=== PATIENT | female | born 1985 | race Caucasian/White ===

== ENCOUNTER 2016-09-13 19:26 | Emergency (ER) | payer OTHER ==
[2016-09-13] MEDS ORDERED: MORPHINE 4 MG/ML 1ML SYRINGE As Ordered ONE (20:15)
[2016-09-13 20:28] LABS: BASO # 0.1 K/mm3 (0.0-0.2); BASO % 0.7 % (0.0-1.0); EOS # 0.2 K/mm3 (0.0-0.50); EOS % 2.1 % (0.0-3.0); LARGE UNSTAINED CELL # 0.2 K/mm3 (0.0-0.4); LARGE UNSTAINED CELL % 1.7 % (0.0-4.0); LYMPH # 1.3 K/mm3 (1.5-4.5); LYMPH % 15.1 % (24.0-44.0); MEAN CORPUSCULAR HEMOGLOBIN 27.3 pg (27.0-33.0); MEAN CORPUSCULAR HGB CONC 33.3 g/dl (32.0-36.5); MEAN CORPUSCULAR VOLUME 81.9 fl (80.0-96.0); MONO # 0.3 K/mm3 (0.0-0.8); MONO % 3.3 % (0.0-5.0); NEUTROPHILS # 6.8 K/mm3 (1.8-7.7); NEUTROPHILS % 77.1 % (36.0-66.0); PLATELET COUNT, AUTOMATED 290 k/mm3 (150-450); WHITE BLOOD COUNT 8.8 K/mm3 (4.0-10.0)
[2016-09-13 20:44] LABS: INR 1.03
[2016-09-13 20:52] LABS: ALBUMIN 3.9 GM/DL (3.2-5.2); ALBUMIN/GLOBULIN RATIO 1.15 (1.00-1.93); ALKALINE PHOSPHATASE 111 U/L (45-117); ALT/SGPT 38 U/L (12-78); ANION GAP 9 MEQ/L (8-16); AST/SGOT 26 U/L (15-37); BILIRUBIN,DIRECT < 0.1 MG/DL (0.0-0.2); BILIRUBIN,TOTAL 0.6 MG/DL (0.2-1.0); BLOOD UREA NITROGEN 16 MG/DL (7-18); CALCIUM LEVEL 8.8 MG/DL (8.5-10.1); CARBON DIOXIDE LEVEL 26 MEQ/L (21-32); CHLORIDE LEVEL 108 MEQ/L (98-107); CREATININE FOR GFR 0.82 MG/DL (0.55-1.02); GLOMERULAR FILTRATION RATE > 60.0 (>60); GLUCOSE, FASTING 114 MG/DL (70-105); POTASSIUM SERUM 4.3 MEQ/L (3.5-5.1); SODIUM LEVEL 143 MEQ/L (136-145); TOTAL PROTEIN 7.3 GM/DL (6.4-8.2)
[2016-09-13] MEDS ORDERED: ISOVUE-370 76% 100ML VIAL (Q9967) As Ordered ONE (21:03)
--- NOTE | 2016-09-13 21:50 | REPUSA ---
CLINICAL HISTORY: Abdominal pain. TECHNIQUE: Multiple axial, sagittal and coronal CT images were obtained through the abdomen and pelvi s after administration of intravenous contrast material. COMMENTS: The liver is of uniform attenuation without mass or defect. There is no intra or extrahepatic biliary ductal dilatation. The spleen is normal. The gallbladder is contracted. The pancreas is of normal c ontour and attenuation characteristics. There is no evidence of adrenal mass. Both kidneys demonstrate prompt and equal nephrograms. The kidneys are normal in size, shape and conf iguration. There is no evidence of renal or ureteral mass. No renal or ureteral calculi are identifie d. There is no hydroureter or hydronephrosis. No evidence for appendicitis. There is thickening noted involving duodenum and jejunum compatible wi th enteritis.. No evidence for small or large bowel obstruction. There is no evidence of abdominal as cites or lymphadenopathy. There is no evidence of intrinsic or extrinsic bladder mass. There is no pelvic ascites or lymphadeno candace. The uterus and ovaries are unremarkable. Images of the lung bases show no evidence of pleural or parenchymal mass. There are no pleural effusi ons. The bony structures are free of lytic or blastic lesions. IMPRESSION: Enteritis. Infectious and inflammatory etiologies are considered. Thank you for your kind referral of this patient.
--- NOTE | 2016-09-13 22:43 | EDDOCDS ---
Physician Documentation [facility] Name: Yanet Chen Age: 31 yrs Sex: Female : 1985 Arrival Date: 09/13/2016 Time: 19:26 Bed I4 / M4 Private MD: Giovani Horne Disposition: 09/13/16 22:16 Discharged to Home/Self Care. Impression: Other hemorrhoids - rectal bleeding, Other viral enteritis. - Condition is Stable. - Discharge Instructions: Hemorrhoids, Gastrointestinal Bleeding, [id number]. - Prescriptions for Prilosec 20 mg Oral Capsule - take 1 capsule by ORAL route once daily; 10 capsule. Ultram 50 mg Oral Tablet - take 1 tablet by ORAL route every 6 hours As needed MDD: 4 tabs; 20 tablet. Anusol- HC 25 mg Rectal Suppository - insert 1 suppository by RECTAL route every 12 hours As needed; 20 suppository. Miralax 17 gram/dose - take 17 gram by ORAL route once daily As needed dilute in 8 ounces of water or juice; 1 bottle. - Medication Reconciliation, Local Pharmacy Hours form. - Follow up: Private Physician; When: Call to arrange an appointment; Reason: Recheck today's complaints. Follow up: Emergency Department; When: As needed; Reason: Worsening of conditions. - Problem is new. - Symptoms are unchanged. Historical: - Allergies: Codeine Sulfate (Vomit); Bees (Anaphylaxis); cherries (Rash); SHELLFISH (Anaphylaxis); - Home Meds: 1. atenolol 25 mg Oral tab 0.5 tab once daily (Last dose: 09/13/2016 10:00) 2. paroxetine HCl 20 mg Oral tab 1 tab once daily (Last dose: 09/13/2016 10:00) 3. Valtrex 500 mg Oral tab 1 tab once daily (Last dose: 09/13/2016 10:00) 4. Probiotic oral Unknown oral (Last dose: 09/13/2016 10:00) - PMHx: Joe's Disease; Herpes; Hypertension; Diverticulosis; - PSHx: Tonsillectomy; Adenoidectomy; - Social history: Smoking status: Patient states former smoker of tobacco. No barriers to communication noted, The patient speaks fluent Thai. - Family history: Not pertinent. - : The pt / caregiver states he / she is not on anticoagulants. Home medication list is obtained from the patient. - Exposure Risk Screening:: None identified. 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 5 in. (165.10 cm) (R); Pain 4/10; 20:40 Pain 2/10; jo3 21:20 BP 115 / 60 LA Supine; Pulse 78; jo3 21:22 BP 124 / 70 LA Sitting; Pulse 77; jo3 21:24 BP 121 / 67 Standing; Pulse 76; jo3 22:30 BP 124 / 60 LA Sitting (auto/reg); Pulse 72 MON; Resp 20 S; Temp 98.1(O); Pulse Ox 98% cln on R/A; Pain 2/10; 19:29 Body Mass Index 41.60 (113.40 kg, 165.10 cm) gr2 MDM: 20:05 IV Saline Lock ordered. ar2 20:05 Orthostatic VS ordered. ar2 20:05 Misc. Nursing Order ordered. ar2 20:05 Undress patient appropriately for examination ordered. ar2 20:05 UCG by Nursing ordered. ar2 20:05 NS 0.9% 1000 ml IV at bolus once ordered. ar2 20:05 morphine 4 mg IVP once ordered. ar2 20:05 CBC with Diff Ordered. EDMS 20:05 MED Profile Ordered. EDMS 20:05 Pt & Aptt Ordered. EDMS 20:05 Liver Profile Ordered. EDMS 20:05 Type & Screen Ordered. EDMS 20:06 CT ABD & PELVIS: IV Contrast Only Ordered. EDMS 20:06 NOTHING BY MOUTH+DIET ordered. EDMS 21:09 CBC with Diff Reviewed. ar2 21:09 MED Profile Reviewed. ar2 21:09 Pt & Aptt Reviewed. ar2 21:09 Liver Profile Reviewed. ar2 21:09 Type & Screen Reviewed. ar2 22:18 CT ABD & PELVIS: IV Contrast Only Reviewed. ar2 Point of Care Testing: Urine : 20:13 hCG Reading: Negative; Control Reading: Positive; jatin Ranges: Administered Medications: 20:16 Drug: morphine 4 mg [morphine 4 mg/mL intravenous cartridge (1 mL)] Route: IVP; Site: jo3 right antecubital; 20:40 Follow up: Pain 10/17 Adult jo3 20:26 Drug: NS 0.9% 1000 ml [sodium chloride 0.9 % intravenous solution] Route: IV; Rate: jo3 bolus; Site: right antecubital; 22:42 Follow up: IV Status: Completed infusion jo3 Signatures: Dispatcher [employer] Marcela GonzalezRN RN jo3 Oliver Hernández PASukhi PASukhi ar2 Sergio Beckwith RN RN jf3 MTDD
--- NOTE | 2016-09-13 22:44 | EDDOCDS ---
Nurse's Notes [facility] Name: Yanet Chen Age: 31 yrs Sex: Female : 1985 Arrival Date: 09/13/2016 Time: 19:26 Bed I4 / M4 Private MD: Giovani Horne Diagnosis: Other hemorrhoids-rectal bleeding;Other viral enteritis Presentation: 09/13 19:39 Presenting complaint: Patient states: "I was dx'd with diverticulosis in [place]. They jf3 gave me medication for it and told me if I have problems to go to the ER". pt seen at [facility] in beginning of June. Pt states she is now having a lot of rectal bleeding and passing clots. Also states feeling dizzy and light headed, "tired and off". Adult Sepsis Screening: The patient does not have new or worsening altered mentation. Patient's respiratory rate is less than 22. Systolic blood pressure is greater than 100. Patient has a qSOFA score of 0- Negative Sepsis Screen. Suicide/Homicide risk assessment- the patient denies having any suicidal and/or homicidal ideations and does not present with any other emotional, behavioral or mental health complaints. Status: Patient is not a tax services professional or dependent. Transition of care: patient was not received from another setting of care. 19:39 Acuity: ALAINA Level 3 jf3 19:39 Method Of Arrival: Walkin/Carried/Asstd jf3 Triage Assessment: 19:45 General: Appears in no apparent distress, comfortable, Behavior is cooperative. Pain: jf3 Location: posterior aspect of left lateral abdomen, anterior aspect of left lateral abdomen, left upper quadrant and left lower quadrant. Pain: Pain currently is 7 out of 10 on a pain scale. Pt Declines HIV testing. The patient is triaged at the bedside. See Assessment in Nurses Notes section of ED record. Respiratory: Airway is patent Respiratory effort is even, unlabored. SHIPPING SUPPORT: 19:45 5, Full Term 2, 3, Living 2, LMP 09/01/2016 jf3 Historical: - Allergies: Codeine Sulfate (Vomit); Bees (Anaphylaxis); cherries (Rash); SHELLFISH (Anaphylaxis); - Home Meds: 1. atenolol 25 mg Oral tab 0.5 tab once daily (Last dose: 09/13/2016 10:00) 2. paroxetine HCl 20 mg Oral tab 1 tab once daily (Last dose: 09/13/2016 10:00) 3. Valtrex 500 mg Oral tab 1 tab once daily (Last dose: 09/13/2016 10:00) 4. Probiotic oral Unknown oral (Last dose: 09/13/2016 10:00) - PMHx: Joe's Disease; Herpes; Hypertension; Diverticulosis; - PSHx: Tonsillectomy; Adenoidectomy; - Social history: Smoking status: Patient states former smoker of tobacco. No barriers to communication noted, The patient speaks fluent Dominican. - Family history: Not pertinent. - : The pt / caregiver states he / she is not on anticoagulants. Home medication list is obtained from the patient. - Exposure Risk Screening:: None identified. Screenin:40 Screening information is obtained from the patient. Fall risk: No risks identified. jo3 Assistance ADL's: requires no assistance with activities of daily living. Abuse/DV Screen: The patient / caregiver reports he/she is: not in a situation that causes fear, pain or injury. Nutritional screening: No deficits noted. Advance Directives: There is no active DNR order. home support is adequate. Assessment: 20:35 General: Appears in no apparent distress, comfortable, Behavior is appropriate for age, jo3 cooperative, pleasant. Neurological: No deficits noted. Level of Consciousness is awake, alert, Oriented to person, place, time. Cardiovascular: No deficits noted. Respiratory: Airway is patent Respiratory effort is even, unlabored. GI: Abdomen is obese, Reports bloody stools lower abdominal pain 7/10. Derm: Skin is pink, warm & dry. 21:12 Reassessment: Patient appears in no apparent distress at this time. Patient states jo3 feeling better. Taken to CT scan at this time. Awaiting results back in room. Aware of plan of care . 22:40 General: Appears in no apparent distress, comfortable, Behavior is appropriate for age, jo3 cooperative, pleasant. Neurological: No deficits noted. Level of Consciousness is awake, alert, Oriented to person, place, time. Respiratory: Airway is patent Respiratory effort is even, unlabored. Derm: Skin is pink, warm & dry. Vital Signs: 19:29 BP 131 / 82; Pulse 79; Resp 18 S; Temp 98.1(O); Pulse Ox 98% on R/A; Weight 113.4 kg; gr2 Height 5 ft. 5 in. (165.10 cm) (R); Pain 4/10; 20:40 Pain 2/10; jo3 21:20 BP 115 / 60 LA Supine; Pulse 78; jo3 21:22 BP 124 / 70 LA Sitting; Pulse 77; jo3 21:24 BP 121 / 67 Standing; Pulse 76; jo3 22:30 BP 124 / 60 LA Sitting (auto/reg); Pulse 72 MON; Resp 20 S; Temp 98.1(O); Pulse Ox 98% cln on R/A; Pain 2/10; 19:29 Body Mass Index 41.60 (113.40 kg, 165.10 cm) gr2 Vitals: 19:29 Log In Time: September 13, 2016 at 19:29. gr2 ED Course: 19:28 Patient visited by Colin Wilson. gr2 19:28 Patient moved to Waiting gr2 19:29 Giovani Horne is Private Physician. gr2 19:33 Patient visited by Colin Wilson. gr2 19:33 Patient moved to Pre RCE gr2 19:42 Triage Initiated jf3 19:48 Patient moved to Triage 2 jf3 19:49 Oliver Hernández PA-C is PHCP. ar2 19:49 Danial Curiel DO is Attending Physician. ar2 19:49 Patient visited by Oliver Hernández PA-C. ar2 20:07 Patient moved to I4 / M4 jf3 20:13 Patient visited by Unique Curry PCA. jatin 20:23 CBC with Diff Sent. kmg1 20:23 MED Profile Sent. kmg1 20:23 Pt & Aptt Sent. kmg1 20:23 Liver Profile Sent. kmg1 20:23 Type & Screen Sent. kmg1 20:27 Patient visited by Marcela Roberts,RAMONA. jo3 20:36 Patient visited by Marcela Roberts,RAMONA. jo3 21:12 Patient visited by Marcela Roberts,RAMONA. jo3 21:33 Patient visited by Marcela Roberts,RAMONA. jo3 22:13 CT ABD & PELVIS: IV Contrast Only Returned. EDMS 22:31 Patient visited by Bowles, Crystal, COGNOS BI DEVELOPER. cln 22:40 The patient / caregiver is instructed regarding the plan of care and ED course. jo3 22:40 Discontinued IV lock intact, bleeding controlled, pressure dressing applied, No jo3 redness/swelling at site. No procedures done that require assistance. Labs drawn. (by ED staff). Sent per order to lab. Administered Medications: 20:16 Drug: morphine 4 mg [morphine 4 mg/mL intravenous cartridge (1 mL)] Route: IVP; Site: jo3 right antecubital; 20:40 Follow up: Pain 10/17 Adult jo3 20:26 Drug: NS 0.9% 1000 ml [sodium chloride 0.9 % intravenous solution] Route: IV; Rate: jo3 bolus; Site: right antecubital; 22:42 Follow up: IV Status: Completed infusion jo3 Point of Care Testing: Urine : 20:13 hCG Reading: Negative; Control Reading: Positive; jatin Ranges: Order Results: Lab Order: CBC with Diff; SPEC'M 09/13/16 20:19 Test: WHITE BLOOD COUNT; Value: 8.8; Range: 4.0-10.0; Units: K/mm3; Status: F Test: RED BLOOD COUNT; Value: 5.24; Range: 4.00-5.40; Units: M/mm3; Status: F Test: HEMOGLOBIN; Value: 14.3; Range: 12.0-16.0; Units: g/dl; Status: F Test: HEMATOCRIT; Value: 42.9; Range: 36.0-47.0; Units: %; Status: F Test: MEAN CORPUSCULAR VOLUME; Value: 81.9; Range: 80.0-96.0; Units: fl; Status: F Test: MEAN CORPUSCULAR HEMOGLOBIN; Value: 27.3; Range: 27.0-33.0; Units: pg; Status: F Test: MEAN CORPUSCULAR HGB CONC; Value: 33.3; Range: 32.0-36.5; Units: g/dl; Status: F Test: RED CELL DISTRIBUTION WIDTH; Value: 13.0; Range: 11.5-14.5; Units: %; Status: F Test: PLATELET COUNT, AUTOMATED; Value: 290; Range: 150-450; Units: k/mm3; Status: F Test: NEUTROPHILS %; Value: 77.1; Range: 36.0-66.0; Abnormal: Above high normal; Units: %; Status: F Test: LYMPH %; Value: 15.1; Range: 24.0-44.0; Abnormal: Below low normal; Units: %; Status: F Test: MONO %; Value: 3.3; Range: 0.0-5.0; Units: %; Status: F Test: EOS %; Value: 2.1; Range: 0.0-3.0; Units: %; Status: F Test: BASO %; Value: 0.7; Range: 0.0-1.0; Units: %; Status: F Test: LARGE UNSTAINED CELL %; Value: 1.7; Range: 0.0-4.0; Units: %; Status: F Test: NEUTROPHILS #; Value: 6.8; Range: 1.8-7.7; Units: K/mm3; Status: F Test: LYMPH #; Value: 1.3; Range: 1.5-4.5; Abnormal: Below low normal; Units: K/mm3; Status: F Test: MONO #; Value: 0.3; Range: 0.0-0.8; Units: K/mm3; Status: F Test: EOS #; Value: 0.2; Range: 0.0-0.50; Units: K/mm3; Status: F Test: BASO #; Value: 0.1; Range: 0.0-0.2; Units: K/mm3; Status: F Test: LARGE UNSTAINED CELL #; Value: 0.2; Range: 0.0-0.4; Units: K/mm3; Status: F Lab Order: MED Profile; [facility]'M 09/13/16 20:19 Test: GLUCOSE, FASTING; Value: 114; Range: 70-105; Abnormal: Above high normal; Units: MG/DL; Status: F Test: BLOOD UREA NITROGEN; Value: 16; Range: 7-18; Units: MG/DL; Status: F Test: CREATININE FOR GFR; Value: 0.82; Range: 0.55-1.02; Units: MG/DL; Status: F Test: GLOMERULAR FILTRATION RATE; Value: > 60.0; Range: >60; Status: F Test: SODIUM LEVEL; Value: 143; Range: 136-145; Units: MEQ/L; Status: F Test: POTASSIUM SERUM; Value: 4.3; Range: 3.5-5.1; Units: MEQ/L; Status: F Test: CHLORIDE LEVEL; Value: 108; Range: 98-107; Abnormal: Above high normal; Units: MEQ/L; Status: F Test: CARBON DIOXIDE LEVEL; Value: 26; Range: 21-32; Units: MEQ/L; Status: F Test: ANION GAP; Value: 9; Range: 8-16; Units: MEQ/L; Status: F Test: CALCIUM LEVEL; Value: 8.8; Range: 8.5-10.1; Units: MG/DL; Status: F Test Note: ; Units are mL/min/1.73 m2 Chronic Kidney Disease Staging per NKF: Stage I & II GFR >=60 Normal to Mildly Decreased Stage III GFR 30-59 Moderately Decreased Stage IV GFR 15-29 Severely Decreased Stage V GFR <15 Very Little GFR Left ESRD GFR <15 on SPRING INTERN Lab Order: Pt & Aptt; SPEC'M 09/13/16 20:19 Test: PROTHROMBIN TIME; Value: 13.6; Range: 12.3-14.5; Units: SECONDS; Status: F Test: INR; Value: 1.03; Status: F Test: PARTIAL THROMBOPLASTIN TIME; Value: 33.5; Range: 26.6-37.1; Units: SECONDS; Status: F Test Note: ; THERAPUTIC HUMAN INR VALUES INDICATIONS NORMAL RANGES PROPHYLAXIS/TREATMENT OF: VENOUS THROMBOSIS 2.0-3.0 PULMONARY EMBOLISM 2.0-3.0 PREVENTION OF SYSTEMIC EMBOLISM FROM: TISSUE HEART VALVES 2.0-3.0 ACUTE MYOCARDIAL INFARCTION 2.0-3.0 VALVULAR HEART DISEASE 2.0-3.0 ATRIAL FIBRILLATION 2.0-3.0 MECHANICAL VALVES(HIGH RISK) 2.5-3.5 RECURRENT MYOCARDIAL INFARCTION 2.5-3.5 Lab Order: Liver Profile; SPEC'M 09/13/16 20:19 Test: AST/SGOT; Value: 26; Range: 15-37; Units: U/L; Status: F Test: ALT/SGPT; Value: 38; Range: 12-78; Units: U/L; Status: F Test: ALKALINE PHOSPHATASE; Value: 111; Range: 45-117; Units: U/L; Status: F Test: BILIRUBIN,TOTAL; Value: 0.6; Range: 0.2-1.0; Units: MG/DL; Status: F Test: BILIRUBIN,DIRECT; Value: < 0.1; Range: 0.0-0.2; Units: MG/DL; Status: F Test: TOTAL PROTEIN; Value: 7.3; Range: 6.4-8.2; Units: GM/DL; Status: F Test: ALBUMIN; Value: 3.9; Range: 3.2-5.2; Units: GM/DL; Status: F Test: ALBUMIN/GLOBULIN RATIO; Value: 1.15; Range: 1.00-1.93; Status: F Lab Order: Type & Screen; SPEC'M 09/13/16 20:19 Test: BLOOD TYPE; Value: O POS; Status: F Test: AB SCREEN (INDIRECT MISHEL)GEL; Value: NEGATIVE; Status: F Radiology Order: CT ABD & PELVIS: IV Contrast Only Test: CT ABD & PELVIS: IV Contrast Only REASON FOR EXAMINATION: Diverticulitis; ; CLINICAL HISTORY: Abdominal pain.; TECHNIQUE: Multiple axial, sagittal and coronal CT images were obtained through the abdomen and pelvi; s after administration of intravenous contrast material.; COMMENTS:; The liver is of uniform attenuation without mass or defect. There is no intra or extrahepatic biliary; ductal dilatation. The spleen is normal. The gallbladder is contracted. The pancreas is of normal c; ontour and attenuation characteristics. There is no evidence of adrenal mass.; Both kidneys demonstrate prompt and equal nephrograms. The kidneys are normal in size, shape and conf; iguration. There is no evidence of renal or ureteral mass. No renal or ureteral calculi are identifie; d. There is no hydroureter or hydronephrosis.; No evidence for appendicitis. There is thickening noted involving duodenum and jejunum compatible wi; th enteritis.. No evidence for small or large bowel obstruction. There is no evidence of abdominal as; cites or lymphadenopathy.; There is no evidence of intrinsic or extrinsic bladder mass. There is no pelvic ascites or lymphadeno; candace. The uterus and ovaries are unremarkable.; Images of the lung bases show no evidence of pleural or parenchymal mass. There are no pleural effusi; ons.; The bony structures are free of lytic or blastic lesions.; IMPRESSION:; Enteritis. Infectious and inflammatory etiologies are considered.; Thank you for your kind referral of this patient.; ; Outcome: 22:16 Discharge ordered by Provider. ar2 22:40 Discharge Assessment: Patient awake, alert and oriented x 3. No cognitive and/or jo3 functional deficits noted. Patient verbalized understanding of disposition instructions. patient administered narcotics - yes. Pt provided with safe discharge. Discharge Assessment: patient administered narcotics -. The following High Risk Discharge criteria are identified: None. Discharged to home ambulatory, with parent. Condition: stable Condition: improved. Discharge instructions given to patient, Instructed on discharge instructions, follow up and referral plans. medication usage, Demonstrated understanding of instructions, medications, Pt was receptive of discharge instructions/ teaching. Prescriptions given X 4. CT Study completed. Property sent home with patient. 22:43 Patient left the ED. jo3 Signatures: Dispatcher [employer] EDMS Sandee Turk, RN RN km Marcela Roberts RN RN jo3 Oliver Hernández, PA-C PA-C ar2 Unique Curry, COGNOS BI DEVELOPER COGNOS BI DEVELOPER jatin Colin Wilson gr2 Sergio Beckwith,RAMONA RN jf3 Nadeen Bowles, COGNOS BI DEVELOPER COGNOS BI DEVELOPER cln Corrections: (The following items were deleted from the chart) 19:49 19:39 Presenting complaint: Patient states: "I was dx'd with diverticulosis in [address] They gave me medication for it and told me if I have problems to go to the ER". Pt states she is now having a lot of rectal bleeding and passing clots. Also states feeling dizzy and light headed, "tired and off" the [facility] MTDD
--- NOTE | 2016-09-16 11:56 | EDDOCDS ---
Physician Documentation [facility] Name: Yanet Chen Age: 31 yrs Sex: Female : 1985 Arrival Date: 09/13/2016 Time: 19:26 Bed I4 / M4 Private MD: Giovani Horne Disposition: 09/13/16 22:16 Discharged to Home/Self Care. Impression: Other hemorrhoids - rectal bleeding, Other viral enteritis. - Condition is Stable. - Discharge Instructions: Hemorrhoids, Gastrointestinal Bleeding, [id number]. - Prescriptions for Prilosec 20 mg Oral Capsule - take 1 capsule by ORAL route once daily; 10 capsule. Ultram 50 mg Oral Tablet - take 1 tablet by ORAL route every 6 hours As needed MDD: 4 tabs; 20 tablet. Anusol- HC 25 mg Rectal Suppository - insert 1 suppository by RECTAL route every 12 hours As needed; 20 suppository. Miralax 17 gram/dose - take 17 gram by ORAL route once daily As needed dilute in 8 ounces of water or juice; 1 bottle. - Medication Reconciliation, Local Pharmacy Hours form. - Follow up: Private Physician; When: Call to arrange an appointment; Reason: Recheck today's complaints. Follow up: Emergency Department; When: As needed; Reason: Worsening of conditions. - Problem is new. - Symptoms are unchanged. Historical: - Allergies: Codeine Sulfate (Vomit); Bees (Anaphylaxis); cherries (Rash); SHELLFISH (Anaphylaxis); - Home Meds: 1. atenolol 25 mg Oral tab 0.5 tab once daily (Last dose: 09/13/2016 10:00) 2. paroxetine HCl 20 mg Oral tab 1 tab once daily (Last dose: 09/13/2016 10:00) 3. Valtrex 500 mg Oral tab 1 tab once daily (Last dose: 09/13/2016 10:00) 4. Probiotic oral Unknown oral (Last dose: 09/13/2016 10:00) - PMHx: Joe's Disease; Herpes; Hypertension; Diverticulosis; - PSHx: Tonsillectomy; Adenoidectomy; - Social history: Smoking status: Patient states former smoker of tobacco. No barriers to communication noted, The patient speaks fluent Turkmen. - Family history: Not pertinent. - : The pt / caregiver states he / she is not on anticoagulants. Home medication list is obtained from the patient. - Exposure Risk Screening:: None identified. 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 5 in. (165.10 cm) (R); Pain 4/10; 20:40 Pain 2/10; jo3 21:20 BP 115 / 60 LA Supine; Pulse 78; jo3 21:22 BP 124 / 70 LA Sitting; Pulse 77; jo3 21:24 BP 121 / 67 Standing; Pulse 76; jo3 22:30 BP 124 / 60 LA Sitting (auto/reg); Pulse 72 MON; Resp 20 S; Temp 98.1(O); Pulse Ox 98% cln on R/A; Pain 2/10; 19:29 Body Mass Index 41.60 (113.40 kg, 165.10 cm) gr2 MDM: 20:05 IV Saline Lock ordered. ar2 20:05 Orthostatic VS ordered. ar2 20:05 Misc. Nursing Order ordered. ar2 20:05 Undress patient appropriately for examination ordered. ar2 20:05 UCG by Nursing ordered. ar2 20:05 NS 0.9% 1000 ml IV at bolus once ordered. ar2 20:05 morphine 4 mg IVP once ordered. ar2 20:05 CBC with Diff Ordered. EDMS 20:05 MED Profile Ordered. EDMS 20:05 Pt & Aptt Ordered. EDMS 20:05 Liver Profile Ordered. EDMS 20:05 Type & Screen Ordered. EDMS 20:06 CT ABD & PELVIS: IV Contrast Only Ordered. EDMS 20:06 NOTHING BY MOUTH+DIET ordered. EDMS 21:09 CBC with Diff Reviewed. ar2 21:09 MED Profile Reviewed. ar2 21:09 Pt & Aptt Reviewed. ar2 21:09 Liver Profile Reviewed. ar2 21:09 Type & Screen Reviewed. ar2 22:18 CT ABD & PELVIS: IV Contrast Only Reviewed. ar2 22:46 Financial registration complete. [email or web address] 22:47 [facility] Payment Agreement was scanned into [employer] and attached to record. [email or web address] 09/14 08:38 T-Sheet-- Draft Copy was scanned into [employer] and attached to record. [facility] 11:21 Radiology Report was scanned into [employer] and attached to record. [facility] Point of Care Testing: Urine : 09/13 20:13 hCG Reading: Negative; Control Reading: Positive; jatin Ranges: Administered Medications: 20:16 Drug: morphine 4 mg [morphine 4 mg/mL intravenous cartridge (1 mL)] Route: IVP; Site: jo3 right antecubital; 20:40 Follow up: Pain 10/17 Adult jo3 20:26 Drug: NS 0.9% 1000 ml [sodium chloride 0.9 % intravenous solution] Route: IV; Rate: jo3 bolus; Site: right antecubital; 22:42 Follow up: IV Status: Completed infusion jo3 Signatures: Dispatcher [employer] EDMS Velia Haynes, Reg Reg gb Marcela Roberts RN RN jo3 Oilver Hernández PA-C PASukhi ar2 Sergio BeckwithRN RN jf3 Cyndy Byrnes, Reg Reg [email or web address] Yanet Puente The chart was reviewed and I authenticate all verbal orders and agree with the evaluation and treatment provided.Attachments: 22:47 [facility] Payment Agreement [email or web address] 09/14 08:38 T-Sheet-- Draft Copy [facility] Chart Complete MTDD
--- NOTE | 2016-09-16 11:56 | EDDOCDS ---
Physician Documentation [facility] Name: Yanet Chen Age: 31 yrs Sex: Female : 1985 Arrival Date: 09/13/2016 Time: 19:26 Bed I4 / M4 Private MD: Giovani Horne Disposition: 09/13/16 22:16 Discharged to Home/Self Care. Impression: Other hemorrhoids - rectal bleeding, Other viral enteritis. - Condition is Stable. - Discharge Instructions: Hemorrhoids, Gastrointestinal Bleeding, [id number]. - Prescriptions for Prilosec 20 mg Oral Capsule - take 1 capsule by ORAL route once daily; 10 capsule. Ultram 50 mg Oral Tablet - take 1 tablet by ORAL route every 6 hours As needed MDD: 4 tabs; 20 tablet. Anusol- HC 25 mg Rectal Suppository - insert 1 suppository by RECTAL route every 12 hours As needed; 20 suppository. Miralax 17 gram/dose - take 17 gram by ORAL route once daily As needed dilute in 8 ounces of water or juice; 1 bottle. - Medication Reconciliation, Local Pharmacy Hours form. - Follow up: Private Physician; When: Call to arrange an appointment; Reason: Recheck today's complaints. Follow up: Emergency Department; When: As needed; Reason: Worsening of conditions. - Problem is new. - Symptoms are unchanged. Historical: - Allergies: Codeine Sulfate (Vomit); Bees (Anaphylaxis); cherries (Rash); SHELLFISH (Anaphylaxis); - Home Meds: 1. atenolol 25 mg Oral tab 0.5 tab once daily (Last dose: 09/13/2016 10:00) 2. paroxetine HCl 20 mg Oral tab 1 tab once daily (Last dose: 09/13/2016 10:00) 3. Valtrex 500 mg Oral tab 1 tab once daily (Last dose: 09/13/2016 10:00) 4. Probiotic oral Unknown oral (Last dose: 09/13/2016 10:00) - PMHx: Joe's Disease; Herpes; Hypertension; Diverticulosis; - PSHx: Tonsillectomy; Adenoidectomy; - Social history: Smoking status: Patient states former smoker of tobacco. No barriers to communication noted, The patient speaks fluent Kyrgyz. - Family history: Not pertinent. - : The pt / caregiver states he / she is not on anticoagulants. Home medication list is obtained from the patient. - Exposure Risk Screening:: None identified. 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 5 in. (165.10 cm) (R); Pain 4/10; 20:40 Pain 2/10; jo3 21:20 BP 115 / 60 LA Supine; Pulse 78; jo3 21:22 BP 124 / 70 LA Sitting; Pulse 77; jo3 21:24 BP 121 / 67 Standing; Pulse 76; jo3 22:30 BP 124 / 60 LA Sitting (auto/reg); Pulse 72 MON; Resp 20 S; Temp 98.1(O); Pulse Ox 98% cln on R/A; Pain 2/10; 19:29 Body Mass Index 41.60 (113.40 kg, 165.10 cm) gr2 MDM: 20:05 IV Saline Lock ordered. ar2 20:05 Orthostatic VS ordered. ar2 20:05 Misc. Nursing Order ordered. ar2 20:05 Undress patient appropriately for examination ordered. ar2 20:05 UCG by Nursing ordered. ar2 20:05 NS 0.9% 1000 ml IV at bolus once ordered. ar2 20:05 morphine 4 mg IVP once ordered. ar2 20:05 CBC with Diff Ordered. EDMS 20:05 MED Profile Ordered. EDMS 20:05 Pt & Aptt Ordered. EDMS 20:05 Liver Profile Ordered. EDMS 20:05 Type & Screen Ordered. EDMS 20:06 CT ABD & PELVIS: IV Contrast Only Ordered. EDMS 20:06 NOTHING BY MOUTH+DIET ordered. EDMS 21:09 CBC with Diff Reviewed. ar2 21:09 MED Profile Reviewed. ar2 21:09 Pt & Aptt Reviewed. ar2 21:09 Liver Profile Reviewed. ar2 21:09 Type & Screen Reviewed. ar2 22:18 CT ABD & PELVIS: IV Contrast Only Reviewed. ar2 22:46 Financial registration complete. [email or web address] 22:47 [facility] Payment Agreement was scanned into [employer] and attached to record. [email or web address] 09/14 08:38 T-Sheet-- Draft Copy was scanned into [employer] and attached to record. [facility] 11:21 Radiology Report was scanned into [employer] and attached to record. [facility] Point of Care Testing: Urine : 09/13 20:13 hCG Reading: Negative; Control Reading: Positive; jatin Ranges: Administered Medications: 20:16 Drug: morphine 4 mg [morphine 4 mg/mL intravenous cartridge (1 mL)] Route: IVP; Site: jo3 right antecubital; 20:40 Follow up: Pain 10/17 Adult jo3 20:26 Drug: NS 0.9% 1000 ml [sodium chloride 0.9 % intravenous solution] Route: IV; Rate: jo3 bolus; Site: right antecubital; 22:42 Follow up: IV Status: Completed infusion jo3 Signatures: Dispatcher [employer] EDMS Velia Haynes, Reg Reg gb Marcela Roebrts RN RN jo3 Oliver Hernández PA-C PASukhi ar2 Sergio BeckwithRN RN jf3 Cyndy Byrnes, Reg Reg ks16 Yanet Puente The chart was reviewed and I authenticate all verbal orders and agree with the evaluation and treatment provided.Attachments: 22:47 [facility] Payment Agreement [email or web address] 09/14 08:38 T-Sheet-- Draft Copy [facility] Chart Complete MTDD
--- NOTE | 2016-09-16 11:56 | EDDOCDS ---
Nurse's Notes [facility] Name: Yanet Chen Age: 31 yrs Sex: Female : 1985 Arrival Date: 09/13/2016 Time: 19:26 Bed I4 / M4 Private MD: Giovani Horne Diagnosis: Other hemorrhoids-rectal bleeding;Other viral enteritis Presentation: 09/13 19:39 Presenting complaint: Patient states: "I was dx'd with diverticulosis in [place]. They jf3 gave me medication for it and told me if I have problems to go to the ER". pt seen at [place] in beginning of June. Pt states she is now having a lot of rectal bleeding and passing clots. Also states feeling dizzy and light headed, "tired and off". Adult Sepsis Screening: The patient does not have new or worsening altered mentation. Patient's respiratory rate is less than 22. Systolic blood pressure is greater than 100. Patient has a qSOFA score of 0- Negative Sepsis Screen. Suicide/Homicide risk assessment- the patient denies having any suicidal and/or homicidal ideations and does not present with any other emotional, behavioral or mental health complaints. 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 Transition of care: patient was not received from another setting of care. 19:39 Acuity: ALAINA Level 3 jf3 19:39 Method Of Arrival: Walkin/Carried/Asstd jf3 Triage Assessment: 19:45 General: Appears in no apparent distress, comfortable, Behavior is cooperative. Pain: jf3 Location: posterior aspect of left lateral abdomen, anterior aspect of left lateral abdomen, left upper quadrant and left lower quadrant. Pain: Pain currently is 7 out of 10 on a pain scale. Pt Declines HIV testing. The patient is triaged at the bedside. See Assessment in Nurses Notes section of ED record. Respiratory: Airway is patent Respiratory effort is even, unlabored. 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 atenolol 25 mg Oral tab 0.5 tab once daily (Last dose: 09/13/2016 10:00) 2. paroxetine HCl 20 mg Oral tab 1 tab once daily (Last dose: 09/13/2016 10:00) 3. Valtrex 500 mg Oral tab 1 tab once daily (Last dose: 09/13/2016 10:00) 4. Probiotic oral Unknown oral (Last dose: 09/13/2016 10:00) - PMHx: Joe's Disease; Herpes; Hypertension; Diverticulosis; - PSHx: Tonsillectomy; Adenoidectomy; - Social history: Smoking status: Patient states former smoker of tobacco. No barriers to communication noted, The patient speaks fluent Malian. - Family history: Not pertinent. - : The pt / caregiver states he / she is not on anticoagulants. Home medication list is obtained from the patient. - Exposure Risk Screening:: None identified. Screenin:40 Screening information is obtained from the patient. Fall risk: No risks identified. jo3 Assistance ADL's: requires no assistance with activities of daily living. Abuse/DV Screen: The patient / caregiver reports he/she is: not in a situation that causes fear, pain or injury. Nutritional screening: No deficits noted. Advance Directives: There is no active DNR order. home support is adequate. Assessment: 20:35 General: Appears in no apparent distress, comfortable, Behavior is appropriate for age, jo3 cooperative, pleasant. Neurological: No deficits noted. Level of Consciousness is awake, alert, Oriented to person, place, time. Cardiovascular: No deficits noted. Respiratory: Airway is patent Respiratory effort is even, unlabored. GI: Abdomen is obese, Reports bloody stools lower abdominal pain 7/10. Derm: Skin is pink, warm & dry. 21:12 Reassessment: Patient appears in no apparent distress at this time. Patient states jo3 feeling better. Taken to CT scan at this time. Awaiting results back in room. Aware of plan of care . 22:40 General: Appears in no apparent distress, comfortable, Behavior is appropriate for age, jo3 cooperative, pleasant. Neurological: No deficits noted. Level of Consciousness is awake, alert, Oriented to person, place, time. Respiratory: Airway is patent Respiratory effort is even, unlabored. Derm: Skin is pink, warm & dry. Vital Signs: 19:29 BP 131 / 82; Pulse 79; Resp 18 S; Temp 98.1(O); Pulse Ox 98% on R/A; Weight 113.4 kg; gr2 Height 5 ft. 5 in. (165.10 cm) (R); Pain 4/10; 20:40 Pain 2/10; jo3 21:20 BP 115 / 60 LA Supine; Pulse 78; jo3 21:22 BP 124 / 70 LA Sitting; Pulse 77; jo3 21:24 BP 121 / 67 Standing; Pulse 76; jo3 22:30 BP 124 / 60 LA Sitting (auto/reg); Pulse 72 MON; Resp 20 S; Temp 98.1(O); Pulse Ox 98% cln on R/A; Pain 2/10; 19:29 Body Mass Index 41.60 (113.40 kg, 165.10 cm) gr2 Vitals: 19:29 Log In Time: September 13, 2016 at 19:29. gr2 ED Course: 19:28 Patient visited by Colin Wilson. gr2 19:28 Patient moved to Waiting gr2 19:29 Giovani Horne is Private Physician. gr2 19:33 Patient visited by Colin Wilson. gr2 19:33 Patient moved to Pre RCE gr2 19:42 Triage Initiated jf3 19:48 Patient moved to Triage 2 jf3 19:49 Oliver Hernández PA-C is PHCP. ar2 19:49 Danial Curiel DO is Attending Physician. ar2 19:49 Patient visited by Oliver Hernández PA-C. ar2 20:07 Patient moved to I4 / M4 jf3 20:13 Patient visited by Unique Curry PCA. jatin 20:23 CBC with Diff Sent. kmg1 20:23 MED Profile Sent. kmg1 20:23 Pt & Aptt Sent. kmg1 20:23 Liver Profile Sent. kmg1 20:23 Type & Screen Sent. kmg1 20:27 Patient visited by Marcela Roberts,RAMONA. jo3 20:36 Patient visited by Marcela Roberts,RAMONA. jo3 21:12 Patient visited by Marcela Roberts,RAMONA. jo3 21:33 Patient visited by Marcela Roberts,RAMONA. jo3 22:13 CT ABD & PELVIS: IV Contrast Only Returned. EDMS 22:31 Patient visited by Bowles, Crystal, TAX ADJUSTER. cln 22:40 The patient / caregiver is instructed regarding the plan of care and ED course. jo3 22:40 Discontinued IV lock intact, bleeding controlled, pressure dressing applied, No jo3 redness/swelling at site. No procedures done that require assistance. Labs drawn. (by ED staff). Sent per order to lab. 22:47 [facility] Payment Agreement was scanned into [employer] and attached to record. [email or web address] 09/14 08:38 T-Sheet-- Draft Copy was scanned into [employer] and attached to record. se 11:21 Radiology Report was scanned into [employer] and attached to record. gb Administered Medications: 09/13 20:16 Drug: morphine 4 mg [morphine 4 mg/mL intravenous cartridge (1 mL)] Route: IVP; Site: jo3 right antecubital; 20:40 Follow up: Pain 10/17 Adult jo3 20:26 Drug: NS 0.9% 1000 ml [sodium chloride 0.9 % intravenous solution] Route: IV; Rate: jo3 bolus; Site: right antecubital; 22:42 Follow up: IV Status: Completed infusion jo3 Point of Care Testing: Urine : 20:13 hCG Reading: Negative; Control Reading: Positive; jatin Ranges: Order Results: Lab Order: CBC with Diff; SPEC'M 09/13/16 20:19 Test: WHITE BLOOD COUNT; Value: 8.8; Range: 4.0-10.0; Units: K/mm3; Status: F Test: RED BLOOD COUNT; Value: 5.24; Range: 4.00-5.40; Units: M/mm3; Status: F Test: HEMOGLOBIN; Value: 14.3; Range: 12.0-16.0; Units: g/dl; Status: F Test: HEMATOCRIT; Value: 42.9; Range: 36.0-47.0; Units: %; Status: F Test: MEAN CORPUSCULAR VOLUME; Value: 81.9; Range: 80.0-96.0; Units: fl; Status: F Test: MEAN CORPUSCULAR HEMOGLOBIN; Value: 27.3; Range: 27.0-33.0; Units: pg; Status: F Test: MEAN CORPUSCULAR HGB CONC; Value: 33.3; Range: 32.0-36.5; Units: g/dl; Status: F Test: RED CELL DISTRIBUTION WIDTH; Value: 13.0; Range: 11.5-14.5; Units: %; Status: F Test: PLATELET COUNT, AUTOMATED; Value: 290; Range: 150-450; Units: k/mm3; Status: F Test: NEUTROPHILS %; Value: 77.1; Range: 36.0-66.0; Abnormal: Above high normal; Units: %; Status: F Test: LYMPH %; Value: 15.1; Range: 24.0-44.0; Abnormal: Below low normal; Units: %; Status: F Test: MONO %; Value: 3.3; Range: 0.0-5.0; Units: %; Status: F Test: EOS %; Value: 2.1; Range: 0.0-3.0; Units: %; Status: F Test: BASO %; Value: 0.7; Range: 0.0-1.0; Units: %; Status: F Test: LARGE UNSTAINED CELL %; Value: 1.7; Range: 0.0-4.0; Units: %; Status: F Test: NEUTROPHILS #; Value: 6.8; Range: 1.8-7.7; Units: K/mm3; Status: F Test: LYMPH #; Value: 1.3; Range: 1.5-4.5; Abnormal: Below low normal; Units: K/mm3; Status: F Test: MONO #; Value: 0.3; Range: 0.0-0.8; Units: K/mm3; Status: F Test: EOS #; Value: 0.2; Range: 0.0-0.50; Units: K/mm3; Status: F Test: BASO #; Value: 0.1; Range: 0.0-0.2; Units: K/mm3; Status: F Test: LARGE UNSTAINED CELL #; Value: 0.2; Range: 0.0-0.4; Units: K/mm3; Status: F Lab Order: MED Profile; SPEC'M 09/13/16 20:19 Test: GLUCOSE, FASTING; Value: 114; Range: 70-105; Abnormal: Above high normal; Units: MG/DL; Status: F Test: BLOOD UREA NITROGEN; Value: 16; Range: 7-18; Units: MG/DL; Status: F Test: CREATININE FOR GFR; Value: 0.82; Range: 0.55-1.02; Units: MG/DL; Status: F Test: GLOMERULAR FILTRATION RATE; Value: > 60.0; Range: >60; Status: F Test: SODIUM LEVEL; Value: 143; Range: 136-145; Units: MEQ/L; Status: F Test: POTASSIUM SERUM; Value: 4.3; Range: 3.5-5.1; Units: MEQ/L; Status: F Test: CHLORIDE LEVEL; Value: 108; Range: 98-107; Abnormal: Above high normal; Units: MEQ/L; Status: F Test: CARBON DIOXIDE LEVEL; Value: 26; Range: 21-32; Units: MEQ/L; Status: F Test: ANION GAP; Value: 9; Range: 8-16; Units: MEQ/L; Status: F Test: CALCIUM LEVEL; Value: 8.8; Range: 8.5-10.1; Units: MG/DL; Status: F Test Note: ; Units are mL/min/1.73 m2 Chronic Kidney Disease Staging per NKF: Stage I & II GFR >=60 Normal to Mildly Decreased Stage III GFR 30-59 Moderately Decreased Stage IV GFR 15-29 Severely Decreased Stage V GFR <15 Very Little GFR Left ESRD GFR <15 on STOCK UNLOADER Lab Order: Pt & Aptt; SPEC'09/13/16 20:19 Test: PROTHROMBIN TIME; Value: 13.6; Range: 12.3-14.5; Units: SECONDS; Status: F Test: INR; Value: 1.03; Status: F Test: PARTIAL THROMBOPLASTIN TIME; Value: 33.5; Range: 26.6-37.1; Units: SECONDS; Status: F Test Note: ; THERAPUTIC HUMAN INR VALUES INDICATIONS NORMAL RANGES PROPHYLAXIS/TREATMENT OF: VENOUS THROMBOSIS 2.0-3.0 PULMONARY EMBOLISM 2.0-3.0 PREVENTION OF SYSTEMIC EMBOLISM FROM: TISSUE HEART VALVES 2.0-3.0 ACUTE MYOCARDIAL INFARCTION 2.0-3.0 VALVULAR HEART DISEASE 2.0-3.0 ATRIAL FIBRILLATION 2.0-3.0 MECHANICAL VALVES(HIGH RISK) 2.5-3.5 RECURRENT MYOCARDIAL INFARCTION 2.5-3.5 Lab Order: Liver Profile; SPEC'09/13/16 20:19 Test: AST/SGOT; Value: 26; Range: 15-37; Units: U/L; Status: F Test: ALT/SGPT; Value: 38; Range: 12-78; Units: U/L; Status: F Test: ALKALINE PHOSPHATASE; Value: 111; Range: 45-117; Units: U/L; Status: F Test: BILIRUBIN,TOTAL; Value: 0.6; Range: 0.2-1.0; Units: MG/DL; Status: F Test: BILIRUBIN,DIRECT; Value: < 0.1; Range: 0.0-0.2; Units: MG/DL; Status: F Test: TOTAL PROTEIN; Value: 7.3; Range: 6.4-8.2; Units: GM/DL; Status: F Test: ALBUMIN; Value: 3.9; Range: 3.2-5.2; Units: GM/DL; Status: F Test: ALBUMIN/GLOBULIN RATIO; Value: 1.15; Range: 1.00-1.93; Status: F Lab Order: Type & Screen; SPEC'M 09/13/16 20:19 Test: BLOOD TYPE; Value: O POS; Status: F Test: AB SCREEN (INDIRECT MISHEL)GEL; Value: NEGATIVE; Status: F Radiology Order: CT ABD & PELVIS: IV Contrast Only Test: CT ABD & PELVIS: IV Contrast Only REASON FOR EXAMINATION: Diverticulitis; ; CLINICAL HISTORY: Abdominal pain.; TECHNIQUE: Multiple axial, sagittal and coronal CT images were obtained through the abdomen and pelvi; s after administration of intravenous contrast material.; COMMENTS:; The liver is of uniform attenuation without mass or defect. There is no intra or extrahepatic biliary; ductal dilatation. The spleen is normal. The gallbladder is contracted. The pancreas is of normal c; ontour and attenuation characteristics. There is no evidence of adrenal mass.; Both kidneys demonstrate prompt and equal nephrograms. The kidneys are normal in size, shape and conf; iguration. There is no evidence of renal or ureteral mass. No renal or ureteral calculi are identifie; d. There is no hydroureter or hydronephrosis.; No evidence for appendicitis. There is thickening noted involving duodenum and jejunum compatible wi; th enteritis.. No evidence for small or large bowel obstruction. There is no evidence of abdominal as; cites or lymphadenopathy.; There is no evidence of intrinsic or extrinsic bladder mass. There is no pelvic ascites or lymphadeno; candace. The uterus and ovaries are unremarkable.; Images of the lung bases show no evidence of pleural or parenchymal mass. There are no pleural effusi; ons.; The bony structures are free of lytic or blastic lesions.; IMPRESSION:; Enteritis. Infectious and inflammatory etiologies are considered.; Thank you for your kind referral of this patient.; ; Outcome: 22:16 Discharge ordered by Provider. ar2 22:40 Discharge Assessment: Patient awake, alert and oriented x 3. No cognitive and/or jo3 functional deficits noted. Patient verbalized understanding of disposition instructions. patient administered narcotics - yes. Pt provided with safe discharge. Discharge Assessment: patient administered narcotics -. The following High Risk Discharge criteria are identified: None. Discharged to home ambulatory, with parent. Condition: stable Condition: improved. Discharge instructions given to patient, Instructed on discharge instructions, follow up and referral plans. medication usage, Demonstrated understanding of instructions, medications, Pt was receptive of discharge instructions/ teaching. Prescriptions given X 4. CT Study completed. Property sent home with patient. 22:43 Patient left the ED. jo3 Signatures: Dispatcher [employer] EDMS Sandee Turk, RN RN kmg1 Velia Haynes, Reg Reg gb Marcela Roberts RN RN jo3 Oliver Hernández, DEBORAH PASukhi ar2 Unique Curry, TAX ADJUSTER TAX ADJUSTER Colin Macias gr2 Sergio Beckwith RN RN jf3 Cyndy Byrnes, Reg Reg ks16 Nadeen Bowles, TAX ADJUSTER TAX ADJUSTER Yanet White Corrections: (The following items were deleted from the chart) 19:49 19:39 Presenting complaint: Patient states: "[place] [address] gave me medication for it and told me if I have problems to go to the ER". Pt states she is now having a lot of rectal bleeding and passing clots. Also states feeling dizzy and light headed, "tired and off" [facility] Chart Complete MTDD
== END 2016-09-13 22:43 | disposition home or self-care (01) ==
LOC: M ED 19:26
DX: K92.2 Gastrointestinal hemorrhage, unspecified (principal); K92.1 Melena; K64.4 Residual hemorrhoidal skin tags; A08.4 Viral intestinal infection, unspecified; I10 Essential (primary) hypertension; K57.90 Diverticulosis of intestine, part unspecified, without perforation or abscess without bleeding; B00.9 Herpesviral infection, unspecified; E06.3 Autoimmune thyroiditis; Z79.899 Other long term (current) drug therapy; Z88.5 Allergy status to narcotic agent; Z91.018 Allergy to other foods; Z91.030 Bee allergy status; Z91.013 Allergy to seafood

== ENCOUNTER 2016-10-13 23:23 | Emergency (ER) | payer OTHER ==
[2016-10-14 00:06] LABS: BASO % 0.3 % (0.0-1.0); EOS # 0.2 K/mm3 (0.0-0.50); EOS % 2.3 % (0.0-3.0); LARGE UNSTAINED CELL # 0.2 K/mm3 (0.0-0.4); LARGE UNSTAINED CELL % 2.6 % (0.0-4.0); LYMPH # 2.4 K/mm3 (1.5-4.5); LYMPH % 26.4 % (24.0-44.0); MEAN CORPUSCULAR HEMOGLOBIN 25.9 pg (27.0-33.0); MEAN CORPUSCULAR HGB CONC 32.5 g/dl (32.0-36.5); MEAN CORPUSCULAR VOLUME 79.8 fl (80.0-96.0); MONO # 0.5 K/mm3 (0.0-0.8); MONO % 5.7 % (0.0-5.0); NEUTROPHILS # 5.8 K/mm3 (1.8-7.7); NEUTROPHILS % 62.7 % (36.0-66.0); PLATELET COUNT, AUTOMATED 284 k/mm3 (150-450); RED CELL DISTRIBUTION WIDTH 13.1 % (11.5-14.5); WHITE BLOOD COUNT 9.2 K/mm3 (4.0-10.0)
[2016-10-14] MEDS ORDERED: READI-CAT 2 As Ordered ONE (00:13)
[2016-10-14 00:16] LABS: CONTROL LINE HCG INT CTR LINE PRESENT
[2016-10-14 00:25] LABS: ALBUMIN 3.9 GM/DL (3.2-5.2); ALBUMIN/GLOBULIN RATIO 1.15 (1.00-1.93); ALKALINE PHOSPHATASE 96 U/L (45-117); ALT/SGPT 42 U/L (12-78); AMYLASE 50 U/L (25-115); ANION GAP 9 MEQ/L (8-16); AST/SGOT 25 U/L (15-37); BILIRUBIN,DIRECT < 0.1 MG/DL (0.0-0.2); BILIRUBIN,TOTAL 0.5 MG/DL (0.2-1.0); BLOOD UREA NITROGEN 13 MG/DL (7-18); CALCIUM LEVEL 9.2 MG/DL (8.5-10.1); CARBON DIOXIDE LEVEL 25 MEQ/L (21-32); CHLORIDE LEVEL 108 MEQ/L (98-107); CREATININE FOR GFR 0.82 MG/DL (0.55-1.02); GLOMERULAR FILTRATION RATE > 60.0 (>60); GLUCOSE, FASTING 114 MG/DL (70-105); POTASSIUM SERUM 3.9 MEQ/L (3.5-5.1); SODIUM LEVEL 142 MEQ/L (136-145); TOTAL PROTEIN 7.3 GM/DL (6.4-8.2)
[2016-10-14] MEDS ORDERED: KETOROLAC 30 MG/ML VIAL (J1885) As Ordered ONE (01:02)
--- NOTE | 2016-10-14 04:20 | REPUSA ---
CLINICAL HISTORY: Abdominal pain. TECHNIQUE: Multiple axial, sagittal and coronal CT images were obtained through the abdomen and pelvi s without administration of IV contrast material. Patient ingested oral contrast. COMMENTS: Colonic diverticulosis. Thickening of the proximal aspect of the sigmoid colon. The liver is of uniform attenuation without mass or defect. There is no intra or extrahepatic biliary ductal dilatation. The spleen is normal. The gallbladder is within normal limits. The pancreas is of normal contour and attenuation characteristics. There is no evidence of adrenal mass. The kidneys are normal in size, shape and configuration. No renal or ureteral calculi are identified. There is no hydroureter or hydronephrosis. There is no evidence for appendicitis. No evidence for small or large bowel obstruction. There is no evidence of abdominal ascites or lymphadenopathy. There is no evidence of intrinsic or extrinsic bladder mass. There is no pelvic ascites or lymphadeno candace. Mildly thickened bladder. Images of the lung bases show no evidence of pleural or parenchymal mass. There are no pleural effusi ons. The bony structures are free of lytic or blastic lesions. Multilevel degenerative changes are seen in volving the thoracolumbar spine. Scattered calcifications are seen involving the aorta and major branches compatible with atherosclero sis. IMPRESSION: Colonic diverticulosis. Mild thickening of the proximal sigmoid colon. Under distention versus mild colitis/diverticulitis. N o perforation or abscess formation. Thank you for your kind referral of this patient.
[2016-10-14] MEDS ORDERED: CIPROFLOXACIN 500 MG TAB As Ordered ONE (05:01)
[2016-10-14] MEDS ORDERED: metroNIDAZOLE (FLAGYL) 500 MG TAB As Ordered ONE (05:01)
--- NOTE | 2016-10-14 05:12 | EDDOCDS ---
Nurse's Notes [facility] Name: Yanet Chen Age: 31 yrs Sex: Female : 1985 Arrival Date: 10/13/2016 Time: 23:23 Bed 8 Private MD: Diagnosis: Left sided colitis Presentation: 10/13 23:27 Presenting complaint: EMS states: abdominal pain, bilateral abdominal pain in upper af2 quadrants, c/o nausea. colonoscopy at 0830 this am, sudden onset of pain 1.5 hours ago. Risk factors: the patient reports no vaginal bleeding. Suicide/Homicide risk assessment- the patient denies having any suicidal and/or homicidal ideations and does not present with any other emotional, behavioral or mental health complaints. 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 Transition of care: patient was not received from another setting of care. 23:27 Acuity: ALAINA Level 3 af2 23:27 Method Of Arrival: Ambulance af2 10/14 05:11 Adult Sepsis Screening: The patient does not have new or worsening altered mentation. af2 Patient's respiratory rate is less than 22. Systolic blood pressure is greater than 100. Patient has a qSOFA score of 0- Negative Sepsis Screen. Triage Assessment: 10/13 23:30 General: Appears uncomfortable, Behavior is cooperative. Pain: Location: abdomen Pain af2 currently is 8 out of 10 on a pain scale. HIV screening NA for this visit Offered previously. The patient is triaged at the bedside. See Assessment in Nurses Notes section of ED record. Neurological: Level of Consciousness is awake, alert, obeys commands. Respiratory: Airway is patent Respiratory effort is even, unlabored. GI: Reports upper abd pain, nausea. Derm: Skin is normal. 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 atenolol 25 mg Oral tab 0.5 tab once daily 2. paroxetine HCl 20 mg Oral tab 1 tab once daily 3. Probiotic oral 4. Valtrex 500 mg Oral tab 1 tab once daily - PMHx: Diverticulosis; Joe's Disease; Herpes; Hypertension; - PSHx: Tonsillectomy; Adenoidectomy; - Social history: Smoking status: Patient states former smoker of tobacco. No barriers to communication noted, The patient speaks fluent Anguillan. - Family history: Not pertinent. - : The pt / caregiver states he / she is not on anticoagulants. Home medication list is obtained from the patient. - Exposure Risk Screening:: None identified. Screenin/07 00:07 Screening information is obtained from the patient. Fall risk: No risks identified. af2 Assistance ADL's: requires no assistance with activities of daily living. Abuse/DV Screen: The patient / caregiver reports he/she is: not in a situation that causes fear, pain or injury. Nutritional screening: No deficits noted. Advance Directives: Currently, there is no health care proxy. home support is adequate. Assessment: 10/13 23:30 General: Appears in no apparent distress, Behavior is cooperative. Neurological: Level af2 of Consciousness is awake, alert. Respiratory: Airway is patent Respiratory effort is even, unlabored. GI: Abdomen is non- distended Bowel sounds present X 4 quads. Abd is tender to palpation X 4 quads. Reports upper abd pain, nausea. Derm: Skin is normal. 10/14 00:30 General: Appears in no apparent distress, Behavior is cooperative. Neurological: Level af2 of Consciousness is awake, alert. Respiratory: Airway is patent Respiratory effort is even, unlabored. GI: Reports upper abd pain, nausea. Derm: Skin is normal. 01:22 General: Appears in no apparent distress, Behavior is cooperative, pt tolerated 1st af2 bottle of contrast.. 02:18 General: Appears in no apparent distress, Behavior is cooperative. Neurological: Level af2 of Consciousness is awake, alert. Respiratory: Airway is patent Respiratory effort is even, unlabored. Derm: Skin is normal. 03:00 General: Appears in no apparent distress, Behavior is cooperative. Neurological: Level af2 of Consciousness is awake, alert. Respiratory: Airway is patent Respiratory effort is even, unlabored. GI: Reports upper abd pain, nausea. Derm: No deficits noted. 04:00 General: Appears in no apparent distress, Behavior is cooperative. Neurological: Level af2 of Consciousness is awake, alert. Respiratory: Airway is patent Respiratory effort is even, unlabored. Derm: Skin is normal. 05:00 General: Appears in no apparent distress, Behavior is cooperative. Neurological: Level af2 of Consciousness is awake, alert. Respiratory: Airway is patent Respiratory effort is even, unlabored. Derm: Skin is normal. Vital Signs: 10/13 23:31 BP 153 / 102 LA Sitting (auto/); Pulse 86; Resp 22 S; Pulse Ox 100% on R/A; Weight af2 122.47 kg (R); Height 5 ft. 5 in. (165.10 cm) (R); Pain 8/10; 23:35 Temp 99.1(O); af2 02 04:48 BP 117 / 76; Pulse 85; Resp 18; Temp 97.4(O); Pulse Ox 98% ; Pain 7/10; jatin 02 23:31 Body Mass Index 44.93 (122.47 kg, 165.10 cm) af2 Vitals: 10/13 23:31 Log In Time N/A - ambulance arrival. af2 ED Course: 23:24 Patient visited by Bee Hernandez PCA. tmm1 23:24 Najma Macias RN is Primary Nurse. tmm1 23:24 Bruce Ramírez DO is Attending Physician. cs11 23:24 Patient visited by Bruce Ramírez DO. cs11 23:24 Patient moved to Waiting tmm1 23:24 Patient moved to 8 tmm1 23:29 Triage Initiated af2 23:34 Patient visited by Najma Macias RN. af2 23:55 [facility] Payment Agreement was scanned into [employer] and attached to record. zo 02 00:05 Patient visited by Najma Macias RN. af2 00:08 The patient / caregiver is instructed regarding the plan of care and ED course. Patient af2 has correct armband on for positive identification. Placed in gown. 00:08 Inserted saline lock: 18 gauge in left antecubital area and blood collected. The af2 patient tolerated the procedure well. 00:09 Patient visited by Najma Macias RN. af2 00:18 Patient visited by Najma Macias RN. af2 00:18 Urine Culture Sent. af2 00:18 Urinalysis Sent. af2 00:52 Patient visited by Najma Macias RN. af2 00:53 Patient visited by Najma Macias RN. af2 01:23 Patient visited by Najma Macias RN. af2 02:19 Patient visited by Najma Macias RN. af2 03:00 Patient visited by Namja Macias RN. af2 03:00 Patient visited by Najma Macias RN. af2 04:03 Patient visited by Easton Kaplan PCA. mdr 04:30 CT ABD & PELVIS: Oral Contrast Only Returned. EDMS 04:49 Patient visited by Unique Curry PCA. jatin 05:11 No procedures done that require assistance. af2 Administered Medications: 00:20 Drug: Barium Sulfate 450 ml [barium sulfate 2.1 % (w/v), 2.0 % (w/w) oral suspension af2 (450 mL)] Route: PO; 01:05 Drug: ketorolac 30 mg [ketorolac 30 mg/mL (1 mL) injection solution (1 mL)] Route: IVP; af2 Site: left antecubital; 05:09 Drug: Ciprofloxacin 500 mg [ciprofloxacin 500 mg tablet (1 tabs)] Route: PO; af2 05:09 Drug: metroNIDAZOLE 500 mg [metronidazole 500 mg tablet (1 tabs)] Route: PO; af2 Order Results: Lab Order: CBC with Diff; SPEC'M 10/13/16 23:45 Test: WHITE BLOOD COUNT; Value: 9.2; Range: 4.0-10.0; Units: K/mm3; Status: F Test: RED BLOOD COUNT; Value: 5.08; Range: 4.00-5.40; Units: M/mm3; Status: F Test: HEMOGLOBIN; Value: 13.2; Range: 12.0-16.0; Units: g/dl; Status: F Test: HEMATOCRIT; Value: 40.5; Range: 36.0-47.0; Units: %; Status: F Test: MEAN CORPUSCULAR VOLUME; Value: 79.8; Range: 80.0-96.0; Abnormal: Below low normal; Units: fl; Status: F Test: MEAN CORPUSCULAR HEMOGLOBIN; Value: 25.9; Range: 27.0-33.0; Abnormal: Below low normal; Units: pg; Status: F Test: MEAN CORPUSCULAR HGB CONC; Value: 32.5; Range: 32.0-36.5; Units: g/dl; Status: F Test: RED CELL DISTRIBUTION WIDTH; Value: 13.1; Range: 11.5-14.5; Units: %; Status: F Test: PLATELET COUNT, AUTOMATED; Value: 284; Range: 150-450; Units: k/mm3; Status: F Test: NEUTROPHILS %; Value: 62.7; Range: 36.0-66.0; Units: %; Status: F Test: LYMPH %; Value: 26.4; Range: 24.0-44.0; Units: %; Status: F Test: MONO %; Value: 5.7; Range: 0.0-5.0; Abnormal: Above high normal; Units: %; Status: F Test: EOS %; Value: 2.3; Range: 0.0-3.0; Units: %; Status: F Test: BASO %; Value: 0.3; Range: 0.0-1.0; Units: %; Status: F Test: LARGE UNSTAINED CELL %; Value: 2.6; Range: 0.0-4.0; Units: %; Status: F Test: NEUTROPHILS #; Value: 5.8; Range: 1.8-7.7; Units: K/mm3; Status: F Test: LYMPH #; Value: 2.4; Range: 1.5-4.5; Units: K/mm3; Status: F Test: MONO #; Value: 0.5; Range: 0.0-0.8; Units: K/mm3; Status: F Test: EOS #; Value: 0.2; Range: 0.0-0.50; Units: K/mm3; Status: F Test: BASO #; Value: 0.0; Range: 0.0-0.2; Units: K/mm3; Status: F Test: LARGE UNSTAINED CELL #; Value: 0.2; Range: 0.0-0.4; Units: K/mm3; Status: F Lab Order: MED Profile; SPEC'M 10/13/16 23:45 Test: GLUCOSE, FASTING; Value: 114; Range: 70-105; Abnormal: Above high normal; Units: MG/DL; Status: F Test: BLOOD UREA NITROGEN; Value: 13; Range: 7-18; Units: MG/DL; Status: F Test: CREATININE FOR GFR; Value: 0.82; Range: 0.55-1.02; Units: MG/DL; Status: F Test: SODIUM LEVEL; Range: 136-145; Units: MEQ/L; Status: I Test: POTASSIUM SERUM; Range: 3.5-5.1; Units: MEQ/L; Status: I Test: CHLORIDE LEVEL; Range: 98-107; Units: MEQ/L; Status: I Test: CARBON DIOXIDE LEVEL; Range: 21-32; Units: MEQ/L; Status: I Test: ANION GAP; Range: 8-16; Units: MEQ/L; Status: I Test: CALCIUM LEVEL; Range: 8.5-10.1; Units: MG/DL; Status: I Test: GLOMERULAR FILTRATION RATE; Value: > 60.0; Range: >60; Status: F Test: SODIUM LEVEL; Value: 142; Range: 136-145; Units: MEQ/L; Status: F Test: POTASSIUM SERUM; Value: 3.9; Range: 3.5-5.1; Units: MEQ/L; Status: F Test: CHLORIDE LEVEL; Value: 108; Range: 98-107; Abnormal: Above high normal; Units: MEQ/L; Status: F Test: CARBON DIOXIDE LEVEL; Value: 25; Range: 21-32; Units: MEQ/L; Status: F Test: ANION GAP; Value: 9; Range: 8-16; Units: MEQ/L; Status: F Test: CALCIUM LEVEL; Value: 9.2; Range: 8.5-10.1; Units: MG/DL; Status: F Test Note: ; Units are mL/min/1.73 m2 Chronic Kidney Disease Staging per NKF: Stage I & II GFR >=60 Normal to Mildly Decreased Stage III GFR 30-59 Moderately Decreased Stage IV GFR 15-29 Severely Decreased Stage V GFR <15 Very Little GFR Left ESRD GFR <15 on RIBBON BLOCKER Lab Order: Liver Profile; SPEC'M 10/13/16 23:45 Test: AST/SGOT; Value: 25; Range: 15-37; Units: U/L; Status: F Test: ALT/SGPT; Value: 42; Range: 12-78; Units: U/L; Status: F Test: ALKALINE PHOSPHATASE; Value: 96; Range: 45-117; Units: U/L; Status: F Test: BILIRUBIN,TOTAL; Value: 0.5; Range: 0.2-1.0; Units: MG/DL; Status: F Test: BILIRUBIN,DIRECT; Value: < 0.1; Range: 0.0-0.2; Units: MG/DL; Status: F Test: TOTAL PROTEIN; Value: 7.3; Range: 6.4-8.2; Units: GM/DL; Status: F Test: ALBUMIN; Value: 3.9; Range: 3.2-5.2; Units: GM/DL; Status: F Test: ALBUMIN/GLOBULIN RATIO; Value: 1.15; Range: 1.00-1.93; Status: F Lab Order: Amylase; [facility] 10/13/16 23:45 Test: AMYLASE; Value: 50; Range: 25-115; Units: U/L; Status: F Lab Order: Lipase; [facility] 10/13/16 23:45 Test: LIPASE; Value: 127; Range: 73-393; Units: U/L; Status: F Lab Order: Urinalysis; [facility] 10/14/16 00:16 Test: APPEARANCE, URINE; Value: CLOUDY; Range: CLEAR; Abnormal: Above high normal; Status: F Test: COLOR, URINE; Value: YELLOW; Range: YELLOW; Status: F Test: PH,URINE; Value: 8.0; Range: 5.0-9.0; Units: UNITS; Status: F Test: SPECIFIC GRAVITY URINE AUTO; Value: 1.018; Range: 1.002-1.035; Status: F Test: PROTEIN, URINE AUTO; Value: NEGATIVE; Range: NEGATIVE; Units: mg/dL; Status: F Test: GLUCOSE, URINE (UA) AUTO; Value: NEGATIVE; Range: NEGATIVE; Units: mg/dL; Status: F Test: KETONE, URINE AUTO; Value: NEGATIVE; Range: NEGATIVE; Units: mg/dL; Status: F Test: UROBILINOGEN, URINE AUTO; Value: 0.2; Range: 0.0-2.0; Units: mg/dL; Status: F Test: BILIRUBIN, URINE AUTO; Value: NEGATIVE; Range: NEGATIVE; Status: F Test: NITRITE, URINE AUTO; Value: NEGATIVE; Range: NEGATIVE; Status: F Test: LEUKOCYTE ESTERASE, URINE AUTO; Value: NEGATIVE; Range: NEGATIVE; Status: F Test: BLOOD, URINE BLOOD; Value: NEGATIVE; Range: NEGATIVE; Status: F Test: WBC, URINE AUTO; Value: 1; Range: 0-3; Units: /HPF; Status: F Test: RBC, URINE AUTO; Value: 2; Range: 0-3; Units: /HPF; Status: F Test: BACTERIA, URINE AUTO; Value: NEGATIVE; Range: NEGATIVE; Status: F Test: SQUAMOUS EPITHELIAL CELL UR AU; Value: 2; Range: 0-6; Units: /HPF; Status: F Test: HYALINE CAST, URINE AUTO; Value: 0; Range: 0-1; Units: /LPF; Status: F Test: AMORPHOUS SEDIMENT; Value: MODERATE; Range: NEGATIVE; Abnormal: Above high normal; Status: F Lab Order: HCG,Serum Qualitative; SPEC'M 10/13/16 23:45 Test: HCG, SERUM QUALITATIVE; Value: NEGATIVE; Range: NEGATIVE; Status: F Radiology Order: CT ABD & PELVIS: Oral Contrast Only Test: CT ABD & PELVIS: Oral Contrast Only REASON FOR EXAMINATION: Diverticulitis; ; CLINICAL HISTORY: Abdominal pain.; TECHNIQUE: Multiple axial, sagittal and coronal CT images were obtained through the abdomen and pelvi; s without administration of IV contrast material. Patient ingested oral contrast.; COMMENTS:; Colonic diverticulosis.; Thickening of the proximal aspect of the sigmoid colon.; The liver is of uniform attenuation without mass or defect. There is no intra or extrahepatic biliary; ductal dilatation. The spleen is normal. The gallbladder is within normal limits. The pancreas is of; normal contour and attenuation characteristics. There is no evidence of adrenal mass.; The kidneys are normal in size, shape and configuration. No renal or ureteral calculi are identified.; There is no hydroureter or hydronephrosis.; There is no evidence for appendicitis. No evidence for small or large bowel obstruction. There is no; evidence of abdominal ascites or lymphadenopathy.; There is no evidence of intrinsic or extrinsic bladder mass. There is no pelvic ascites or lymphadeno; candace. Mildly thickened bladder.; Images of the lung bases show no evidence of pleural or parenchymal mass. There are no pleural effusi; ons.; The bony structures are free of lytic or blastic lesions. Multilevel degenerative changes are seen in; volving the thoracolumbar spine.; Scattered calcifications are seen involving the aorta and major branches compatible with atherosclero; sis.; IMPRESSION:; Colonic diverticulosis.; Mild thickening of the proximal sigmoid colon. Under distention versus mild colitis/diverticulitis. N; o perforation or abscess formation.; Thank you for your kind referral of this patient.; ; Outcome: 04:44 Discharge ordered by Provider. cs11 05:10 Discharge Assessment: Patient awake, alert and oriented x 3. No cognitive and/or af2 functional deficits noted. Patient verbalized understanding of disposition instructions. patient administered narcotics - no. The following High Risk Discharge criteria are identified: None. Discharged to home ambulatory. Condition: stable. Discharge instructions given to patient, Instructed on discharge instructions, follow up and referral plans. Demonstrated understanding of instructions, medications, Pt was receptive of discharge instructions/ teaching. CT Study completed. Property :Personal belongings accompany Pt. 05:11 Patient left the ED. af2 Signatures: Dispatcher [employer] EDMS Marjorie Brink Destiny, MANUFACTURING TEAM MEMBER MANUFACTURING TEAM MEMBER jatin Bruce Ramírez, DO cs11 Bee Hernandez, MANUFACTURING TEAM MEMBER MANUFACTURING TEAM MEMBER tmm1 Najma Macias,RN RN af2 Easton Kaplan, MANUFACTURING TEAM MEMBER MANUFACTURING TEAM MEMBER mdr MTDAndree
--- NOTE | 2016-10-14 05:12 | EDDOCDS ---
Physician Documentation [facility] Name: Yanet Chen Age: 31 yrs Sex: Female : 1985 Arrival Date: 10/13/2016 Time: 23:23 Bed 8 Private MD: Disposition: 10/14/16 04:44 Discharged to Home/Self Care. Impression: Left sided colitis. - Condition is Stable. - Prescriptions for Cipro 500 mg Oral Tablet - take 1 tablet by ORAL route every 12 hours; 14 tablet. Flagyl 500 mg Oral Tablet - take 1 tablet by ORAL route every 12 hours for 7 days; 14 tablet. - Medication Reconciliation, Local Pharmacy Hours form. - Follow up: Private Physician; When: Call to arrange an appointment; Reason: Recheck today's complaints. - Problem is an ongoing problem. - Symptoms have improved. Historical: - Allergies: Bees (Anaphylaxis); cherries (Rash); Codeine Sulfate (Vomit); SHELLFISH (Anaphylaxis); - Home Meds: 1. atenolol 25 mg Oral tab 0.5 tab once daily 2. paroxetine HCl 20 mg Oral tab 1 tab once daily 3. Probiotic oral 4. Valtrex 500 mg Oral tab 1 tab once daily - PMHx: Diverticulosis; Joe's Disease; Herpes; Hypertension; - PSHx: Tonsillectomy; Adenoidectomy; - Social history: Smoking status: Patient states former smoker of tobacco. No barriers to communication noted, The patient speaks fluent Wolof. - Family history: Not pertinent. - : The pt / caregiver states he / she is not on anticoagulants. Home medication list is obtained from the patient. - Exposure Risk Screening:: None identified. 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 5 in. (165.10 cm) (R); Pain 8/10; 23:35 Temp 99.1(O); af2 10/14 04:48 BP 117 / 76; Pulse 85; Resp 18; Temp 97.4(O); Pulse Ox 98% ; Pain 7/10; jatin 0206 23:31 Body Mass Index 44.93 (122.47 kg, 165.10 cm) af2 MDM: 10/13 23:55 Financial registration complete. zo 23:55 [facility] Payment Agreement was scanned into [employer] and attached to record. zo 23:57 CBC with Diff Ordered. EDMS 23:57 MED Profile Ordered. EDMS 23:57 Liver Profile Ordered. EDMS 23:57 Amylase Ordered. EDMS 23:57 Lipase Ordered. EDMS 23:57 Urinalysis Ordered. EDMS 23:57 HCG,Serum Qualitative Ordered. EDMS 23:57 Urine Culture Ordered. EDMS 0207 00:05 CT ABD & PELVIS: Oral Contrast Only Ordered. EDMS 00:20 Barium Sulfate Suspension 450 ml PO once; 1st dose at 0020, 2nd dose at 0120 ordered. af2 00:38 CBC with Diff Reviewed. cs11 00:38 MED Profile Reviewed. cs11 00:38 Liver Profile Reviewed. cs11 00:38 Amylase Reviewed. cs11 00:38 Lipase Reviewed. cs11 00:38 HCG,Serum Qualitative Reviewed. cs11 01:01 ketorolac 30 mg IVP once ordered. cs11 04:41 Urinalysis Reviewed. cs11 04:41 CT ABD & PELVIS: Oral Contrast Only Reviewed. cs11 04:46 Ciprofloxacin 500 mg PO once ordered. cs11 04:46 metroNIDAZOLE 500 mg PO once ordered. cs11 Administered Medications: 00:20 Drug: Barium Sulfate 450 ml [barium sulfate 2.1 % (w/v), 2.0 % (w/w) oral suspension af2 (450 mL)] Route: PO; 01:05 Drug: ketorolac 30 mg [ketorolac 30 mg/mL (1 mL) injection solution (1 mL)] Route: IVP; af2 Site: left antecubital; 05:09 Drug: Ciprofloxacin 500 mg [ciprofloxacin 500 mg tablet (1 tabs)] Route: PO; af2 05:09 Drug: metroNIDAZOLE 500 mg [metronidazole 500 mg tablet (1 tabs)] Route: PO; af2 Signatures: Dispatcher [employer] EDMS Marjorie Brink Craig, DO DO cs11 Najma Macias,RN RN af2 The chart was reviewed and I authenticate all verbal orders and agree with the evaluation and treatment provided.Attachments: 10/13 23:55 [facility] Agreement [facility]
--- NOTE | 2016-10-16 06:13 | EDDOCDS ---
Physician Documentation [facility] Name: Yanet Chen Age: 31 yrs Sex: Female : 1985 Arrival Date: 10/13/2016 Time: 23:23 Bed 8 Private MD: Disposition: 10/14/16 04:44 Discharged to Home/Self Care. Impression: Left sided colitis. - Condition is Stable. - Prescriptions for Cipro 500 mg Oral Tablet - take 1 tablet by ORAL route every 12 hours; 14 tablet. Flagyl 500 mg Oral Tablet - take 1 tablet by ORAL route every 12 hours for 7 days; 14 tablet. - Medication Reconciliation, Local Pharmacy Hours form. - Follow up: Private Physician; When: Call to arrange an appointment; Reason: Recheck today's complaints. - Problem is an ongoing problem. - Symptoms have improved. Historical: - Allergies: Bees (Anaphylaxis); cherries (Rash); Codeine Sulfate (Vomit); SHELLFISH (Anaphylaxis); - Home Meds: 1. atenolol 25 mg Oral tab 0.5 tab once daily 2. paroxetine HCl 20 mg Oral tab 1 tab once daily 3. Probiotic oral 4. Valtrex 500 mg Oral tab 1 tab once daily - PMHx: Diverticulosis; Joe's Disease; Herpes; Hypertension; - PSHx: Tonsillectomy; Adenoidectomy; - Social history: Smoking status: Patient states former smoker of tobacco. No barriers to communication noted, The patient speaks fluent German. - Family history: Not pertinent. - : The pt / caregiver states he / she is not on anticoagulants. Home medication list is obtained from the patient. - Exposure Risk Screening:: None identified. 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 5 in. (165.10 cm) (R); Pain 8/10; 23:35 Temp 99.1(O); af2 10/14 04:48 BP 117 / 76; Pulse 85; Resp 18; Temp 97.4(O); Pulse Ox 98% ; Pain 7/10; jatin 0206 23:31 Body Mass Index 44.93 (122.47 kg, 165.10 cm) af2 MDM: 10/13 23:55 Financial registration complete. zo 23:55 [facility] [place] Agreement was scanned into [employer] and attached to record. zo 23:57 CBC with Diff Ordered. EDMS 23:57 MED Profile Ordered. EDMS 23:57 Liver Profile Ordered. EDMS 23:57 Amylase Ordered. EDMS 23:57 Lipase Ordered. EDMS 23:57 Urinalysis Ordered. EDMS 23:57 HCG,Serum Qualitative Ordered. EDMS 23:57 Urine Culture Ordered. EDMS 0207 00:05 CT ABD & PELVIS: Oral Contrast Only Ordered. EDMS 00:20 Barium Sulfate Suspension 450 ml PO once; 1st dose at 0020, 2nd dose at 0120 ordered. af2 00:38 CBC with Diff Reviewed. cs11 00:38 MED Profile Reviewed. cs11 00:38 Liver Profile Reviewed. cs11 00:38 Amylase Reviewed. cs11 00:38 Lipase Reviewed. cs11 00:38 HCG,Serum Qualitative Reviewed. cs11 01:01 ketorolac 30 mg IVP once ordered. cs11 04:41 Urinalysis Reviewed. cs11 04:41 CT ABD & PELVIS: Oral Contrast Only Reviewed. cs11 04:46 Ciprofloxacin 500 mg PO once ordered. cs11 04:46 metroNIDAZOLE 500 mg PO once ordered. cs11 11:51 T-Sheet-- Draft Copy was scanned into [employer] and attached to record. gb Administered Medications: 00:20 Drug: Barium Sulfate 450 ml [barium sulfate 2.1 % (w/v), 2.0 % (w/w) oral suspension af2 (450 mL)] Route: PO; 01:05 Drug: ketorolac 30 mg [ketorolac 30 mg/mL (1 mL) injection solution (1 mL)] Route: IVP; af2 Site: left antecubital; 05:09 Drug: Ciprofloxacin 500 mg [ciprofloxacin 500 mg tablet (1 tabs)] Route: PO; af2 05:09 Drug: metroNIDAZOLE 500 mg [metronidazole 500 mg tablet (1 tabs)] Route: PO; af2 Signatures: Dispatcher [employer] EDMS Velia Haynes, Oracio Reg gb [place], Bruce Walker DO DO cs11 Najma MaciasRN RN af2 The chart was reviewed and I authenticate all verbal orders and agree with the evaluation and treatment provided.Attachments: 10/13 23:55 [facility] [place] Agreement zo 10/14 11:51 T-Sheet-- Draft Copy gb Chart Complete MTDD
--- NOTE | 2016-10-16 06:13 | EDDOCDS ---
Nurse's Notes [facility] Name: Yanet Chen Age: 31 yrs Sex: Female : 1985 Arrival Date: 10/13/2016 Time: 23:23 Bed 8 Private MD: Diagnosis: Left sided colitis Presentation: 10/13 23:27 Presenting complaint: EMS states: abdominal pain, bilateral abdominal pain in upper af2 quadrants, c/o nausea. colonoscopy at 0830 this am, sudden onset of pain 1.5 hours ago. Risk factors: the patient reports no vaginal bleeding. Suicide/Homicide risk assessment- the patient denies having any suicidal and/or homicidal ideations and does not present with any other emotional, behavioral or mental health complaints. 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 Transition of care: patient was not received from another setting of care. 23:27 Acuity: ALAINA Level 3 af2 23:27 Method Of Arrival: Ambulance af2 10/14 05:11 Adult Sepsis Screening: The patient does not have new or worsening altered mentation. af2 Patient's respiratory rate is less than 22. Systolic blood pressure is greater than 100. Patient has a qSOFA score of 0- Negative Sepsis Screen. Triage Assessment: 10/13 23:30 General: Appears uncomfortable, Behavior is cooperative. Pain: Location: abdomen Pain af2 currently is 8 out of 10 on a pain scale. HIV screening NA for this visit Offered previously. The patient is triaged at the bedside. See Assessment in Nurses Notes section of ED record. Neurological: Level of Consciousness is awake, alert, obeys commands. Respiratory: Airway is patent Respiratory effort is even, unlabored. GI: Reports upper abd pain, nausea. Derm: Skin is normal. COMPOUND MIXER: 23:31 LMP N/A - "doesn't ovulate" af2 Historical: - Allergies: Bees (Anaphylaxis); cherries (Rash); Codeine Sulfate (Vomit); SHELLFISH (Anaphylaxis); - Home Meds: 1. atenolol 25 mg Oral tab 0.5 tab once daily 2. paroxetine HCl 20 mg Oral tab 1 tab once daily 3. Probiotic oral 4. Valtrex 500 mg Oral tab 1 tab once daily - PMHx: Diverticulosis; Joe's Disease; Herpes; Hypertension; - PSHx: Tonsillectomy; Adenoidectomy; - Social history: Smoking status: Patient states former smoker of tobacco. No barriers to communication noted, The patient speaks fluent Palauan. - Family history: Not pertinent. - : The pt / caregiver states he / she is not on anticoagulants. Home medication list is obtained from the patient. - Exposure Risk Screening:: None identified. Screenin/07 00:07 Screening information is obtained from the patient. Fall risk: No risks identified. af2 Assistance ADL's: requires no assistance with activities of daily living. Abuse/DV Screen: The patient / caregiver reports he/she is: not in a situation that causes fear, pain or injury. Nutritional screening: No deficits noted. Advance Directives: Currently, there is no health care proxy. home support is adequate. Assessment: 10/13 23:30 General: Appears in no apparent distress, Behavior is cooperative. Neurological: Level af2 of Consciousness is awake, alert. Respiratory: Airway is patent Respiratory effort is even, unlabored. GI: Abdomen is non- distended Bowel sounds present X 4 quads. Abd is tender to palpation X 4 quads. Reports upper abd pain, nausea. Derm: Skin is normal. 10/14 00:30 General: Appears in no apparent distress, Behavior is cooperative. Neurological: Level af2 of Consciousness is awake, alert. Respiratory: Airway is patent Respiratory effort is even, unlabored. GI: Reports upper abd pain, nausea. Derm: Skin is normal. 01:22 General: Appears in no apparent distress, Behavior is cooperative, pt tolerated 1st af2 bottle of contrast.. 02:18 General: Appears in no apparent distress, Behavior is cooperative. Neurological: Level af2 of Consciousness is awake, alert. Respiratory: Airway is patent Respiratory effort is even, unlabored. Derm: Skin is normal. 03:00 General: Appears in no apparent distress, Behavior is cooperative. Neurological: Level af2 of Consciousness is awake, alert. Respiratory: Airway is patent Respiratory effort is even, unlabored. GI: Reports upper abd pain, nausea. Derm: No deficits noted. 04:00 General: Appears in no apparent distress, Behavior is cooperative. Neurological: Level af2 of Consciousness is awake, alert. Respiratory: Airway is patent Respiratory effort is even, unlabored. Derm: Skin is normal. 05:00 General: Appears in no apparent distress, Behavior is cooperative. Neurological: Level af2 of Consciousness is awake, alert. Respiratory: Airway is patent Respiratory effort is even, unlabored. Derm: Skin is normal. Vital Signs: 10/13 23:31 BP 153 / 102 LA Sitting (auto/); Pulse 86; Resp 22 S; Pulse Ox 100% on R/A; Weight af2 122.47 kg (R); Height 5 ft. 5 in. (165.10 cm) (R); Pain 8/10; 23:35 Temp 99.1(O); af2 02 04:48 BP 117 / 76; Pulse 85; Resp 18; Temp 97.4(O); Pulse Ox 98% ; Pain 7/10; jatin 02 23:31 Body Mass Index 44.93 (122.47 kg, 165.10 cm) af2 Vitals: 10/13 23:31 Log In Time N/A - ambulance arrival. af2 ED Course: 23:24 Patient visited by Bee Hernandez PCA. tmm1 23:24 Najma Macias RN is Primary Nurse. tmm1 23:24 Bruce Ramírez DO is Attending Physician. cs11 23:24 Patient visited by Bruce Ramírez DO. cs11 23:24 Patient moved to Waiting tmm1 23:24 Patient moved to 8 tmm1 23:29 Triage Initiated af2 23:34 Patient visited by Najma Macias RN. af2 23:55 [facility] Payment Agreement was scanned into [employer] and attached to record. zo 02 00:05 Patient visited by Najma Macias RN. af2 00:08 The patient / caregiver is instructed regarding the plan of care and ED course. Patient af2 has correct armband on for positive identification. Placed in gown. 00:08 Inserted saline lock: 18 gauge in left antecubital area and blood collected. The af2 patient tolerated the procedure well. 00:09 Patient visited by Najma Macias RN. af2 00:18 Patient visited by Najma Macias RN. af2 00:18 Urine Culture Sent. af2 00:18 Urinalysis Sent. af2 00:52 Patient visited by Najma Macias RN. af2 00:53 Patient visited by Najma Macias RN. af2 01:23 Patient visited by Najma Macias RN. af2 02:19 Patient visited by Najma Macias RN. af2 03:00 Patient visited by Najma Macias RN. af2 03:00 Patient visited by Najma Macias RN. af2 04:03 Patient visited by Easton Kaplan PCA. mdr 04:30 CT ABD & PELVIS: Oral Contrast Only Returned. EDMS 04:49 Patient visited by Unique Curry PCA. jatin 05:11 No procedures done that require assistance. af2 11:51 T-Sheet-- Draft Copy was scanned into [employer] and attached to record. gb Administered Medications: 00:20 Drug: Barium Sulfate 450 ml [barium sulfate 2.1 % (w/v), 2.0 % (w/w) oral suspension af2 (450 mL)] Route: PO; 01:05 Drug: ketorolac 30 mg [ketorolac 30 mg/mL (1 mL) injection solution (1 mL)] Route: IVP; af2 Site: left antecubital; 05:09 Drug: Ciprofloxacin 500 mg [ciprofloxacin 500 mg tablet (1 tabs)] Route: PO; af2 05:09 Drug: metroNIDAZOLE 500 mg [metronidazole 500 mg tablet (1 tabs)] Route: PO; af2 Order Results: Lab Order: CBC with Diff; SPEC'M 10/13/16 23:45 Test: WHITE BLOOD COUNT; Value: 9.2; Range: 4.0-10.0; Units: K/mm3; Status: F Test: RED BLOOD COUNT; Value: 5.08; Range: 4.00-5.40; Units: M/mm3; Status: F Test: HEMOGLOBIN; Value: 13.2; Range: 12.0-16.0; Units: g/dl; Status: F Test: HEMATOCRIT; Value: 40.5; Range: 36.0-47.0; Units: %; Status: F Test: MEAN CORPUSCULAR VOLUME; Value: 79.8; Range: 80.0-96.0; Abnormal: Below low normal; Units: fl; Status: F Test: MEAN CORPUSCULAR HEMOGLOBIN; Value: 25.9; Range: 27.0-33.0; Abnormal: Below low normal; Units: pg; Status: F Test: MEAN CORPUSCULAR HGB CONC; Value: 32.5; Range: 32.0-36.5; Units: g/dl; Status: F Test: RED CELL DISTRIBUTION WIDTH; Value: 13.1; Range: 11.5-14.5; Units: %; Status: F Test: PLATELET COUNT, AUTOMATED; Value: 284; Range: 150-450; Units: k/mm3; Status: F Test: NEUTROPHILS %; Value: 62.7; Range: 36.0-66.0; Units: %; Status: F Test: LYMPH %; Value: 26.4; Range: 24.0-44.0; Units: %; Status: F Test: MONO %; Value: 5.7; Range: 0.0-5.0; Abnormal: Above high normal; Units: %; Status: F Test: EOS %; Value: 2.3; Range: 0.0-3.0; Units: %; Status: F Test: BASO %; Value: 0.3; Range: 0.0-1.0; Units: %; Status: F Test: LARGE UNSTAINED CELL %; Value: 2.6; Range: 0.0-4.0; Units: %; Status: F Test: NEUTROPHILS #; Value: 5.8; Range: 1.8-7.7; Units: K/mm3; Status: F Test: LYMPH #; Value: 2.4; Range: 1.5-4.5; Units: K/mm3; Status: F Test: MONO #; Value: 0.5; Range: 0.0-0.8; Units: K/mm3; Status: F Test: EOS #; Value: 0.2; Range: 0.0-0.50; Units: K/mm3; Status: F Test: BASO #; Value: 0.0; Range: 0.0-0.2; Units: K/mm3; Status: F Test: LARGE UNSTAINED CELL #; Value: 0.2; Range: 0.0-0.4; Units: K/mm3; Status: F Lab Order: MED Profile; SPEC'M 10/13/16 23:45 Test: GLUCOSE, FASTING; Value: 114; Range: 70-105; Abnormal: Above high normal; Units: MG/DL; Status: F Test: BLOOD UREA NITROGEN; Value: 13; Range: 7-18; Units: MG/DL; Status: F Test: CREATININE FOR GFR; Value: 0.82; Range: 0.55-1.02; Units: MG/DL; Status: F Test: SODIUM LEVEL; Range: 136-145; Units: MEQ/L; Status: I Test: POTASSIUM SERUM; Range: 3.5-5.1; Units: MEQ/L; Status: I Test: CHLORIDE LEVEL; Range: 98-107; Units: MEQ/L; Status: I Test: CARBON DIOXIDE LEVEL; Range: 21-32; Units: MEQ/L; Status: I Test: ANION GAP; Range: 8-16; Units: MEQ/L; Status: I Test: CALCIUM LEVEL; Range: 8.5-10.1; Units: MG/DL; Status: I Test: GLOMERULAR FILTRATION RATE; Value: > 60.0; Range: >60; Status: F Test: SODIUM LEVEL; Value: 142; Range: 136-145; Units: MEQ/L; Status: F Test: POTASSIUM SERUM; Value: 3.9; Range: 3.5-5.1; Units: MEQ/L; Status: F Test: CHLORIDE LEVEL; Value: 108; Range: 98-107; Abnormal: Above high normal; Units: MEQ/L; Status: F Test: CARBON DIOXIDE LEVEL; Value: 25; Range: 21-32; Units: MEQ/L; Status: F Test: ANION GAP; Value: 9; Range: 8-16; Units: MEQ/L; Status: F Test: CALCIUM LEVEL; Value: 9.2; Range: 8.5-10.1; Units: MG/DL; Status: F Test Note: ; Units are mL/min/1.73 m2 Chronic Kidney Disease Staging per NKF: Stage I & II GFR >=60 Normal to Mildly Decreased Stage III GFR 30-59 Moderately Decreased Stage IV GFR 15-29 Severely Decreased Stage V GFR <15 Very Little GFR Left ESRD GFR <15 on UNDERGROUND UTILITY LOCATOR Lab Order: Liver Profile; ELBERT[facility]Koko 10/13/16 23:45 Test: AST/SGOT; Value: 25; Range: 15-37; Units: U/L; Status: F Test: ALT/SGPT; Value: 42; Range: 12-78; Units: U/L; Status: F Test: ALKALINE PHOSPHATASE; Value: 96; Range: 45-117; Units: U/L; Status: F Test: BILIRUBIN,TOTAL; Value: 0.5; Range: 0.2-1.0; Units: MG/DL; Status: F Test: BILIRUBIN,DIRECT; Value: < 0.1; Range: 0.0-0.2; Units: MG/DL; Status: F Test: TOTAL PROTEIN; Value: 7.3; Range: 6.4-8.2; Units: GM/DL; Status: F Test: ALBUMIN; Value: 3.9; Range: 3.2-5.2; Units: GM/DL; Status: F Test: ALBUMIN/GLOBULIN RATIO; Value: 1.15; Range: 1.00-1.93; Status: F Lab Order: Amylase; [facility] 10/13/16 23:45 Test: AMYLASE; Value: 50; Range: 25-115; Units: U/L; Status: F Lab Order: Lipase; [facility] 10/13/16 23:45 Test: LIPASE; Value: 127; Range: 73-393; Units: U/L; Status: F Lab Order: Urinalysis; [facility] 10/14/16 00:16 Test: APPEARANCE, URINE; Value: CLOUDY; Range: CLEAR; Abnormal: Above high normal; Status: F Test: COLOR, URINE; Value: YELLOW; Range: YELLOW; Status: F Test: PH,URINE; Value: 8.0; Range: 5.0-9.0; Units: UNITS; Status: F Test: SPECIFIC GRAVITY URINE AUTO; Value: 1.018; Range: 1.002-1.035; Status: F Test: PROTEIN, URINE AUTO; Value: NEGATIVE; Range: NEGATIVE; Units: mg/dL; Status: F Test: GLUCOSE, URINE (UA) AUTO; Value: NEGATIVE; Range: NEGATIVE; Units: mg/dL; Status: F Test: KETONE, URINE AUTO; Value: NEGATIVE; Range: NEGATIVE; Units: mg/dL; Status: F Test: UROBILINOGEN, URINE AUTO; Value: 0.2; Range: 0.0-2.0; Units: mg/dL; Status: F Test: BILIRUBIN, URINE AUTO; Value: NEGATIVE; Range: NEGATIVE; Status: F Test: NITRITE, URINE AUTO; Value: NEGATIVE; Range: NEGATIVE; Status: F Test: LEUKOCYTE ESTERASE, URINE AUTO; Value: NEGATIVE; Range: NEGATIVE; Status: F Test: BLOOD, URINE BLOOD; Value: NEGATIVE; Range: NEGATIVE; Status: F Test: WBC, URINE AUTO; Value: 1; Range: 0-3; Units: /HPF; Status: F Test: RBC, URINE AUTO; Value: 2; Range: 0-3; Units: /HPF; Status: F Test: BACTERIA, URINE AUTO; Value: NEGATIVE; Range: NEGATIVE; Status: F Test: SQUAMOUS EPITHELIAL CELL UR AU; Value: 2; Range: 0-6; Units: /HPF; Status: F Test: HYALINE CAST, URINE AUTO; Value: 0; Range: 0-1; Units: /LPF; Status: F Test: AMORPHOUS SEDIMENT; Value: MODERATE; Range: NEGATIVE; Abnormal: Above high normal; Status: F Lab Order: Urine Culture; SPEC'M 10/14/16 00:16 Test: URINE CULTURE; Value: <EXTERNAL COMMENT [employer]Med> FULL REPORT IN LAB NOTES (eCW and [employer]).; Status: F Test: URINE CULTURE; Value: URINE CULTURE RESULT SPECIMEN APPEARS CONTAMINATED; Status: F Lab Order: HCG,Serum Qualitative; SPEC'M 10/13/16 23:45 Test: HCG, SERUM QUALITATIVE; Value: NEGATIVE; Range: NEGATIVE; Status: F Radiology Order: CT ABD & PELVIS: Oral Contrast Only Test: CT ABD & PELVIS: Oral Contrast Only REASON FOR EXAMINATION: Diverticulitis; ; CLINICAL HISTORY: Abdominal pain.; TECHNIQUE: Multiple axial, sagittal and coronal CT images were obtained through the abdomen and pelvi; s without administration of IV contrast material. Patient ingested oral contrast.; COMMENTS:; Colonic diverticulosis.; Thickening of the proximal aspect of the sigmoid colon.; The liver is of uniform attenuation without mass or defect. There is no intra or extrahepatic biliary; ductal dilatation. The spleen is normal. The gallbladder is within normal limits. The pancreas is of; normal contour and attenuation characteristics. There is no evidence of adrenal mass.; The kidneys are normal in size, shape and configuration. No renal or ureteral calculi are identified.; There is no hydroureter or hydronephrosis.; There is no evidence for appendicitis. No evidence for small or large bowel obstruction. There is no; evidence of abdominal ascites or lymphadenopathy.; There is no evidence of intrinsic or extrinsic bladder mass. There is no pelvic ascites or lymphadeno; candace. Mildly thickened bladder.; Images of the lung bases show no evidence of pleural or parenchymal mass. There are no pleural effusi; ons.; The bony structures are free of lytic or blastic lesions. Multilevel degenerative changes are seen in; volving the thoracolumbar spine.; Scattered calcifications are seen involving the aorta and major branches compatible with atherosclero; sis.; IMPRESSION:; Colonic diverticulosis.; Mild thickening of the proximal sigmoid colon. Under distention versus mild colitis/diverticulitis. N; o perforation or abscess formation.; Thank you for your kind referral of this patient.; ; Outcome: 04:44 Discharge ordered by Provider. cs11 05:10 Discharge Assessment: Patient awake, alert and oriented x 3. No cognitive and/or af2 functional deficits noted. Patient verbalized understanding of disposition instructions. patient administered narcotics - no. The following High Risk Discharge criteria are identified: None. Discharged to home ambulatory. Condition: stable. Discharge instructions given to patient, Instructed on discharge instructions, follow up and referral plans. Demonstrated understanding of instructions, medications, Pt was receptive of discharge instructions/ teaching. CT Study completed. Property :Personal belongings accompany Pt. 05:11 Patient left the ED. af2 Signatures: Dispatcher [employer] EDMS Velia Haynes, Oracio Reg Marjorie Carrillo Destiny, MERCERIZING RANGE FEEDER MERCERIZING RANGE FEEDER jatin Bruce Ramírez, DO cs11 Bee Hernandez, MERCERIZING RANGE FEEDER MERCERIZING RANGE FEEDER tmm1 Najma Macias,RN RN af2 Easton Kaplan, MERCERIZING RANGE FEEDER MERCERIZING RANGE FEEDER mdr Chart Complete MTDD
--- NOTE | 2016-10-16 06:13 | EDDOCDS ---
Physician Documentation [facility] Name: Yanet Chen Age: 31 yrs Sex: Female : 1985 Arrival Date: 10/13/2016 Time: 23:23 Bed 8 Private MD: Disposition: 10/14/16 04:44 Discharged to Home/Self Care. Impression: Left sided colitis. - Condition is Stable. - Prescriptions for Cipro 500 mg Oral Tablet - take 1 tablet by ORAL route every 12 hours; 14 tablet. Flagyl 500 mg Oral Tablet - take 1 tablet by ORAL route every 12 hours for 7 days; 14 tablet. - Medication Reconciliation, Local Pharmacy Hours form. - Follow up: Private Physician; When: Call to arrange an appointment; Reason: Recheck today's complaints. - Problem is an ongoing problem. - Symptoms have improved. Historical: - Allergies: Bees (Anaphylaxis); cherries (Rash); Codeine Sulfate (Vomit); SHELLFISH (Anaphylaxis); - Home Meds: 1. atenolol 25 mg Oral tab 0.5 tab once daily 2. paroxetine HCl 20 mg Oral tab 1 tab once daily 3. Probiotic oral 4. Valtrex 500 mg Oral tab 1 tab once daily - PMHx: Diverticulosis; Joe's Disease; Herpes; Hypertension; - PSHx: Tonsillectomy; Adenoidectomy; - Social history: Smoking status: Patient states former smoker of tobacco. No barriers to communication noted, The patient speaks fluent Yoruba. - Family history: Not pertinent. - : The pt / caregiver states he / she is not on anticoagulants. Home medication list is obtained from the patient. - Exposure Risk Screening:: None identified. 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 5 in. (165.10 cm) (R); Pain 8/10; 23:35 Temp 99.1(O); af2 10/14 04:48 BP 117 / 76; Pulse 85; Resp 18; Temp 97.4(O); Pulse Ox 98% ; Pain 7/10; jatin 0206 23:31 Body Mass Index 44.93 (122.47 kg, 165.10 cm) af2 MDM: 10/13 23:55 Financial registration complete. zo 23:55 [facility] Payment Agreement was scanned into [employer] and attached to record. zo 23:57 CBC with Diff Ordered. EDMS 23:57 MED Profile Ordered. EDMS 23:57 Liver Profile Ordered. EDMS 23:57 Amylase Ordered. EDMS 23:57 Lipase Ordered. EDMS 23:57 Urinalysis Ordered. EDMS 23:57 HCG,Serum Qualitative Ordered. EDMS 23:57 Urine Culture Ordered. EDMS 0207 00:05 CT ABD & PELVIS: Oral Contrast Only Ordered. EDMS 00:20 Barium Sulfate Suspension 450 ml PO once; 1st dose at 0020, 2nd dose at 0120 ordered. af2 00:38 CBC with Diff Reviewed. cs11 00:38 MED Profile Reviewed. cs11 00:38 Liver Profile Reviewed. cs11 00:38 Amylase Reviewed. cs11 00:38 Lipase Reviewed. cs11 00:38 HCG,Serum Qualitative Reviewed. cs11 01:01 ketorolac 30 mg IVP once ordered. cs11 04:41 Urinalysis Reviewed. cs11 04:41 CT ABD & PELVIS: Oral Contrast Only Reviewed. cs11 04:46 Ciprofloxacin 500 mg PO once ordered. cs11 04:46 metroNIDAZOLE 500 mg PO once ordered. cs11 11:51 T-Sheet-- Draft Copy was scanned into [employer] and attached to record. gb Administered Medications: 00:20 Drug: Barium Sulfate 450 ml [barium sulfate 2.1 % (w/v), 2.0 % (w/w) oral suspension af2 (450 mL)] Route: PO; 01:05 Drug: ketorolac 30 mg [ketorolac 30 mg/mL (1 mL) injection solution (1 mL)] Route: IVP; af2 Site: left antecubital; 05:09 Drug: Ciprofloxacin 500 mg [ciprofloxacin 500 mg tablet (1 tabs)] Route: PO; af2 05:09 Drug: metroNIDAZOLE 500 mg [metronidazole 500 mg tablet (1 tabs)] Route: PO; af2 Signatures: Dispatcher [employer] EDMS Velia Haynes, Oracio Reg gb [place], Bruce Walker DO DO cs11 Najma MaciasRN RN af2 The chart was reviewed and I authenticate all verbal orders and agree with the evaluation and treatment provided.Attachments: 10/13 23:55 [facility] Payment Agreement zo 10/14 11:51 T-Sheet-- Draft Copy gb Chart Complete MTDD
== END 2016-10-14 05:11 | disposition home or self-care (01) ==
LOC: M ED 23:23
DX: K52.89 Other specified noninfective gastroenteritis and colitis (principal); K57.90 Diverticulosis of intestine, part unspecified, without perforation or abscess without bleeding; E06.3 Autoimmune thyroiditis; I10 Essential (primary) hypertension; B00.9 Herpesviral infection, unspecified; Z87.891 Personal history of nicotine dependence; Z79.899 Other long term (current) drug therapy; Z91.030 Bee allergy status; Z91.018 Allergy to other foods; Z91.013 Allergy to seafood; Z88.5 Allergy status to narcotic agent

== ENCOUNTER 2016-11-16 13:43 | Emergency (ER) | payer OTHER ==
[2016-11-16 13:43] VITALS: BP 159/89
[2016-11-16] MEDS ORDERED: ATEN25TA PO (14:18)
[2016-11-16] MEDS ORDERED: MULT1TAB18 PO (14:18)
[2016-11-16] MEDS ORDERED: VALT500T PO (14:18)
[2016-11-16] MEDS ORDERED: PAXI25TA13 PO (14:18)
[2016-11-16] MEDS ORDERED: iron (14:18)
== END 2016-11-16 15:46 | disposition left against medical advice (07) ==
LOC: M ED 15:31
DX: R50.9 Fever, unspecified (principal); R11.0 Nausea; Z53.21 Procedure and treatment not carried out due to patient leaving prior to being seen by health care provider

== ENCOUNTER 2016-12-17 09:49 | Emergency (ER) | payer OTHER ==
[~2016-12-17] VITALS: Ht 162.6 cm; Wt 123.4 kg
[~2016-12-17 09:49] MED LIST: ATEN25TA PO; MULT1TAB18 PO; PAXI25TA13 PO; VALT500T PO; iron
[2016-12-17] MEDS ORDERED: PROBCAP4 PO (09:55)
[2016-12-17] MEDS ORDERED: ISOVUE-370 76% 100ML VIAL (Q9967) As Ordered ONE (10:43)
[2016-12-17 11:26] VITALS: BP 135/85
[2016-12-17] MEDS ORDERED: CIPR500T89 PO (11:26)
[2016-12-17] MEDS ORDERED: METR500T10 PO (11:26)
--- NOTE | 2016-12-17 11:26 | REP ---
CT ABDOMEN AND PELVIS WITH IV CONTRAST: 12/17/2016. Comparison: 10/14/2016, 09/13/2016. Technique: Bolus of 100 ml Isovue 370, scanning through the abdomen and pelvis with coronal and sagittal reconstructions. Clinical history: Abdominal pain, possible diverticulitis. Findings: CT abdomen: Lung bases are clear. The heart is not enlarged. There is no pericardial thickening or effusion. Right lobe of the liver borderline but no gross hepatomegaly, focal hepatic mass or biliary dilatation. No splenomegaly or focal lesion. There is no ascites. Gallbladder is partially contracted with no calcified stone or mass. Stomach shows retained food and fluid. Pancreas is without mass, ductal dilatation or adjacent inflammatory change. Adrenal glands are normal. Kidneys show function without obstruction, stone, mass or perinephric edema. No hydroureter or ureteral stone on either side. Small bowel loops are not abnormally dilated. A few have some minor questionable wall thickening that might reflect some gastroenteritis. No free air or signs of perforation on any image in the abdomen and pelvis reviewed at lung window settings. There is scattered stool and gas in the colon with the cecum showing no inflammatory change adjacent. The right colon, flexures and the transverse colon are without acute finding. There is a scattering of diverticula in the left colon without signs of obstruction or mass. There is some very subtle infiltration of fat in the left colon just above the iliac crest posteriorly around a diverticulum representing some mild diverticulitis there. Bone windows show lumbar and lower thoracic spine, posterior elements and visualized ribs all grossly intact. CT pelvis. The hips, pelvis, sacrum, SI joints and lumbosacral junction are preserved on bone window settings. Distal ureters in the pelvis are without dilatation or stone. Bladder only partially filled but without mass or stone. The distal left colon, sigmoid and rectum show no stricture or mass nor evidence of definite diverticulitis/colitis in those areas. Uterus anteverted, not enlarged. There is no adnexal mass or pelvic free fluid. No ventral or inguinal hernia nor pathologic inguinal adenopathy. Impression: 1. Some very subtle mild left-sided colonic diverticulitis in the mid left colon above the level of the iliac crest. No perforation, abscess, free air or mass. No stricture. 2. No inflammatory changes about the cecum. Small bowel loops without definite acute finding. 3. No other significant or acute finding. Signed by Walter Piper MD 12/17/2016 01:45 P
== END 2016-12-17 11:30 | disposition home or self-care (01) ==
LOC: M ED 10:35
DX: K57.32 Diverticulitis of large intestine without perforation or abscess without bleeding (principal)

== ENCOUNTER 2017-02-04 20:38 | Emergency (ER) | payer OTHER ==
[~2017-02-04] VITALS: Ht 165.1 cm; Wt 122.5 kg
[~2017-02-04 20:38] MED LIST changes: +CIPR500T89 PO; +METR500T10 PO; +PROBCAP4 PO
[2017-02-04] MEDS ORDERED: NS 1,000 ML IV ONE (22:15)
[2017-02-04] MEDS ORDERED: ONDANSETRON 4MG/2ML VIAL (J2405) IV ONE (22:15)
[2017-02-04] MEDS: MORPHINE 2 MG/ML 1ML SYRINGE IV PRN ×3 (22:27→23:43)
[2017-02-04 22:43] LABS: CONTROL LINE UCG INT CTR LINE PRESENT
[2017-02-04 22:45] LABS: BASO % 0.4 % (0.0-1.0); EOS # 0.1 K/mm3 (0.0-0.50); LARGE UNSTAINED CELL # 0.1 K/mm3 (0.0-0.4); LARGE UNSTAINED CELL % 1.1 % (0.0-4.0); LYMPH # 1.7 K/mm3 (1.5-4.5); LYMPH % 14.1 % (24.0-44.0); MEAN CORPUSCULAR HGB CONC 33.8 g/dl (32.0-36.5); MEAN CORPUSCULAR VOLUME 79.9 fl (80.0-96.0); MONO # 0.5 K/mm3 (0.0-0.8); MONO % 4.1 % (0.0-5.0); NEUTROPHILS # 9.2 K/mm3 (1.8-7.7); NEUTROPHILS % 79.2 % (36.0-66.0); PLATELET COUNT, AUTOMATED 301 k/mm3 (150-450); RED CELL DISTRIBUTION WIDTH 13.5 % (11.5-14.5); WHITE BLOOD COUNT 11.7 K/mm3 (4.0-10.0)
[2017-02-04 22:58] LABS: CONTROL LINE HCG INT CTR LINE PRESENT
[2017-02-04 23:06] LABS: ALBUMIN 4.1 GM/DL (3.2-5.2); ALBUMIN/GLOBULIN RATIO 1.14 (1.00-1.93); ALKALINE PHOSPHATASE 94 U/L (45-117); ALT/SGPT 33 U/L (12-78); AMYLASE 59 U/L (25-115); ANION GAP 8 MEQ/L (8-16); AST/SGOT 17 U/L (15-37); BILIRUBIN,DIRECT 0.2 MG/DL (0.0-0.2); BILIRUBIN,TOTAL 0.6 MG/DL (0.2-1.0); BLOOD UREA NITROGEN 18 MG/DL (7-18); CALCIUM LEVEL 8.9 MG/DL (8.5-10.1); CARBON DIOXIDE LEVEL 26 MEQ/L (21-32); CHLORIDE LEVEL 106 MEQ/L (98-107); CREATININE FOR GFR 0.95 MG/DL (0.55-1.02); GLOMERULAR FILTRATION RATE > 60.0 (>60); GLUCOSE, FASTING 116 MG/DL (70-105); POTASSIUM SERUM 3.9 MEQ/L (3.5-5.1); SODIUM LEVEL 140 MEQ/L (136-145); TOTAL PROTEIN 7.7 GM/DL (6.4-8.2)
--- NOTE | 2017-02-04 23:10 | REPUSA ---
Clinical history: Right upper quadrant pain. Findings: The pancreas is limited in visualization secondary to overlying bowel gas, but appears stacey sly unremarkable. The liver demonstrates increased echotexture and echogenicity, with no mass lesion s. The gallbladder is nlarged, with multiple stones appreciated. The gallbladder wall is thickened, m easuring 5 mm in diameter. The common bile duct measures 6 mm and is within normal limits. The right kidney measures 12.2 cm in length, and is unremarkable. There is no ascites. Impression: 1. Cholelithiasis with mild gallbladder wall thickening. The common bile duct is that the upper limit s of normal. No pericholecystic free fluid. The findings are nonspecific, but early acute cholecystit is cannot be excluded.Follow-up is suggested as clinically indicated. 2. Fatty infiltration of the liver.
--- NOTE | 2017-02-04 23:43 | REP ---
Clinical: abdominal pain. Technique: Upright view of the chest with supine and upright views of the abdomen and pelvis. Findings: Frontal upright view of the chest demonstrates no acute cardiopulmonary process or free air below the diaphragm to suspect pneumoperitoneum. Supine and upright views of the abdomen and pelvis demonstrate nonspecific bowel gas pattern without obstruction or perforation. No organomegaly. No abnormal calcifications. Skeletal structures normal for age. Impression: Nonspecific bowel gas pattern. Signed by Osorio Enriquez MD 02/04/2017 11:34 P
[2017-02-05] MEDS ORDERED: ZOFR4TAB3 PO (00:13)
[2017-02-05] MEDS ORDERED: PERC5TAB6 PO (00:13)
[2017-02-05] MEDS ORDERED: OXYCODONE/APAP 5MG/325MG(BULK FOR ED) 1 TABLET PO ONE (00:15)
[2017-02-05] MEDS ORDERED: AUGM875T27 PO (00:16)
[2017-02-05 00:20] VITALS: BP 149/75
== END 2017-02-05 00:30 | disposition home or self-care (01) ==
LOC: M ED 22:22
DX: K80.10 Calculus of gallbladder with chronic cholecystitis without obstruction (principal); E06.3 Autoimmune thyroiditis; Z79.899 Other long term (current) drug therapy; Z88.8 Allergy status to other drugs, medicaments and biological substances; Z91.013 Allergy to seafood; Z91.018 Allergy to other foods; Z91.040 Latex allergy status; F17.210 Nicotine dependence, cigarettes, uncomplicated

== ENCOUNTER 2017-02-23 08:13 | Inpatient (IN) | payer OTHER ==
[~2017-02-23] VITALS: Ht 165.1 cm; Wt 122.6 kg
[~2017-02-23 08:13] MED LIST changes: +AUGM875T27 PO; +PERC5TAB6 PO; +ZOFR4TAB3 PO
[2017-02-23] MEDS ORDERED: ONDANSETRON 4MG/2ML VIAL (J2405) IV ONE (09:00)
[2017-02-23] MEDS ORDERED: NS 500 ML IV ONE (09:00)
[2017-02-23] MEDS: MORPHINE 4 MG/ML 1ML SYRINGE IV PRN ×4 (09:06→13:12)
[2017-02-23 09:37] LABS: BASO % 0.5 % (0.0-1.0); EOS # 0.1 K/mm3 (0.0-0.50); LARGE UNSTAINED CELL # 0.1 K/mm3 (0.0-0.4); LARGE UNSTAINED CELL % 1.1 % (0.0-4.0); LYMPH # 0.7 K/mm3 (1.5-4.5); LYMPH % 7.6 % (24.0-44.0); MEAN CORPUSCULAR HEMOGLOBIN 27.1 pg (27.0-33.0); MEAN CORPUSCULAR HGB CONC 33.9 g/dl (32.0-36.5); MEAN CORPUSCULAR VOLUME 79.7 fl (80.0-96.0); MONO # 0.6 K/mm3 (0.0-0.8); MONO % 6.1 % (0.0-5.0); NEUTROPHILS # 8.1 K/mm3 (1.8-7.7); NEUTROPHILS % 83.6 % (36.0-66.0); PLATELET COUNT, AUTOMATED 267 k/mm3 (150-450); RED CELL DISTRIBUTION WIDTH 13.5 % (11.5-14.5); WHITE BLOOD COUNT 9.7 K/mm3 (4.0-10.0)
[2017-02-23 09:44] LABS: ALBUMIN/GLOBULIN RATIO 1.08 (1.00-1.93); ALKALINE PHOSPHATASE 198 U/L (45-117); ALT/SGPT 600 U/L (12-78); ANION GAP 7 MEQ/L (8-16); AST/SGOT 470 U/L (15-37); BILIRUBIN,DIRECT 3.8 MG/DL (0.0-0.2); BILIRUBIN,TOTAL 6.2 MG/DL (0.2-1.0); BLOOD UREA NITROGEN 11 MG/DL (7-18); CALCIUM LEVEL 9.2 MG/DL (8.5-10.1); CARBON DIOXIDE LEVEL 29 MEQ/L (21-32); CHLORIDE LEVEL 105 MEQ/L (98-107); GLOMERULAR FILTRATION RATE > 60.0 (>60); GLUCOSE, FASTING 125 MG/DL (70-105); POTASSIUM SERUM 3.7 MEQ/L (3.5-5.1); SODIUM LEVEL 141 MEQ/L (136-145); TOTAL PROTEIN 7.7 GM/DL (6.4-8.2)
[2017-02-23] MEDS ORDERED: VALA500T PO (11:03)
[2017-02-23] MEDS ORDERED: MORPHINE 4 MG/ML 1ML SYRINGE IV ONE (11:30)
--- NOTE | 2017-02-23 12:18 | REP ---
REASON: Right upper quadrant pain. Known cholelithiasis. COMPARISON: 02/04/2017 Multiple ultrasonographic images of the gallbladder again show an abnormally thickened gallbladder wall with multiple echogenic foci within the gallbladder lumen casting acoustic shadows. The technologist has indicted a positive sonographic Sky sign during scanning. The common bile duct measures 6 mm, which is mildly dilated. There is no change in the appearance of the hepatic parenchyma. Increased echoes are seen throughout consistent with fatty infiltration. The pancreas was seen in a markedly limited view secondary to the patient's intestinal gas pattern The imaged portion of the right kidney is unchanged. IMPRESSION: There is cholelithiasis with a thickened gallbladder wall but without definite ultrasonographic evidence of pericholecystic edema, but with a positive sonographic Sky sign. Acute cholecystitis cannot be ruled out and needs to be correlated clinically. Other findings as described above. Signed by Wellington Montenegro DO 02/23/2017 03:58 P
[2017-02-23] MEDS ORDERED: NS 1,000 ML IV SCH (12:45)
[2017-02-23] MEDS ORDERED: PRENTAB72 PO (12:58)
[2017-02-23] MEDS ORDERED: PERC5TAB6 PO (12:58)
[2017-02-23] MEDS ORDERED: ACETAMINOPHEN TAB 650MG DOSE (2X325MG) PO PRN (13:45)
[2017-02-23] MEDS ORDERED: PIPERACILLIN/TAZOBACTAM SOD 3.375 GM in D5W MINI-BAG PLUS 50 ML IV SCH (14:00)
[2017-02-23] MEDS: KETOROLAC 30 MG/ML VIAL (J1885) IV PRN (14:59)
[2017-02-23 15:40] VITALS: BP 129/85
[2017-02-23] MEDS: SENOKOT S TAB PO SCH ×2 (16:25→20:49)
[2017-02-23] MEDS: PIPERACILLIN/TAZOBACTAM SOD 3.375 GM in D5W MINI-BAG PLUS 50 ML IV SCH ×2 (16:26→21:17)
[2017-02-23] MEDS: PANTOPRAZOLE 40MG INJ (PROTONIX) (C9113) IV SCH (16:26)
[2017-02-23] MEDS: HEPARIN SOD (PORCINE) 5000 UNITS/ML VIAL SC SCH ×2 (16:26→21:17)
[2017-02-23] MEDS: NORCO, ANEXSIA 5/325MG TABLET (HYDROcodone/ACETAMINOPHEN) PO PRN ×2 (16:45→22:50)
[2017-02-23] MEDS: LR 1,000 ML IV SCH ×2 (17:50→21:18)
[2017-02-23] MEDS: valACYclovir HCL 500 MG TAB PO SCH (17:50)
[2017-02-23] MEDS: PRENATAL VITAMIN TAB PO SCH (17:50)
[2017-02-23 20:00] VITALS: BP 129/71
[2017-02-23] MEDS: ONDANSETRON 4MG/2ML VIAL (J2405) IV PRN (20:39)
[2017-02-23] MEDS: MORPHINE 2 MG/ML 1ML SYRINGE IV PRN (20:40)
--- NOTE | 2017-02-23 21:43 | CR ---
DATE OF CONSULTATION: 02/23/2017 REQUESTING PHYSICIAN: Dr. Jason. REASON FOR CONSULTATION: Gallstone pancreatitis. HISTORY OF PRESENT ILLNESS: Ms. Chen is a 31-year-old female with a long history of chronic abdominal pain with multiple trips to the emergency room, who was in her usual state of health until approximately two days ago, when her abdominal pain significantly worsened from her usual baseline. She is known to have gallstones on previous ultrasounds; however, on this admission she also noted that she has darkened urine, which was seen on her admission lab work. She had a repeat ultrasound performed, which showed a 6 mm common bile duct multiple gallstones and gallbladder wall thickening. In addition, she had a lipase of 40,000. The patient complains of significant epigastric pain associated with nausea, vomiting and some fevers at home. She has noted darkening of her urine for the past 2-3 days. PAST MEDICAL HISTORY: 1. Thyroiditis. 2. Hypertension. 3. Diverticulosis. PAST SURGICAL HISTORY: 1. Tonsillectomy. 2. Adenoidectomy. SOCIAL HISTORY: Former smoker. Negative for alcohol. FAMILY HISTORY: Negative for colorectal carcinoma, inflammatory bowel disease. ALLERGIES: ASPIRIN, DANIEL, LATEX, SHELLFISH. REVIEW OF SYSTEMS: GENERAL: Negative for night sweats. Positive for low grade temperatures and fevers off and on for several months, if not years. She has not had any weight loss. PULMONARY: Negative for hemoptysis, pleuritic-type chest pain. CARDIAC: Negative for orthopnea, paroxysmal nocturnal dyspnea (PND). GASTROINTESTINAL (GI): As per history of present illness (HPI). GENITOURINARY (): Negative for hematuria, dysuria. Positive for darkening of urine for the past three days. MUSCULOSKELETAL: Negative for arthralgias, myalgias. NEUROLOGICAL: Negative for focal numbness or weakness. PHYSICAL EXAMINATION: Temperature is 99.7, maximum temperature (T-max) is 100.4, pulse is 80, respiratory rate is 18, blood pressure 129/85, pulse oximetry 96% on room air. GENERAL: She is in moderate abdominal distress. She is nontoxic in appearance. HEAD, EARS, EYES, NOSE AND THROAT: Notable for scleral icterus. There is no oral thrush. NECK: Supple. No lymphadenopathy. CHEST: Clear bilaterally. HEART: Regular rate and rhythm. S1, S2. No murmurs or gallops. ABDOMEN: Soft, moderately tender in the epigastric area and right upper quadrant area. No rebound tenderness or other peritoneal signs. EXTREMITIES: Negative for edema. LABORATORY FINDINGS: WBC 9.7, hemoglobin 14.6, MCV 79.7, platelet count is 267. BUN 11, creatinine 1.1. Total bilirubin 6.2, direct bilirubin 3.8, AST 470, ALT 600, alkaline phosphatase is 198, albumin is 4.0, lipase 40,695 IMAGING STUDIES: Ultrasound right upper quadrant reveals cholelithiasis with a thickened gallbladder wall but without definite ultrasonic evidence of pericholecystic edema. Positive Sky's sign. Acute cholecystitis cannot be ruled out and needs to be correlated clinically. Common bile duct measures 6 mm, which is mildly dilated. There is no change in the appearance of her hepatic parenchyma. Increased echoes are seen throughout, consistent with fatty infiltration. IMPRESSION: 1. Probable gallstone pancreatitis, biliary colic/choledocholithiasis. Recommendation: Observe overnight for improvement of her amylase, lipase and her bilirubin . If, however, her laboratories remained unchanged or unsatisfactory, I would suggest we proceed with an endoscopic retrograde cholangiopancreatography (ERCP) and plan on placing a common bile duct stent to temporize matters and once her pancreatitis has cooled off, come back for a formal ERCP with sphincterotomy and stone extraction. This can be delayed as a second procedure down the line. They can be done before or after cholecystectomy, which will likely be planned down the line as well. 2. I do note a slight disproportion of her cholestasis on her alkaline phosphatase versus the bilirubin and her transaminases are slightly higher than one would expect. Therefore, to more clearly delineate and evaluate for any and other potential causes of her symptoms, I would recommend we do at least a CT of her abdomen and pelvis.
[2017-02-24] VITALS: BP 129/71
[2017-02-24] MEDS: LR 1,000 ML IV SCH ×7 (04:08→21:19)
[2017-02-24] MEDS: PIPERACILLIN/TAZOBACTAM SOD 3.375 GM in D5W MINI-BAG PLUS 50 ML IV SCH ×4 (04:08→21:19)
[2017-02-24] MEDS: MORPHINE 2 MG/ML 1ML SYRINGE IV PRN (04:09)
[2017-02-24] MEDS: HEPARIN SOD (PORCINE) 5000 UNITS/ML VIAL SC SCH ×3 (05:01→21:19)
[2017-02-24] MEDS: ONDANSETRON 4MG/2ML VIAL (J2405) IV PRN ×2 (06:27→16:29)
[2017-02-24] MEDS ORDERED: GASTROGRAFIN SOLUTION 30ML PO ONE (06:30)
[2017-02-24] MEDS ORDERED: GASTROGRAFIN SOLUTION 30ML (Q9963) PO ONE (07:00)
[2017-02-24 07:01] LABS: MEAN CORPUSCULAR HEMOGLOBIN 27.3 pg (27.0-33.0); MEAN CORPUSCULAR HGB CONC 33.4 g/dl (32.0-36.5); MEAN CORPUSCULAR VOLUME 81.7 fl (80.0-96.0); RED CELL DISTRIBUTION WIDTH 13.8 % (11.5-14.5); WHITE BLOOD COUNT 8.9 K/mm3 (4.0-10.0)
[2017-02-24 07:30] LABS: ALBUMIN 3.4 GM/DL (3.2-5.2); ALBUMIN/GLOBULIN RATIO 1.17 (1.00-1.93); BILIRUBIN,DIRECT 1.5 MG/DL (0.0-0.2); BILIRUBIN,TOTAL 2.7 MG/DL (0.2-1.0); CALCIUM LEVEL 8.4 MG/DL (8.5-10.1); CREATININE FOR GFR 1.21 MG/DL (0.55-1.02); GLOMERULAR FILTRATION RATE 55.3 (>60); MAGNESIUM LEVEL 2.1 MG/DL (1.8-2.4); POTASSIUM SERUM 3.5 MEQ/L (3.5-5.1); TOTAL PROTEIN 6.3 GM/DL (6.4-8.2)
[2017-02-24] MEDS ORDERED: ISOVUE-370 76% 100ML VIAL (Q9967) As Ordered ONE (07:58)
[2017-02-24 08:00] VITALS: BP 107/61
--- NOTE | 2017-02-24 08:51 | REP ---
CT of the abdomen and pelvis with IV and oral contrast: Comparison is 12/17/2016. There is discoid atelectasis in the left lower lobe and the visualized lung don. There are no pleural effusions. The hepatic parenchyma is homogeneous. There is no intrahepatic or extrahepatic biliary duct dilatation. There is no cholelithiasis. The gallbladder is not distended. The pancreatic head is enlarged measuring 4.9 cm AP diameter. There is mild inflammation and fluid collection adjacent to the tail of the pancreas extending along the margin of the left Gerota's fascia and lateroconal fascia compatible with the clinical history of pancreatitis. There is no pseudocyst. The spleen is homogeneous and unremarkable. The adrenals, kidneys and abdominal aorta are unremarkable. There is no bowel distension. The mesentery is otherwise unremarkable. Pelvis: There is trace of ascites in the cul-de-sac. There is no adenopathy. The uterus and adnexa are otherwise unremarkable. There are occasional diverticula in the descending colon and sigmoid colon without evidence for diverticulitis. Impression: There is evidence for pancreatitis at the tail of the pancreas. The head of the pancreas appears enlarged as an interval change. Pancreatic MRI might be considered to evaluate for pancreatic head mass. There is no intrahepatic or extrahepatic biliary duct dilatation. The gallbladder is not abnormally distended. Trace of ascites in the cul-de-sac. Diverticulosis without diverticulitis. Signed by Perico Acuna MD 02/24/2017 08:43 A
[2017-02-24] MEDS: PRENATAL VITAMIN TAB PO SCH (09:45)
[2017-02-24] MEDS: PANTOPRAZOLE 40MG INJ (PROTONIX) (C9113) IV SCH (09:45)
[2017-02-24] MEDS: valACYclovir HCL 500 MG TAB PO SCH (09:45)
[2017-02-24] MEDS: SENOKOT S TAB PO SCH ×2 (09:45→21:20)
[2017-02-24] MEDS: KETOROLAC 30 MG/ML VIAL (J1885) IV PRN ×2 (09:46→16:30)
[2017-02-24 16:00] VITALS: BP 146/81
--- NOTE | 2017-02-24 19:12 | HPE ---
DATE OF ADMISSION: 02/23/2017 CHIEF COMPLAINT: Abdominal pain. HISTORY OF PRESENT ILLNESS: The patient is a 31-year-old female, well known to myself, who is scheduled to have surgery this coming Thursday for gallstones. She has had multiple trips to the emergency room due to this chronic abdominal pain. For the past 2 days she has had increasing abdominal pain, mainly in the epigastric area, radiating to the back. She came into the emergency room due to having some dark urine as well as some yellowing of her skin. In the ER she had a repeat ultrasound that showed multiple gallbladder stones as well as gallbladder wall thickening. She also had an elevated lipase of 40,000, elevated liver function tests (LFTs) and bilirubin levels as well. Therefore, I was called to evaluate. She has been having these severe pains for the past 2 days. They have been not getting any improvement. She has had nausea, vomiting. No fevers. No problems with bowel movements or urination. PAST MEDICAL HISTORY: 1. Thyroiditis. 2. Hypertension. 3. Diverticulosis. PAST SURGICAL HISTORY: Tonsils and adenoids. SOCIAL HISTORY: Denies any drug, alcohol, tobacco abuse. FAMILY HISTORY: Noncontributory. ALLERGIES: ASPIRIN, latex, and shellfish. HOME MEDICATIONS: Please see medication reconciliation. REVIEW OF SYSTEMS: Pertinent positives and negatives stated in the history of present illness (HPI). PHYSICAL EXAMINATION: GENERAL: Alert and oriented times three. No acute distress. VITAL SIGNS: Temperature 96.6, pulse 75, respirations 18, blood pressure 151/81, pulse oximetry 98% on room. HEENT: Pupils equally round and reactive to light and accommodation. HEART: S1, S2, regular rate and rhythm. LUNGS: Clear to auscultation bilaterally. ABDOMEN: Soft, tender to palpation in the epigastric. Localized guarding. No rebounding or rigidity. Bowel sounds positive. EXTREMITIES: No clubbing, cyanosis, or edema LABORATORY DATA: White count 9.7, hemoglobin 13.6, platelets 267. Creatinine 1.1, fasting glucose of 125. Total bilirubin 6.2, direct bilirubin 3.8. Lipase 40,695 IMAGING STUDIES: Gallbladder ultrasound shows cholelithiasis with thickened gallbladder wall up to 5 mm. There is also a bile duct dilation at 6 mm. ASSESSMENT AND PLAN: The patient is a 31-year-old female with gallstone pancreatitis. Recommendation at this time is to admit her, keep her on intravenous (IV) fluids, nothing by mouth, antibiotics. We will consult gastrointestinal (GI) for evaluation for possible endoscopic retrograde cholangiopancreatography (ERCP) if she does not pass the stone on her own. Dr. Qiu has already been notified by the emergency room physician. At this point will keep her overnight, repeat her labs in the morning, and plan on further action from there. Will plan on doing the laparoscopic cholecystectomy prior to her discharge from the hospital during this visit.
[2017-02-24 20:00] VITALS: BP 124/66
[2017-02-25] VITALS: BP 114/62
[2017-02-25] MEDS: PIPERACILLIN/TAZOBACTAM SOD 3.375 GM in D5W MINI-BAG PLUS 50 ML IV SCH ×4 (04:38→23:02)
[2017-02-25] MEDS: LR 1,000 ML IV SCH ×6 (04:38→23:02)
[2017-02-25] MEDS: HEPARIN SOD (PORCINE) 5000 UNITS/ML VIAL SC SCH ×3 (05:39→20:20)
[2017-02-25 06:49] LABS: MEAN CORPUSCULAR VOLUME 81.7 fl (80.0-96.0); RED CELL DISTRIBUTION WIDTH 13.5 % (11.5-14.5); WHITE BLOOD COUNT 8.6 K/mm3 (4.0-10.0)
[2017-02-25 08:00] VITALS: BP 126/71
[2017-02-25 08:22] LABS: ALBUMIN/GLOBULIN RATIO 0.86 (1.00-1.93); ALKALINE PHOSPHATASE 151 U/L (45-117); ALT/SGPT 287 U/L (12-78); ANION GAP 8 MEQ/L (8-16); AST/SGOT 109 U/L (15-37); BILIRUBIN,TOTAL 1.6 MG/DL (0.2-1.0); BLOOD UREA NITROGEN 11 MG/DL (7-18); CALCIUM LEVEL 8.4 MG/DL (8.5-10.1); CARBON DIOXIDE LEVEL 26 MEQ/L (21-32); CHLORIDE LEVEL 105 MEQ/L (98-107); CREATININE FOR GFR 0.77 MG/DL (0.55-1.02); GLOMERULAR FILTRATION RATE > 60.0 (>60); GLUCOSE, FASTING 82 MG/DL (70-105); POTASSIUM SERUM 3.1 MEQ/L (3.5-5.1); SODIUM LEVEL 139 MEQ/L (136-145); TOTAL PROTEIN 6.5 GM/DL (6.4-8.2)
[2017-02-25 08:59] LABS: BILIRUBIN,DIRECT 0.6 MG/DL (0.0-0.2)
[2017-02-25] MEDS: PRENATAL VITAMIN TAB PO SCH (09:05)
[2017-02-25] MEDS: PANTOPRAZOLE 40MG INJ (PROTONIX) (C9113) IV SCH (09:05)
[2017-02-25] MEDS: SENOKOT S TAB PO SCH ×2 (09:06→20:21)
[2017-02-25] MEDS: valACYclovir HCL 500 MG TAB PO SCH (09:06)
--- NOTE | 2017-02-25 13:46 | REP ---
MRI PANCREAS WITH AND WITHOUT CONTRAST: TECHNIQUE: Multiple sequences obtained in the axial and coronal planes pre- and post-administration of 23 mL of gadolinium. COMPARISON: CT abdomen and pelvis, 02/24/2017. Pancreas demonstrates no evidence of a mass. There is no pancreat duct dilatation. There is ill-defined, high signal edema surrounding the pancreas predominantly in the region of the pancreatic tail, compatible with pancreatitis. No significant free fluid or fluid collection is seen. Gallbladder demonstrates at least one subcentimeter stone in the region of the neck of the gallbladder. There does appear to be diffuse gallbladder wall thickening. No other significant abnormality is seen in the visualized abdomen. IMPRESSION: Findings compatible with pancreatitis. No evidence of pancreatic mass. No evidence of significant biliary dilatation. No pancreatic duct dilatation. The gallbladder demonstrates at least one subcentimeter stone in the region of the neck of the gallbladder, and there is diffuse gallbladder wall thickening. No significant free fluid or fluid collection and no evidence of pseudocyst. Signed by Perico Starr MD 02/26/2017 05:10 P
[2017-02-25 16:00] VITALS: BP 130/77
[2017-02-25 20:00] VITALS: BP 142/68
[2017-02-25] MEDS: NORCO, ANEXSIA 5/325MG TABLET (HYDROcodone/ACETAMINOPHEN) PO PRN (21:27)
[2017-02-26] VITALS (8 sets, daily range): BP systolic 120–143; BP diastolic 67–95
[2017-02-26] MEDS: PIPERACILLIN/TAZOBACTAM SOD 3.375 GM in D5W MINI-BAG PLUS 50 ML IV SCH ×4 (04:21→21:44)
[2017-02-26] MEDS: HEPARIN SOD (PORCINE) 5000 UNITS/ML VIAL SC SCH ×3 (05:50→20:46)
[2017-02-26] MEDS: LR 1,000 ML IV SCH ×3 (06:23→23:09)
[2017-02-26 07:23] LABS: MEAN CORPUSCULAR HGB CONC 33.4 g/dl (32.0-36.5); MEAN CORPUSCULAR VOLUME 80.8 fl (80.0-96.0); RED CELL DISTRIBUTION WIDTH 13.6 % (11.5-14.5); WHITE BLOOD COUNT 6.3 K/mm3 (4.0-10.0)
[2017-02-26 07:37] LABS: ALBUMIN 2.9 GM/DL (3.2-5.2); ALBUMIN/GLOBULIN RATIO 0.78 (1.00-1.93); ALKALINE PHOSPHATASE 138 U/L (45-117); ALT/SGPT 220 U/L (12-78); ANION GAP 8 MEQ/L (8-16); AST/SGOT 73 U/L (15-37); BILIRUBIN,TOTAL 1.3 MG/DL (0.2-1.0); BLOOD UREA NITROGEN 8 MG/DL (7-18); CALCIUM LEVEL 8.1 MG/DL (8.5-10.1); CARBON DIOXIDE LEVEL 26 MEQ/L (21-32); CHLORIDE LEVEL 107 MEQ/L (98-107); CREATININE FOR GFR 0.78 MG/DL (0.55-1.02); GLOMERULAR FILTRATION RATE > 60.0 (>60); GLUCOSE, FASTING 76 MG/DL (70-105); MAGNESIUM LEVEL 1.7 MG/DL (1.8-2.4); POTASSIUM SERUM 3.4 MEQ/L (3.5-5.1); SODIUM LEVEL 141 MEQ/L (136-145); TOTAL PROTEIN 6.6 GM/DL (6.4-8.2)
[2017-02-26] MEDS: SENOKOT S TAB PO SCH ×2 (09:00→20:45)
[2017-02-26] MEDS: PRENATAL VITAMIN TAB PO SCH (09:04)
[2017-02-26] MEDS: valACYclovir HCL 500 MG TAB PO SCH (09:04)
[2017-02-26] MEDS: PANTOPRAZOLE 40MG INJ (PROTONIX) (C9113) IV SCH (09:04)
[2017-02-26] MEDS: fentaNYL 100 MCG/2 ML INJECTION (J3010) IV PRN ×4 (18:55→19:21)
[2017-02-26] MEDS ORDERED: METOCLOPRAMIDE INJ 10MG/2ML VIAL (J2765) IV PRN (19:00)
[2017-02-26] MEDS ORDERED: LR 1,000 ML IV SCH (19:00)
[2017-02-26] MEDS ORDERED: MORPHINE 2 MG/ML 1ML SYRINGE IV PRN (19:00)
[2017-02-26] MEDS ORDERED: PERCOCET 5MG/325MG TAB PO PRN (19:00)
[2017-02-26] MEDS ORDERED: ONDANSETRON 4MG/2ML VIAL (J2405) IV PRN (19:00)
[2017-02-26] MEDS: KETOROLAC 30 MG/ML VIAL (J1885) IV PRN (20:46)
[2017-02-26] MEDS: MORPHINE 2 MG/ML 1ML SYRINGE IV PRN (21:44)
[2017-02-27 00:30] VITALS: BP 119/67
[2017-02-27] MEDS: PIPERACILLIN/TAZOBACTAM SOD 3.375 GM in D5W MINI-BAG PLUS 50 ML IV SCH (02:33)
[2017-02-27] MEDS: MORPHINE 2 MG/ML 1ML SYRINGE IV PRN (02:33)
[2017-02-27 04:00] VITALS: BP 109/62
[2017-02-27] MEDS: HEPARIN SOD (PORCINE) 5000 UNITS/ML VIAL SC SCH (05:29)
[2017-02-27] MEDS: NORCO, ANEXSIA 5/325MG TABLET (HYDROcodone/ACETAMINOPHEN) PO PRN (05:30)
[2017-02-27] MEDS: ONDANSETRON 4MG/2ML VIAL (J2405) IV PRN (05:33)
[2017-02-27] MEDS: LR 1,000 ML IV SCH (05:39)
[2017-02-27 07:42] LABS: MEAN CORPUSCULAR HEMOGLOBIN 27.1 pg (27.0-33.0); MEAN CORPUSCULAR HGB CONC 34.1 g/dl (32.0-36.5); MEAN CORPUSCULAR VOLUME 79.6 fl (80.0-96.0); RED CELL DISTRIBUTION WIDTH 13.4 % (11.5-14.5); WHITE BLOOD COUNT 6.7 K/mm3 (4.0-10.0)
[2017-02-27 08:00] VITALS: BP 130/75
[2017-02-27 08:05] LABS: ALKALINE PHOSPHATASE 136 U/L (45-117); ALT/SGPT 185 U/L (12-78); ANION GAP 7 MEQ/L (8-16); AST/SGOT 71 U/L (15-37); BILIRUBIN,TOTAL 0.8 MG/DL (0.2-1.0); BLOOD UREA NITROGEN 6 MG/DL (7-18); CARBON DIOXIDE LEVEL 27 MEQ/L (21-32); CHLORIDE LEVEL 104 MEQ/L (98-107); CREATININE FOR GFR 0.74 MG/DL (0.55-1.02); GLOMERULAR FILTRATION RATE > 60.0 (>60); GLUCOSE, FASTING 142 MG/DL (70-105); MAGNESIUM LEVEL 1.7 MG/DL (1.8-2.4); POTASSIUM SERUM 3.9 MEQ/L (3.5-5.1); SODIUM LEVEL 138 MEQ/L (136-145)
[2017-02-27] MEDS ORDERED: NORCOTAB PO (08:50)
[2017-02-27] MEDS ORDERED: SENN1TAB2 PO (08:50)
[2017-02-27] MEDS: valACYclovir HCL 500 MG TAB PO SCH (10:31)
[2017-02-27] MEDS: PRENATAL VITAMIN TAB PO SCH (10:31)
[2017-02-27] MEDS: SENOKOT S TAB PO SCH (10:31)
--- NOTE | 2017-02-27 22:59 | DSES ---
DATE OF ADMISSION: 02/23/2017 DATE OF DISCHARGE: 02/27/2017 ADMISSION DIAGNOSIS: Gallstone pancreatitis. DISCHARGE DIAGNOSIS: Gallstone pancreatitis. HOSPITAL COURSE: The patient is a 31-year-old female with known history of gallbladder disease who was scheduled to have surgery with me today on 02/27/2017, however, over the past weekend she developed increasing pain. She came into the emergency room early Thursday morning, was found to have gallstone pancreatitis. She was admitted the hospital, kept on IV fluids, antibiotics and nothing by mouth (npo). There was concern for possible ERCP needed on Thursday. However, by 02/24 her liver enzymes were significantly improved and her pain was much better. Due to her lipase being continually elevated, she was kept nothing by mouth (npo) for another 24 hours. By on 02/25, she was still doing well; started on clear liquid diet and planned for surgery on 02/26. In the morning 02/26 her labs were continuing to improve. There were no further signs of choledocholithiasis. Lipase was returned to normal. Bilirubins were returned to normal. Therefore, laparoscopic cholecystectomy was completed in the afternoon of 02/26. Postoperatively, she did well. She was started on a regular diet, tolerated that without any complications. No fevers or chills. She was ambulating, having good urine output. Pain was controlled with by mouth pain meds. This morning 02/27/2017, she is continuing to do well, tolerating diet, ambulating. Labs are continuing to improve as far as the liver enzymes are concerned. She has no questions or complaints. PROCEDURES: 02/26/2017, had laparoscopic cholecystectomy. PLAN: Discharge home today. Followup with me in the office in 2 weeks. Okay to shower once she gets home. No bathtubs or soaking incisions for 5 days. No lifting more than 20 pounds and she can call the office for any questions.
--- NOTE | 2017-02-28 08:11 | RO ---
DATE OF PROCEDURE: 02/26/2017 PREOPERATIVE DIAGNOSIS: Gallstone pancreatitis. POSTOPERATIVE DIAGNOSIS: Gallstone pancreatitis. PROCEDURE: Laparoscopic cholecystectomy. SURGEON: Dr. Perico Jason MAINFRAME DEVELOPER: None. ANESTHESIA: General. ESTIMATED BLOOD LOSS (EBL): 5. COMPLICATIONS: None. INDICATIONS FOR PROCEDURE: The patient is a 31-year-old female who had had a known history of gallstone disease who was scheduled to have surgery with pr on Thursday the ; however, over the weekend she came in with abdominal pain and elevated liver enzymes and was found to have choledocholithiasis and gallstone pancreatitis. It took three days for her liver enzymes to improve. Once her labs had improved, she was scheduled for surgery. The risks and benefits of the procedure not limited to, but including bleeding, infection, hernia formation, damage to surrounding structures, need for further surgery were discussed in detail with the patient and informed consent was obtained and the procedure was planned. PROCEDURE: The patient brought back to operating room three. After sufficient sedation the abdomen sterilely prepped and draped. Next, a time-out done to confirm proper patient and proper procedure. Following that, a stab incision made in the left lower quadrant at Byrnes's point. A Veress needle was inserted and the abdomen was insufflated to 15 mmHg. Next, a time-out was done to confirm proper patient and proper procedure. Next, a 5 mm supraumbilical incision was made with scissors and carried down to the level of the fascia. A 55 mm Optiview port was used to gain access to the abdomen. Once the abdomen was entered, the Veress needle site was examined. There were no signs of injury. Another 11 mm port was placed subxiphoid and two 5 mm ports in the right upper quadrant. The fundus of the gallbladder was grasped to elevate up towards the right shoulder. Using a combination of blunt and sharp dissection, the cystic duct and cystic artery were both dissected free. They were both then doubly clipped and then cut. The gallbladder was removed from the gallbladder fossa using electrocautery and taken out through a 10 mm EndoCatch bag. Once the gallbladder was removed, the right upper quadrant was irrigated. Hemostasis was controlled using electrocautery. The abdomen was then desufflated. The skin incisions were closed with #4-0 Vicryl subcuticular sutures. The abdomen was cleaned and dried. Steri-Strips, 4x4 and tape were applied, thus ending the procedure.
== END 2017-02-27 10:45 | disposition home or self-care (01) | DRG 263 ==
LOC: M ED 08:44 → M ED INP 13:37 → M PED 15:02
PROVIDERS: ADMIT Surgery; ATTEND Surgery
PROC: 0FT44ZZ Resection of Gallbladder, Percutaneous Endoscopic Approach (ICD-10-PCS; principal; 2017-02-26 16:00)
DX: K80.50 Calculus of bile duct without cholangitis or cholecystitis without obstruction (principal); K85.10 Biliary acute pancreatitis without necrosis or infection; I10 Essential (primary) hypertension; Z88.6 Allergy status to analgesic agent; Z91.013 Allergy to seafood; Z91.040 Latex allergy status; Z91.018 Allergy to other foods; Z79.899 Other long term (current) drug therapy

== ENCOUNTER → 2017-03-25 | Outpatient (CLI) | payer OTHER, MEDICAID ==
[~2017-03-25] MED LIST changes: -AUGM875T27 PO; +AUGM875T28 PO; +BACT800T5 PO; +CIPR-249 PO; -CIPR500T89 PO; +METR1TAB66 PO; -METR500T10 PO; +NORCOTAB PO; +PERC5TAB12 PO; -PERC5TAB6 PO; +PRENTAB72 PO; +SENN1TAB2 PO; +VALA500T2 PO
[2017-03-25 16:10] LABS: CONTROL LINE HCG INT CTR LINE PRESENT
[2017-03-25 16:16] LABS: HCG, SERUM QUANTITATIVE < 1.0 MIU/ML
== END ==
LOC: M LAB 15:15
PROVIDERS: ATTEND Physician Assistant
DX: Z32.00 Encounter for pregnancy test, result unknown (principal)

== ENCOUNTER 2017-03-31 14:58 | Emergency (ER) | payer MEDICAID, OTHER ==
[~2017-03-31] VITALS: Ht 165.1 cm; Wt 126.9 kg
[~2017-03-31 14:58] MED LIST changes: -BACT800T5 PO
[2017-03-31] MEDS ORDERED: NS 1,000 ML IV ONE (15:30)
[2017-03-31] MEDS ORDERED: ONDANSETRON 4MG/2ML VIAL (J2405) IV ONE (15:30)
[2017-03-31 15:49] LABS: DIFF SLIDE NUMBER 282; MEAN CORPUSCULAR HEMOGLOBIN 26.5 pg (27.0-33.0); MEAN CORPUSCULAR HGB CONC 33.2 g/dl (32.0-36.5); MEAN CORPUSCULAR VOLUME 79.7 fl (80.0-96.0); PLATELET COUNT, AUTOMATED 244 k/mm3 (150-450); RED CELL DISTRIBUTION WIDTH 14.3 % (11.5-14.5)
[2017-03-31 15:51] LABS: ADD MANUAL DIFFER NO; ADD MORPHOLOGY? NO; BASO % 0.5 % (0.0-1.0); EOS # 0.3 K/mm3 (0.0-0.50); EOS % 4.2 % (0.0-3.0); LARGE UNSTAINED CELL # 0.1 K/mm3 (0.0-0.4); LARGE UNSTAINED CELL % 1.4 % (0.0-4.0); LYMPH % 25.2 % (24.0-44.0); MONO # 0.4 K/mm3 (0.0-0.8); MONO % 5.1 % (0.0-5.0); NEUTROPHILS # 5.1 K/mm3 (1.8-7.7); NEUTROPHILS % 63.6 % (36.0-66.0)
[2017-03-31 16:19] LABS: CONTROL LINE HCG INT CTR LINE PRESENT
[2017-03-31] MEDS ORDERED: BACTRIM 160MG/800MG DS TAB PO ONE (16:30)
[2017-03-31 16:33] LABS: ALBUMIN 4.1 GM/DL (3.2-5.2); ALBUMIN/GLOBULIN RATIO 1.17 (1.00-1.93); ALKALINE PHOSPHATASE 83 U/L (45-117); ALT/SGPT 31 U/L (12-78); ANION GAP 8 MEQ/L (8-16); AST/SGOT 17 U/L (15-37); BILIRUBIN,DIRECT 0.2 MG/DL (0.0-0.2); BILIRUBIN,TOTAL 0.8 MG/DL (0.2-1.0); BLOOD UREA NITROGEN 11 MG/DL (7-18); CALCIUM LEVEL 9.4 MG/DL (8.5-10.1); CARBON DIOXIDE LEVEL 25 MEQ/L (21-32); CHLORIDE LEVEL 103 MEQ/L (98-107); CREATININE FOR GFR 0.72 MG/DL (0.55-1.02); GLOMERULAR FILTRATION RATE > 60.0 (>60); GLUCOSE, FASTING 93 MG/DL (70-105); POTASSIUM SERUM 3.4 MEQ/L (3.5-5.1); SODIUM LEVEL 136 MEQ/L (136-145); TOTAL PROTEIN 7.6 GM/DL (6.4-8.2)
[2017-03-31] MEDS ORDERED: BACT800T5 PO (16:34)
[2017-03-31] MEDS ORDERED: KETOROLAC 30 MG/ML VIAL (J1885) IV ONE (16:45)
[2017-03-31 17:31] VITALS: BP 126/70
--- NOTE | 2017-04-02 11:14 | ECGEPIP ---
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
[2017-04-03 00:07] LABS: Lyme Disease IgG/IgM Antibodie <0.91 ISR (0.00-0.90); Lyme Disease IgM Ab Quantitati <0.80 index (0.00-0.79)
== END 2017-03-31 17:50 | disposition home or self-care (01) ==
LOC: M ED 14:58
DX: N39.0 Urinary tract infection, site not specified (principal); R42 Dizziness and giddiness; E06.3 Autoimmune thyroiditis; F17.210 Nicotine dependence, cigarettes, uncomplicated; Z91.040 Latex allergy status; Z91.018 Allergy to other foods; Z91.013 Allergy to seafood; Z79.899 Other long term (current) drug therapy
CPT/HCPCS: 36415; 80048; 80076; 81001; 83690; 84703; 85025; 86617; 87086; 93005; 96361; 96374; 96375; 99284; J1885; J2405

== ENCOUNTER → 2017-04-23 | Outpatient (CLI) | payer OTHER ==
[~2017-04-23] MED LIST changes: +BACT800T5 PO
[2017-04-23 09:53] LABS: CONTROL LINE HCG INT CTR LINE PRESENT
[2017-04-23 10:35] LABS: FREE T4 0.98 NG/DL (0.76-1.46)
[2017-04-24 10:13] LABS: THYROID PEROXIDASE ANTIBODY > 1300.0 U/ML (<60.0)
== END ==
LOC: M LAB 08:44
PROVIDERS: ATTEND Family Medicine
DX: N06.9 Isolated proteinuria with unspecified morphologic lesion (principal); N91.2 Amenorrhea, unspecified

== ENCOUNTER 2017-04-24 20:01 | Emergency (ER) | payer OTHER ==
[~2017-04-24] VITALS: Ht 162.6 cm; Wt 118.1 kg
[2017-04-24 23:35] LABS: BASO # 0.1 K/mm3 (0.0-0.2); BASO % 0.7 % (0.0-1.0); EOS # 0.3 K/mm3 (0.0-0.50); EOS % 2.5 % (0.0-3.0); LARGE UNSTAINED CELL # 0.2 K/mm3 (0.0-0.4); LARGE UNSTAINED CELL % 1.6 % (0.0-4.0); LYMPH # 2.6 K/mm3 (1.5-4.5); MEAN CORPUSCULAR HEMOGLOBIN 26.3 pg (27.0-33.0); MEAN CORPUSCULAR HGB CONC 34.3 g/dl (32.0-36.5); MEAN CORPUSCULAR VOLUME 76.9 fl (80.0-96.0); MONO # 0.6 K/mm3 (0.0-0.8); MONO % 5.3 % (0.0-5.0); NEUTROPHILS # 7.3 K/mm3 (1.8-7.7); NEUTROPHILS % 67.9 % (36.0-66.0); PLATELET COUNT, AUTOMATED 297 k/mm3 (150-450); RED CELL DISTRIBUTION WIDTH 14.2 % (11.5-14.5); WHITE BLOOD COUNT 10.8 K/mm3 (4.0-10.0)
[2017-04-24 23:59] LABS: ANION GAP 8 MEQ/L (8-16); BLOOD UREA NITROGEN 12 MG/DL (7-18); CALCIUM LEVEL 9.3 MG/DL (8.5-10.1); CARBON DIOXIDE LEVEL 26 MEQ/L (21-32); CHLORIDE LEVEL 107 MEQ/L (98-107); CREATININE FOR GFR 0.84 MG/DL (0.55-1.02); GLOMERULAR FILTRATION RATE > 60.0 (>60); GLUCOSE, FASTING 104 MG/DL (70-105); SODIUM LEVEL 141 MEQ/L (136-145)
--- NOTE | 2017-04-25 00:10 | REPUSA ---
CLINICAL HISTORY: Pelvic pain. TECHNIQUE: Realtime sonographic images were obtained in multiple projections via TA approach. COMMENTS: The uterus is anteverted measuring 9.1 x 4.3 x 6.2 cm. The endometrial echo pattern is within normal limits measuring 13 mm. There is no evidence of free fluid within the pelvic cul-de-sac. Both ovaries are free of solid or cystic mass. There is no evidence for abnormal vascularity. IMPRESSION: Normal study. Thank you for your kind referral of this patient.
[2017-04-25 00:38] VITALS: BP 123/58
== END 2017-04-25 00:39 | disposition home or self-care (01) ==
LOC: M ED 20:01
DX: R10.2 Pelvic and perineal pain (principal); B00.9 Herpesviral infection, unspecified; Z79.899 Other long term (current) drug therapy; Z91.013 Allergy to seafood; Z91.018 Allergy to other foods; Z91.040 Latex allergy status

== ENCOUNTER → 2017-12-29 | Outpatient (CLI) | payer OTHER | LOC: M RAD 14:07 | DX: N63.21 Unspecified lump in the left breast, upper outer quadrant (principal) | CPT/HCPCS: 77065 ==

== ENCOUNTER 2018-01-08 19:54 | Observation (INO) | payer OTHER ==
[2018-01-08 20:53] LABS: BASO # 0.1 10^3/uL (0.0-0.2); BASO % 0.5 % (0.0-1.0); EOS # 0.3 10^3/uL (0.0-0.50); HEMATOCRIT 39.6 % (36.0-47.0); IMMATURE GRANULOCYTE % 0.3 % (0-3.0); LYMPH # 3.1 10^3/uL (1.5-4.5); LYMPH % 33.3 % (24.0-44.0); MEAN CORPUSCULAR HEMOGLOBIN 26.5 pg (27.0-33.0); MEAN CORPUSCULAR HGB CONC 32.8 g/dl (32.0-36.5); MEAN CORPUSCULAR VOLUME 80.7 fl (80.0-96.0); MONO # 0.9 10^3/uL (0.0-0.8); MONO % 9.2 % (0.0-5.0); NEUTROPHILS % 53.7 % (36.0-66.0); PLATELET COUNT, AUTOMATED 295 10^3/uL (150-450); RED BLOOD COUNT 4.91 10^6/uL (4.00-5.40); RED CELL DISTRIBUTION WIDTH 12.9 % (11.5-14.5); WHITE BLOOD COUNT 9.3 10^3/uL (4.0-10.0)
[2018-01-08 21:00] LABS: APPEARANCE, URINE HAZY (CLEAR); BACTERIA, URINE AUTO NEGATIVE (NEGATIVE); BILIRUBIN, URINE AUTO NEGATIVE (NEGATIVE); BLOOD, URINE BLOOD NEGATIVE (NEGATIVE); COLOR, URINE YELLOW (YELLOW); GLUCOSE, URINE (UA) AUTO NEGATIVE (NEGATIVE); KETONE, URINE AUTO NEGATIVE (NEGATIVE); LEUKOCYTE ESTERASE, URINE AUTO NEGATIVE (NEGATIVE); MUCUS, URINE SMALL (NEGATIVE); NITRITE, URINE AUTO NEGATIVE (NEGATIVE); PROTEIN, URINE AUTO NEGATIVE (NEGATIVE); RBC, URINE AUTO 1 /HPF (0-3); SQUAMOUS EPITHELIAL CELL UR AU 0 /HPF (0-6); UROBILINOGEN, URINE AUTO 0.2 mg/dL (0.0-2.0); WBC, URINE AUTO 0 /HPF (0-3)
[2018-01-08] MEDS: NS 1,000 ML IV ×2 (21:00→23:58)
[2018-01-08 21:09] LABS: CONTROL LINE HCG INT CTR LINE PRESENT; HCG, SERUM QUALITATIVE NEGATIVE (NEGATIVE)
[2018-01-08 21:19] LABS: ALBUMIN 3.9 GM/DL (3.2-5.2); ALBUMIN/GLOBULIN RATIO 1.03 (1.00-1.93); ALKALINE PHOSPHATASE 93 U/L (45-117); ALT/SGPT 22 U/L (12-78); ANION GAP 7 MEQ/L (8-16); AST/SGOT 14 U/L (7-37); BILIRUBIN,DIRECT < 0.1 MG/DL (0.0-0.2); BILIRUBIN,TOTAL 0.5 MG/DL (0.2-1.0); BLOOD UREA NITROGEN 17 MG/DL (7-18); CALCIUM LEVEL 8.7 MG/DL (8.5-10.1); CARBON DIOXIDE LEVEL 28 MEQ/L (21-32); CHLORIDE LEVEL 110 MEQ/L (98-107); CREATININE FOR GFR 0.79 MG/DL (0.55-1.30); GLOMERULAR FILTRATION RATE > 60.0 (>60); GLUCOSE, FASTING 95 MG/DL (70-100); LIPASE 223 U/L (73-393); SODIUM LEVEL 145 MEQ/L (136-145); TOTAL PROTEIN 7.7 GM/DL (6.4-8.2)
[2018-01-08] MEDS: GASTROGRAFIN SOLUTION 30ML PO ×2 (21:43→22:15)
[2018-01-08] MEDS: MORPHINE 4 MG/ML 1ML VIAL/SYRINGE (J2270) IV (23:58)
[2018-01-09] MEDS: LR 1,000 ML IV ×2 (00:16→07:53)
[2018-01-09] MEDS: NORCO, ANEXSIA 5/325MG TABLET (HYDROcodone/ACETAMINOPHEN) PO ×3 (02:04→14:33)
[2018-01-09] MEDS: KETOROLAC 30 MG/ML VIAL (J1885) IV (06:39)
[2018-01-09] MEDS: ONDANSETRON 4MG/2ML VIAL (J2405) IV (06:46)
[2018-01-09 08:58] LABS: BASO # 0.1 10^3/uL (0.0-0.2); BASO % 0.6 % (0.0-1.0); EOS # 0.3 10^3/uL (0.0-0.50); EOS % 3.9 % (0.0-3.0); HEMOGLOBIN 11.5 g/dl (12.0-15.5); IMMATURE GRANULOCYTE % 0.4 % (0-3.0); LYMPH # 2.4 10^3/uL (1.5-4.5); LYMPH % 29.2 % (24.0-44.0); MEAN CORPUSCULAR HEMOGLOBIN 26.7 pg (27.0-33.0); MEAN CORPUSCULAR HGB CONC 32.9 g/dl (32.0-36.5); MEAN CORPUSCULAR VOLUME 81.4 fl (80.0-96.0); MONO # 0.6 10^3/uL (0.0-0.8); MONO % 6.9 % (0.0-5.0); NEUTROPHILS # 4.9 10^3/uL (1.8-7.7); PLATELET COUNT, AUTOMATED 239 10^3/uL (150-450); RED CELL DISTRIBUTION WIDTH 13.1 % (11.5-14.5); WHITE BLOOD COUNT 8.3 10^3/uL (4.0-10.0)
[2018-01-09] MEDS: INFLUENZA QUADRIVALENT PF VACCINE 0.5ML SYRINGE (90686) IM ×2 (09:00→17:42)
[2018-01-09 09:15] LABS: ANION GAP 5 MEQ/L (8-16); BLOOD UREA NITROGEN 15 MG/DL (7-18); C REACTIVE PROTEIN QUANTITATIV 1.62 MG/DL (0.00-0.30); CARBON DIOXIDE LEVEL 26 MEQ/L (21-32); CHLORIDE LEVEL 112 MEQ/L (98-107); CREATININE FOR GFR 0.69 MG/DL (0.55-1.30); GLOMERULAR FILTRATION RATE > 60.0 (>60); GLUCOSE, FASTING 79 MG/DL (70-100); POTASSIUM SERUM 4.1 MEQ/L (3.5-5.1); SODIUM LEVEL 143 MEQ/L (136-145)
[2018-01-09] MEDS ORDERED: ROCURONIUM BROMIDE 50 MG/5 ML VIAL As Ordered (10:19)
[2018-01-09] MEDS ORDERED: PROPOFOL 200 MG/20 ML VIAL As Ordered (10:19)
[2018-01-09] MEDS ORDERED: LIDOCAINE 2% INJ 100 MG/5 ML SDV (FOR ANES.) As Ordered (10:19)
[2018-01-09] MEDS ORDERED: MIDAZOLAM INJ 2 MG/2 ML VIAL (J2250) As Ordered (10:20)
[2018-01-09] MEDS ORDERED: fentaNYL 250 MCG/5 ML INJECTION (J3010) As Ordered (10:20)
[2018-01-09] MEDS: AMPICILLIN SOD/SULBACTAM SOD 3 GM in D5W MINI-BAG PLUS 100 ML IV (10:50)
[2018-01-09] MEDS ORDERED: KETOROLAC 60 MG/2 ML VIAL (J1885) As Ordered (11:26)
[2018-01-09] MEDS ORDERED: dexameTHASONE 4 MG/ML 1ML VIAL (J1100) As Ordered ×2 (11:26)
[2018-01-09] MEDS ORDERED: METOCLOPRAMIDE INJ 10MG/2ML VIAL (J2765) As Ordered (11:26)
[2018-01-09] MEDS ORDERED: SUCCINYLCHOLINE 100 MG/5 ML SYRINGE (J0330) As Ordered (11:26)
[2018-01-09] MEDS ORDERED: ONDANSETRON 4MG/2ML VIAL (J2405) As Ordered (11:26)
[2018-01-09] MEDS ORDERED: GLYCOPYRROLATE INJ 0.2 MG/ML 2 ML VIAL As Ordered (11:27)
[2018-01-09] MEDS ORDERED: NEOSTIGMINE 10 MG/10 ML VIAL (J2710) As Ordered (11:27)
[2018-01-09] MEDS ORDERED: diphenhydrAMINE INJ 50MG/ML VIAL (J1200) As Ordered (11:44)
[2018-01-09] MEDS: BUPIVACAINE HCL 0.25% 30 ML VIAL As Ordered (11:50)
[2018-01-09] MEDS: LIDOCAINE 1% SDV INJ 30 ML VIAL As Ordered (11:50)
[2018-01-09] MEDS ORDERED: fentaNYL 100 MCG/2 ML INJECTION (J3010) IV (12:15)
[2018-01-09] MEDS ORDERED: LR 1,000 ML IV (12:15)
[2018-01-09] MEDS ORDERED: HYDROmorphone HCL 1 MG/ML SYRINGE (J1170) IV (12:15)
[2018-01-09] MEDS ORDERED: PERCOCET 5MG/325MG TAB PO (12:15)
[2018-01-09] MEDS ORDERED: ONDANSETRON 4MG/2ML VIAL (J2405) IV (12:15)
[2018-01-09] MEDS: MORPHINE 4 MG/ML 1ML VIAL/SYRINGE (J2270) IV (13:10)
== END 2018-01-09 19:05 | disposition home or self-care (01) ==
LOC: M ED INP 01-09 00:16 → M PED 01-09 01:07 → M ED 19:54
DX: K35.89 Other acute appendicitis (principal); Z91.040 Latex allergy status; Z91.013 Allergy to seafood; Z91.030 Bee allergy status; Z88.8 Allergy status to other drugs, medicaments and biological substances
CPT/HCPCS: 44970

== ENCOUNTER → 2018-01-20 | Outpatient (CLI) | payer OTHER ==
[2018-01-20 17:19] LABS: FREE T4 0.93 NG/DL (0.76-1.46)
== END ==
LOC: M LAB 15:41
DX: E06.3 Autoimmune thyroiditis (principal)
CPT/HCPCS: 84443

== ENCOUNTER → 2018-03-03 | Outpatient (REF) | payer OTHER | LOC: M SFHCLERA 18:42 | DX: J02.9 Acute pharyngitis, unspecified (principal) ==

== ENCOUNTER → 2018-03-27 | Outpatient (REF) | payer OTHER | LOC: M SFHCLERA 13:46 | DX: J02.9 Acute pharyngitis, unspecified (principal) ==

== ENCOUNTER 2018-05-21 20:39 | Emergency (ER) | payer OTHER ==
[2018-05-21] MEDS ORDERED: LIDOCAINE 1% MDV 20ML VIAL As Ordered (23:58)
[2018-05-22] MEDS: AZITHROMYCIN 250 MG TAB PO (00:02)
[2018-05-22] MEDS: cefTRIAXone SOD 250 MG VIAL (J0696) IM (00:03)
== END 2018-05-22 00:28 | disposition home or self-care (01) ==
LOC: M ED 05-22 00:28
DX: A56.8 Sexually transmitted chlamydial infection of other sites (principal); B02.9 Zoster without complications; E06.3 Autoimmune thyroiditis; Z88.5 Allergy status to narcotic agent; Z88.6 Allergy status to analgesic agent; Z91.018 Allergy to other foods; Z91.030 Bee allergy status; Z91.013 Allergy to seafood; Z79.899 Other long term (current) drug therapy
CPT/HCPCS: J0696

== ENCOUNTER 2018-06-08 14:46 | Emergency (ER) | payer OTHER ==
[2018-06-08 15:36] LABS: BASO # 0.1 10^3/uL (0.0-0.2); BASO % 0.6 % (0.0-1.0); EOS # 0.5 10^3/uL (0.0-0.50); EOS % 4.7 % (0.0-3.0); HEMATOCRIT 41.7 % (36.0-47.0); HEMOGLOBIN 13.6 g/dl (12.0-15.5); IMMATURE GRANULOCYTE % 0.4 % (0-3.0); LYMPH # 2.3 10^3/uL (1.5-4.5); LYMPH % 22.6 % (24.0-44.0); MEAN CORPUSCULAR HEMOGLOBIN 26.8 pg (27.0-33.0); MEAN CORPUSCULAR HGB CONC 32.6 g/dl (32.0-36.5); MEAN CORPUSCULAR VOLUME 82.2 fl (80.0-96.0); MONO # 0.7 10^3/uL (0.0-0.8); MONO % 7.3 % (0.0-5.0); NEUTROPHILS # 6.5 10^3/uL (1.8-7.7); NEUTROPHILS % 64.4 % (36.0-66.0); PLATELET COUNT, AUTOMATED 255 10^3/uL (150-450); RED BLOOD COUNT 5.07 10^6/uL (4.00-5.40); WHITE BLOOD COUNT 10.1 10^3/uL (4.0-10.0)
[2018-06-08 15:56] LABS: BLOOD UREA NITROGEN 14 MG/DL (7-18); CARBON DIOXIDE LEVEL 25 MEQ/L (21-32); CHLORIDE LEVEL 110 MEQ/L (98-107); CREATININE FOR GFR 0.78 MG/DL (0.55-1.30); GLOMERULAR FILTRATION RATE > 60.0 (>60); GLUCOSE, FASTING 108 MG/DL (70-100); POTASSIUM SERUM 3.9 MEQ/L (3.5-5.1); SODIUM LEVEL 143 MEQ/L (136-145)
[2018-06-08 15:57] LABS: ANION GAP 8 MEQ/L (8-16); CALCIUM LEVEL 8.1 MG/DL (8.5-10.1)
[2018-06-08] MEDS ORDERED: ISOVUE-370 76% 100ML VIAL (Q9967) As Ordered (16:01)
[2018-06-08] MEDS: ONDANSETRON 4MG/2ML VIAL (J2405) IV (16:05)
[2018-06-08] MEDS: NS 1,000 ML IV (16:06)
[2018-06-08] MEDS: MORPHINE 2 MG/ML 1ML SYRINGE (J2270) IV (16:07)
[2018-06-08 16:26] LABS: ALBUMIN 3.5 GM/DL (3.2-5.2); ALBUMIN/GLOBULIN RATIO 0.95 (1.00-1.93); ALKALINE PHOSPHATASE 90 U/L (45-117); ALT/SGPT 24 U/L (12-78); AST/SGOT 16 U/L (7-37); BILIRUBIN,TOTAL 0.5 MG/DL (0.2-1.0); HCG, SERUM QUANTITATIVE 10 MIU/ML; LIPASE 345 U/L (73-393); TOTAL PROTEIN 7.2 GM/DL (6.4-8.2)
[2018-06-08 17:40] LABS: KETONE, URINE AUTO RFX NEGATIVE (NEGATIVE); LEUKOCYTE ESTERASE UR AUTO RFX NEGATIVE (NEGATIVE); NITRITE, URINE AUTO RFX NEGATIVE (NEGATIVE); RBC, URINE AUTO RFX 2 /HPF (0-3); SPECIFIC GRAVITY UR AUTO RFX 1.026 (1.002-1.035); SQUAM EPITHELIAL CELL UR AURFX 4 /HPF (0-6); WBC, URINE AUTO RFX 1 /HPF (0-3)
[2018-06-08] MEDS: ACETAMINOPHEN 325 MG TAB PO (17:44)
== END 2018-06-08 18:52 | disposition home or self-care (01) ==
LOC: M ED 14:46
DX: K62.5 Hemorrhage of anus and rectum (principal); J06.9 Acute upper respiratory infection, unspecified; R10.13 Epigastric pain; E06.3 Autoimmune thyroiditis; Z87.442 Personal history of urinary calculi; Z87.19 Personal history of other diseases of the digestive system; Z98.890 Other specified postprocedural states; Z90.49 Acquired absence of other specified parts of digestive tract; Z88.8 Allergy status to other drugs, medicaments and biological substances; Z91.030 Bee allergy status; Z91.040 Latex allergy status; Z91.013 Allergy to seafood; Z91.018 Allergy to other foods; Z79.890 Hormone replacement therapy
CPT/HCPCS: J2405

== ENCOUNTER → 2018-06-17 | Outpatient (CLI) | payer OTHER ==
[2018-06-17 17:58] LABS: HCG, SERUM QUANTITATIVE 1555 MIU/ML
== END ==
LOC: M LAB 16:34
DX: Z34.81 Encounter for supervision of other normal pregnancy, first trimester (principal); Z3A.00 Weeks of gestation of pregnancy not specified
CPT/HCPCS: 84702

== ENCOUNTER → 2018-06-21 | Outpatient (CLI) | payer OTHER | LOC: M RAD 16:13 | DX: Z34.82 Encounter for supervision of other normal pregnancy, second trimester (principal) | CPT/HCPCS: 76801 ==

== ENCOUNTER → 2018-07-26 | Outpatient (CLI) | payer OTHER ==
[2018-07-26 11:02] LABS: HCG, SERUM QUANTITATIVE 53 MIU/ML
== END ==
LOC: M LAB 09:09
DX: N91.1 Secondary amenorrhea (principal)
CPT/HCPCS: 84702

== ENCOUNTER → 2018-07-28 | Outpatient (CLI) | payer OTHER ==
[2018-07-28 10:53] LABS: HCG, SERUM QUANTITATIVE 54 MIU/ML
== END ==
LOC: M LAB 09:19
DX: N91.1 Secondary amenorrhea (principal)
CPT/HCPCS: 84702

== ENCOUNTER → 2018-08-02 | Outpatient (CLI) | payer OTHER ==
[2018-08-02 10:06] LABS: HCG, SERUM QUANTITATIVE 31 MIU/ML
== END ==
LOC: M LAB 08:51
DX: N91.1 Secondary amenorrhea (principal)
CPT/HCPCS: 84702

== ENCOUNTER → 2018-08-06 | Outpatient (CLI) | payer OTHER ==
[2018-08-06 09:33] LABS: HCG, SERUM QUANTITATIVE 16 MIU/ML
== END ==
LOC: M LAB 08:48
DX: N91.1 Secondary amenorrhea (principal)
CPT/HCPCS: 84702

== ENCOUNTER 2018-08-31 19:26 | Emergency (ER) | payer OTHER ==
[~2018-08-31] VITALS: Ht 165.1 cm; Wt 118.2 kg
[~2018-08-31 19:26] MED LIST changes: +FLUC150T PO; +LEVO25TA5 PO; +NUVAMIS2 PV; -VALA500T2 PO; +VALA500T4 PO; +ZOFR4TAB14 PO; -ZOFR4TAB3 PO
[2018-08-31 19:27] VITALS: BP 162/92
[2018-08-31] MEDS ORDERED: ALBUTEROL SULFATE 2.5 MG/0.5 ML INH NEB SOLN INH ONE (20:30)
[2018-08-31 21:14] LABS: HCG, SERUM QUALITATIVE NEGATIVE (NEGATIVE)
[2018-08-31 21:27] LABS: INFLUENZA A AMPLIFICATION NEGATIVE (NEGATIVE); INFLUENZA B AMPLIFICATION NEGATIVE (NEGATIVE)
[2018-08-31] MEDS ORDERED: predniSONE 20 MG TAB PO ONE (21:45)
[2018-08-31] MEDS ORDERED: PRED20TA PO (22:41)
[2018-08-31] MEDS ORDERED: PROAAER10 INH (22:41)
--- NOTE | 2018-09-01 06:57 | REP ---
Clinical: Shortness of breath and wheezing . Comparison: 04/14/2016 . Technique: PA and lateral. Findings: The mediastinum and cardiac silhouette are normal. The lung don are clear and without acute consolidation, effusion, or pneumothorax. The skeletal structures are intact and normal. Impression: 1. No acute cardiopulmonary process. Electronically Signed by Osorio Enriquez MD 09/01/2018 06:49 A
== END 2018-08-31 23:05 | disposition home or self-care (01) ==
LOC: M ED 19:26
DX: J20.9 Acute bronchitis, unspecified (principal); J06.9 Acute upper respiratory infection, unspecified; Z88.6 Allergy status to analgesic agent; Z91.030 Bee allergy status; Z91.040 Latex allergy status; Z91.013 Allergy to seafood; Z91.018 Allergy to other foods

== ENCOUNTER → 2018-09-01 | Outpatient (CLI) | payer OTHER ==
[~2018-09-01] MED LIST changes: +METR-201 PO; -METR1TAB66 PO; +PRED20TA PO; +PROAAER10 INH; -VALA500T4 PO; +VALA500T5 PO
== END ==
LOC: M LAB 08:00
PROVIDERS: ATTEND Advanced Practice Midwife
DX: N91.1 Secondary amenorrhea (principal)

== ENCOUNTER → 2018-09-09 | Outpatient (REF) | payer OTHER | LOC: M SFHCLERA 15:11 | PROVIDERS: ATTEND Nurse Practitioner Family | DX: R53.81 Other malaise (principal) ==

== ENCOUNTER 2018-10-19 03:35 | Emergency (ER) | payer OTHER ==
[~2018-10-19] VITALS: Ht 165.1 cm; Wt 113.6 kg
[2018-10-19 04:26] LABS: BASO # 0.1 10^3/uL (0.0-0.2); BASO % 0.6 % (0.0-1.0); EOS # 0.3 10^3/uL (0.0-0.50); EOS % 3.4 % (0.0-3.0); HEMATOCRIT 40.3 % (36.0-47.0); HEMOGLOBIN 13.4 g/dl (12.0-15.5); LYMPH # 2.1 10^3/uL (1.5-4.5); LYMPH % 25.7 % (24.0-44.0); MEAN CORPUSCULAR HGB CONC 33.3 g/dl (32.0-36.5); MEAN CORPUSCULAR VOLUME 81.3 fl (80.0-96.0); MONO # 0.6 10^3/uL (0.0-0.8); MONO % 7.5 % (0.0-5.0); NEUTROPHILS # 5.2 10^3/uL (1.8-7.7); NEUTROPHILS % 62.6 % (36.0-66.0); PLATELET COUNT, AUTOMATED 218 10^3/uL (150-450); RED BLOOD COUNT 4.96 10^6/uL (4.00-5.40); WHITE BLOOD COUNT 8.3 10^3/uL (4.0-10.0)
[2018-10-19 05:32] LABS: BLOOD UREA NITROGEN 9 MG/DL (7-18); CALCIUM LEVEL 8.1 MG/DL (8.5-10.1); CARBON DIOXIDE LEVEL 24 MEQ/L (21-32); CHLORIDE LEVEL 106 MEQ/L (98-107); CREATININE FOR GFR 0.66 MG/DL (0.55-1.30); GLOMERULAR FILTRATION RATE > 60.0 (>60); GLUCOSE, FASTING 92 MG/DL (70-100); HCG, SERUM QUANTITATIVE 72625 MIU/ML; POTASSIUM SERUM 3.7 MEQ/L (3.5-5.1); SODIUM LEVEL 139 MEQ/L (136-145)
[2018-10-19 06:03] LABS: CHLAMYDIA DNA AMPLIFICATION NEGATIVE (NEGATIVE); GC DNA AMPLIFICATION NEGATIVE (NEGATIVE)
--- NOTE | 2018-10-19 06:09 | REPVR ---
EXAM: US First Trimester, Transabdominal EXAM DATE/TIME: 10/19/2018 4:55 AM CLINICAL HISTORY: 33 years old, female; Signs and symptoms; Lmp or gestational age (in weeks): 08/09/18; Antepartum complications; Bleeding; ; Additional info: Vag bleed eval for iup TECHNIQUE: Real-time transabdominal obstetrical ultrasound of the maternal pelvis and a first trimester , less than 14 weeks 0 days, with image documentation. COMPARISON: No relevant prior studies available. FINDINGS: GESTATION: Gestation: Single live intrauterine gestation is seen. pole is detected at 3.36 cm corresponding to 10 weeks and 2 day gestation. . Heart rate: heart rate is detected at 155 beats per minutes. Placenta: 1.7 x 0.8 x 2.0 cm eccentric hypoechogenicity seen adjacent to the gestational sac suggestive of small sub-chorionic bleed Amniotic fluid: Amniotic and chorionic fluid are normal for gestational age. BIOMETRY: Estimated gestational age: 10 weeks and 2 day gestation. MATERNAL: Uterus and Cervix: Not evaluated. Right adnexa: The right ovary measures 2.6 x 2.5 x 1.9 cm. Arterial blood flow seen to the right ovary. Left adnexa: The left ovary measures 3.5 x 2.4 x 1.9 cm. Arterial blood flow seen to the left ovary. Intraperitoneal: No intraperitoneal free fluid. IMPRESSION: 1. Single live intrauterine gestation corresponding to 10 weeks and 2 days gestation by crown-rump length. 2. Small subchorionic bleed measuring 1.7 x 0.8 x 2.0 cm is seen. Follow up is suggested. Electronically signed by: Julio Cesar Reeves On 10/19/2018 06:08:41 AM
[2018-10-19 06:25] VITALS: BP 134/87
== END 2018-10-19 06:27 | disposition home or self-care (01) ==
LOC: M ED 03:35
DX: O20.0 Threatened abortion (principal)

== ENCOUNTER → 2018-10-26 | Outpatient (CLI) | payer OTHER ==
[2018-10-26 17:21] LABS: BASO % 0.5 % (0.0-1.0); EOS # 0.3 10^3/uL (0.0-0.50); EOS % 4.5 % (0.0-3.0); HEMATOCRIT 39.1 % (36.0-47.0); HEMOGLOBIN 12.9 g/dl (12.0-15.5); LYMPH # 1.9 10^3/uL (1.5-4.5); LYMPH % 25.3 % (24.0-44.0); MEAN CORPUSCULAR HEMOGLOBIN 27.1 pg (27.0-33.0); MEAN CORPUSCULAR VOLUME 82.1 fl (80.0-96.0); MONO # 0.6 10^3/uL (0.0-0.8); MONO % 7.3 % (0.0-5.0); NEUTROPHILS # 4.7 10^3/uL (1.8-7.7); PLATELET COUNT, AUTOMATED 230 10^3/uL (150-450); RED BLOOD COUNT 4.76 10^6/uL (4.00-5.40); WHITE BLOOD COUNT 7.5 10^3/uL (4.0-10.0)
[2018-10-26 18:07] LABS: CHLAMYDIA DNA AMPLIFICATION NEGATIVE (NEGATIVE); GC DNA AMPLIFICATION NEGATIVE (NEGATIVE)
[2018-10-27 10:09] LABS: HEPATITIS C VIRUS ABY INDEX < 0.0 INDEX (<0.8); HIV 1&2 SCREEN CENTAUR NEGATIVE (NEGATIVE); RUBELLA IgG QUALITATIVE IMMUNE (IMMUNE)
== END ==
LOC: M LAB 15:27
PROVIDERS: ATTEND Obstetrics & Gynecology
DX: Z34.81 Encounter for supervision of other normal pregnancy, first trimester (principal); Z3A.10 10 weeks gestation of pregnancy

== ENCOUNTER → 2018-11-08 | Outpatient (CLI) | payer OTHER ==
--- NOTE | 2018-11-08 19:56 | REP ---
Clinical: Threatened Technique: Transabdominal first trimester obstetrical ultrasound. Findings: Single live early intrauterine is appreciated. Gestational sac with yolk sac and pole identified. Maili-rump length of 72 mm corresponds to 13 weeks 3 days gestational age with estimated date of delivery 05/13/2019 . heart rate equals 152 beats per minute. No gross abnormalities are identified. Impression: Single live early intrauterine at 13 weeks 3 days gestational age. Complete anatomical assessment should be performed and 19-20 weeks. Electronically Signed by Osorio Enriquez MD 11/08/2018 07:48 P
== END ==
LOC: M RAD 11:39
PROVIDERS: ATTEND Advanced Practice Midwife
DX: O20.0 Threatened abortion (principal); Z3A.13 13 weeks gestation of pregnancy

== ENCOUNTER → 2018-11-29 | Outpatient (CLI) | payer OTHER ==
--- NOTE | 2018-11-29 14:29 | REP ---
PELVIC SONOGRAPHY: HISTORY: Threatened . FINDINGS: Transabdominal scanning demonstrates a single living intrauterine fetus in a transverse, head to the maternal right lie. motion is observed and heart rate is recorded at 135 beats per minute. A posterior grade 0 placenta is seen without evidence of previa. Amniotic fluid is subjectively normal. Closed cervical length is 5.3 cm measured transabdominally. No extrauterine abnormality is observed. There has been appropriate interval growth. Exam quality is inhibited by maternal body habitus and early gestational age. There is no evidence of abruption or subchorionic hemorrhage. Biometry Chart: BPD 3.7 cm = 17 weeks 2 days HC 13.1 cm = 16 weeks 5 days AC 9.4 cm = 15 weeks 4 days FL 2.1 cm = 16 weeks 1 day HC/AC ratio 1.40 (1.09-1.28) Cephalic index normal 0.81. Estimated weight 140 grams, 0 pounds 4 ounces, 42nd percentile for 16 weeks 0 days. IMPRESSION: Viable single intrauterine gestation at 16 weeks 3 days by today's composite criteria. Expected gestational age estimate based on prior sonography is 16 weeks 1 day. SCOTT by prior sonography May 15, 2019. There is no evidence of placenta previa, abruption, or subchorionic bleed. Electronically Signed by Amadou Diaz MD 11/29/2018 02:49 P
== END ==
LOC: M RAD 12:14
PROVIDERS: ATTEND Advanced Practice Midwife
DX: O20.0 Threatened abortion (principal); Z3A.16 16 weeks gestation of pregnancy

== ENCOUNTER → 2018-12-16 | Outpatient (CLI) | payer OTHER ==
[~2018-12-16] MED LIST changes: +HYDR-3715 PO; -METR-201 PO; +METR-265 PO; -NORCOTAB PO; -SENN1TAB2 PO; +SENN1TAB40 PO
[2018-12-16 14:58] LABS: FREE T4 0.8 NG/DL (0.76-1.46); THYROID STIMULATING HORMONE 2.38 uIU/ML (0.358-3.740)
== END ==
LOC: M LAB 13:34
PROVIDERS: ATTEND Advanced Practice Midwife
DX: O26.892 Other specified pregnancy related conditions, second trimester (principal); Z3A.00 Weeks of gestation of pregnancy not specified

== ENCOUNTER → 2018-12-17 | Outpatient (CLI) | payer OTHER ==
--- NOTE | 2018-12-17 17:10 | REP ---
Obstetric ultrasound for anatomy: There is a single intrauterine gestation. position is variable. The heart rate is 124 beats per minute. The placenta is posterior without previa or abruptio. The placenta is grade zero. Subjectively the amniotic fluid volume is normal. The cervix measures 30.8 cm length. Gestational age by today's ultrasound is 19 weeks 2 days/SCOTT 05/11/2019. Gestational age by the first ultrasound is 18 weeks 2 days/SCOTT 05/15/2019. Gestational age by LMP is 18 weeks 4 days/SCOTT 05/16/2019. weight is 294 grams/0 pounds, 10 ounces. This is the 81st percentile for 18 weeks 4 days. The following anatomic structures are identified and are unremarkable: Intracranial lateral ventricles, choroid plexus, diaphragm, stomach, cord insertion, three-vessel cord, kidneys, bladder, spine and upper lower extremities. Suboptimally demonstrated because of position are the cerebellum/posterior fossa, facial features, lungs, four-chamber heart and cardiac right and left ventricular outflow tracts. A followup study dedicated to these structures might be considered. Otherwise, there are no anomalies. Electronically Signed by Perico Acuna MD 12/17/2018 05:02 P
== END ==
LOC: M RAD 15:44
PROVIDERS: ATTEND Specialist
DX: Z34.82 Encounter for supervision of other normal pregnancy, second trimester (principal); Z36.89 Encounter for other specified antenatal screening; Z3A.18 18 weeks gestation of pregnancy

== ENCOUNTER 2019-01-21 19:53 | Outpatient (CLI) | payer OTHER ==
[~2019-01-21] VITALS: Ht 165.1 cm; Wt 129.4 kg
[2019-01-21 20:18] VITALS: BP 125/63
[2019-01-21] MEDS ORDERED: MULTTAB20 PO (20:24)
[2019-01-21] MEDS ORDERED: TUMS500C PO (20:26)
[2019-01-21] MEDS ORDERED: FAMOTIDINE 20 MG TAB PO ONE (21:15)
[2019-01-21 21:37] LABS: APPEARANCE, URINE HAZY (CLEAR); BACTERIA, URINE AUTO 1+ (NEGATIVE); BILIRUBIN, URINE AUTO NEGATIVE (NEGATIVE); BLOOD, URINE BLOOD NEGATIVE (NEGATIVE); COLOR, URINE YELLOW (YELLOW); GLUCOSE, URINE (UA) AUTO NEGATIVE (NEGATIVE); KETONE, URINE AUTO TRACE mg/dL (NEGATIVE); LEUKOCYTE ESTERASE, URINE AUTO NEGATIVE (NEGATIVE); MUCUS, URINE SMALL (NEGATIVE); NITRITE, URINE AUTO NEGATIVE (NEGATIVE); PROTEIN, URINE AUTO NEGATIVE (NEGATIVE); RBC, URINE AUTO 1 /HPF (0-3); SPECIFIC GRAVITY URINE AUTO 1.026 (1.002-1.035); SQUAMOUS EPITHELIAL CELL UR AU 2 /HPF (0-6); UROBILINOGEN, URINE AUTO 0.2 mg/dL (0.0-2.0); WBC, URINE AUTO 1 /HPF (0-3)
== END 2019-01-21 22:00 | disposition home or self-care (01) ==
LOC: M LDO 19:53
PROVIDERS: ATTEND Advanced Practice Midwife
DX: O26.892 Other specified pregnancy related conditions, second trimester (principal); R10.13 Epigastric pain; Z3A.23 23 weeks gestation of pregnancy
CPT/HCPCS: 81001; 87086; G0378; G0463

== ENCOUNTER → 2019-02-07 | Outpatient (CLI) | payer OTHER ==
[~2019-02-07] MED LIST changes: +MULTTAB20 PO; +TUMS500C PO
[2019-02-07 10:09] LABS: HEMATOCRIT 35.6 % (36.0-47.0); MEAN CORPUSCULAR HEMOGLOBIN 27.6 pg (27.0-33.0); MEAN CORPUSCULAR HGB CONC 33.7 g/dl (32.0-36.5); PLATELET COUNT, AUTOMATED 201 10^3/uL (150-450); RED BLOOD COUNT 4.34 10^6/uL (4.00-5.40); WHITE BLOOD COUNT 10.9 10^3/uL (4.0-10.0)
[2019-02-07 10:46] LABS: FREE T4 0.81 NG/DL (0.76-1.46); THYROID STIMULATING HORMONE 1.7 uIU/ML (0.358-3.740)
== END ==
LOC: M LAB 08:13
PROVIDERS: ATTEND Advanced Practice Midwife
DX: O99.89 Other specified diseases and conditions complicating pregnancy, childbirth and the puerperium (principal); Z3A.26 26 weeks gestation of pregnancy

== ENCOUNTER → 2019-02-11 | Outpatient (CLI) | payer OTHER | LOC: M LAB 08:51 | PROVIDERS: ATTEND Advanced Practice Midwife | DX: O26.892 Other specified pregnancy related conditions, second trimester (principal) ==

== ENCOUNTER 2019-04-05 18:24 | Outpatient (CLI) | payer OTHER ==
[~2019-04-05] VITALS: Ht 165.1 cm; Wt 132.5 kg
[2019-04-05 18:44] VITALS: BP 140/86
== END 2019-04-05 23:00 | disposition home or self-care (01) ==
LOC: M LDO 18:24
PROVIDERS: ATTEND Obstetrics & Gynecology
DX: Z04.3 Encounter for examination and observation following other accident (principal); O9A.213 Injury, poisoning and certain other consequences of external causes complicating pregnancy, third trimester; W10.8XXA Fall (on) (from) other stairs and steps, initial encounter; Y92.098 Other place in other non-institutional residence as the place of occurrence of the external cause; Z3A.34 34 weeks gestation of pregnancy
CPT/HCPCS: 59025; G0378; G0463

== ENCOUNTER → 2019-04-08 | Outpatient (CLI) | payer OTHER ==
--- NOTE | 2019-04-08 19:40 | REP ---
Clinical: Growth evaluation. Comparison: None. Findings: Examination demonstrates a single live intrauterine in cephalic presentation. motion is identified by technologist. Placenta is noted posterior fundal and grade three without evidence for placenta previa or abruption. Amniotic fluid volume is normal. Cervix measures 4.3 cm in length and appears closed. No evidence for nuchal cord. Gestational age by LMP 34 weeks 4 days with SCOTT 05/16/2019 . Gestational age by current measurements 35 weeks 2 days with SCOTT 05/11/2019 . FHR equals 136 beats per minute. BPD 8.9 cm 35 weeks 5 days HC 33.3 cm 38 weeks 0 days AC 31.1 cm 35 weeks 0 days FL 6.6 cm 33 weeks 6 days HL 5.9 cm 34 weeks 0 days HC/AC ratio 1.07 Estimated weight 2595 grams ( 57 percentile). Amniotic fluid index: 14.7 cm Umbilical cord SD ratio: 2.85 Impression: single live intrauterine in cephalic presentation demonstrating appropriate interval growth. No gross abnormalities are identified. Electronically Signed by Osorio Enriquez MD 04/08/2019 07:32 P
== END ==
LOC: M RAD 17:24
PROVIDERS: ATTEND Advanced Practice Midwife
DX: O24.410 Gestational diabetes mellitus in pregnancy, diet controlled (principal)

== ENCOUNTER → 2019-04-25 | Outpatient (REF) | payer OTHER | LOC: M LAB REF 18:52 | PROVIDERS: ATTEND Advanced Practice Midwife | DX: O24.410 Gestational diabetes mellitus in pregnancy, diet controlled (principal); Z3A.00 Weeks of gestation of pregnancy not specified ==

== ENCOUNTER 2019-05-09 07:40 | Inpatient (IN) | payer OTHER ==
[2019-05-09] VITALS (17 sets, daily range): BP systolic 92–139; BP diastolic 53–87
[~2019-05-09] VITALS: Ht 165.1 cm; Wt 131.4 kg
[~2019-05-09 07:40] MED LIST changes: +SENN-53 PO; -SENN1TAB40 PO
[2019-05-09] MEDS ORDERED: PENICILLIN G POTASSIUM IV 5 MU in D5W MINI-BAG PLUS 100 ML IV STA (08:25)
[2019-05-09] MEDS ORDERED: miSOPROStol 50 MCG 1/2 TAB (S0191) PO ONE (08:30)
[2019-05-09 08:55] LABS: HEMATOCRIT 36.1 % (36.0-47.0); HEMOGLOBIN 12.1 g/dl (12.0-15.5); MEAN CORPUSCULAR HEMOGLOBIN 26.9 pg (27.0-33.0); MEAN CORPUSCULAR HGB CONC 33.5 g/dl (32.0-36.5); MEAN CORPUSCULAR VOLUME 80.2 fl (80.0-96.0); PLATELET COUNT, AUTOMATED 188 10^3/uL (150-450); WHITE BLOOD COUNT 10.2 10^3/uL (4.0-10.0)
[2019-05-09] MEDS ORDERED: VALA1TAB64 PO (09:12)
[2019-05-09] MEDS ORDERED: RANI15TA PO (09:12)
--- NOTE | 2019-05-09 09:21 | HPE ---
DATE OF ADMISSION: 05/09/2019 CHIEF COMPLAINT: Induction of labor. HISTORY OF PRESENT ILLNESS: Yanet is a 33-year-old year-old G3, P1-1-0-2 at 39 weeks gestation by first trimester ultrasound with an estimated date of delivery of 05/16/2019. She is presenting for induction of labor secondary to A1 gestational diabetes, diet controlled and history of macrosomic baby. She denies consistent uterine contractions, leakage of fluid, bleeding, discharge. She is feeling baby move. LABS: Blood type is O+. Antibody screen negative, rubella immune, VDRL nonreactive, hepatitis B surface antigen negative, HIV negative, hepatitis C nonreactive, chlamydia negative, gonorrhea negative. GBS positive. Obstetrical ultrasound shows a single intrauterine with a the posterior fundal placenta. AFB was normal. OBSTETRICAL HISTORY: 1. In March 2010, she delivered a 6 pounds 5 ounces male via normal spontaneous vaginal delivery at 36 weeks 5 days estimated gestational age under an epidural. She was induced secondary to leaking of amniotic fluid and preeclampsia. 2. In 2014, she delivered a 9 pounds 8 ounces male via normal spontaneous vaginal delivery at 40 weeks estimated gestational age, no complications. PAST MEDICAL HISTORY: 1. Joe's, currently on 25 mcg levothyroxine daily. 2. A1 gestational diabetes mellitus, diet-controlled. 3. 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 MEDICATIONS: As mentioned above, including vitamins. PAST SURGICAL HISTORY: None. ALLERGIES: None. SOCIAL HISTORY: The patient is . Denies tobacco, alcohol or drugs. PHYSICAL EXAMINATION Vitals: Temperature 97.8, Pulse 115 and regular, Respiratory rate 20 and unlabored, blood pressure 92/53 Abdomen: Gravid. Sterile vaginal exam: 3 cm, 50% effaced, -3 station heart monitor 145 beats per minute, moderate variability, category one tracing. Draper: Periodic contractions. ASSESSMENT/PLAN: 1. Intrauterine at 39 weeks estimated gestational age presenting for induction of labor secondary to gestational diabetes. 2. GBS positive. Penicillin has been ordered. 3. Will start induction with Misoprostol. 4. Anticipate normal spontaneous vaginal delivery. [facility]
[2019-05-09] MEDS ORDERED: OXYTOCIN DRIP 30 UNITS in IV 1 EA IV SCH (12:15)
[2019-05-09 12:44] LABS: HEMOGLOBIN A1c 5.5 %
[2019-05-09] MEDS: LR 1,000 ML IV SCH ×2 (13:10→20:30)
[2019-05-09] MEDS: PENICILLIN G POTASSIUM IV 2.5 MU in IV 1 EA IV SCH ×2 (13:10→16:55)
--- NOTE | 2019-05-09 15:35 | IPNPDOC ---
Text Note Date of Service The patient was seen on 05/09/19. NOTE S: Patient comfortable, no complaints O: SVE: 50/-2 FHR: 155 bpm, moderate variability, accels, no decels, cat 1 tracing TOCO: CTX q2-3 min A/P: 33 yo at 39 weeks EGA, IOL 2/2 A1GDM - Continue with Pitocin - s/p SROM with clear fluid and bloody show - anticipate VS,Fishbone, I+O VS, Fishbone, I+O Laboratory Tests 05/09/19 08:45 Red Blood Count 4.50, Mean Corpuscular Volume 80.2, Mean Corpuscular Hemoglobin 26.9 L, Mean Corpuscular Hemoglobin Concent 33.5, Red Cell Distribution Width 14.4 Vital Signs Date Time Temp Pulse Resp B/P (MAP) Pulse Ox O2 Delivery O2 Flow Rate FiO2 05/09/19 13:08 99 18 123/59 (80) 05/09/19 11:22 97.4 GME ATTESTATION GME ATTESTATION My faculty preceptor for this patient encounter was physically present during the encounter and was fully available. All aspects of the patient interview, examination, medical decision making process, and medical care plan development were reviewed and approved by the faculty preceptor. The faculty preceptor is aware and concurs with the plan as stated in the body of this note and will attest to such by his/her cosignature. SOLOMON PEÑA DO May 09, 2019 15:35
[2019-05-09] MEDS ORDERED: PROMETHAZINE INJ 25 MG/ML VIAL (J2550) IV ONE (16:00)
[2019-05-09] MEDS ORDERED: BUTORPHANOL 2 MG/ML INJ (J0595) IV ONE (16:00)
[2019-05-09] MEDS ORDERED: DOCUSATE SODIUM 100 MG CAP PO PRN (18:15)
[2019-05-09] MEDS ORDERED: RHOGAM 300 MCG (1500 IU) INJ (J2790) IM SCH (18:15)
[2019-05-09] MEDS ORDERED: METHYLERGONOVINE MALEATE 0.2 MG TAB PO PRN (18:15)
[2019-05-09] MEDS ORDERED: ACETAMINOPHEN 500 MG TAB PO PRN (18:15)
[2019-05-09] MEDS ORDERED: ACETAMINOPHEN TAB 650MG DOSE (2X325MG) PO PRN (18:15)
[2019-05-09] MEDS ORDERED: IBUPROFEN 600 MG TAB PO PRN (18:15)
[2019-05-09] MEDS ORDERED: MEASLES,MUMPS,RUBELLA VACCINE INJ (MMR-II) (90707) SC SCH (18:15)
[2019-05-09] MEDS ORDERED: DIBUCAINE 1% OINTMENT 30GM TOP PRN (18:15)
[2019-05-09] MEDS: IBUPROFEN 800 MG TAB PO PRN (19:04)
--- NOTE | 2019-05-09 20:49 | DN ---
DATE OF DELIVERY: 05/09/2019 PREDELIVERY DIAGNOSIS: 39 weeks gestation. POSTDELIVERY DIAGNOSIS: Delivered. PROCEDURE: Spontaneous vaginal delivery. PROVIDER: Annie Velazquez DO, PGY-3 WORK TICKET DISTRIBUTOR: Karla Kaplan, Certified Nurse Laborer [employer] ANESTHESIA: None. ESTIMATED BLOOD LOSS: 200 mL FINDINGS: Male infant weighing 8 pounds 0 ounces, 3640 grams, scores of 8 and 9. DELIVERY SUMMARY: After a short second stage, the patient spontaneously delivered an 8 pound even male weighing 3640 grams without anesthesia at 1740 hours. The infant delivered left occiput anterior and restituted left occiput transverse. There was one nuchal times one loose which was reduced. The shoulders delivered with ease followed by the corpus. The cried spontaneously and was handed to the mother. scores were 8 and 9. The cord was doubly clamped and cut by the father of the baby. The placenta was delivered spontaneously at 1759 hours and appeared to be intact. The patient received IV Pitocin immediately after delivery of the placenta. There were no abrasions or lacerations. Sponge, needle and instrument counts were correct. The parents have named their baby Wu. My faculty preceptor for this patient encounter was physically present during the encounter and was fully available. All aspects of the patient interview, examination, medical decision making process, and medical care plan development were reviewed and approved by the faculty preceptor. The faculty preceptor is aware and concurs with the plan as stated in the body of this note and will attest to such by his/her cosignature. SHANELLE
[2019-05-09] MEDS: ANUSOL HC CREAM 30GM TOP SCH (22:23)
[2019-05-10] MEDS: LR 1,000 ML IV SCH ×2 (04:30→12:30)
[2019-05-10] MEDS: IBUPROFEN 800 MG TAB PO PRN ×2 (05:57→14:05)
[2019-05-10] MEDS ORDERED: LEVOTHYROXINE 25MCG TABLET (0.025MG) PO SCH (06:00)
[2019-05-10 06:06] VITALS: BP 141/93
[2019-05-10] MEDS: ANUSOL HC CREAM 30GM TOP SCH (07:43)
[2019-05-10] MEDS ORDERED: PRENATAL VITAMINS CHEWABLE TABLET PO SCH (09:00)
[2019-05-10] MEDS ORDERED: valACYclovir HCL 500 MG TAB PO SCH (09:00)
== END 2019-05-10 19:00 | disposition home or self-care (01) | DRG 807 ==
LOC: M LDI 07:40 → M OBS 20:03
PROVIDERS: ADMIT Advanced Practice Midwife; ATTEND Advanced Practice Midwife
PROC: 3E0P7GC Introduction of Other Therapeutic Substance into Female Reproductive, Via Natural or Artificial Opening (ICD-10-PCS; principal; 2019-05-09)
PROC: 10E0XZZ Delivery of Products of Conception, External Approach (ICD-10-PCS; principal; 2019-05-09)
DX: O24.420 Gestational diabetes mellitus in childbirth, diet controlled (principal); Z37.0 Single live birth; Z3A.39 39 weeks gestation of pregnancy; O69.81X0 Labor and delivery complicated by cord around neck, without compression, not applicable or unspecified; O99.824 Streptococcus B carrier state complicating childbirth; O99.284 Endocrine, nutritional and metabolic diseases complicating childbirth; E06.3 Autoimmune thyroiditis

== ENCOUNTER 2019-09-16 21:39 | Emergency (ER) | payer OTHER ==
[~2019-09-16] VITALS: Ht 165.1 cm; Wt 130.0 kg
[~2019-09-16 21:39] MED LIST changes: +RANI15TA PO; +VALA1TAB64 PO
[2019-09-16] MEDS ORDERED: CVS1CAP2 PO (21:47)
[2019-09-16] MEDS ORDERED: MULTCAP PO (21:47)
[2019-09-16] MEDS ORDERED: PROBCAP17 PO (21:47)
[2019-09-16] MEDS ORDERED: NS 1,000 ML IV ONE (22:30)
[2019-09-16 22:58] LABS: BASO # 0.1 10^3/uL (0.0-0.2); BASO % 0.8 % (0.0-1.0); EOS # 0.3 10^3/uL (0.0-0.5); EOS % 3.9 % (0.0-3.0); HEMATOCRIT 42.5 % (36.0-47.0); HEMOGLOBIN 13.4 g/dl (12.0-15.5); LYMPH # 2.8 10^3/uL (1.5-5.0); MEAN CORPUSCULAR HEMOGLOBIN 25.7 pg (27.0-33.0); MEAN CORPUSCULAR HGB CONC 31.5 g/dl (32.0-36.5); MEAN CORPUSCULAR VOLUME 81.6 fl (80.0-96.0); MONO # 0.7 10^3/uL (0.0-0.8); MONO % 9.3 % (0.0-5.0); NEUTROPHILS % 50.6 % (36.0-66.0); PLATELET COUNT, AUTOMATED 253 10^3/uL (150-450); RED BLOOD COUNT 5.21 10^6/uL (4.00-5.40)
[2019-09-16 23:25] LABS: ALBUMIN 3.6 GM/DL (3.2-5.2); ALT/SGPT 26 U/L (12-78); BILIRUBIN,DIRECT 0.1 MG/DL (0.0-0.2); BILIRUBIN,TOTAL 0.5 MG/DL (0.2-1.0); BLOOD UREA NITROGEN 14 MG/DL (7-18); CALCIUM LEVEL 8.8 MG/DL (8.5-10.1); CARBON DIOXIDE LEVEL 25 MEQ/L (21-32); CHLORIDE LEVEL 108 MEQ/L (98-107); GLOMERULAR FILTRATION RATE > 60.0 (>60); GLUCOSE, FASTING 93 MG/DL (70-100); LIPASE 155 U/L (73-393); POTASSIUM SERUM 4.2 MEQ/L (3.5-5.1); SODIUM LEVEL 143 MEQ/L (136-145)
[2019-09-16 23:43] VITALS: BP 122/81
== END 2019-09-16 23:51 | disposition home or self-care (01) ==
LOC: M ED 21:39
DX: K52.9 Noninfective gastroenteritis and colitis, unspecified (principal); E03.9 Hypothyroidism, unspecified; Z79.899 Other long term (current) drug therapy; Z79.890 Hormone replacement therapy

== ENCOUNTER → 2019-10-19 | Outpatient (CLI) | payer OTHER ==
[~2019-10-19] MED LIST changes: +CVS1CAP2 PO; +MULTCAP PO; +PROBCAP17 PO; +VALA1TAB5 PO; -VALA1TAB64 PO
[2019-10-19 10:42] LABS: FREE T4 0.69 NG/DL (0.76-1.46); THYROID STIMULATING HORMONE 24.2 uIU/ML (0.358-3.740)
== END ==
LOC: M LAB 08:56
PROVIDERS: ATTEND Advanced Practice Midwife
DX: E06.3 Autoimmune thyroiditis (principal); Z86.32 Personal history of gestational diabetes

== ENCOUNTER → 2019-10-21 | Outpatient (REF) | payer OTHER | LOC: M SFHCWAGY 13:46 | PROVIDERS: ATTEND Advanced Practice Midwife | DX: Z12.4 Encounter for screening for malignant neoplasm of cervix (principal) | CPT/HCPCS: 81025; 87624; G0123; G0463 ==

== ENCOUNTER → 2019-12-08 | Outpatient (CLI) | payer OTHER | LOC: M LABSMTC 11:24 | PROVIDERS: ATTEND Family Medicine | DX: Z11.59 Encounter for screening for other viral diseases (principal); Z20.828 Contact with and (suspected) exposure to other viral communicable diseases ==

== ENCOUNTER 2020-02-02 11:58 | Emergency (ER) | payer OTHER ==
[~2020-02-02] VITALS: Ht 165.1 cm; Wt 138.7 kg
[2020-02-02 13:35] LABS: BASO # 0.1 10^3/uL (0.0-0.2); BASO % 0.5 % (0.0-1.0); EOS # 0.1 10^3/uL (0.0-0.5); EOS % 0.5 % (0.0-3.0); HEMATOCRIT 40.4 % (36.0-47.0); HEMOGLOBIN 13.3 g/dl (12.0-15.5); LYMPH # 1.9 10^3/uL (1.5-5.0); LYMPH % 11.2 % (24.0-44.0); MEAN CORPUSCULAR HEMOGLOBIN 27.7 pg (27.0-33.0); MEAN CORPUSCULAR HGB CONC 32.9 g/dl (32.0-36.5); MONO # 0.8 10^3/uL (0.0-0.8); MONO % 4.5 % (0.0-5.0); NEUTROPHILS # 13.8 10^3/uL (1.5-8.5); NEUTROPHILS % 82.1 % (36.0-66.0); PLATELET COUNT, AUTOMATED 271 10^3/uL (150-450); RED BLOOD COUNT 4.81 10^6/uL (4.00-5.40); WHITE BLOOD COUNT 16.8 10^3/uL (4.0-10.0)
[2020-02-02 13:50] LABS: ALBUMIN 3.6 GM/DL (3.2-5.2); ALT/SGPT 28 U/L (12-78); BILIRUBIN,DIRECT 0.2 MG/DL (0.0-0.2); BILIRUBIN,TOTAL 0.6 MG/DL (0.2-1.0); LIPASE 138 U/L (73-393); TOTAL PROTEIN 7.2 GM/DL (6.4-8.2)
[2020-02-02 14:17] LABS: BLOOD UREA NITROGEN 23 MG/DL (7-18); CALCIUM LEVEL 8.4 MG/DL (8.5-10.1); CARBON DIOXIDE LEVEL 26 MEQ/L (21-32); CHLORIDE LEVEL 104 MEQ/L (98-107); CREATININE FOR GFR 0.93 MG/DL (0.55-1.30); GLOMERULAR FILTRATION RATE > 60.0 (>60); GLUCOSE, FASTING 192 MG/DL (70-100); POTASSIUM SERUM 3.9 MEQ/L (3.5-5.1); SODIUM LEVEL 136 MEQ/L (136-145)
[2020-02-02 14:18] LABS: HCG, SERUM QUALITATIVE NEGATIVE (NEGATIVE)
[2020-02-02] MEDS ORDERED: ISOVUE-370 76% 100ML VIAL As Ordered ONE (14:24)
--- NOTE | 2020-02-02 15:19 | REP ---
CT ABDOMEN AND PELVIS WITH IV CONTRAST: TECHNIQUE: Axial contrast-enhanced images from the lung bases to the pubic symphysis using 100 mL Isovue-370 intravenous contrast material with multiplanar reformations. Visualized lung bases are clear. Liver, spleen, adrenals, pancreas and kidneys are unremarkable in appearance. There is no hydronephrosis. There is no abdominal aortic aneurysm. There is no adenopathy. There is no free air or free fluid. The patient has had a prior cholecystectomy. There is no biliary dilatation. There is diffuse left colonic and sigmoid diverticulosis without acute diverticulitis. No bowel wall thickening or inflammation is seen. No pelvic mass is seen. Urinary bladder is mildly distended and grossly unremarkable. There is no free air or free fluid. IMPRESSION: Colonic diverticulosis on the left. No acute diverticulitis or other acute finding in the abdomen or pelvis. Electronically Signed by Perico Starr MD 02/02/2020 05:06 P
[2020-02-02] MEDS ORDERED: PRED20TA PO (15:54)
[2020-02-02] MEDS ORDERED: NORC1TAB7 PO (15:54)
[2020-02-02 16:02] VITALS: BP 143/88
--- NOTE | 2020-02-02 21:09 | ECGEPIP ---
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
== END 2020-02-02 16:29 | disposition home or self-care (01) ==
LOC: M ED 11:58
DX: K50.90 Crohn's disease, unspecified, without complications (principal); K62.5 Hemorrhage of anus and rectum; K57.92 Diverticulitis of intestine, part unspecified, without perforation or abscess without bleeding; R00.0 Tachycardia, unspecified; K64.4 Residual hemorrhoidal skin tags; E11.9 Type 2 diabetes mellitus without complications; M54.9 Dorsalgia, unspecified; F41.9 Anxiety disorder, unspecified; E06.3 Autoimmune thyroiditis; Z87.42 Personal history of other diseases of the female genital tract; Z87.19 Personal history of other diseases of the digestive system; Z79.899 Other long term (current) drug therapy
CPT/HCPCS: 74177; 80048; 80076; 83690; 84703; 85025; 86850; 86900; 86901; 93005; 99284; Q9967

== ENCOUNTER → 2020-03-01 | Outpatient (CLI) | payer OTHER ==
[~2020-03-01] MED LIST changes: +NORC1TAB7 PO
[2020-03-01 17:17] LABS: FREE T4 1.19 NG/DL (0.76-1.46); THYROID STIMULATING HORMONE 2.84 uIU/ML (0.358-3.740)
== END ==
LOC: M LAB 16:22
PROVIDERS: ATTEND Advanced Practice Midwife
DX: E06.3 Autoimmune thyroiditis (principal)

== ENCOUNTER → 2020-04-20 | Outpatient (CLI) | payer OTHER ==
[~2020-04-20] MED LIST changes: +LEVO75TA34 PO; +LEXA1TAB PO; +NORG1TAB33 PO; +VALA-3 PO
[2020-05-29 13:03] LABS: CALPROTECTIN STOOL SEE SEPARATE REPORT; FATS NEUTRAL SEE SEPARATE REPORT; FATS TOTAL SEE SEPARATE REPORT; H PYLORI STOOL ANTIGEN SEE SEPARATE REPORT; PANCREATIC ELASTASE STOOL SEE SEPARATE REPORT
[2020-06-07 20:17] LABS: BASO # 0.1 10^3/uL (0.0-0.2); BASO % 0.8 % (0.0-1.0); EOS # 0.3 10^3/uL (0.0-0.5); EOS % 4.2 % (0.0-3.0); HEMATOCRIT 38.5 % (36.0-47.0); HEMOGLOBIN 12.5 g/dl (12.0-15.5); LYMPH # 1.7 10^3/uL (1.5-5.0); LYMPH % 26.8 % (24.0-44.0); MEAN CORPUSCULAR HEMOGLOBIN 26.1 pg (27.0-33.0); MEAN CORPUSCULAR HGB CONC 32.5 g/dl (32.0-36.5); MEAN CORPUSCULAR VOLUME 80.4 fl (80.0-96.0); MONO # 0.5 10^3/uL (0.0-0.8); MONO % 7.4 % (0.0-5.0); NEUTROPHILS # 3.8 10^3/uL (1.5-8.5); NEUTROPHILS % 60.5 % (36.0-66.0); PLATELET COUNT, AUTOMATED 271 10^3/uL (150-450); RED BLOOD COUNT 4.79 10^6/uL (4.00-5.40); WHITE BLOOD COUNT 6.2 10^3/uL (4.0-10.0)
[2020-06-12 12:36] LABS: TISSUE TRANSGLUTAMINASE IgA SEE SEPARATE REPORT UNITS
[2020-06-15 18:06] LABS: ALBUMIN 3.6 GM/DL (3.2-5.2); ALT/SGPT 19 U/L (12-78); BILIRUBIN,DIRECT < 0.1 MG/DL (0.0-0.2); BILIRUBIN,TOTAL 0.6 MG/DL (0.2-1.0); BLOOD UREA NITROGEN 10 MG/DL (7-18); CREATININE FOR GFR 0.78 MG/DL (0.55-1.30); GLOMERULAR FILTRATION RATE > 60.0 (>60); IRON (FE) 42 UG/DL (50-170); TOTAL IRON BINDING CAPACITY 421 UG/DL (250-450); TOTAL PROTEIN 7.2 GM/DL (6.4-8.2)
== END ==
LOC: M LAB 07:41
PROVIDERS: ATTEND Internal Medicine Gastroenterology
DX: R10.816 Epigastric abdominal tenderness (principal); R19.7 Diarrhea, unspecified

== ENCOUNTER → 2020-05-24 | Outpatient (REF) | payer OTHER ==
[2020-05-24 18:39] LABS: BASO # 0.1 10^3/uL (0.0-0.2); BASO % 0.9 % (0.0-1.0); EOS # 0.3 10^3/uL (0.0-0.5); EOS % 4.4 % (0.0-3.0); HEMATOCRIT 38.7 % (36.0-47.0); HEMOGLOBIN 12.5 g/dl (12.0-15.5); LYMPH # 1.9 10^3/uL (1.5-5.0); LYMPH % 27.4 % (24.0-44.0); MEAN CORPUSCULAR HEMOGLOBIN 25.9 pg (27.0-33.0); MEAN CORPUSCULAR HGB CONC 32.3 g/dl (32.0-36.5); MEAN CORPUSCULAR VOLUME 80.3 fl (80.0-96.0); MONO # 0.5 10^3/uL (0.0-0.8); MONO % 7.4 % (0.0-5.0); NEUTROPHILS # 4.2 10^3/uL (1.5-8.5); NEUTROPHILS % 58.9 % (36.0-66.0); PLATELET COUNT, AUTOMATED 264 10^3/uL (150-450); RED BLOOD COUNT 4.82 10^6/uL (4.00-5.40); WHITE BLOOD COUNT 7.1 10^3/uL (4.0-10.0)
[2020-05-24 18:45] LABS: ALBUMIN 3.7 GM/DL (3.2-5.2); ALT/SGPT 29 U/L (12-78); BILIRUBIN,TOTAL 0.6 MG/DL (0.2-1.0); BLOOD UREA NITROGEN 13 MG/DL (7-18); CALCIUM LEVEL 9.1 MG/DL (8.5-10.1); CARBON DIOXIDE LEVEL 27 MEQ/L (21-32); CHLORIDE LEVEL 107 MEQ/L (98-107); CHOLESTEROL LEVEL 227 MG/DL (<200); CHOLESTEROL RISK RATIO 5.536 (<5); CREATININE FOR GFR 0.76 MG/DL (0.55-1.30); FREE T4 0.91 NG/DL (0.76-1.46); GLOMERULAR FILTRATION RATE > 60.0 (>60); GLUCOSE, FASTING 87 MG/DL (70-100); HDL CHOLESTEROL 41 MG/DL (>40); LDL CHOLESTEROL 135 MG/DL (<100); NON-HDL-C 186 MG/DL; POTASSIUM SERUM 4.2 MEQ/L (3.5-5.1); SODIUM LEVEL 138 MEQ/L (136-145); TRIGLYCERIDES LEVEL 255 MG/DL (<150)
[2020-05-24 18:47] LABS: TOTAL 25(OH) VITAMIN D 18.3 NG/ML (30.0-100.0); VITAMIN B12 LEVEL 387 PG/ML (247-911)
[2020-05-24 19:02] LABS: HEMOGLOBIN A1c 5.4 %
== END ==
LOC: M LAB REF 16:59
PROVIDERS: ATTEND Physician Assistant
DX: F41.8 Other specified anxiety disorders (principal); M54.5 Low back pain; R41.3 Other amnesia; E66.01 Morbid (severe) obesity due to excess calories; E06.3 Autoimmune thyroiditis; Z68.43 Body mass index [BMI] 50.0-59.9, adult; Z82.0 Family history of epilepsy and other diseases of the nervous system

== ENCOUNTER → 2020-06-13 | Outpatient (CLI) | payer OTHER | LOC: M LABSMTC 11:43 | PROVIDERS: ATTEND Anesthesiology | DX: Z01.812 Encounter for preprocedural laboratory examination (principal); Z20.828 Contact with and (suspected) exposure to other viral communicable diseases | CPT/HCPCS: C9803; U0003 ==

== ENCOUNTER 2020-06-18 12:43 | Day surgery (SDC) | payer OTHER ==
[~2020-06-18] VITALS: Ht 165.1 cm; Wt 138.8 kg
[~2020-06-18 12:43] MED LIST changes: +LIDOCAINE 2% 100MG/5ML SDV (FOR ANES.) As Ordered ONE; +NS 1,000 ML IV ONE; +fentaNYL 100 MCG/2 ML INJECTION (J3010) As Ordered ONE; +propofoL 500 MG/50 ML VIAL As Ordered ONE
[2020-06-18] MEDS ORDERED: propofoL 500 MG/50 ML VIAL As Ordered ONE (14:59)
--- NOTE | 2020-06-18 15:42 | ROOR ---
Patient Name: Yanet Hammer Procedure Date: 06/18/2020 2:42 PM Date of : 1985 Age: 35 Room: [facility] Gender: Female Note Status: Finalized Procedure: Upper GI endoscopy Indications: Dyspepsia, Persistent vomiting of unknown cause Providers: Solitario Montenegro MD Referring MD: Nisha Arredondo Requesting Provider: Medicines: Monitored Anesthesia Care Complications: No immediate complications. Procedure: Pre-Anesthesia Assessment: - Prior to the procedure, a History and Physical was performed, and patient medications and allergies were reviewed. The patient is competent. The risks and benefits of the procedure and the sedation options and risks were discussed with the patient. All questions were answered and informed consent was obtained. Patient identification and proposed procedure were verified by the physician, the nurse and the anesthesiologist in the procedure room. Mental Status Examination: alert and oriented. Airway Examination: normal oropharyngeal airway and neck mobility. Respiratory Examination: clear to auscultation. CV Examination: normal. Prophylactic Antibiotics: The patient does not require prophylactic antibiotics. Prior Anticoagulants: The patient has taken no previous anticoagulant or antiplatelet agents. ASA Grade Assessment: II - A patient with mild systemic disease. After reviewing the risks and benefits, the patient was deemed in satisfactory condition to undergo the procedure. The anesthesia plan was to use monitored anesthesia care (MAC). Immediately prior to administration of medications, the patient was re-assessed for adequacy to receive sedatives. The heart rate, respiratory rate, oxygen saturations, blood pressure, adequacy of pulmonary ventilation, and response to care were monitored throughout the procedure. The physical status of the patient was re-assessed after the procedure. The Endoscope was introduced through the mouth, and advanced to the second part of duodenum. The upper GI endoscopy was accomplished without difficulty. The patient tolerated the procedure well. Findings: The examined esophagus was normal. The Z-line was regular and was found 40 cm from the incisors. Scattered moderate inflammation characterized by erosions, friability and granularity was found in the gastric antrum. Biopsies were taken with a cold forceps for Helicobacter pylori testing. Biopsies were taken with a cold forceps for histology. Verification of patient identification for the specimen was done by the physician and nurse using the patient's name, date and medical record number. Estimated blood loss was minimal. The duodenal bulb and second portion of the duodenum were normal. Biopsies for histology were taken with a cold forceps for evaluation of celiac disease. Impression: - Normal esophagus. - Z-line regular, 40 cm from the incisors. - Gastritis. Biopsied. - Normal duodenal bulb and second portion of the duodenum. Biopsied. Recommendation: - Patient has a contact number available for emergencies. The signs and symptoms of potential delayed complications were discussed with the patient. Return to normal activities tomorrow. Written discharge instructions were provided to the patient. - High fiber diet. - Continue present medications. - Await pathology results. - Follow an antireflux regimen. - Telephone GI clinic for pathology results in 2 weeks. - Return to primary care physician. Solitario Montenegro MD Solitario Montenegro MD 06/18/2020 3:41:44 PM Electronically signed by Solitario Montenegro MD Number of Addenda: 0 Note Initiated On: 06/18/2020 2:42 PM Estimated Blood Loss: Estimated blood loss was minimal.
--- NOTE | 2020-06-18 15:47 | ROOR ---
Patient Name: Yanet Hammer Procedure Date: 06/18/2020 2:43 PM Date of : 1985 Age: 35 Room: [facility] Gender: Female Note Status: Finalized Procedure: Colonoscopy Indications: Change in bowel habits Providers: Solitario Montenegro MD Referring MD: SUZAN Dominique Requesting Provider: Medicines: Monitored Anesthesia Care Complications: No immediate complications. Procedure: Pre-Anesthesia Assessment: - Prior to the procedure, a History and Physical was performed, and patient medications and allergies were reviewed. The patient is competent. The risks and benefits of the procedure and the sedation options and risks were discussed with the patient. All questions were answered and informed consent was obtained. Patient identification and proposed procedure were verified by the physician, the nurse and the anesthesiologist in the procedure room. Mental Status Examination: alert and oriented. Airway Examination: normal oropharyngeal airway and neck mobility. Respiratory Examination: clear to auscultation. CV Examination: normal. Prophylactic Antibiotics: The patient does not require prophylactic antibiotics. Prior Anticoagulants: The patient has taken no previous anticoagulant or antiplatelet agents. ASA Grade Assessment: II - A patient with mild systemic disease. After reviewing the risks and benefits, the patient was deemed in satisfactory condition to undergo the procedure. The anesthesia plan was to use monitored anesthesia care (MAC). Immediately prior to administration of medications, the patient was re-assessed for adequacy to receive sedatives. The heart rate, respiratory rate, oxygen saturations, blood pressure, adequacy of pulmonary ventilation, and response to care were monitored throughout the procedure. The physical status of the patient was re-assessed after the procedure. The Colonoscope was introduced through the anus and advanced to the terminal ileum, with identification of the appendiceal orifice and IC valve. The colonoscopy was performed without difficulty. The patient tolerated the procedure well. The quality of the bowel preparation was good. The terminal ileum, ileocecal valve, appendiceal orifice, and rectum were photographed. Scope insertion time was 2 minutes. Scope withdrawal time was 9 minutes. The total duration of the procedure was 11 minutes. Findings: The perianal and digital rectal examinations were normal. Scattered inflammation, mild in severity and characterized by erosions, erythema and granularity was found in the terminal ileum. Biopsies were taken with a cold forceps for histology. Verification of patient identification for the specimen was done by the physician and nurse using the patient's name, date and medical record number. Estimated blood loss was minimal. Normal mucosa was found in the entire colon. Biopsies for histology were taken with a cold forceps from the right colon, left colon, transverse colon and rectosigmoid colon for evaluation of microscopic colitis. Multiple small and large-mouthed diverticula were found from sigmoid to descending colon. There was no evidence of diverticular bleeding. Non-bleeding external and internal hemorrhoids were found during retroflexion. The hemorrhoids were medium-sized. Impression: - Ileitis. Biopsied. - Normal mucosa in the entire examined colon. Biopsied. - Moderate diverticulosis from sigmoid to descending colon. There was no evidence of diverticular bleeding. - Non-bleeding external and internal hemorrhoids. Recommendation: - Patient has a contact number available for emergencies. The signs and symptoms of potential delayed complications were discussed with the patient. Return to normal activities tomorrow. Written discharge instructions were provided to the patient. - High fiber diet. - Continue present medications. - Await pathology results. - Repeat colonoscopy at age 50 for screening purposes. - Telephone GI clinic for pathology results in 2 weeks. - Return to primary care physician. Solitario Montenegro MD Solitario Montenegro MD 06/18/2020 3:46:52 PM Electronically signed by Solitario Montenegro MD Number of Addenda: 0 Note Initiated On: 06/18/2020 2:43 PM Estimated Blood Loss: Estimated blood loss was minimal.
[2020-06-18 16:05] VITALS: BP 121/62
== END 2020-06-18 16:05 | disposition home or self-care (01) ==
LOC: M OPP 12:43
PROVIDERS: ATTEND Internal Medicine Gastroenterology
DX: R19.4 Change in bowel habit (principal); R10.13 Epigastric pain; R11.15 Cyclical vomiting syndrome unrelated to migraine; K52.9 Noninfective gastroenteritis and colitis, unspecified; D12.6 Benign neoplasm of colon, unspecified; K57.30 Diverticulosis of large intestine without perforation or abscess without bleeding; K64.8 Other hemorrhoids; D13.1 Benign neoplasm of stomach; D13.30 Benign neoplasm of unspecified part of small intestine; K29.70 Gastritis, unspecified, without bleeding; E03.9 Hypothyroidism, unspecified; K50.90 Crohn's disease, unspecified, without complications; F41.9 Anxiety disorder, unspecified; Z87.891 Personal history of nicotine dependence; Z79.899 Other long term (current) drug therapy; Z81.8 Family history of other mental and behavioral disorders; Z82.69 Family history of other diseases of the musculoskeletal system and connective tissue; Z83.79 Family history of other diseases of the digestive system
CPT/HCPCS: 43239; 45380; 88305; J3010

== ENCOUNTER → 2020-07-23 | Outpatient (REF) | payer OTHER ==
[~2020-07-23] MED LIST changes: -LIDOCAINE 2% 100MG/5ML SDV (FOR ANES.) As Ordered ONE; -NS 1,000 ML IV ONE; -fentaNYL 100 MCG/2 ML INJECTION (J3010) As Ordered ONE; -propofoL 500 MG/50 ML VIAL As Ordered ONE
[2020-07-23 18:14] LABS: FREE T4 0.96 NG/DL (0.76-1.46); THYROID STIMULATING HORMONE 7.87 uIU/ML (0.358-3.740)
== END ==
LOC: M LAB REF 16:32
PROVIDERS: ATTEND Physician Assistant
DX: E06.3 Autoimmune thyroiditis (principal)

== ENCOUNTER → 2020-08-29 | Outpatient (CLI) | payer OTHER ==
[~2020-08-29] MED LIST changes: +AMOX500T PO; +DEBL1TAB PO; +OMEP-221 PO; +TOPI100T9 PO; +VENTAER INH
[2020-08-29 14:29] LABS: FERRITIN 66 NG/ML (8-252); IRON (FE) 67 UG/DL (50-170); PERCENT SATURATION 19.2 % (13.2-45.0); RHEUMATOID FACTOR QUANT < 10.0 IU/ML (<15.0); TOTAL IRON BINDING CAPACITY 349 UG/DL (250-450)
[2020-08-29 15:20] LABS: VITAMIN B12 LEVEL 447 PG/ML
[2020-08-30 09:43] LABS: FOLATE 8.7 NG/ML; TOTAL 25(OH) VITAMIN D 24.2 NG/ML (30.0-100.0)
== END ==
LOC: M LAB 13:22
PROVIDERS: ATTEND Psychiatry & Neurology Neurology
DX: R20.2 Paresthesia of skin (principal); E61.1 Iron deficiency; E53.8 Deficiency of other specified B group vitamins

== ENCOUNTER 2020-09-08 16:38 | Emergency (ER) | payer OTHER ==
[~2020-09-08] VITALS: Ht 165.1 cm; Wt 142.5 kg
[2020-09-08] MEDS ORDERED: ALBU83IN (16:49)
[2020-09-08] MEDS ORDERED: VITA200016 (16:49)
[2020-09-08] MEDS ORDERED: NORCO, ANEXSIA 5/325MG TABLET (HYDROcodone/ACETAMINOPHEN) PO ONE (17:15)
--- NOTE | 2020-09-08 18:12 | REPVR ---
PROCEDURE INFORMATION: Exam: CT Head Without Contrast Exam date and time: 09/08/2020 5:36 PM Age: 35 years old Clinical indication: Injury or trauma; Fall; Blunt trauma (contusions or hematomas) TECHNIQUE: Imaging protocol: Computed tomography of the head without contrast. Radiation optimization: All CT scans at this facility use at least one of these dose optimization techniques: automated exposure control; mA and/or kV adjustment per patient size (includes targeted exams where dose is matched to clinical indication); or iterative reconstruction. COMPARISON: MRI-Brain without Contrast 05/14/2016 10:37 AM FINDINGS: Brain: No intracranial mass, mass effect or midline shift. No acute intracranial hemorrhage. No CT evidence of acute cortical infarct. Cerebral ventricles: Ventricles, cisterns, and sulci are normal in size for age. Bones/joints: No calvarial fracture or destructive process. Paranasal sinuses: Imaged paranasal sinuses are normally aerated. Mastoid air cells: Mastoid air cells and middle ear structures are normally aerated. Orbital cavity: Imaged orbits are unremarkable. Soft tissues: No focal extracranial soft tissue swelling. IMPRESSION: No acute or concerning focal intracranial abnormality. Electronically signed by: Miguel Mauricio On 09/08/2020 18:12:52 PM
--- NOTE | 2020-09-08 18:14 | REPVR ---
PROCEDURE INFORMATION: Exam: CT Cervical Spine Without Contrast Exam date and time: 09/08/2020 5:36 PM Age: 35 years old Clinical indication: Injury or trauma; Fall; Blunt trauma TECHNIQUE: Imaging protocol: Computed tomography images of the cervical spine without contrast. Radiation optimization: All CT scans at this facility use at least one of these dose optimization techniques: automated exposure control; mA and/or kV adjustment per patient size (includes targeted exams where dose is matched to clinical indication); or iterative reconstruction. COMPARISON: No relevant prior studies available. FINDINGS: Bones/joints: No segmental vertebral malalignment. Vertebral body height is maintained at all levels. No acute fracture. No destructive or blastic cervical spine osseous lesion. Discs/Spinal canal/Neural foramina: Intervertebral disc spaces are appropriate for age. Lungs: Imaged lung apices demonstrate no concerning abnormality. Pleural space: No apical pneumothorax. Soft tissues: Soft tissues show no concerning abnormality or asymmetry. IMPRESSION: No acute fracture or traumatic segmental cervical malalignment. Electronically signed by: Miguel Mauricio On 09/08/2020 18:14:34 PM
--- NOTE | 2020-09-08 18:30 | REP ---
INDICATION: fall, seated position, r/o compression fx COMPARISON: None. TECHNIQUE: AP, lateral, bilateral oblique, and coned-down views of the lumbar spine. FINDINGS: Alignment and lordosis maintained. Vertebral bodies are intact. Disc spaces are relatively normal/age-appropriate. No acute fracture/compression injury or subluxation. No obvious spondylolysis or spondylolisthesis.. IMPRESSION: Normal Lumbosacral Spine series. <Electronically signed by Osorio Enriquez > 09/08/20 [id number]
--- NOTE | 2020-09-08 18:31 | REP ---
INDICATION: fall COMPARISON: None. TECHNIQUE: AP, lateral, bilateral oblique views right wrist. FINDINGS: The carpal bones, surrounding osseous structures, soft tissues, and joint spaces are normal. There is no evidence for acute fracture or dislocation. No subcutaneous emphysema or radiodense foreign body. IMPRESSION: Normal wrist series. No acute fracture or dislocation. <Electronically signed by Osorio Enriquez > 09/08/20 [id number]
--- NOTE | 2020-09-08 18:32 | REP ---
INDICATION: fall, seated position, r/o compression fx COMPARISON: None. TECHNIQUE: AP, lateral views of the sacrum and coccyx FINDINGS: Sacrum and coccyx are intact without evidence for acute fracture. Sacroiliac joints are symmetric and normal. IMPRESSION: . No acute fracture or dislocation. <Electronically signed by Osorio Enriquez > 09/08/20 [id number]
[2020-09-08] MEDS ORDERED: ROBA750T4 PO (18:36)
[2020-09-08 19:01] VITALS: BP 121/68
== END 2020-09-08 19:03 | disposition home or self-care (01) ==
LOC: M ED 16:38
DX: S29.012A Strain of muscle and tendon of back wall of thorax, initial encounter (principal); S09.90XA Unspecified injury of head, initial encounter; S63.91XA Sprain of unspecified part of right wrist and hand, initial encounter; W00.0XXA Fall on same level due to ice and snow, initial encounter; Y92.018 Other place in single-family (private) house as the place of occurrence of the external cause; E11.9 Type 2 diabetes mellitus without complications; E06.3 Autoimmune thyroiditis; K50.90 Crohn's disease, unspecified, without complications; Z79.899 Other long term (current) drug therapy; Z79.890 Hormone replacement therapy

== ENCOUNTER → 2020-10-05 | Outpatient (CLI) | payer OTHER ==
[~2020-10-05] MED LIST changes: +ALBU83IN; +ROBA750T4 PO; +VITA200016
--- NOTE | 2020-10-05 10:12 | REPVR ---
PROCEDURE INFORMATION: Exam: MR Cervical Spine Without Contrast Exam date and time: 10/05/2020 9:43 AM Age: 35 years old Clinical indication: Cervicalgia; Patient HX: PT fell on ice, pain since; Additional info: Radiculopathy, cervical pain, thoracic pain TECHNIQUE: Imaging protocol: Multiplanar magnetic resonance images of the cervical spine without contrast. COMPARISON: CT Spine,cervical w/o contrast 09/08/2020 5:31 PM FINDINGS: Vertebrae: There is mild reversal of the normal cervical lordosis. There is no fracture or listhesis. Aside from a small hemangioma at C7, marrow signal is within normal limits. Spinal cord: Normal signal. No cord compression. C2-C3: There is a shallow disc osteophyte complex. There is mild facet hypertrophy. The spinal canal and neural foramina are patent. C3-C4: There is a shallow disc osteophyte complex. There is mild facet hypertrophy. There is moderate right and mild left neural foraminal narrowing. C4-C5: There is a shallow disc osteophyte complex. There is mild facet hypertrophy. There is moderate right neural foraminal narrowing. C5-C6: There is a shallow disc osteophyte complex. There is mild facet hypertrophy. The spinal canal and neural foramina are patent. C6-C7: There is a shallow disc osteophyte complex. There is mild facet hypertrophy. The spinal canal and neural foramina are patent. C7-T1: No significant disc disease. No significant spinal stenosis. Soft tissues: There is a 1.7 x 1.1 cm left medial thyroid lobe nodular focus. This could be better evaluated sonographically. Vertebral arteries: Expected flow voids in the vertebral arteries. IMPRESSION: 1. No evidence of acute traumatic injury. 2. Mild degenerative disc disease and spondylosis, with multilevel [id number] neural foraminal narrowing. Electronically signed by: Rosa Cochran On 10/05/2020 10:12:02 AM
--- NOTE | 2020-10-05 10:15 | REPVR ---
PROCEDURE INFORMATION: Exam: MR Thoracic Spine Without Contrast Exam date and time: 10/05/2020 9:43 AM Age: 35 years old Clinical indication: Pain in thoracic spine; With radiculopathy; Bilateral; Patient HX: PT fell on ice, pain since; Additional info: Radiculopathy, cervical pain, thorasic pain TECHNIQUE: Imaging protocol: Multiplanar magnetic resonance images of the thoracic spine without contrast. COMPARISON: No relevant prior studies available. FINDINGS: Vertebrae: There is no fracture or listhesis. Normal vertebral body alignment, heights and marrow signal are preserved. Spinal cord: Normal signal. No cord compression. Discs/Spinal canal/Neural foramina: There are shallow multilevel disc bulges. There is mild multilevel facet hypertrophy. No significant foraminal or spinal canal stenosis. Soft tissues: Unremarkable. IMPRESSION: 1. No evidence of acute traumatic injury. 2. Mild degenerative disc disease and spondylosis. No canal or neural foraminal compromise. Electronically signed by: Rosa Cochran On 10/05/2020 10:14:51 AM
--- NOTE | 2020-10-05 10:21 | REPVR ---
PROCEDURE INFORMATION: Exam: MR Lumbar Spine Without Contrast. Exam date and time: 10/05/2020 9:43 AM Age: 35 years old Clinical indication: Low back pain; Additional info: Radiculopathy, cervical pain, thorasic pain TECHNIQUE: Imaging protocol: Multiplanar magnetic resonance images of the lumbar spine without intravenous contrast. COMPARISON: CR Spine. Lumbosacral, complete 09/08/2020 5:07 PM FINDINGS: Vertebrae: There is no fracture or listhesis. Normal vertebral body alignment and heights are preserved. Spinal cord: Normal signal. No cord compression. L1-L2: There is shallow disc bulging. There is mild facet hypertrophy. The spinal canal and neural foramina are patent. L2-L3: There is shallow disc bulging. There is mild facet hypertrophy. The spinal canal and neural foramina are patent. L3-L4: There is diffuse disc bulging with a prominent central component. This indents the ventral thecal sac, contributing to moderate canal stenosis. There is mild facet and ligamentous hypertrophy. There is mild bilateral neural foraminal narrowing. L4-L5: There is shallow disc bulging. There is mild facet and ligamentous hypertrophy. There is mild bilateral neural foraminal narrowing. L5-S1: There is shallow disc bulging. There is mild facet hypertrophy. The spinal canal and neural foramina are patent. Soft tissues: Unremarkable. IMPRESSION: Mild degenerative disc disease and spondylosis. At L3/4, changes contribute to moderate acquired canal stenosis as well as mild bilateral neural foraminal narrowing. Electronically signed by: Rosa Cochran On 10/05/2020 10:21:36 AM
== END ==
LOC: M PLARAD 07:37
PROVIDERS: ATTEND Physician Assistant
DX: M54.16 Radiculopathy, lumbar region (principal); M43.12 Spondylolisthesis, cervical region; M51.36 Other intervertebral disc degeneration, lumbar region

== ENCOUNTER → 2020-10-23 | Outpatient (CLI) | payer OTHER ==
[2020-10-23 16:14] LABS: FREE T4 0.92 NG/DL (0.76-1.46); THYROID STIMULATING HORMONE 3.5 uIU/ML (0.358-3.740)
== END ==
LOC: M LAB 15:03
PROVIDERS: ATTEND Internal Medicine Endocrinology, Diabetes & Metabolism
DX: E03.9 Hypothyroidism, unspecified (principal)

== ENCOUNTER → 2021-05-16 | Outpatient (CLI) | payer OTHER ==
--- NOTE | 2021-05-16 14:41 | REP ---
INDICATION: PAIN LT ANKLE/JOINTS OF LT FOOT. COMPARISON: None. TECHNIQUE: Multiple sequences are obtained in the axial, coronal and sagittal planes. FINDINGS: The Achilles, anterior tibial, posterior tibial, flexor hallucis longus, flexor digitorum longus and peroneal tendons are all intact without significant tenosynovitis. The anterior and posterior talofibular, calcaneofibular and deltoid ligaments appear intact. Plantar tendon appears intact. There is no plantar fasciitis. Sinus tarsi appears unremarkable. No ganglion cyst is seen. There is normal amount of joint fluid. The cartilaginous surfaces are smooth. No osteochondral defect is seen at the tibiotalar joint. There is no bone marrow edema or occult fracture. IMPRESSION: Negative MRI of the ankle. <Electronically signed by Perico Starr > 05/16/21 [id number]
--- NOTE | 2021-05-16 14:48 | REP ---
INDICATION: PAIN LT ANKLE/JOINTS OF LT FOOT. COMPARISON: None. TECHNIQUE: Multiple sequences are obtained in the axial, coronal and sagittal planes. FINDINGS: The Achilles, anterior tibial, posterior tibial, flexor hallucis longus, flexor digitorum longus and peroneal tendons are all intact without significant tenosynovitis. The anterior and posterior talofibular, calcaneofibular and deltoid ligaments appear intact. Plantar tendon appears intact. There is no plantar fasciitis. Sinus tarsi appears unremarkable. Flexor and extensor tendons appear intact with no tenosynovitis. No ganglion cyst is seen. There is normal amount of joint fluid. There is no evidence of Murillo neuroma. The cartilaginous surfaces are smooth. No osteochondral defect is seen at the tibiotalar joint. There is no bone marrow edema or occult fracture. IMPRESSION: Negative MRI of the foot. <Electronically signed by Perico Starr > 05/16/21 [id number]
== END ==
LOC: M PLAIMG 13:30
PROVIDERS: ATTEND Physical Medicine & Rehabilitation
DX: M25.572 Pain in left ankle and joints of left foot (principal)

== ENCOUNTER 2021-07-12 19:58 | Emergency (ER) | payer OTHER ==
[~2021-07-12] VITALS: Ht 162.6 cm; Wt 136.4 kg
[~2021-07-12 19:58] MED LIST changes: -VITA200016; +VITA200016 PO
--- OUTSIDE RECORDS SUMMARY | 2021-07-12 20:11 | CCD | Continuity of Care Document ---
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 [employer] Name Role Phone Kevyn Arredondo RPA-C AUTM [phone] [facility] - Re[facility] AUTM Problems Description No Information Available Social History Type Date Description Comments Sex Unknown Allergies, Adverse Reactions, Alerts Description No Known Drug Allergies Medications Active Medications SIG Qnty Indications Ordering Provide r Date Tizanidine HCL 2mg Tablets increase no more than once aweek , once tab at a time 120tabs M47.896 Tim Lr MD 11/29/2020 Tizanidine HCL 4mg Tablets 1 by mouth three times a day 60tabs M54.2 Mallorie Jose MD 09/12 Mobic 15mg Tablets 1 by mouth after meals every day 60tabs M54.2 Mallorie Jose MD 021 Tri-Lo-Susie 0.18/0.2 15/0.25 mg-25 mcg Tablets Take One Tablet By Mouth Every Day Unknow n Valacyclovir HCL 500mg Tablets Take 1 Tablet By Mouth Once A Day Unknown Guaiatussin ac 100-10mg/5ML Syrup Take 10ML By Mouth Every 4 Hours Unknown Adult Mask Device Kevyn Musa PA Adult Mask Device Use Three Times A Day as Needed Acute Bronchitis Unknown Amoxicillin 500mg Capsules Unknown Benzonatate 100mg Capsules Kevyn Musa PA Topiramate 25mg Tablets Take One Tablet By Mouth AT Bedtime For 7 Days Then Take Two Tablets AT Bedtime For 7 Days Then Take Three AT Bedtime For 7 Days Then Take 1 Unk nown Levothyroxine Sodium 88mcg Tablets Take One Tablet By Mouth Every Morning Unknown Ondansetron HCL 4mg Tablets Take 1 Tablet By Mouth Once To Twice Daily Before Meals Only When Having Nausea Unknown Escitalopram Oxalate 10mg Tablets Take One Tablet By Mouth Every Day Unknown Bisacodyl Ec 5mg Tablets Solitario Courtney MD Peg-3350/Nacl/Na Bicarbonate/KCL 420gm Solution Rec Solitario Montenegro MD 0 Levothyroxine Sodium 75mcg Tablets Take 1 Tablet By Mouth Once A Day In The Morning On An Empty Stomach Unknown Methocarbamol 750mg Tablets Oliver Hernández PA Comp Air Compressor Nebulizer Misc Ester Glover PA Comp Air Compressor Nebulizer Mis c Use Three Times A Day For Acute Bronchitis Unknown Albuterol Sulfate (2 .5mg/3ML) 0.083% Nebulizer Inhale 3ML Three Times A Day For Nebulization Route Unknown Hydroxyzine HCL 25mg Tablets Take 1 Tablet By Mouth 30 Minuts Prior To Bedtime as Needed For Sleep DO Not Takewith Muscle Relaxer Unknown Polyethylene Glycol 3350 17GM/Scoop Powder Use 17 Grams Mixed With 8 Ounces Of Wate r Or Fluid And Taken 1 2 Times A Day Hold Or Decrease If Having Diarrhea Unknown Albuterol Sulfate HFA 108(90Base) mcg/Act Aerosol Inhale Two Puffs By Mouth Every 4 Hours as Needed Unknown Loratadine 10mg Tablets Ester Glover PA Topiramate 100mg Tablets Take One And One Half Tablets By Mouth AT Bedtime Unknown Levothyroxine Sodium 100mcg Tablet s Take One Tablet By Mouth Every Morning Unknown Omeprazole 40mg Capsules Solitario Courtney MD Escitalopram Oxalate 20mg Tablets Take One Tablet By Mouth Every Day Unknown Deblitane 0.35mg Tablets Take One Tablet By Mouth Every Day Unknown Fluticasone Propionate 50mcg/Act Suspension [place] One [place] In Each Nostril Every Day Unknown Buspirone HCL 7.5mg Tablets Take One Tablet By Mouth Twice A Day Unknown Immunizations Description No Information Available Vital Signs Date Vital Result Comment 09/12/2020 10:26am Body Temperature 96.0 F Height 64 inches 5'4" Weight 300.38 lb BMI (Body Mass Index) 51.6 kg/m2 Results Description No Information Available Procedures Date Code Description Status 05/27/2021 04483 Office/Outpatient Established Lo w MDM 20-29 Min Completed 02/12/2021 79928 Office/Outpatient Established Mo d MDM 30-39 Min Completed 01/09/2021 86346 Office/Outpatient Established Lo w MDM 20-29 Min Completed 12/05/2020 27753 Manual Therapy Each 15 Minutes C ompleted 12/05/2020 06974 Electrical Stimulati on Manual, Each 15 Min, Constant Attendance Completed Medical Devices Description No Information Available Encounters Type Date Location Provider Dx Diagnosis Office Visit 05/27/2021 10:45a SUZAN Figueroa M25.572 Pain in left ankle and joints of left foot Office Visit 02/12/2021 4:[place] M47.896 Other spondylosis, lumbar region M51.36 Other intervertebral disc de generation, lumbar region M47.892 Other spondylosis, cervical region M50.322 Other cervical disc degenera tion at C5-C6 level M47.894 Other spondylosis, thoracic region M51.34 Other intervertebral disc de generation, thoracic region M25.572 Pain in left ankle and joint s of left foot Office Visit 01/09/2021 1:20p SUZAN Figueroa S13.9xxD Sprain of joints and ligaments of unsp parts of neck, subs S33.5xxD Sprain of ligaments of lumba r spine, subsequent encounter S23.3xxD Sprain of ligaments of thora cic spine, subsequent encounter Assessments Date Code Description Provider 05/27/2021 M25.572 Pain in left ankle and joints of left foot SUZAN Marinelli 02/12/2021 M47.896 Other spondylosis, lumbar region Tim Lr MD 02/12/2021 M51.36 Other intervertebral disc degene ration, lumbar region Tim Lr MD 02/12/2021 M47.892 Other spondylosis, cervical yuan on Tim Lr MD 02/12/2021 M50.322 Other cervical disc degeneration at C5-C6 level Tim Lr MD 02/12/2021 M47.894 Other spondylosis, thoracic yuan on Tim Lr MD 02/12/2021 M51.34 Other intervertebral disc degene ration, thoracic region Tim Lr MD 02/12/2021 M25.572 Pain in left ankle and joints of left foot Tim Lr MD 01/09/2021 S13.9xxD Sprain of joints and ligaments of unspecified parts of neck, subsequent encounter SUZAN Marinelli 01/09/2021 S33.5xxD Sprain of ligaments of lumbar sp ine, subsequent encounter SUZAN Marinelli 01/09/2021 S23.3xxD Sprain of ligaments of thoracic spine, subsequent encounter SUZAN Marinelli 12/05/2020 S13.9xxD Sprain of joints and ligaments of unspecified parts of neck, subsequent encounter [facility] 12/05/2020 S33.5xxD Sprain of ligaments of lumbar sp ine, subsequent encounter [facility] 12/05/2020 S23.3xxD Sprain of ligaments of thoracic spine, subsequent encounter Eliza [facility] Plan of Treatment Future Appointment(s):* 06/28/2021 8:30 am - Tim Lr MD at [place] Functional Status Description No Information Available Mental Status Description No Information Available Referrals Refer to Dr Reason for Referral Status Appt Date Tim Lr MD EMG NO AUTH REQUIRED TO SCHEDULING NT Creat ed [facility] [address] [address] [phone] Tim Lr MD EMG NO AUTH REQUIRED TO SCHEDULING NT Creat ed [address] [place] [id number] [phone] Tim Lr MD MRI APPROVED PER USHA Ramirez FOR MRI OF LEFT ANKLE (12838) TO JOEL PRECIADO Created [address] [place] [id number] [phone] Tim Lr MD MRI APPROVED PER USHA Ramirez FOR MRI OF LEFT FOOT (61992) TO JOEL PRECIADO Created [address] [place] [id number] [phone]
--- OUTSIDE RECORDS SUMMARY | 2021-07-12 20:11 | CCD | Continuity of Care Document ---
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 Name Role Phone Kevyn Arredondo RPA-C AUTM [phone] [facility] - Rehab Services AUTM Problems [...] Every Day Unknown Fluticasone Propionate 50mcg/Act Suspension [place] One [place] In Each Nostril Every Day Unknown Buspirone HCL 7.5mg Tablets Take One Tablet By Mouth Twice A Day Unknown Immunizations Description No Information Available Vital Signs Date Vital Result Comment 09/12/2020 10:26am Body Temperature 96.0 F Height 64 inches 5'4" Weight 300.38 lb BMI (Body Mass Index) 51.6 kg/m2 Results Description No Information Available Procedures Date Code Description Status 05/27/2021 24593 Office/Outpatient Established Lo w MDM 20-29 Min Completed 02/12/2021 48195 Office/Outpatient Established Mo d MDM 30-39 Min Completed 01/09/2021 86810 Office/Outpatient Established Lo w MDM 20-29 Min Completed 12/05/2020 40529 Manual Therapy Each 15 Minutes C ompleted 12/05/2020 24252 Electrical Stimulati on Manual, Each 15 Min, Constant Attendance Completed Medical Devices Description No Information Available Encounters Type Date Location Provider Dx Diagnosis Office Visit 05/27/2021 10:45a SUZAN Figueroa M25.572 Pain in left ankle and joints of left foot Office Visit 02/12/2021 4:00p [place] MD M47.896 Other spondylosis, lumbar region [...] 8:30 am - Tim Lr MD at [place] Functional Status Description No Information Available Mental Status Description No Information Available Referrals Refer to Dr Reason for Referral Status Appt Date Tim Lr MD EMG NO AUTH REQUIRED TO SCHEDULING NT Creat ed [facility] [address] [address] [phone] Tim Lr MD EMG NO AUTH REQUIRED TO SCHEDULING NT Creat ed [address] [place] [phone] [phone] Tim Lr MD MRI APPROVED PER USHA Ramirez FOR MRI OF LEFT ANKLE (43209) TO JOEL PRECIADO Created [address] [place] [address] [phone] Tim Lr MD MRI APPROVED PER USHA Ramirez FOR MRI OF LEFT FOOT (53246) TO JOEL PRECIADO Created [address] [place] [phone] [phone]
--- OUTSIDE RECORDS SUMMARY | 2021-07-12 20:13 | CCD ---
Author Author [facility] Organization [facility] Address Unknown Phone Unavailable Support Name Relationship Address Phone Florecita Gaitan Next Of Kin [address] [place] [address] ANGELES ELENO Next Of Kin [address] [place] [id number] Chayito Sales Next Of Kin [address] [place], [place] [phone] ALEJA VELEZ Next Of Kin [id number] [facility] [address] [place] [address] Prema Barriga MD Next Of Kin [address], [place] [phone] [employer] Next Of Kin [address] [facility] [address] [place] [address] [employer] Next Of [facility] [address] [place] [address] UE Next Of Kin Unknown Unavailable UN Next Of Kin Unknown Unavailable CONTACT, OTHER NO Next Of Kin - -, - - - RJ IBARRA Next Of Kin [address] [place] [address] [employer] [place] [address] NICOLE STALEY Next Of Kin [address] [facility] [place] [address] Unavailable [place] PROPERTIES Next Of Kin [address] [place] [address] NONE, PATIENT PER Next Of Kin - - -, [place] - - ALEJA JOYCE Next Of Kin [address] [facility] [address] [place] [address] MING STALEY Next Of Kin Unknown LORRAINE RAMÍREZ Next Of Kin Unknown ALEJA JOYCE Next Of Kin Unknown ELENO HAMMER ECON [address] [place] [address] Unavailable Jorge Velez Unknown Unavailable Care Team Providers Care Child Care Associate Name Role Phone Andree Anderson MD Unavailable Unavailable Andree Anderson MD Unavailable Unavailable Andree Anderson MD Unavailable Unavailable Andree Anderson MD Unavailable Unavailable Andree Anderson MD Unavailable Unavailable Andree Anderson MD Unavailable Unavailable Andree Anderson MD Unavailable Unavailable Andree Anderson MD Unavailable Unavailable Andree Anderson MD Unavailable Unavailable Andree Anderson MD Unavailable Unavailable Andree Anderson MD Unavailable Unavailable Andree Anderson MD Unavailable Unavailable Andree Anderson MD Unavailable Unavailable Andree Anderson MD Unavailable Unavailable Andree Anderson MD Unavailable Unavailable Andree Anderson MD Unavailable Unavailable Andree Anderson MD Unavailable Unavailable Andree Anderson MD Unavailable Unavailable Andree Anderson MD Unavailable Unavailable Andree Anderson MD Unavailable Unavailable Andree Anderson MD Unavailable Unavailable Andree Anderson MD Unavailable Unavailable Andree Anderson MD Unavailable Unavailable Andree Anderson MD Unavailable Unavailable Andree Anderson MD Unavailable Unavailable Andree Anderson MD Unavailable Unavailable Andree Anderson MD Unavailable Unavailable Andree Anderson MD Unavailable Unavailable Andree Anderson MD Unavailable Unavailable Andree Anderson MD Unavailable Unavailable Andree Anderson MD Unavailable Unavailable Andree Anderson MD Unavailable Unavailable Andree Anderson MD Unavailable Unavailable Andree Anderson MD Unavailable Unavailable Andree Anderson MD Unavailable Unavailable Andree Anderson MD Unavailable Unavailable Andree Anderson MD Unavailable Unavailable Andree Anderson MD Unavailable Unavailable Andree Anderson MD Unavailable Unavailable Andree Anderson MD Unavailable Unavailable Andree Anderson MD Unavailable Unavailable Andree Anderson MD Unavailable Unavailable Andree Anderson MD Unavailable Unavailable Andree Anderson MD Unavailable Unavailable Andree Anderson MD Unavailable Unavailable Andree Anderson MD Unavailable Unavailable Andree Anderson MD Unavailable Unavailable Andree Anderson MD Unavailable Unavailable Andree Anderson MD Unavailable Unavailable Andree Anderosn MD Unavailable Unavailable Andree Anderson MD Unavailable Unavailable Andree Anderson MD Unavailable Unavailable Andree Anderson MD Unavailable Unavailable Andree Anderson MD Unavailable Unavailable Andree Anderson MD Unavailable Unavailable Andree Anderson MD Unavailable Unavailable Andree Anderson MD Unavailable Unavailable Andree Anderson MD Unavailable Unavailable Andree Anderson MD Unavailable Unavailable Andree Anderson MD Unavailable Unavailable Andree Anderson MD Unavailable Unavailable Andree Anderson MD Unavailable Unavailable Andree Anderson MD Unavailable Unavailable Andree Anderson MD Unavailable Unavailable AndersonAndree MD Unavailable Unavailable Anderson, Andree Blue MD Unavailable Unavailable Anderson, Andree Blue MD Unavailable Unavailable Anderson, Andree Blue MD Unavailable Unavailable Anderson, Andree Blue MD Unavailable Unavailable Justin, Andree Blue MD Unavailable Unavailable Justin, Andree Blue MD Unavailable Unavailable Justin, Andree Blue MD Unavailable Unavailable Justin, Andree Blue MD Unavailable Unavailable Anderson, Andree Blue MD Unavailable Unavailable Anderson, Andree Blue MD Unavailable Unavailable Anderson, Andree Blue MD Unavailable Unavailable Anderson, Andree Blue MD Unavailable Unavailable Anderson, Andree Blue MD Unavailable Unavailable Anderson, Andree Blue MD Unavailable Unavailable Justin, Andree Blue MD Unavailable Unavailable Justin, Andree Blue MD Unavailable Unavailable Justin, Andree Blue MD Unavailable Unavailable Anderson, Andree Blue MD Unavailable Unavailable Anderson, Andree Blue MD Unavailable Unavailable Anderson, Andree Blue MD Unavailable Unavailable Anderson, Andree Blue MD Unavailable Unavailable Justin, Andree Blue MD Unavailable Unavailable Anderson, Andree Blue MD Unavailable Unavailable Justin, Andree Blue MD Unavailable Unavailable Justin, Andree Blue MD Unavailable Unavailable Anderson, Andree Blue MD Unavailable Unavailable Anderson, Andree Blue MD Unavailable Unavailable Anderson, Andree Blue MD Unavailable Unavailable ARREDONDO, LINDA KEVYN RPA-C Unavailable Unavailable ARREDONDO, LINDA KEVYN RPA-C Unavailable Unavailable ARREDONDO, LINDA KEVYN RPA-C Unavailable Unavailable ARREDONDO, LINDA KEVYN RPA-C Unavailable Unavailable ARREDONDO, LINDA KEVYN RPA-C Unavailable Unavailable ARREDONDO, LINDA KEVYN RPA-C Unavailable Unavailable ARREDONDO, LINDA KEVYN RPA-C Unavailable Unavailable ARREDONDO, LINDA KEVYN RPA-C Unavailable Unavailable ARREDONDO, LINDA KEVYN RPA-C Unavailable Unavailable ARREDONDO, LINDA KEVYN RPA-C Unavailable Unavailable ARREDONDO, LINDA KEVYN RPA-C Unavailable Unavailable ARREDONDO, LINDA KEVYN RPA-C Unavailable Unavailable ARREDONDO, LINDA KEVYN RPA-C Unavailable Unavailable ARREDONDO, LINDA KEVYN RPA-C Unavailable Unavailable ARREDONDO, LINDA KEVYN RPA-C Unavailable Unavailable ARREDONDO, LINDA KEVYN RPA-C Unavailable Unavailable ARREDONDO, LINDA KEVYN RPA-C Unavailable Unavailable ARREDONDO, LINDA KEVYN RPA-C Unavailable Unavailable ARREDONDO, LINDA KEVYN RPA-C Unavailable Unavailable ARREDONDO, LINDA KEVYN RPA-C Unavailable Unavailable ARREDONDO, LINDA KEVYN RPA-C Unavailable Unavailable ARREDONDO, LINDA KEVYN RPA-C Unavailable Unavailable ARREDONDO, LINDA KEVYN RPA-C Unavailable Unavailable ARREDONDO, LINDA KEVYN RPA-C Unavailable Unavailable ARREDONDO, LINDA KEVYN RPA-C Unavailable Unavailable ARREDONDO, LINDA KEVYN RPA-C Unavailable Unavailable ARREDONDO, LINDA KEVYN RPA-C Unavailable Unavailable ARREDONDO, LINDA KEVYN RPA-C Unavailable Unavailable ARREDONDO, LINDA KEVYN RPA-C Unavailable Unavailable ARREDONDO, LINDA KEVYN RPA-C Unavailable Unavailable ARREDONDO, LINDA KEVYN RPA-C Unavailable Unavailable ARREDONDO, LINDA KEVYN RPA-C Unavailable Unavailable ARREDONDO, LINDA KEVYN RPA-C Unavailable Unavailable ARREDONDO, LINDA KEVYN RPA-C Unavailable Unavailable ARREDONDO, LINDA KEVYN RPA-C Unavailable Unavailable ARREDONDO, LINDA KEVYN RPA-C Unavailable Unavailable ARREDONDO, LINDA KEVYN RPA-C Unavailable Unavailable ARREDONDO, LINDA KEVYN RPA-C Unavailable Unavailable ARREDONDO, LINDA KEVYN RPA-C Unavailable Unavailable ARREDONDO, LINDA KEVYN RPA-C Unavailable Unavailable ARREDONDO, LINDA KEVYN RPA-C Unavailable Unavailable ARREDONDO, LINDA KEVYN RPA-C Unavailable Unavailable ARREDONDO, LINDA KEVYN RPA-C Unavailable Unavailable Lr, Tim Unavailable Unavailable Lr, Tim Unavailable Unavailable Lr, Tim Unavailable Unavailable Lr, Tim Unavailable Unavailable Lr, Tim Unavailable Unavailable Lr, Tim Unavailable Unavailable Lr, Tim Unavailable Unavailable Lr, Tim Unavailable Unavailable Lr, Tim Unavailable Unavailable Lr, Tim Unavailable Unavailable Lr, Tim Unavailable Unavailable Lr, Tim Unavailable Unavailable Lr, Tim Unavailable Unavailable Lr, Tim Unavailable Unavailable Lr, Tim Unavailable Unavailable Lr, Tim Unavailable Unavailable Lr, Tim Unavailable Unavailable Lr, Tim Unavailable Unavailable Lr, Tim Unavailable Unavailable Lr, Tim Unavailable Unavailable Lr, Tim Unavailable Unavailable Lr, Tim Unavailable Unavailable Lr, Tim Unavailable Unavailable Lr, Tim Unavailable Unavailable Lr, Tim Unavailable Unavailable Lr, Tim Unavailable Unavailable Lr, Tim Unavailable Unavailable Lr, Tim Unavailable Unavailable Lr, Tim Unavailable Unavailable Lr, Tim Unavailable Unavailable Lr, Tim Unavailable Unavailable Lr, Tim Unavailable Unavailable Lr, Tim Unavailable Unavailable Lr, Tim Unavailable Unavailable Lr, Tim Unavailable Unavailable Lr, Tim Unavailable Unavailable Lr, Tim Unavailable Unavailable Lr, Tim Unavailable Unavailable Lr, Tim Unavailable Unavailable Lr, Tim Unavailable Unavailable Lr, Tim Unavailable Unavailable Lr, Tim Unavailable Unavailable Lr, Tim Unavailable Unavailable Lr, Tim Unavailable Unavailable Lr, Tim Unavailable Unavailable ARREDONDO, LINDA KEVYN RPA-C Unavailable Unavailable ARREDONDO, LINDA KEVYN RPA-C Unavailable Unavailable ARREDONDO, LINDA KEVYN RPA-C Unavailable Unavailable ARREDONDO, LINDA KEVYN RPA-C Unavailable Unavailable ARREDONDO, LINDA KEVYN RPA-C Unavailable Unavailable ARREDONDO, LINDA KEVYN RPA-C Unavailable Unavailable ARREDONDO, LINDA KEVYN RPA-C Unavailable Unavailable ARREDONDO, LINDA KEVYN RPA-C Unavailable Unavailable ARREDONDO, LINDA KEVYN RPA-C Unavailable Unavailable ARREDONDO, LINDA KEVYN RPA-C Unavailable Unavailable ARREDONDO, LINDA KEVYN RPA-C Unavailable Unavailable ARREDONDO, LINDA KEVYN RPA-C Unavailable Unavailable ARREDONDO, LINDA KEVYN RPA-C Unavailable Unavailable ARREDONDO, LINDA KEVYN RPA-C Unavailable Unavailable ARREDONDO, LINDA KEVYN RPA-C Unavailable Unavailable ARREDONDO, LINDA KEVYN RPA-C Unavailable Unavailable ARREDONDO, LINDA KEVYN RPA-C Unavailable Unavailable ARREDONDO, LINDA KEVYN RPA-C Unavailable Unavailable ARREDONDO, LINDA KEVYN RPA-C Unavailable Unavailable ARREDONDO, LINDA KEVYN RPA-C Unavailable Unavailable ARREDONDO, LINDA KEVYN RPA-C Unavailable Unavailable ARREDONDO, LINDA KEVYN RPA-C Unavailable Unavailable ARREDONDO, LINDA KEVYN RPA-C Unavailable Unavailable ARREDONDO, LINDA KEVYN RPA-C Unavailable Unavailable ARREDONDO, LINDA KEVYN RPA-C Unavailable Unavailable ARREDONDO, LINDA KEVYN RPA-C Unavailable Unavailable ARREDONDO, LINDA KEVYN RPA-C Unavailable Unavailable ARREDONDO, LINDA KEVYN RPA-C Unavailable Unavailable ARREDONDO, LINDA KEVYN RPA-C Unavailable Unavailable ARREDONDO, LINDA KEVYN RPA-C Unavailable Unavailable ARREDONDO, LINDA KEVYN RPA-C Unavailable Unavailable ARREDONDO, LINDA KEVYN RPA-C Unavailable Unavailable ARREDONDO, LINDA KEVYN RPA-C Unavailable Unavailable ARREDONDO, LINDA KEVYN RPA-C Unavailable Unavailable ARREDONDO, LINDA KEVYN RPA-C Unavailable Unavailable ARREDONDO, LINDA KEVYN RPA-C Unavailable Unavailable ARREDONDO, LINDA KEVYN RPA-C Unavailable Unavailable ARREDONDO, LINDA KEVYN RPA-C Unavailable Unavailable ARREDONDO, LINDA KEVYN RPA-C Unavailable Unavailable ARREDONDO, LINDA KEVYN RPA-C Unavailable Unavailable ARREDONDO, LINDA KEVYN RPA-C Unavailable Unavailable ARREDONDO, LINDA KEVYN RPA-C Unavailable Unavailable ARREDONDO, LINDA KEVYN RPA-C Unavailable Unavailable Jazmyne Sprague Unavailable Jazmyne Sprague Unavailable ARREDONDO, LINDA KEVYN RPA-C Unavailable Unavailable ARREDONDO, LINDA KEVYN RPA-C Unavailable Unavailable ARREDONDO, LINDA KEVYN RPA-C Unavailable Unavailable ARREDONDO, LINDA KEVYN RPA-C Unavailable Unavailable ARREDONDO, LINDA KEVYN RPA-C Unavailable Unavailable ARREDONDO, LINDA KEVYN RPA-C Unavailable Unavailable ARREDONDO, LINDA KEVYN RPA-C Unavailable Unavailable ARREDONDO, LINDA KEVYN RPA-C Unavailable Unavailable ARREDONDO, LINDA KEVYN RPA-C Unavailable Unavailable ARREDONDO, LINDA KEVYN RPA-C Unavailable Unavailable ARREDONDO, LINDA KEVYN RPA-C Unavailable Unavailable ARREDONDO, LINDA KEVYN RPA-C Unavailable Unavailable ARREDONDO, LINDA KEVYN RPA-C Unavailable Unavailable ARREDONDO, LINDA KEVYN RPA-C Unavailable Unavailable ARREDONDO, LINDA KEVYN RPA-C Unavailable Unavailable ARREDONDO, LINDA KEVYN RPA-C Unavailable Unavailable ARREDONDO, LINDA KEVYN RPA-C Unavailable Unavailable ARREDONDO, LINDA KEVYN RPA-C Unavailable Unavailable ARREDONDO, LINDA KEVYN RPA-C Unavailable Unavailable ARREDONDO, LINDA KEVYN RPA-C Unavailable Unavailable ARREDONDO, LINDA KEVYN RPA-C Unavailable Unavailable ARREDONDO, LINDA KEVYN RPA-C Unavailable Unavailable ARREDONDO, LINDA KEVYN RPA-C Unavailable Unavailable ARREDONDO, LINDA KEVYN RPA-C Unavailable Unavailable ARREDONDO, LINDA KEVYN RPA-C Unavailable Unavailable ARREDONDO, LINDA KEVYN RPA-C Unavailable Unavailable ARREDONDO, LINDA KEVYN RPA-C Unavailable Unavailable ARREDONDO, LINDA KEVYN RPA-C Unavailable Unavailable ARREDONDO, LINDA KEVYN RPA-C Unavailable Unavailable ARREDONDO, LINDA KEVYN RPA-C Unavailable Unavailable ARREDONDO, LINDA KEVYN RPA-C Unavailable Unavailable ARREDONDO, LINDA KEVYN RPA-C Unavailable Unavailable ARREDONDO, LINDA KEVYN RPA-C Unavailable Unavailable ARREDONDO, LINDA KEVYN RPA-C Unavailable Unavailable ARREDONDO, LINDA KEVYN RPA-C Unavailable Unavailable ARREDONDO, LINDA KEVYN RPA-C Unavailable Unavailable ARREDONDO, LINDA KEVYN RPA-C Unavailable Unavailable ARREDONDO, LINDA KEVYN RPA-C Unavailable Unavailable ARREDONDO, LINDA KEVYN RPA-C Unavailable Unavailable ARREDONDO, LINDA KEVYN RPA-C Unavailable Unavailable ARREDONDO, LINDA KEVYN RPA-C Unavailable Unavailable ARREDONDO, LINDA KEVYN RPA-C Unavailable Unavailable ARREDONDO, LINDA KEVYN RPA-C Unavailable Unavailable Fish, Molly Simmons MD Unavailable Unavailable Fish, Molly Simmons MD Unavailable Unavailable Fish, Molly Simmons MD Unavailable Unavailable Fish, Molly Simmons MD Unavailable Unavailable Fish, Molly Simmons MD Unavailable Unavailable Fish, Molly Simmons MD Unavailable Unavailable Fish, Molly Simmons MD Unavailable Unavailable Fish, Molly Simmons MD Unavailable Unavailable Fish, Molly Simmons MD Unavailable Unavailable Fish, Molly Simmons MD Unavailable Unavailable Fish, Molly Simmons MD Unavailable Unavailable Fish, Molly Simmons MD Unavailable Unavailable Fish, Molly Simmons MD Unavailable Unavailable Fish, Molly Simmons MD Unavailable Unavailable Fish, B Iris WILDER Unavailable Unavailable Fish, B Iris WILDER Unavailable Unavailable Fish, B Iris WILDER Unavailable Unavailable Fish, B Irsi WILDER Unavailable Unavailable Fish, Molly Simmons MD Unavailable Unavailable Fish, Molly Simmons MD Unavailable Unavailable Fish, Molly Simmons MD Unavailable Unavailable Fish, Molly Simmons MD Unavailable Unavailable Fish, Molly Simmons MD Unavailable Unavailable Fish, Molly Simmons MD Unavailable Unavailable Fish, B Iris WILDER Unavailable Unavailable Fish, Molly Simmons MD Unavailable Unavailable Fish, Molly Simmons MD Unavailable Unavailable Fish, Molly Simmons MD Unavailable Unavailable Fish, Molly Simmons MD Unavailable Unavailable Fish, Molly Simmons MD Unavailable Unavailable Fish, Molly Simmons MD Unavailable Unavailable Fish, Molly Simmons MD Unavailable Unavailable Fish, Molly Simmons MD Unavailable Unavailable Fish, Molly Simmons MD Unavailable Unavailable Fish, Molly Simmons MD Unavailable Unavailable Fish, Molly Simmons MD Unavailable Unavailable Fish, Molly Simmons MD Unavailable Unavailable Fish, Molly Simmons MD Unavailable Unavailable Fish, Molly Simmons MD Unavailable Unavailable Fish, Molly Simmons MD Unavailable Unavailable Fish, Molly Simmons MD Unavailable Unavailable Fish, Molly Simmons MD Unavailable Unavailable Fish, Molly Simmons MD Unavailable Unavailable Fish, Molly Simmons MD Unavailable Unavailable Fish, Molly Simmons MD Unavailable Unavailable Fish, Molly Simmons MD Unavailable Unavailable Fish, Molly Simmons MD Unavailable Unavailable Fish, Molly Simmons MD Unavailable Unavailable Fish, Molly Simmons MD Unavailable Unavailable Fish, Molly Simmons MD Unavailable Unavailable Fish, Molly Simmons MD Unavailable Unavailable Fish, Molly Simmons MD Unavailable Unavailable Fish, Molly Simmons MD Unavailable Unavailable Fish, Molly Simmons MD Unavailable Unavailable Fish, Molly Simmons MD Unavailable Unavailable Fish, Molly Simmons MD Unavailable Unavailable Fish, Molly Simmons MD Unavailable Unavailable Fish, Molly Simmons MD Unavailable Unavailable Fish, Molly Simmons MD Unavailable Unavailable Fish, Molly Simmons MD Unavailable Unavailable Molly Romero MD Unavailable Unavailable Molly Romero MD Unavailable Unavailable Molly Romero MD Unavailable Unavailable Molly Romero MD Unavailable Unavailable Molly Romero MD Unavailable Unavailable DRAZEK, I RACHNA PA Unavailable Unavailable DRAZEK, I RACHNA PA Unavailable Unavailable DRAZEK, I RACHNA PA Unavailable Unavailable DRAZEK, I RACHNA PA Unavailable Unavailable DRAZEK, I RACHNA PA Unavailable Unavailable DRAZEK, I RACHNA PA Unavailable Unavailable DRAZEK, I RACHNA PA Unavailable Unavailable DRAZEK, I RACHNA PA Unavailable Unavailable DRAZEK, I RACHNA PA Unavailable Unavailable DRAZEK, I RACHNA PA Unavailable Unavailable DRAZEK, I RACHNA PA Unavailable Unavailable DRAZEK, I RACHNA PA Unavailable Unavailable DRAZEK, I RACHNA PA Unavailable Unavailable DRAZEK, I RACHNA PA Unavailable Unavailable DRAZEK, I RACHNA PA Unavailable Unavailable DRAZEK, I RACHNA PA Unavailable Unavailable DRAZEK, I RACHNA PA Unavailable Unavailable DRAZEK, I RACHNA PA Unavailable Unavailable DRAZEK, I RACHNA PA Unavailable Unavailable DRAZEK, I RACHNA PA Unavailable Unavailable DRAZEK, I RACHNA PA Unavailable Unavailable DRAZEK, I RACHNA PA Unavailable Unavailable DRAZEK, I RACHNA PA Unavailable Unavailable DRAZEK, I RACHNA PA Unavailable Unavailable DRAZEK, I RACHNA PA Unavailable Unavailable DRAZEK, I RACHNA PA Unavailable Unavailable DRAZEK, I RACHNA PA Unavailable Unavailable DRAZEK, I RACHNA PA Unavailable Unavailable DRAZEK, I RACHNA PA Unavailable Unavailable DRAZEK, I RACHNA PA Unavailable Unavailable Anuj Montoya MD Unavailable Unavailable Anuj Montoya MD Unavailable Unavailable Anuj Montoya MD Unavailable Unavailable Anuj Montoya MD Unavailable Unavailable Anuj Montoya MD Unavailable Unavailable Anuj Montoya MD Unavailable Unavailable Anuj Montoya MD Unavailable Unavailable Anuj Montoya MD Unavailable Unavailable Anuj Montoya MD Unavailable Unavailable Anuj Montoya MD Unavailable Unavailable Anuj Montoya MD Unavailable Unavailable Anuj Montoya MD Unavailable Unavailable Anuj Montoya MD Unavailable Unavailable Anuj Montoya MD Unavailable Unavailable Anuj Montoya MD Unavailable Unavailable Anuj Montoya MD Unavailable Unavailable Anuj Montoya MD Unavailable Unavailable Anuj Montoya MD Unavailable Unavailable Anuj Montoya MD Unavailable Unavailable Anuj Montoya MD Unavailable Unavailable Anuj Montoya MD Unavailable Unavailable Anuj Montoya MD Unavailable Unavailable Anuj Montoya MD Unavailable Unavailable Anuj Montoya MD Unavailable Unavailable Anuj Montoya MD Unavailable Unavailable Anuj Montoya MD Unavailable Unavailable Anuj Montoya MD Unavailable Unavailable Anuj Montoya MD Unavailable Unavailable Anuj Montoya MD Unavailable Unavailable Anuj Montoya MD Unavailable Unavailable Anuj Montoya MD Unavailable Unavailable Anuj Montoya MD Unavailable Unavailable Anuj Montoya MD Unavailable Unavailable Anuj Montoya MD Unavailable Unavailable Anuj Montoya MD Unavailable Unavailable Anuj Montoya MD Unavailable Unavailable Anuj Montoya MD Unavailable Unavailable Anuj Montoya MD Unavailable Unavailable Aunj Montoya MD Unavailable Unavailable Anuj Montoya MD Unavailable Unavailable Anuj Montoya MD Unavailable Unavailable Anuj Montoya MD Unavailable Unavailable Anuj Montoya MD Unavailable Unavailable Anuj Montoya MD Unavailable Unavailable Anuj Montoya MD Unavailable Unavailable Anuj Montoya MD Unavailable Unavailable Anuj Montoya MD Unavailable Unavailable Anuj Montoya MD Unavailable Unavailable Anuj Montoya MD Unavailable Unavailable Anuj Montoya MD Unavailable Unavailable Anuj Montoya MD Unavailable Unavailable Anuj Montoya MD Unavailable Unavailable Anuj Montoya MD Unavailable Unavailable Anuj Montoya MD Unavailable Unavailable Anuj Montoya MD Unavailable Unavailable Anuj Montoya MD Unavailable Unavailable Anuj Montoya MD Unavailable Unavailable Anuj Montoya MD Unavailable Unavailable Anuj Montoya MD Unavailable Unavailable Anuj Montoya MD Unavailable Unavailable Anuj Montoya MD Unavailable Unavailable Anuj Montoya MD Unavailable Unavailable Anuj Montoya MD Unavailable Unavailable Anuj Montoya MD Unavailable Unavailable Anuj Montoya MD Unavailable Unavailable Anuj Montoya MD Unavailable Unavailable Anuj Montoya MD Unavailable Unavailable Anuj Montoya MD Unavailable Unavailable Anuj Montoya MD Unavailable Unavailable Anuj Montoya MD Unavailable Unavailable Anuj Montoya MD Unavailable Unavailable Anuj Montoya MD Unavailable Unavailable Anuj Montoya MD Unavailable Unavailable Anuj Montoya MD Unavailable Unavailable Anuj Montoya MD Unavailable Unavailable Anuj Montoya MD Unavailable Unavailable Anuj Montoya MD Unavailable Unavailable Anuj Montoya MD Unavailable Unavailable Aunj Montoya MD Unavailable Unavailable Scordo, M Ester PA Unavailable Unavailable Scordo, M Ester PA Unavailable Unavailable Scordo, M Ester PA Unavailable Unavailable Scordo, M Ester PA Unavailable Unavailable Scordo, M Ester PA Unavailable Unavailable Scordo, M Ester PA Unavailable Unavailable Scordo, M Ester PA Unavailable Unavailable Scordo, M Ester PA Unavailable Unavailable Scordo, M Ester PA Unavailable Unavailable Scordo, M Ester PA Unavailable Unavailable Scordo, M Ester PA Unavailable Unavailable Scordo, M Ester PA Unavailable Unavailable Scordo, M Ester PA Unavailable Unavailable Scordo, M Ester PA Unavailable Unavailable Scordo, M Ester PA Unavailable Unavailable Scordo, M Ester PA Unavailable Unavailable Scordo, M Ester PA Unavailable Unavailable Scordo, M Ester PA Unavailable Unavailable Scordo, M Ester PA Unavailable Unavailable Scordo, M Ester PA Unavailable Unavailable Scordo, M Ester PA Unavailable Unavailable Scordo, M Ester PA Unavailable Unavailable Scordo, M Ester PA Unavailable Unavailable Scordo, M Ester PA Unavailable Unavailable Scordo, M Ester PA Unavailable Unavailable Scordo, M Ester PA Unavailable Unavailable Scordo, M Ester PA Unavailable Unavailable Scordo, M Ester PA Unavailable Unavailable Scordo, M Ester PA Unavailable Unavailable Scordo, M Ester PA Unavailable Unavailable Scordo, M Ester PA Unavailable Unavailable Scordo, M Ester PA Unavailable Unavailable Scordo, M Ester PA Unavailable Unavailable Scordo, M Ester PA Unavailable Unavailable Scordo, M Ester PA Unavailable Unavailable Scordo, M Ester PA Unavailable Unavailable Scordo, M Ester PA Unavailable Unavailable Scordo, M Ester PA Unavailable Unavailable Scordo, M Ester PA Unavailable Unavailable Scordo, M Ester PA Unavailable Unavailable Scordo, M Ester PA Unavailable Unavailable Scordo, M Ester PA Unavailable Unavailable Scordo, M Ester PA Unavailable Unavailable Scordo, M Ester PA Unavailable Unavailable Scordo, M Ester PA Unavailable Unavailable Scordo, M Ester PA Unavailable Unavailable Scordo, M Ester PA Unavailable Unavailable Cynthia RAIN MD Unavailable Unavailable Cynthia RAIN MD Unavailable Unavailable Cynthia RAIN MD Unavailable Unavailable Cynthia RAIN MD Unavailable Unavailable Cynthia RAIN MD Unavailable Unavailable Cynthia RAIN MD Unavailable Unavailable Cynthia RAIN MD Unavailable Unavailable Cynthia RAIN MD Unavailable Unavailable Cynthia RAIN MD Unavailable Unavailable Cynthia RAIN MD Unavailable Unavailable Cynthia RAIN MD Unavailable Unavailable Cynthia RAIN MD Unavailable Unavailable Cynthia RAIN MD Unavailable Unavailable Cynthia RAIN MD Unavailable Unavailable Cynthia RAIN MD Unavailable Unavailable Cynthia RAIN MD Unavailable Unavailable Cynthia RAIN MD Unavailable Unavailable Cynthia RAIN MD Unavailable Unavailable Cynthia RAIN MD Unavailable Unavailable Cynthia RAIN MD Unavailable Unavailable Cynthia RAIN MD Unavailable Unavailable Cynthia RAIN MD Unavailable Unavailable Cynthia RAIN MD Unavailable Unavailable Cynthia RAIN MD Unavailable Unavailable Cynthia RAIN MD Unavailable Unavailable Cynthia RAIN MD Unavailable Unavailable Cynthia RAIN MD Unavailable Unavailable Cynthia RAIN MD Unavailable Unavailable Cynthia RAIN MD Unavailable Unavailable Cynthia RAIN MD Unavailable Unavailable Cynthia RAIN MD Unavailable Unavailable Cynthia RAIN MD Unavailable Unavailable Cynthia RAIN MD Unavailable Unavailable Cynthia RAIN MD Unavailable Unavailable Cynthia RAIN MD Unavailable Unavailable Cynthia RAIN MD Unavailable Unavailable Cynthia RAIN MD Unavailable Unavailable Cynthia RAIN MD Unavailable Unavailable Cynthia RAIN MD Unavailable Unavailable Cynthia RAIN MD Unavailable Unavailable Cynthia RAIN MD Unavailable Unavailable Cynthia RAIN MD Unavailable Unavailable Cynthia RAIN MD Unavailable Unavailable Cynthia RAIN MD Unavailable Unavailable Cynthia RAIN MD Unavailable Unavailable Cynthia RAIN MD Unavailable Unavailable Cynthia RAIN MD Unavailable Unavailable Cynthia RAIN MD Unavailable Unavailable Cynthia RAIN MD Unavailable Unavailable Cynthia RAIN MD Unavailable Unavailable Cynthia RAIN MD Unavailable Unavailable Cynthia RAIN MD Unavailable Unavailable Cynthia RAIN MD Unavailable Unavailable Cynthia RAIN MD Unavailable Unavailable Cynthia RAIN MD Unavailable Unavailable Cynthia RAIN MD Unavailable Unavailable Cynthia RAIN MD Unavailable Unavailable Cynthia RAIN MD Unavailable Unavailable Cynthia RAIN MD Unavailable Unavailable Cynthia RAIN MD Unavailable Unavailable Cynthia RAIN MD Unavailable Unavailable Cynthia RAIN MD Unavailable Unavailable Cynthia RAIN MD Unavailable Unavailable Cynthia RAIN MD Unavailable Unavailable Cynthia RAIN MD Unavailable Unavailable Cynthia RAIN MD Unavailable Unavailable Cynthia RAIN MD Unavailable Unavailable Cynthia RAIN MD Unavailable Unavailable Cynthia RAIN MD Unavailable Unavailable Cynthia RAIN MD Unavailable Unavailable Cynthia RAIN MD Unavailable Unavailable Cynthia RAIN MD Unavailable Unavailable Cynthia RAIN MD Unavailable Unavailable Cynthia RAIN MD Unavailable Unavailable Cynthia RAIN MD Unavailable Unavailable Cynthia RAIN MD Unavailable Unavailable Cynthia RAIN MD Unavailable Unavailable Cynthia RAIN MD Unavailable Unavailable Cynthia RAIN MD Unavailable Unavailable Cynthia RAIN MD Unavailable Unavailable Cynthia RAIN MD Unavailable Unavailable Cynthia RAIN MD Unavailable Unavailable Cynthia RAIN MD Unavailable Unavailable Cynthia RAIN MD Unavailable Unavailable Cynthia RAIN MD Unavailable Unavailable Cynthia RAIN MD Unavailable Unavailable Cynthia RAIN MD Unavailable Unavailable Cynthia RAIN MD Unavailable Unavailable Cynthia RAIN MD Unavailable Unavailable Cynthia RAIN MD Unavailable Unavailable Cynthia RAIN MD Unavailable Unavailable Cynthia RAIN MD Unavailable Unavailable Cynthia RAIN MD Unavailable Unavailable Cynthia RAIN MD Unavailable Unavailable Lr, Tim Unavailable Unavailable Lr, Tim Unavailable Unavailable Lr, Tim Unavailable Unavailable Lr, Tim Unavailable Unavailable Lr, Tim Unavailable Unavailable Lr, Tmi Unavailable Unavailable Lr, Tim Unavailable Unavailable Lr, Tim Unavailable Unavailable Lr, Tim Unavailable Unavailable Lr, Tim Unavailable Unavailable Lr, Tim Unavailable Unavailable Lr, Tim Unavailable Unavailable Lr, Tim Unavailable Unavailable Lr, Tim Unavailable Unavailable Lr, Tim Unavailable Unavailable Lr, Tim Unavailable Unavailable Lr, Tim Unavailable Unavailable Lr, Tim Unavailable Unavailable Lr, Tim Unavailable Unavailable Lr, Tim Unavailable Unavailable Lr, Tim Unavailable Unavailable Lr, Tim Unavailable Unavailable Lr, Tim Unavailable Unavailable Lr, Tim Unavailable Unavailable Lr, Tim Unavailable Unavailable Lr, Tim Unavailable Unavailable Lr, Tim Unavailable Unavailable Lr, Tim Unavailable Unavailable Rl, Tim Unavailable Unavailable Lr, Tim Unavailable Unavailable Lr, Tim Unavailable Unavailable Lr, Tim Unavailable Unavailable Lr, Tim Unavailable Unavailable Lr, Tim Unavailable Unavailable Lr, Tim Unavailable Unavailable Lr, Tim Unavailable Unavailable Lr, Tim Unavailable Unavailable Lr, Tim Unavailable Unavailable Lr, Tim Unavailable Unavailable Lr, Tim Unavailable Unavailable Lr, Tim Unavailable Unavailable Lr, Tim Unavailable Unavailable Lr, Tim Unavailable Unavailable Lr, Tim Unavailable Unavailable Lr, Tim Unavailable Unavailable Re-disclosure Warning The records that you are about to access may contain information from federally-assisted alcohol or drug abuse programs. If such information is present, then the following federally mandated warning applies: This information has been disclosed to you from records protected by federal confidentiality rules (42 CFR part 2). The federal rules prohibit you from making any further disclosure of this information unless further disclosure is expressly permitted by the written consent of the person to whom it pertains or as otherwise permitted by 42 CFR part 2. A general authorization for the release of medical or other information is NOT sufficient for this purpose. The Federal rules restrict any use of the information to criminally investigate or prosecute any alcohol or drug abuse patient.The records that you are about to access may contain highly sensitive health information, the redisclosure of which is protected by Article 27-F of the [facility] Public Health law. If you continue you may have access to information: Regarding HIV / AIDS; Provided by facilities licensed or operated by the [facility] Office of Mental Health; or Provided by the [facility] Office for People With Developmental Disabilities. If such information is present, then the following [facility] mandated warning applies: This information has been disclosed to you from confidential records which are protected by state law. State law prohibits you from making any further disclosure of this information without the specific written consent of the person to whom it pertains, or as otherwise permitted by law. Any unauthorized further disclosure in violation of state law may result in a fine or half-way sentence or both. A general authorization for the release of medical or other information is NOT sufficient authorization for further disc losure. Allergies and Adverse Reactions Type Description Substance Reaction Status Data Source(s ) Drug allergy PAXIL Paroxetine Hydrochloride 10 MG O ral Tablet [Paxil] ineffective U [facility] Allergy to substance Allergy to substance Allergy to substance [facility] ([facility]) Family History Family Member Name Family Member Gender Family Member Status Date o f Status Description Data Source(s) Unknown Female Diagnosis 08/16/2015 12:00:00 AM EST [facility] ([facility]) Unknown Female Diagnosis 08/16/2015 12:00:00 AM EST [facility] ([facility]) Unknown Female Diagnosis 08/16/2015 12:00:00 AM EST [facility] ([facility]) Encounters Encounter Providers Location Date Indications Data Source(s ) OFFICE OUTPATIENT VISIT 15 MINUTES Attender: RACHNA MARES Phys ical Therapy 05/27/2021 10:45:00 AM EDT [facility] ([facility]) Outpatient Attender: Tim Lr Physical Therapy 02/12/2021 04:00:0 0 PM EDT [facility] ([facility]) OFFICE OUTPATIENT VISIT 15 MINUTES Attender: RACHNA MARES Phys ical Therapy 01/09/2021 01:20:00 PM EDT [facility] ([facility]) Ester Glover PA-C: [address] [place] [address], Ph. Attender: Ester MARES [facility] Medical 01/08/2021 12:00:00 AM EDT A[facility]DRA ([facility]) Ester Glover PA-C: [address] [place] [address], Ph. Attender: Ester MARES [facility] Medical 01/08/2021 12:00:00 AM EDT [facility] ([facility]) Ester Glover PA-C: [address], [place] [address], Ph. Attender: Ester MARES [facility] Medical 12/28/2020 12:00:00 AM EDT [facility] ([facility]) Jazmyne Sprague LMSW: [address], [place] [address], Ph. Attender: Jazmyne Sprague [facility] Medical 12/28/2020 12:00:00 AM EDT [facility] ([facility]) Ester Glover PA-C: [address], [place] [address], Ph. Attender: Ester MARES [facility] Medical 12/28/2020 12:00:00 AM EDT [facility] ([facility]) Jazmyne Sprague LMSW: [address], [place] [address], Ph. Attender: Jazmyne Sprague [facility] Medical 12/28/2020 12:00:00 AM EDT [facility] ([facility]) Ester Glover PA-C: [address], [place] [address], Ph. Attender: Ester MARES [facility] Medical 12/28/2020 12:00:00 AM EDT [facility] ([facility]) Jazmyne Sprague LMSW: [address], [place] [address], Ph. Attender: Jazmyne Sprague [facility] Medical 12/28/2020 12:00:00 AM EDT A[facility]DRA ([facility]) Outpatient Attender: BENJA SALGUEROeferrer: KEVYN GAMA RPA-C 12/27/2020 12:46:07 PM EDT [facility] Recurring Patient Referrer: Tim Lr 12/27/2020 09:03: 47 AM EDT [facility] Recurring Patient Referrer: Tim Lr 12/27/2020 09:00: 17 AM EDT [facility] Recurring Patient Referrer: Tim Lr 12/24/2020 10:59: 46 AM EDT [facility] Recurring Patient Referrer: Tim Lr 12/24/2020 09:27: 59 AM EDT [facility] Recurring Patient Referrer: Tim Lr 12/13/2020 11:15: 42 AM EDT [facility] Office Visit Attender: RACHNA MARES Physical Therapy 2020 09:40:00 AM EST [facility] ([facility]) Outpatient Attender: Kenneth Montoya MD Main office - [facility] 10/30/2020 10:30:00 AM EST [facility] ([facility]) OFFICE OUTPATIENT NEW 60 MINUTES Attender: Iris Romero MD Physi gayle Therapy 10/23/2020 01:00:00 PM EST [facility] ([facility]) Office Visit Attender: RACHNA MARES Physical Therapy 2020 01:00:00 PM EST [facility] ([facility]) Ester Glover PA-C: [address], [place] [address], Ph. Attender: Ester MARES [facility] Medical 10/16/2020 12:00:00 AM EST [facility] ([facility]) Ester Glover PA-C: [address], [place] [address], Ph. Attender: Ester MARES [facility] Medical 10/16/2020 12:00:00 AM EST [facility] ([facility]) Ester Glover PA-C: [address], [place] [address], Ph. Attender: Ester MARES [facility] Medical 10/16/2020 12:00:00 AM EST [facility] ([facility]) Ester Glover PA-C: [address], [place] [address], Ph. Attender: Ester MARES [facility] Medical 10/16/2020 12:00:00 AM EST [facility] ([facility]) OFFICE OUTPATIENT VISIT 15 MINUTES Attender: RACHNA MARES Phys ical Therapy 09/25/2020 09:40:00 AM EST [facility] ([facility]) FELICITA GonzalezC: [address], [place] [address], Ph. Attender: Ester MARES [facility] Medical 09/25/2020 12:00:00 AM EST [facility] ([facility]) Ester Glover PA-C: [address], [place] [address], Ph. Attender: Ester MARES [facility] Medical 09/25/2020 12:00:00 AM EST [facility] ([facility]) Ester Glover PA-C: [address], [place] [address], Ph. Attender: Ester MARES [facility] Medical 09/25/2020 12:00:00 AM EST [facility] ([facility]) FELICITA GonzalezC: [address], [address], [place] [address], Ph. Attender: Ester MARES [facility] Medical 09/25/2020 12:00:00 AM EST [facility] ([facility]) FELICITA GonzalezC: [address], [place] [address], Ph. Attender: Ester MARES [facility] Medical 09/25/2020 12:00:00 AM EST [facility] ([facility]) Outpatient Attender: RACHNA MARES Physical Therapy 09/12/2020 0 9:15:00 AM EST [facility] ([facility] ) Kevyn Arredondo RPA-C: [address], [place] [address], Ph. Attender: KEVYN FRIEDMANC [facility] Medical 08/14/2020 12:00:00 AM EST [facility] ([facility]) Kevyn Arredondo RPA-C: [address], [place] [address], Ph. Attender: KEVYN FRIEDMANC [facility] Medical 08/14/2020 12:00:00 AM EST [facility] ([facility]) Kevyn Arredondo RPA-C: [address], [place] [address], Ph. Attender: KEVYN FRIEDMANC [facility] Medical 08/14/2020 12:00:00 AM EST [facility] ([facility]) Kevyn D Arredondo, RPA-C: [address], [place] [address], Ph. Attender: KEVYN ARREDONDO RPA-C [facility] Medical 08/14/2020 12:00:00 AM EST [facility] ([facility]) Kevyn Arredondo, RPA-C: [address], [place] [address], Ph. Attender: KEVYN ARREDONDO RPA-C [facility] Medical 08/14/2020 12:00:00 AM EST [facility] ([facility]) Kevyn Arredondo RPA-C: [address], [place] [address], Ph. Attender: KEVYN ARREDONDO RPA-C [facility] Medical 08/14/2020 12:00:00 AM EST [facility] ([facility]) Mirza Anderson MD: [address] [place] [address], Ph. Attender: Mirza Anderson MD [facility] Medical 08/09/2020 12:00:00 AM EST [facility] ([facility]) Mirza Anderson MD: [address] [place] [address], Ph. Attender: Mirza Anderson MD [facility] Medical 08/09/2020 12:00:00 AM EST [facility] ([facility]) Mirza Anderson MD: [address] [place] [address], Ph. Attender: Mirza Anderson MD [facility] Medical 08/09/2020 12:00:00 AM EST [facility]A ([facility]) Mirza Anderson MD: [address] [place] [address], Ph. Attender: Mirza Anderson MD [facility] Medical 08/09/2020 12:00:00 AM EST [facility] ([facility]) Mirza Anderson MD: [address] [place] [address], Ph. Attender: Mirza Anderson MD [facility] Medical 08/09/2020 12:00:00 AM EST [facility] ([facility]) Mirza Anderson MD: [address] [place] [address], Ph. Attender: Mirza Anderson MD [facility] Medical 08/09/2020 12:00:00 AM EST [facility] ([facility]) Mirza Anderson MD: [address] [place] [address], Ph. Attender: Mirza Anderson MD [facility] Medical 08/09/2020 12:00:00 AM EST [facility] ([facility]) Outpatient Attender: Kenneth Montoya MD Main office - [facility] 07/30/2020 07:00:00 AM EST [facility] ([facility], ) Kevyn Arredondo RPA-C: [address], [place] [address], Ph. Attender: KEVYN MARQUEZ [facility] Medical 07/30/2020 12:00:00 AM EST [facility] ([facility]) Kevyn Arredondo RPA-C: [address], [place] [address], Ph. Attender: KEVYN MARQUEZ [facility] Medical 07/30/2020 12:00:00 AM EST [facility] ([facility]) Kevyn Arredondo RPA-C: [address], [place] [address], Ph. Attender: KEVYN ARREDONDO RPA-C [facility] Medical 07/30/2020 12:00:00 AM EST [facility] ([facility]) Kevyn Arredondo, RPA-C: [address], [place] [address], Ph. Attender: KEYVN ARREDONDO RPA-C [facility] Medical 07/30/2020 12:00:00 AM EST [facility] ([facility]) Kevyn Arredondo, RPA-C: [address], [place] [address], Ph. Attender: KEVYN ARREDONDO RPA-C [facility] Medical 07/30/2020 12:00:00 AM EST [facility] ([facility]) Kevyn Arredondo RPA-C: [address], [place] [address], Ph. Attender: KEVYN ARREDONDO RPA-C [facility] Medical 07/30/2020 12:00:00 AM EST [facility] ([facility]) Kevyn Arredondo, RPA-C: [address], [place] [address], Ph. Attender: KEVYN ARREDONDO RPA-C [facility] Medical 07/30/2020 12:00:00 AM EST [facility] ([facility]) Kevyn Arredondo, RPA-C: [address], [place] [address], Ph. Attender: KEVYN ARREDONDO RPA-C [facility] Medical 07/30/2020 12:00:00 AM EST [facility] ([facility]) Kevyn D Arredondo, RPA-C: [address], [place] [address], Ph. Attender: KEVYN ARREDONDO RPA-C [facility] Medical 07/23/2020 12:00:00 AM EST [facility] ([facility]) Kveyn Arredondo, RPA-C: [address], [place] [address], Ph. Attender: KEVYN ARREDONDO RPA-C [facility] Medical 07/23/2020 12:00:00 AM EST [facility] ([facility]) Kevyn Arredondo, RPA-C: [address], [place] [address], Ph. Attender: KEVYN ARREDONDO RPA-C [facility] Medical 07/23/2020 12:00:00 AM EST [facility] ([facility]) Kevyn Arredondo RPA-C: [address], [place] [address], Ph. Attender: KEVYN ARREDONDO RPA-C [facility] Medical 07/23/2020 12:00:00 AM EST [facility] ([facility]) Kevyn Arredondo RPA-C: [address], [place] [address], Ph. Attender: KEVYN ARREDONDO RPA-C [facility] Medical 07/23/2020 12:00:00 AM EST [facility] ([facility]) Kevyn Arredondo, RPA-C: [address], [place] [address], Ph. Attender: KEVYN ARREDONDO RPA-C [facility] Medical 07/23/2020 12:00:00 AM EST [facility] ([facility]) Kevyn Arredondo RPA-C: [address], [place] [address], Ph. Attender: KEVYN ARREDONDO RPA-C [facility] Medical 07/23/2020 12:00:00 AM EST [facility] ([facility]) Kevyn Arredondo RPA-C: [address], [place] [address], Ph. Attender: KEVYN ARREDONDO RPA-C [facility] Medical 07/23/2020 12:00:00 AM EST [facility] ([facility]) Kevyn Arredondo RPA-C: [address], [place] [address], Ph. Attender: KEVYN MARQUEZ [facility] Medical 07/23/2020 12:00:00 AM EST [facility] ([facility]) Outpatient Attender: KEVYN MARQUEZ [facility] 06/11/2020 11:54:03 AM EDT [facility] Outpatient Attender: KEVYN FRIEDMANC [facility] 06/11/2020 11:44:02 AM EDT [facility] Outpatient Attender: KEVYN FRIEDMANC [facility] 06/11/2020 11:44:02 AM EDT [address] [address] 05/29/2020 12:00:00 AM EDT eCW1 ([facility]) Outpatient Attender: KEVYN FRIEDMANC [facility] 05/24/2020 01:30:07 PM EDT [facility] Outpatient Attender: KEVYN FRIEDMANC [facility] 05/24/2020 12:00:11 AM EDT [facility] Outpatient Attender: KEVYN FRIEDMANC [facility] 05/23/2020 04:36:09 PM EDT [facility] Immunizations Vaccine Date Status Description Data Source(s) COVID-19 VACCINE Moderna 01/25/2021 12:00:00 AM EDT completed [facility] Vaccine Series Complete: YESThis Data wa s Submitted to [facility] Via [employer]. COVID-19 VACCINE Moderna 12/28/2020 12:00:00 AM EDT completed [facility] Vaccine Series Complete: NOThis Data was Submitted to [facility] [employer]. Medications Medication Brand Name Start Date Product Form Dose Route Admi nistrative Instructions Pharmacy Instructions Status Indications Reaction Description Data Source(s) 40 mg 06/11/2021 12:00:00 AM EDT capsule,delayed release (DR/EC) 30 TAKE 1CAPSULE BY MOUTH ON AN EMPTY STOMACH, AT LEAST 1/2 HOUR BEFORE BREAKFAST (TAPER OFF AFTER 6 WEEKS) TAKE 1CAPSULE BY MOUTH ON AN EMPTY STOMA CH, AT LEAST 1/2 HOUR BEFORE BREAKFAST (TAPER OFF AFTER 6 WEEKS) SOLD: 06/18/2021 [facility] 100 mcg 04/27/2021 12:00:00 AM EDT tablet 30 TAKE ONE TABLET BY MOUTH EVERY MORNING TAKE ONE TABLET BY MOUTH EVERY MORNING SOLD: 05/04/2021 [facility] 7.5 mg 04/27/2021 12:00:00 AM EDT tablet 60 TAKE ONE TABLET BY MOUTH TWICE A DAY TAKE ONE TABLET BY MOUTH TWICE A DAY SOLD: 06/11/2021 [facility] 7.5 mg 04/27/2021 12:00:00 AM EDT tablet 60 TAKE ONE TABLET BY MOUTH TWICE A DAY TAKE ONE TABLET BY MOUTH TWICE A DAY SOLD: 05/04/2021 [facility] 100 mcg 04/27/2021 12:00:00 AM EDT tablet 30 TAKE ONE TABLET BY MOUTH EVERY MORNING TAKE ONE TABLET BY MOUTH EVERY MORNING SOLD: 06/11/2021 [facility] Escitalopram 20 MG Oral Tablet ESCITALOPRAM OXALATE 04/20/2021 1 2:00:00 AM EDT tablet 30 TAKE ONE TABLET BY MOUTH EVERY D AY TAKE ONE TABLET BY MOUTH EVERY DAY SOLD: 06/11/2021 [facility] Escitalopram 20 MG Oral Tablet ESCITALOPRAM OXALATE 04/20/2021 1 2:00:00 AM EDT tablet 30 TAKE ONE TABLET BY MOUTH EVERY D AY TAKE ONE TABLET BY MOUTH EVERY DAY SOLD: 05/04/2021 [facility] 40 mg 04/05/2021 12:00:00 AM EDT capsule,delayed release (DR/EC) 30 TAKE 1CAPSULE BY MOUTH ON AN EMPTY STOMACH, AT LEAST 1/2 HOUR BEFORE BREAKFAST (TAPER OFF AFTER 6 WEEKS) TAKE 1CAPSULE BY MOUTH ON AN EMPTY STOMA CH, AT LEAST 1/2 HOUR BEFORE BREAKFAST (TAPER OFF AFTER 6 WEEKS) SOLD: 04/08/2021 [facility] 40 mg 04/05/2021 12:00:00 AM EDT capsule,delayed release (DR/EC) 30 TAKE 1CAPSULE BY MOUTH ON AN EMPTY STOMACH, AT LEAST 1/2 HOUR BEFORE BREAKFAST (TAPER OFF AFTER 6 WEEKS) TAKE 1CAPSULE BY MOUTH ON AN EMPTY STOMA CH, AT LEAST 1/2 HOUR BEFORE BREAKFAST (TAPER OFF AFTER 6 WEEKS) SOLD: 05/14/2021 [facility] 100 mcg 04/04/2021 12:00:00 AM EDT tablet 30 TAKE ONE TABLET BY MOUTH EVERY MORNING TAKE ONE TABLET BY MOUTH EVERY MORNING SOLD: 04/08/2021 [facility] Escitalopram 20 MG Oral Tablet ESCITALOPRAM OXALATE 03/14/2021 1 2:00:00 AM EDT tablet 30 TAKE ONE TABLET BY MOUTH EVERY D AY TAKE ONE TABLET BY MOUTH EVERY DAY SOLD: 03/27/2021 [facility] 0.35 mg 03/14/2021 12:00:00 AM EDT tablet 28 TAKE ONE TABLET BY MOUTH EVERY DAY TAKE ONE TABLET BY MOUTH EVERY DAY SOLD: 03/27/2021 [facility] 10 mg 03/14/2021 12:00:00 AM EDT tablet 30 TAKE ONE TABLET BY MOUTH EVERY DAY TAKE ONE TABLET BY MOUTH EVERY DAY SOLD: 03/27/2021 [facility] 50 mcg (2,000 unit) 03/09/2021 12:00:00 AM EDT capsule 30 TAKE ONE CAPSULE BY MOUTH EVERY DAY TAKE ONE CAPSULE BY MOUTH EVERY DAY SOLD: 05/14/2021 [facility] 50 mcg (2,000 unit) 03/09/2021 12:00:00 AM EDT capsule 30 TAKE ONE CAPSULE BY MOUTH EVERY DAY TAKE ONE CAPSULE BY MOUTH EVERY DAY SOLD: 04/08/2021 [facility] 50 mcg (2,000 unit) 03/09/2021 12:00:00 AM EDT capsule 30 TAKE ONE CAPSULE BY MOUTH EVERY DAY TAKE ONE CAPSULE BY MOUTH EVERY DAY SOLD: 03/11/2021 [facility] 50 mcg (2,000 unit) 03/09/2021 12:00:00 AM EDT capsule 30 TAKE ONE CAPSULE BY MOUTH EVERY DAY TAKE ONE CAPSULE BY MOUTH EVERY DAY SOLD: 06/11/2021 [facility] 7.5 mg 03/05/2021 12:00:00 AM EDT tablet 60 TAKE ONE TABLET BY MOUTH TWICE A DAY TAKE ONE TABLET BY MOUTH TWICE A DAY SOLD: 04/08/2021 [facility] 7.5 mg 03/05/2021 12:00:00 AM EDT tablet 60 TAKE ONE TABLET BY MOUTH TWICE A DAY TAKE ONE TABLET BY MOUTH TWICE A DAY SOLD: 03/08/2021 [facility] tizanidine 2 MG Oral Tablet TIZANIDINE HCL 02/13/2021 12:00:00 AM E DT tablet 120 INCREASE NO MORE THAN ONCE A WEEK 1 TABLET BY MOUTH AT A TIME MAXIMUM DAILY DOSE = 12 TABLETS INCREASE NO MORE THAN ONCE A WEEK 1 TABL ET BY MOUTH AT A TIME MAXIMUM DAILY DOSE = 12 TABLETS SOLD: 04/14/2021 [facility] tizanidine 2 MG Oral Tablet TIZANIDINE HCL 02/13/2021 12:00:00 AM E DT tablet 120 INCREASE NO MORE THAN ONCE A WEEK 1 TABLET BY MOUTH AT A TIME MAXIMUM DAILY DOSE = 12 TABLETS INCREASE NO MORE THAN ONCE A WEEK 1 TABL ET BY MOUTH AT A TIME MAXIMUM DAILY DOSE = 12 TABLETS SOLD: 06/29/2021 [facility] tizanidine 2 MG Oral Tablet TIZANIDINE HCL 02/13/2021 12:00:00 AM E DT tablet 120 INCREASE NO MORE THAN ONCE A WEEK 1 TABLET BY MOUTH AT A TIME MAXIMUM DAILY DOSE = 12 TABLETS INCREASE NO MORE THAN ONCE A WEEK 1 TABL ET BY MOUTH AT A TIME MAXIMUM DAILY DOSE = 12 TABLETS SOLD: 02/21/2021 [facility] Escitalopram 20 MG Oral Tablet ESCITALOPRAM OXALATE 01/25/2021 1 2:00:00 AM EDT tablet 30 TAKE ONE TABLET BY MOUTH EVERY D AY TAKE ONE TABLET BY MOUTH EVERY DAY SOLD: 02/03/2021 [facility] 50 mcg/actuation 01/25/2021 12:00:00 AM EDT spray,suspension 16 SPRAY ONE SPRAY IN EACH NOSTRIL EVERY DAY SPRAY ONE SPRAY IN EACH NOSTRIL EVERY DAY SOLD: 03/08/2021 [facility] 50 mcg/actuation 01/25/2021 12:00:00 AM EDT spray,suspension 16 SPRAY ONE SPRAY IN EACH NOSTRIL EVERY DAY SPRAY ONE SPRAY IN EACH NOSTRIL EVERY DAY SOLD: 02/03/2021 [facility] 0.35 mg 01/25/2021 12:00:00 AM EDT tablet 28 TAKE ONE TABLET BY MOUTH EVERY DAY TAKE ONE TABLET BY MOUTH EVERY DAY SOLD: 02/03/2021 [facility] 40 mg 01/24/2021 12:00:00 AM EDT capsule,delayed release (DR/EC) 30 TAKE ONE CAPSULE BY MOUTH FORMWORK CARPENTER ON AN EMPTY STOMACH, AT LEAST 1/2 HOUR BEFORE BREAKFAST (TAPER OFF AFTER 6 WEEKS) TAKE ONE CAPSULE BY MOUTH FORMWORK CARPENTER ON AN EMPTY STOMACH, AT LEAST 1/2 HOUR BEFORE BREAKFAST (TAPER OFF AFTER 6 WEEKS) SOLD: 02/03/2021 [facility] 40 mg 01/24/2021 12:00:00 AM EDT capsule,delayed release (DR/EC) 30 TAKE ONE CAPSULE BY MOUTH FORMWORK CARPENTER ON AN EMPTY STOMACH, AT LEAST 1/2 HOUR BEFORE BREAKFAST (TAPER OFF AFTER 6 WEEKS) TAKE ONE CAPSULE BY MOUTH FORMWORK CARPENTER ON AN EMPTY STOMACH, AT LEAST 1/2 HOUR BEFORE BREAKFAST (TAPER OFF AFTER 6 WEEKS) SOLD: 03/08/2021 [facility] 7.5 mg 12/29/2020 12:00:00 AM EDT tablet 60 TAKE ONE TABLET BY MOUTH TWICE A DAY TAKE ONE TABLET BY MOUTH TWICE A DAY SOLD: 02/03/2021 [facility] 7.5 mg 12/29/2020 12:00:00 AM EDT tablet 60 TAKE ONE TABLET BY MOUTH TWICE A DAY TAKE ONE TABLET BY MOUTH TWICE A DAY SOLD: 12/30/2020 [facility] 10 mg 12/24/2020 12:00:00 AM EDT tablet 30 TAKE ONE TABLET BY MOUTH EVERY DAY TAKE ONE TABLET BY MOUTH EVERY DAY SOLD: 12/28/2020 [facility] 90 mcg/actuation 12/20/2020 12:00:00 AM EDT HFA aerosol inha ler 18 INHALE TWO PUFFS BY MOUTH EVERY 4 HOURS NEEDED INHALE TWO PUFFS BY MOUTH EVERY 4 HOURS NEEDED SOLD: 12/23/2020 [facility] tizanidine 2 MG Oral Tablet TIZANIDINE HCL 11/30/2020 12:00:00 AM E DT tablet 120 TAKE 1 TABLET BY MOUTH AT BE DTIME FOR 1 WEEK THEN INCREASE TO 1 2 TIMES A DAY FOR 1 WEEK THEN 1 3 TIMES A DAY FOR 1 WEEK THEN 1 4 TIMES A DAY TAKE 1 TABLET BY MOUTH AT BEDTIME FOR 1 WEEK THEN INCREASE TO 1 2 TIMES A DAY FOR 1 WEEK THEN 1 3 TIMES A DAY FOR 1 WEEK THEN 1 4 TIMES A DAY SOLD: 11/30/2020 [facility] tizanidine 2 MG Oral Tablet Tizanidine HCL 11/29/2020 12:00:00 AM EDT active [facility] ([facility] ) 40 mg 11/13/2020 12:00:00 AM EST capsule,delayed release (DR/EC) 30 TAKE ONE CAPSULE BY MOUTH FORMWORK CARPENTER ON AN EMPTY STOMACH, AT LEAST 1/2 HOUR BEFORE BREAKFAST (TAPER OFF AFTER 6 WEEKS) TAKE ONE CAPSULE BY MOUTH FORMWORK CARPENTER ON AN EMPTY STOMACH, AT LEAST 1/2 HOUR BEFORE BREAKFAST (TAPER OFF AFTER 6 WEEKS) SOLD: 11/30/2020 [facility] 40 mg 11/13/2020 12:00:00 AM EST capsule,delayed release (DR/EC) 30 TAKE ONE CAPSULE BY MOUTH FORMWORK CARPENTER ON AN EMPTY STOMACH, AT LEAST 1/2 HOUR BEFORE BREAKFAST (TAPER OFF AFTER 6 WEEKS) TAKE ONE CAPSULE BY MOUTH FORMWORK CARPENTER ON AN EMPTY STOMACH, AT LEAST 1/2 HOUR BEFORE BREAKFAST (TAPER OFF AFTER 6 WEEKS) SOLD: 12/28/2020 [facility] 100 mcg 11/08/2020 12:00:00 AM EST tablet 30 TAKE ONE TABLET BY MOUTH EVERY MORNING TAKE ONE TABLET BY MOUTH EVERY MORNING SOLD: 11/09/2020 [facility] 100 mcg 11/08/2020 12:00:00 AM EST tablet 30 TAKE ONE TABLET BY MOUTH EVERY MORNING TAKE ONE TABLET BY MOUTH EVERY MORNING SOLD: 02/03/2021 [facility] 100 mcg 11/08/2020 12:00:00 AM EST tablet 30 TAKE ONE TABLET BY MOUTH EVERY MORNING TAKE ONE TABLET BY MOUTH EVERY MORNING SOLD: 03/08/2021 [facility] 100 mcg 11/08/2020 12:00:00 AM EST tablet 30 TAKE ONE TABLET BY MOUTH EVERY MORNING TAKE ONE TABLET BY MOUTH EVERY MORNING SOLD: 12/23/2020 [facility] 17 gram/dose 11/06/2020 12:00:00 AM EST powder 238 USE 17 GRAMS MIXED WITH 8 OUNCES OF WATER OR FLUID AND TAKEN 1-2 TIMES A DAY (HOLD OR DECREASE IF HAVING DIARRHEA) USE 17 GRAMS MIXED WITH 8 OUNCES OF WATE R OR FLUID AND TAKEN 1-2 TIMES A DAY (HOLD OR DECREASE IF HAVING DIARRHEA) SOLD: 12/23/2020 [facility] 17 gram/dose 11/06/2020 12:00:00 AM EST powder 238 USE 17 GRAMS MIXED WITH 8 OUNCES OF WATER OR FLUID AND TAKEN 1-2 TIMES A DAY (HOLD OR DECREASE IF HAVING DIARRHEA) USE 17 GRAMS MIXED WITH 8 OUNCES OF WATE R OR FLUID AND TAKEN 1-2 TIMES A DAY (HOLD OR DECREASE IF HAVING DIARRHEA) SOLD: 11/30/2020 [facility] 17 gram/dose 11/06/2020 12:00:00 AM EST powder 238 USE 17 GRAMS MIXED WITH 8 OUNCES OF WATER OR FLUID AND TAKEN 1-2 TIMES A DAY (HOLD OR DECREASE IF HAVING DIARRHEA) USE 17 GRAMS MIXED WITH 8 OUNCES OF WATE R OR FLUID AND TAKEN 1-2 TIMES A DAY (HOLD OR DECREASE IF HAVING DIARRHEA) SOLD: 11/09/2020 [facility] 100 mg 11/04/2020 12:00:00 AM EST tablet 45 TAKE ONE AND ONE-HALF TABLETS BY MOUTH AT BEDTIME TAKE ONE AND ONE-HALF TABLETS BY MOUTH AT BEDTIME SOLD : 03/08/2021 [facility] 100 mg 11/04/2020 12:00:00 AM EST tablet 45 TAKE ONE AND ONE-HALF TABLETS BY MOUTH AT BEDTIME TAKE ONE AND ONE-HALF TABLETS BY MOUTH AT BEDTIME SOLD : 02/03/2021 [facility] 100 mg 11/04/2020 12:00:00 AM EST tablet 45 TAKE ONE AND ONE-HALF TABLETS BY MOUTH AT BEDTIME TAKE ONE AND ONE-HALF TABLETS BY MOUTH AT BEDTIME SOLD : 11/09/2020 [facility] 100 mg 11/04/2020 12:00:00 AM EST tablet 45 TAKE ONE AND ONE-HALF TABLETS BY MOUTH AT BEDTIME TAKE ONE AND ONE-HALF TABLETS BY MOUTH AT BEDTIME SOLD : 12/23/2020 [facility] Escitalopram 20 MG Oral Tablet ESCITALOPRAM OXALATE 10/24/2020 1 2:00:00 AM EST tablet 30 TAKE ONE TABLET BY MOUTH EVERY D AY TAKE ONE TABLET BY MOUTH EVERY DAY SOLD: 10/27/2020 [facility] Escitalopram 20 MG Oral Tablet ESCITALOPRAM OXALATE 10/24/2020 1 2:00:00 AM EST tablet 30 TAKE ONE TABLET BY MOUTH EVERY D AY TAKE ONE TABLET BY MOUTH EVERY DAY SOLD: 11/30/2020 [facility] Escitalopram 20 MG Oral Tablet ESCITALOPRAM OXALATE 10/24/2020 1 2:00:00 AM EST tablet 30 TAKE ONE TABLET BY MOUTH EVERY D AY TAKE ONE TABLET BY MOUTH EVERY DAY SOLD: 12/28/2020 [facility] tizanidine 4 MG Oral Tablet TIZANIDINE HCL 10/19/2020 12:00:00 AM EST tablet 60 TAKE ONE TABLET BY MOUTH THREE TIMES A DAY TAKE ONE TA BLET BY MOUTH THREE TIMES A DAY SOLD: 10/27/2020 [facility] 25 mg 10/16/2020 12:00:00 AM EST tablet 30 TAKE 1 TABLET BY MOUTH 30 MINUTS PRIOR TO BEDTIME NEEDED FOR SLEEP DO NOT TAKE WITH MUSCLE RELAXER TAKE 1 TABLET BY MOUTH 30 MINUTS PRIOR TO BEDTIME NEEDED FOR SLEEP DO NOT TAKE WITH MUSCLE RELAXER SOLD: 10/16/2020 [facility] NEBULIZER AND COMPRESSOR 10/06/2020 12:00:00 AM EST device 1 USE THREE TIMES A DAY FOR ACUTE BRONCHITIS USE THREE TIMES A DAY FOR ACUTE BRONCHITIS SOLD: 10/08/2020 [facility] 100 mcg 09/27/2020 12:00:00 AM EST tablet 30 TAKE ONE TABLET BY MOUTH EVERY MORNING TAKE ONE TABLET BY MOUTH EVERY MORNING SOLD: 10/03/2020 [facility] 09/26/2020 12:00:00 AM EST Misc 1 DI RECTED DIRECTED SOLD: 10/03/2020 [facility] 50 mcg/actuation 09/26/2020 12:00:00 AM EST spray,suspension 16 SPRAY ONE SPRAY IN EACH NOSTRIL EVERY DAY SPRAY ONE SPRAY IN EACH NOSTRIL EVERY DAY SOLD: 11/09/2020 [facility] 10 mg 09/26/2020 12:00:00 AM EST tablet 30 TAKE ONE TABLET BY MOUTH EVERY DAY TAKE ONE TABLET BY MOUTH EVERY DAY SOLD: 10/03/2020 [facility] 50 mcg/actuation 09/26/2020 12:00:00 AM EST spray,suspension 16 SPRAY ONE SPRAY IN EACH NOSTRIL EVERY DAY SPRAY ONE SPRAY IN EACH NOSTRIL EVERY DAY SOLD: 10/03/2020 [facility] 50 mcg/actuation 09/26/2020 12:00:00 AM EST spray,suspension 16 SPRAY ONE SPRAY IN EACH NOSTRIL EVERY DAY SPRAY ONE SPRAY IN EACH NOSTRIL EVERY DAY SOLD: 12/23/2020 [facility] 15 mg 09/12/2020 12:00:00 AM EST tablet 30 TAKE ONE TABLET BY MOUTH EVERY DAY AFTER A MEAL MAXIMUM DAILY DOSE = 1 TAKE ONE TABLET BY MOUTH EVERY DAY AFTER A MEAL MAXIMUM DAILY DOSE = 1 SOLD: 10/16/2020 [facility] 15 mg 09/12/2020 12:00:00 AM EST tablet 30 TAKE ONE TABLET BY MOUTH EVERY DAY AFTER A MEAL MAXIMUM DAILY DOSE = 1 TAKE ONE TABLET BY MOUTH EVERY DAY AFTER A MEAL MAXIMUM DAILY DOSE = 1 SOLD: 09/12/2020 [facility] tizanidine 4 MG Oral Tablet TIZANIDINE HCL 09/12/2020 12:00:00 AM EST tablet 60 TAKE ONE TABLET BY MOUTH THREE TIMES A DAY MAXIMUM MENG LY DOSE = 3 TAKE ONE TABLET BY MOUTH THREE TIMES A DAY MAXIMUM DAILY DOSE = 3 SOLD: 09/12/2020 [facility] tizanidine 4 MG Oral Tablet Tizanidine HCL 09/12/2020 12:00:00 AM EST ORAL active [facility] ([facility]) meloxicam 15 MG Oral Tablet [Mobic] Mobic 09/12/2020 12:00:00 AM EST ORAL active [facility] ([facility]) 40 mg 09/10/2020 12:00:00 AM EST capsule,delayed release (DR/EC) 30 TAKE ONE CAPSULE BY MOUTH FORMWORK CARPENTER ON AN EMPTY STOMACH, AT LEAST 1/2 HOUR BEFORE BREAKFAST (TAPER OFF AFTER 6 WEEKS) TAKE ONE CAPSULE BY MOUTH FORMWORK CARPENTER ON AN EMPTY STOMACH, AT LEAST 1/2 HOUR BEFORE BREAKFAST (TAPER OFF AFTER 6 WEEKS) SOLD: 09/12/2020 [facility] 40 mg 09/10/2020 12:00:00 AM EST capsule,delayed release (DR/EC) 30 TAKE ONE CAPSULE BY MOUTH FORMWORK CARPENTER ON AN EMPTY STOMACH, AT LEAST 1/2 HOUR BEFORE BREAKFAST (TAPER OFF AFTER 6 WEEKS) TAKE ONE CAPSULE BY MOUTH FORMWORK CARPENTER ON AN EMPTY STOMACH, AT LEAST 1/2 HOUR BEFORE BREAKFAST (TAPER OFF AFTER 6 WEEKS) SOLD: 10/16/2020 [facility] 750 mg 09/09/2020 12:00:00 AM EST tablet 14 TAKE ONE TABLET BY MOUTH AT BEDTIME NEEDED FOR SPASMS TAKE ONE TABLET BY MOUTH AT BEDTIME N EEDED FOR SPASMS SOLD: 09/12/2020 [facility] 90 mcg/actuation 08/27/2020 12:00:00 AM EST HFA aerosol inha ler 18 INHALE TWO PUFFS BY MOUTH EVERY 4 TO 6 HOURS NEEDED FOR WHEEZING INHALE TWO PUFFS BY MOUTH EVERY 4 TO 6 HOURS NEEDED FOR WHEEZING SOLD: 08/27/2020 [facility] 2.5 mg /3 mL (0.083 %) 08/25/2020 12:00:00 AM EST solu tion for nebulization 75 INHALE 3ML THREE TIMES A DAY FOR NEBULIZ ATION ROUTE INHALE 3ML THREE TIMES A DAY FOR NEBULIZATION ROUTE SOLD: 08/27/2020 [facility] 10-100 mg/5 mL 08/25/2020 12:00:00 AM EST liquid 473 TAKE 10ML BY MOUTH EVERY 4 HOURS TAKE 10ML BY MOUTH EVERY 4 HOURS SOLD: 08/27/2020 [facility] 2.5 mg /3 mL (0.083 %) 08/25/2020 12:00:00 AM EST solu tion for nebulization 75 INHALE 3ML THREE TIMES A DAY FOR NEBULIZ ATION ROUTE INHALE 3ML THREE TIMES A DAY FOR NEBULIZATION ROUTE SOLD: 10/16/2020 [facility] NEBULIZER ACCESSORIES 08/23/2020 12:00:00 AM EST misc 1 USE THREE TIMES A DAY NEEDED ACUTE BRONCHITIS USE THREE TIMES A DAY NEEDED ACUTE BRONCHITIS SOLD: 08/27/2020 [facility] 90 mcg/actuation 08/14/2020 12:00:00 AM EST HFA aerosol inha ler 18 INHALE 2 PUFFS BY MOUTH EVERY 4 HOURS NEEDED INHALE 2 PUFFS BY MOUTH EVERY 4 HOURS NEEDED SOLD: 09/12/2020 [facility] 90 mcg/actuation 08/14/2020 12:00:00 AM EST HFA aerosol inha ler 18 INHALE 2 PUFFS BY MOUTH EVERY 4 HOURS NEEDED INHALE 2 PUFFS BY MOUTH EVERY 4 HOURS NEEDED SOLD: 10/03/2020 [facility] 90 mcg/actuation 08/14/2020 12:00:00 AM EST HFA aerosol inha ler 18 INHALE 2 PUFFS BY MOUTH EVERY 4 HOURS NEEDED INHALE 2 PUFFS BY MOUTH EVERY 4 HOURS NEEDED SOLD: 11/12/2020 [facility] 90 mcg/actuation 08/14/2020 12:00:00 AM EST HFA aerosol inha ler 18 INHALE 2 PUFFS BY MOUTH EVERY 4 HOURS NEEDED INHALE 2 PUFFS BY MOUTH EVERY 4 HOURS NEEDED SOLD: 11/30/2020 [facility] 90 mcg/actuation 08/14/2020 12:00:00 AM EST HFA aerosol inha ler 18 INHALE 2 PUFFS BY MOUTH EVERY 4 HOURS NEEDED INHALE 2 PUFFS BY MOUTH EVERY 4 HOURS NEEDED SOLD: 10/27/2020 [facility] 100 mcg 07/30/2020 12:00:00 AM EST tablet 30 TAKE ONE TABLET BY MOUTH EVERY MORNING TAKE ONE TABLET BY MOUTH EVERY MORNING SOLD: 07/30/2020 [facility] 0.35 mg 07/30/2020 12:00:00 AM EST tablet 28 TAKE ONE TABLET BY MOUTH EVERY DAY TAKE ONE TABLET BY MOUTH EVERY DAY SOLD: 07/30/2020 [facility] 100 mg 07/30/2020 12:00:00 AM EST tablet 30 TAKE ONE TABLET BY MOUTH AT BEDTIME AFTER 25MG TABLETS FINISHED TAKE ONE TABLET BY MOUTH AT BEDTIME AFTE R 25MG TABLETS FINISHED SOLD: 09/24/2020 [facility] 0.35 mg 07/30/2020 12:00:00 AM EST tablet 28 TAKE ONE TABLET BY MOUTH EVERY DAY TAKE ONE TABLET BY MOUTH EVERY DAY SOLD: 11/30/2020 [facility] 0.35 mg 07/30/2020 12:00:00 AM EST tablet 28 TAKE ONE TABLET BY MOUTH EVERY DAY TAKE ONE TABLET BY MOUTH EVERY DAY SOLD: 10/27/2020 [facility] 0.35 mg 07/30/2020 12:00:00 AM EST tablet 28 TAKE ONE TABLET BY MOUTH EVERY DAY TAKE ONE TABLET BY MOUTH EVERY DAY SOLD: 12/28/2020 [facility] 100 mg 07/30/2020 12:00:00 AM EST tablet 30 TAKE ONE TABLET BY MOUTH AT BEDTIME AFTER 25MG TABLETS FINISHED TAKE ONE TABLET BY MOUTH AT BEDTIME AFTE R 25MG TABLETS FINISHED SOLD: 08/27/2020 [facility] 100 mg 07/30/2020 12:00:00 AM EST tablet 30 TAKE ONE TABLET BY MOUTH AT BEDTIME AFTER 25MG TABLETS FINISHED TAKE ONE TABLET BY MOUTH AT BEDTIME AFTE R 25MG TABLETS FINISHED SOLD: 07/30/2020 [facility] topiramate 25 MG Oral Tablet Topiramate 07/30/2020 12:00:00 AM EST active [facility] ([facility] ) topiramate 100 MG Oral Tablet Topiramate 07/30/2020 12:00:00 AM EST ORAL active [facility] ([facility] ) 0.35 mg 07/30/2020 12:00:00 AM EST tablet 28 TAKE ONE TABLET BY MOUTH EVERY DAY TAKE ONE TABLET BY MOUTH EVERY DAY SOLD: 09/24/2020 [facility] 25 mg 07/30/2020 12:00:00 AM EST tablet 42 TAKE ONE TABLET BY MOUTH AT BEDTIME FOR 7 DAYS THEN TAKE TWO TABLETS AT BEDTIME FOR 7 DAYS THEN TAKE THREE AT BEDTIME FOR 7 DAYS THEN TAKE 100MG AT BEDTIME TAKE ONE TABLET BY MOUTH AT BEDTIME FOR 7 DAYS THEN TAKE TWO TABLETS AT BEDTIME FOR 7 DAYS THEN TAKE THREE AT BEDTIME FOR 7 DAYS THEN TAKE 100MG AT BEDTIME SOLD: 07/30/2020 [facility] 100 mg 07/30/2020 12:00:00 AM EST tablet 30 TAKE ONE TABLET BY MOUTH AT BEDTIME AFTER 25MG TABLETS FINISHED TAKE ONE TABLET BY MOUTH AT BEDTIME AFTE R 25MG TABLETS FINISHED SOLD: 10/27/2020 [facility] 0.35 mg 07/30/2020 12:00:00 AM EST tablet 28 TAKE ONE TABLET BY MOUTH EVERY DAY TAKE ONE TABLET BY MOUTH EVERY DAY SOLD: 08/27/2020 [facility] 100 mcg 07/30/2020 12:00:00 AM EST tablet 30 TAKE ONE TABLET BY MOUTH EVERY MORNING TAKE ONE TABLET BY MOUTH EVERY MORNING SOLD: 08/27/2020 [facility] Escitalopram 20 MG Oral Tablet ESCITALOPRAM OXALATE 07/23/2020 1 2:00:00 AM EST tablet 30 TAKE ONE TABLET BY MOUTH EVERY D AY TAKE ONE TABLET BY MOUTH EVERY DAY SOLD: 08/23/2020 [facility] Escitalopram 20 MG Oral Tablet ESCITALOPRAM OXALATE 07/23/2020 1 2:00:00 AM EST tablet 30 TAKE ONE TABLET BY MOUTH EVERY D AY TAKE ONE TABLET BY MOUTH EVERY DAY SOLD: 07/23/2020 [facility] Escitalopram 20 MG Oral Tablet ESCITALOPRAM OXALATE 07/23/2020 1 2:00:00 AM EST tablet 30 TAKE ONE TABLET BY MOUTH EVERY D AY TAKE ONE TABLET BY MOUTH EVERY DAY SOLD: 09/24/2020 [facility] 40 mg 07/02/2020 12:00:00 AM EDT capsule,delayed release (DR/EC) 30 TAKE ONE CAPSULE BY MOUTH FORMWORK CARPENTER ON AN EMPTY STOMACH, AT LEAST 1/2 HOUR BEFORE BREAKFAST (TAPER OFF AFTER 6 WEEKS) TAKE ONE CAPSULE BY MOUTH FORMWORK CARPENTER ON AN EMPTY STOMACH, AT LEAST 1/2 HOUR BEFORE BREAKFAST (TAPER OFF AFTER 6 WEEKS) SOLD: 07/08/2020 [facility] 4 mg 07/02/2020 12:00:00 AM EDT tablet 30 TAKE 1 TABLET BY MOUTH ONCE TO TWICE DAILY BEFORE MEALS, ONLY WHEN HAVING NAUSEA TAKE 1 TABLET BY MOUTH ONCE TO TWICE DAILY BEFORE MEALS, ONLY WHEN HAVING NAUSEA SOLD: 07/08/2020 [facility] Tri-Lo-Susie 28 Day Pack 0.18/0.215/0.25 mg-25 mcg NORG ESTIMATE-ETHINYL ESTRADIOL 06/16/2020 12:00:00 AM EDT tablet 84 TAKE ONE TABLET BY MOUTH EVERY DAY TAKE ONE TABLET BY MOUTH EVERY DAY SOLD: 06/22/2020 [facility] 88 mcg 06/13/2020 12:00:00 AM EDT tablet 30 TAKE ONE TABLET BY MOUTH EVERY MORNING TAKE ONE TABLET BY MOUTH EVERY MORNING SOLD: 07/22/2020 [facility] 50 mcg (2,000 unit) 06/13/2020 12:00:00 AM EDT capsule 30 TAKE ONE CAPSULE BY MOUTH EVERY DAY TAKE ONE CAPSULE BY MOUTH EVERY DAY SOLD: 06/13/2020 [facility] 88 mcg 06/13/2020 12:00:00 AM EDT tablet 30 TAKE ONE TABLET BY MOUTH EVERY MORNING TAKE ONE TABLET BY MOUTH EVERY MORNING SOLD: 06/13/2020 [facility] 50 mcg (2,000 unit) 06/13/2020 12:00:00 AM EDT capsule 30 TAKE ONE CAPSULE BY MOUTH EVERY DAY TAKE ONE CAPSULE BY MOUTH EVERY DAY SOLD: 10/27/2020 [facility] 50 mcg (2,000 unit) 06/13/2020 12:00:00 AM EDT capsule 30 TAKE ONE CAPSULE BY MOUTH EVERY DAY TAKE ONE CAPSULE BY MOUTH EVERY DAY SOLD: 11/30/2020 [facility] 50 mcg (2,000 unit) 06/13/2020 12:00:00 AM EDT capsule 30 TAKE ONE CAPSULE BY MOUTH EVERY DAY TAKE ONE CAPSULE BY MOUTH EVERY DAY SOLD: 09/24/2020 [facility] 50 mcg (2,000 unit) 06/13/2020 12:00:00 AM EDT capsule 30 TAKE ONE CAPSULE BY MOUTH EVERY DAY TAKE ONE CAPSULE BY MOUTH EVERY DAY SOLD: 08/23/2020 [facility] 50 mcg (2,000 unit) 06/13/2020 12:00:00 AM EDT capsule 30 TAKE ONE CAPSULE BY MOUTH EVERY DAY TAKE ONE CAPSULE BY MOUTH EVERY DAY SOLD: 07/22/2020 [facility] 5 mg 06/08/2020 12:00:00 AM EDT tablet,delayed release (DR/EC) 4 TAKE 4 TABLETS BY MOUTH FOR BOWEL PREPARATION DIRECTED TAKE 4 TABLETS BY MOUTH FOR BOWEL PREPARATION DIRECTED SOLD: 06/13/2020 [facility] 420 gram 06/08/2020 12:00:00 AM EDT recon soln 4000 A S DIRECTED DIRECTED SOLD: 06/13/2020 [facility] Tri-Lo-Susie 28 Day Pack 0.18/0.215/0.25 mg-25 mcg NORG ESTIMATE-ETHINYL ESTRADIOL 05/23/2020 12:00:00 AM EDT tablet 28 TAKE ONE TABLET BY MOUTH EVERY DAY TAKE ONE TABLET BY MOUTH EVERY DAY SOLD: 05/23/2020 [facility] Escitalopram 10 MG Oral Tablet ESCITALOPRAM OXALATE 05/23/2020 1 2:00:00 AM EDT tablet 30 TAKE ONE TABLET BY MOUTH EVERY D AY TAKE ONE TABLET BY MOUTH EVERY DAY SOLD: 05/23/2020 [facility] Escitalopram 10 MG Oral Tablet ESCITALOPRAM OXALATE 05/23/2020 1 2:00:00 AM EDT tablet 30 TAKE ONE TABLET BY MOUTH EVERY D AY TAKE ONE TABLET BY MOUTH EVERY DAY SOLD: 06/22/2020 [facility] Escitalopram 10 MG Oral Tablet [Lexapro] Lexapro 05/23/2020 12:00: 00 AM EDT ORAL completed [facility]ENT ([facility]) Tri-Lo-Susie 28 Day Pack 0.18/0.215/0.25 mg-25 mcg NORG ESTIMATE-ETHINYL ESTRADIOL 05/23/2020 12:00:00 AM EDT tablet 28 TAKE ONE TABLET BY MOUTH EVERY DAY TAKE ONE TABLET BY MOUTH EVERY DAY SOLD: 08/27/2020 [facility] Prednisone 20 MG Oral Tablet prednisone 20 mg tablet TAKE TWO TABLETS BY MOUTH TWICE A DAY prednisone 20 mg tablet TAKE TWO TABLETS BY MOUTH TWICE A DAY completed prednisone 20 MG Ora l Tablet [facility]ANDRA ([facility]) Levothyroxine Sodium 0.075 MG Oral Table t levothyroxine 75 mcg tablet TAKE 1 TABLET BY MOUTH ONCE A DAY IN THE MORNING ON AN EMPTY STOMACH levothyroxine 75 mcg tablet TAKE 1 TABLET BY MOUTH ONCE A DAY IN THE MORNING ON AN EMPTY STOMACH completed levothyroxine sodium 0.075 MG Oral Tablet [facility] ([facility]) Acetaminophen 300 MG / Codeine Phosphate 30 MG Oral Tablet acetaminophen 300 mg- codeine 30 mg tablet acetaminophen 300 mg-codeine 30 mg tablet completed acetaminophen 300 MG / codeine p hosphate 30 MG Oral Tablet [facility] ([facility]) Levothyroxine Sodium 0.025 MG Oral Table t levothyroxine 25 mcg tablet TAKE ONE TABLET BY MOUTH EVERY DAY levothyroxine 25 mcg tablet TAKE ONE TAB LET BY MOUTH EVERY DAY completed levothyroxin e sodium 0.025 MG Oral Tablet [facility] ([facility]) Levothyroxine Sodium 0.075 MG Oral Table t levothyroxine 75 mcg tablet TAKE 1 TABLET BY MOUTH ONCE A DAY IN THE MORNING ON AN EMPTY STOMACH levothyroxine 75 mcg tablet TAKE 1 TABLET BY MOUTH ONCE A DAY IN THE MORNING ON AN EMPTY STOMACH completed levothyroxine sodium 0.075 MG Oral Tablet [facility] ([facility]) Levothyroxine Sodium 0.088 MG Oral Tablet levothyroxin e 88 mcg tablet levothyroxine 88 mcg tablet completed levothyroxine sodium 0.088 MG Oral Tablet [facility]ANDRA ([facility]) Levothyroxine Sodium 0.025 MG Oral Table t levothyroxine 25 mcg tablet TAKE ONE TABLET BY MOUTH EVERY DAY levothyroxine 25 mcg tablet TAKE ONE TAB LET BY MOUTH EVERY DAY completed levothyroxin e sodium 0.025 MG Oral Tablet [facility] ([facility]) Bisacodyl 5 MG Delayed Release Oral Tabl et bisacodyl 5 mg tablet,delayed release bisacodyl 5 mg tablet,delayed release completed bisacodyl 5 MG Delayed Release Oral Tablet [facility] ([facility]) Tri-Lo-Susie 0.18/0.215/0.25 mg-25 mcg tablet TAKE ONE TABLET BY MOUTH EVERY DAY [id number] completed Tri-Lo-Susie 0.1 8/0.215/0.25 mg-25 mcg tablet [facility] ([facility]) Flulaval Quad 60 mcg (15 mcg x 4)/0.5 mL intramuscular susp. DIRECTED [id number] completed influe nza A virus A/ (H1N1) antigen 0.03 MG/ML / influenza A virus A/ (H3N2) antigen 0.03 MG/ML / influenza B virus B/ antigen 0.03 MG/ML / influenza B virus B/[facility] antigen 0.03 MG/ML Injectable Suspension [Flulaval Quadrivalent ] POMONA ([facility]) Levothyroxine Sodium 0.075 MG Oral Table t levothyroxine 75 mcg tablet TAKE 1 TABLET BY MOUTH ONCE A DAY IN THE MORNING ON AN EMPTY STOMACH levothyroxine 75 mcg tablet TAKE 1 TABLET BY MOUTH ONCE A DAY IN THE MORNING ON AN EMPTY STOMACH completed levothyroxine sodium 0.075 MG Oral Tablet ALEXANDRA ([facility]) Escitalopram 10 MG Oral Tablet escitalop traci 10 mg tablet TAKE ONE TABLET BY MOUTH EVERY DAY escitalopram 10 mg tablet TAKE ONE TABLET BY MOUTH EVERY DAY completed escitalopram 1 0 MG Oral Tablet POMONA ([facility]) Levothyroxine Sodium 0.025 MG Oral Table t levothyroxine 25 mcg tablet TAKE ONE TABLET BY MOUTH EVERY DAY levothyroxine 25 mcg tablet TAKE ONE TAB LET BY MOUTH EVERY DAY completed levothyroxin e sodium 0.025 MG Oral Tablet ALEXANDRA ([facility]) Metronidazole 500 MG Oral Tablet metroni dazole 500 mg tablet TAKE ONE TABLET BY MOUTH THREE TIMES A DAY metronidazole 500 mg tablet TAKE ONE TAB LET BY MOUTH THREE TIMES A DAY completed metr onidazole 500 MG Oral Tablet [place] ([facility]) Levothyroxine Sodium 0.088 MG Oral Tablet levothyroxin e 88 mcg tablet levothyroxine 88 mcg tablet completed levothyroxine sodium 0.088 MG Oral Tablet ALEXANDRA ([facility]) Methocarbamol 750 MG Oral Tablet methoca rbamol 750 mg tablet TAKE ONE TABLET BY MOUTH AT BEDTIME NEEDED FOR SPASMS methocarbamol 750 mg tablet TAKE ONE TABLET BY MOUTH AT BEDTIME NEEDED FOR SPASMS completed methocarbamol 750 MG Oral Tablet [facility] ([facility]) Tri-Lo-Susie 0.18/0.215/0.25 mg-25 mcg tablet [id number] completed Tri-Lo-Susie 0.18/0.215/0.25 mg-25 mcg tablet [facility] ([facility]) Ondansetron 4 MG Oral Tablet ondansetron HCl 4 mg tablet TAKE 1 TABLET BY MOUTH ONCE TO TWICE DAILY BEFORE MEALS ONLY WHEN HAVING NAUSEA ondansetron HCl 4 mg tablet TAKE 1 TABLET BY MOUTH ONCE TO TWICE DAILY BEFORE MEALS ONLY WHEN HAVING NAUSEA completed ondansetron 4 M G Oral Tablet [place] ([facility]) Metronidazole 500 MG Oral Tablet metroni dazole 500 mg tablet TAKE ONE TABLET BY MOUTH THREE TIMES A DAY metronidazole 500 mg tablet TAKE ONE TAB LET BY MOUTH THREE TIMES A DAY completed metr onidazole 500 MG Oral Tablet [place] ([facility]) Prednisone 10 MG Oral Tablet prednisone 10 mg tablet TAKE THREE TABLETS BY MOUTH EVERY DAY WITH FOOD DAYS 8 14 THEN 2 ONCE DAILY DAYS 15 THEN 1 ONCE DAILY DAYS 28 THEN 1/2 TABLET ONCE MENG prednisone 10 mg tablet TAKE THREE TABLE TS BY MOUTH EVERY DAY WITH FOOD DAYS 8 14 THEN 2 ONCE DAILY DAYS 15 21 THEN 1 ONCE DAILY DAYS 28 THEN 1/2 TABLET ONCE MENG completed prednisone 10 MG Oral Tablet [place] ([facility]) meloxicam 15 MG Oral Tablet meloxicam 15 mg tablet TAKE ONE TABLET BY MOUTH EVERY DAY AFTER A MEAL MAXIMUM DAILY DOSE 1 meloxicam 15 mg tablet TAKE ONE TABLET BY MOUTH EVERY DAY AFTER A MEAL MAXIMUM DAILY DOSE 1 completed meloxicam 15 MG Oral Tablet ATHHailey NA ([facility]) benzonatate 100 MG Oral Capsule benzonat ate 100 mg capsule TAKE ONE CAPSULE BY MOUTH THREE TIMES A DAY benzonatate 100 mg capsule TAKE ONE CAPS ULE BY MOUTH THREE TIMES A DAY completed davion onatate 100 MG Oral Capsule [place] ([facility]) Ciprofloxacin 500 MG Oral Tablet ciprofl oxacin 500 mg tablet TAKE ONE TABLET BY MOUTH TWICE A DAY ciprofloxacin 500 mg tablet TAKE ONE TAB LET BY MOUTH TWICE A DAY completed ciprofloxacin 50 0 MG Oral Tablet [place] ([facility]) Amoxicillin 500 MG Oral Capsule amoxicil nabil 500 mg capsule TAKE TWO CAPSULES BY MOUTH THREE TIMES A DAY amoxicillin 500 mg capsule TAKE TWO CAPS ULES BY MOUTH THREE TIMES A DAY completed amox icillin 500 MG Oral Capsule [place] ([facility]) Ibuprofen 800 MG Oral Tablet ibuprofen 800 mg tablet ibuprofen 8 00 mg tablet completed ibuprofen 800 MG Oral Tablet [place] ([facility]) Bisacodyl 5 MG Delayed Release Oral Tabl et bisacodyl 5 mg tablet,delayed release bisacodyl 5 mg tablet,delayed release completed bisacodyl 5 MG Delayed Release Oral Tablet [place] ([facility]) Tri-Lo-Susie 0.18/0.215/0.25 mg-25 mcg tablet TAKE ONE TABLET BY MOUTH EVERY DAY [id number] completed Tri-Lo-Susie 0.1 8/0.215/0.25 mg-25 mcg tablet [place] ([facility]) POLYETHYLENE GLYCOL 3350 105 MG/ML / Pot assium Chloride 0.03335 MEQ/ML / Sodium Bicarbonate 0.017 MEQ/ML / Sodium Chloride 0.0479 MEQ/ML Oral Solution peg- electrolyte solution 420 gram oral solution peg-electrolyte solution 420 gram oral solution completed polyethylene glycol 3350 895183 MG / potassium chloride 1480 MG / sodium bicarbonate 5720 MG / sodium chloride 63532 MG Powder for Oral Solution [facility] ([facility]) topiramate 25 MG Oral Tablet topiramate 25 mg tablet Take 3 tablets every day by oral route as directed for 21 days. topiramate 25 mg tablet Take 3 tablets e very day by oral route as directed for 21 days. 3 completed topiramate 25 MG Oral Tablet [place] ([facility]) valacyclovir 1000 MG Oral Tablet valacyc lovir 1 gram tablet TAKE ONE TABLET BY MOUTH EVERY DAY valacyclovir 1 gram tablet TAKE ONE TABLET BY MOUTH EVERY DA Y completed valacyclovir 1 000 MG Oral Tablet [place] ([facility]) benzonatate 100 MG Oral Capsule benzonat ate 100 mg capsule TAKE ONE CAPSULE BY MOUTH THREE TIMES A DAY benzonatate 100 mg capsule TAKE ONE CAPS ULE BY MOUTH THREE TIMES A DAY completed davion onatate 100 MG Oral Capsule [place] ([facility]) topiramate 25 MG Oral Tablet topiramate 25 mg tablet Take 3 tablets every day by oral route as directed for 21 days. topiramate 25 mg tablet Take 3 tablets e very day by oral route as directed for 21 days. 3 completed topiramate 25 MG Oral Tablet ALEXANDRA ([facility]) Prednisone 20 MG Oral Tablet prednisone 20 mg tablet TAKE TWO TABLETS BY MOUTH TWICE A DAY prednisone 20 mg tablet TAKE TWO TABLETS BY MOUTH TWICE A DAY completed prednisone 20 MG Ora l Tablet ALEXANDRA ([facility]) Acetaminophen 325 MG / Hydrocodone Jaymie trate 5 MG Oral Tablet hydrocodone 5 mg- acetaminophen 325 mg tablet TAKE ONE TABLET BY MOUTH EVERY 6 HOURS NEEDED FOR PAIN MAXIMUM DAILY DOSE 4 TABLETS hydrocodone 5 mg-acetaminophen 325 mg ta blet TAKE ONE TABLET BY MOUTH EVERY 6 HOURS NEEDED FOR PAIN MAXIMUM DAILY DOSE 4 TABLETS completed acetam inophen 325 MG / hydrocodone bitartrate 5 MG Oral Tablet ALEXANDRA ([facility]) topiramate 25 MG Oral Tablet topiramate 25 mg tablet Take 3 tablets every day by oral route as directed for 21 days. topiramate 25 mg tablet Take 3 tablets e very day by oral route as directed for 21 days. 3 completed topiramate 25 MG Oral Tablet ALEXANDRA ([facility]) Amoxicillin 500 MG Oral Capsule amoxicil nabil 500 mg capsule TAKE TWO CAPSULES BY MOUTH THREE TIMES A DAY amoxicillin 500 mg capsule TAKE TWO CAPS ULES BY MOUTH THREE TIMES A DAY completed amox icillin 500 MG Oral Capsule [place] ([facility]) Flulaval Quad [id number] 60 mcg (15 mcg x 4)/0.5 mL intramuscular susp. DIRECTED [id number] completed influe nza A virus A/[place] (H1N1) antigen 0.03 MG/ML / influenza A virus A/ (H3N2) antigen 0.03 MG/ML / influenza B virus B/ antigen 0.03 MG/ML / influenza B virus B/[facility] antigen 0.03 MG/ML Injectable Suspension [Flulaval Quadrivalent ] [place] ([facility]) valacyclovir 1000 MG Oral Tablet valacyc lovir 1 gram tablet TAKE ONE TABLET BY MOUTH EVERY DAY valacyclovir 1 gram tablet TAKE ONE TABLET BY MOUTH EVERY DA Y completed valacyclovir 1 000 MG Oral Tablet ALEXANDRA ([facility]) Acetaminophen 325 MG / Hydrocodone Jaymie trate 5 MG Oral Tablet hydrocodone 5 mg- acetaminophen 325 mg tablet TAKE ONE TABLET BY MOUTH EVERY 6 HOURS NEEDED FOR PAIN MAXIMUM DAILY DOSE 4 TABLETS hydrocodone 5 mg-acetaminophen 325 mg ta blet TAKE ONE TABLET BY MOUTH EVERY 6 HOURS NEEDED FOR PAIN MAXIMUM DAILY DOSE 4 TABLETS completed acetam inophen 325 MG / hydrocodone bitartrate 5 MG Oral Tablet [facility]DRA ([facility]) Hydroxyzine Hydrochloride 25 MG Oral Tab let hydroxyzine HCl 25 mg tablet TAKE 1 TABLET BY MOUTH 30 MINUTS PRIOR TO BEDTIME NEEDED FOR SLEEP DO NOT TAKE WITH MUSCLE RELAXER hydroxyzine HCl 25 mg tablet TAKE 1 TABL ET BY MOUTH 30 MINUTS PRIOR TO BEDTIME NEEDED FOR SLEEP DO NOT TAKE WITH MUSCLE RELAXER completed hydroxyzine hydrochloride 25 MG Oral Tablet [place] ([facility]) Bisacodyl 5 MG Delayed Release Oral Tabl et bisacodyl 5 mg tablet,delayed release bisacodyl 5 mg tablet,delayed release completed bisacodyl 5 MG Delayed Release Oral Tablet [place] ([facility]) valacyclovir 1000 MG Oral Tablet valacyc lovir 1 gram tablet TAKE ONE TABLET BY MOUTH EVERY DAY valacyclovir 1 gram tablet TAKE ONE TABLET BY MOUTH EVERY DA Y completed valacyclovir 1 000 MG Oral Tablet [place] ([facility]) Acetaminophen 325 MG / Hydrocodone Jaymie trate 5 MG Oral Tablet hydrocodone 5 mg- acetaminophen 325 mg tablet TAKE ONE TABLET BY MOUTH EVERY 6 HOURS NEEDED FOR PAIN MAXIMUM DAILY DOSE 4 TABLETS hydrocodone 5 mg-acetaminophen 325 mg ta blet TAKE ONE TABLET BY MOUTH EVERY 6 HOURS NEEDED FOR PAIN MAXIMUM DAILY DOSE 4 TABLETS completed acetam inophen 325 MG / hydrocodone bitartrate 5 MG Oral Tablet ALEXANDRA ([facility]) Acetaminophen 300 MG / Codeine Phosphate 30 MG Oral Tablet acetaminophen 300 mg- codeine 30 mg tablet acetaminophen 300 mg-codeine 30 mg tablet completed acetaminophen 300 MG / codeine p hosphate 30 MG Oral Tablet [place] ([facility]) Bisacodyl 5 MG Delayed Release Oral Tabl et bisacodyl 5 mg tablet,delayed release bisacodyl 5 mg tablet,delayed release completed bisacodyl 5 MG Delayed Release Oral Tablet ALEXANDRA ([facility]) Ondansetron 4 MG Oral Tablet ondansetron HCl 4 mg tablet TAKE 1 TABLET BY MOUTH ONCE TO TWICE DAILY BEFORE MEALS ONLY WHEN HAVING NAUSEA ondansetron HCl 4 mg tablet TAKE 1 TABLET BY MOUTH ONCE TO TWICE DAILY BEFORE MEALS ONLY WHEN HAVING NAUSEA completed ondansetron 4 M G Oral Tablet [place] ([facility]) Metronidazole 500 MG Oral Tablet metroni dazole 500 mg tablet TAKE ONE TABLET BY MOUTH THREE TIMES A DAY metronidazole 500 mg tablet TAKE ONE TAB LET BY MOUTH THREE TIMES A DAY completed metr onidazole 500 MG Oral Tablet [place] ([facility]) benzonatate 100 MG Oral Capsule benzonat ate 100 mg capsule TAKE ONE CAPSULE BY MOUTH THREE TIMES A DAY benzonatate 100 mg capsule TAKE ONE CAPS ULE BY MOUTH THREE TIMES A DAY completed davion onatate 100 MG Oral Capsule [place] ([facility]) Ciprofloxacin 500 MG Oral Tablet ciprofl oxacin 500 mg tablet TAKE ONE TABLET BY MOUTH TWICE A DAY ciprofloxacin 500 mg tablet TAKE ONE TAB LET BY MOUTH TWICE A DAY completed ciprofloxacin 50 0 MG Oral Tablet [place] ([facility]) Levothyroxine Sodium 0.088 MG Oral Tablet levothyroxin e 88 mcg tablet levothyroxine 88 mcg tablet completed levothyroxine sodium 0.088 MG Oral Tablet [place] ([facility]) Metronidazole 500 MG Oral Tablet metroni dazole 500 mg tablet TAKE ONE TABLET BY MOUTH THREE TIMES A DAY metronidazole 500 mg tablet TAKE ONE TAB LET BY MOUTH THREE TIMES A DAY completed metr onidazole 500 MG Oral Tablet [place] ([facility]) Tri-Lo-Susie 0.18/0.215/0.25 mg-25 mcg tablet TAKE ONE TABLET BY MOUTH EVERY DAY [id number] completed Tri-Lo-Susie 0.1 8/0.215/0.25 mg-25 mcg tablet [place] ([facility]) Bisacodyl 5 MG Delayed Release Oral Tabl et bisacodyl 5 mg tablet,delayed release bisacodyl 5 mg tablet,delayed release completed bisacodyl 5 MG Delayed Release Oral Tablet [place] ([facility]) Metronidazole 500 MG Oral Tablet metroni dazole 500 mg tablet TAKE ONE TABLET BY MOUTH THREE TIMES A DAY metronidazole 500 mg tablet TAKE ONE TAB LET BY MOUTH THREE TIMES A DAY completed metr onidazole 500 MG Oral Tablet ALEXANDRA ([facility]) topiramate 25 MG Oral Tablet topiramate 25 mg tablet Take 3 tablets every day by oral route as directed for 21 days. topiramate 25 mg tablet Take 3 tablets e very day by oral route as directed for 21 days. 3 completed topiramate 25 MG Oral Tablet ALEXANDRA ([facility]) Acetaminophen 325 MG / Hydrocodone Jaymie trate 5 MG Oral Tablet hydrocodone 5 mg- acetaminophen 325 mg tablet TAKE ONE TABLET BY MOUTH EVERY 6 HOURS NEEDED FOR PAIN MAXIMUM DAILY DOSE 4 TABLETS hydrocodone 5 mg-acetaminophen 325 mg ta blet TAKE ONE TABLET BY MOUTH EVERY 6 HOURS NEEDED FOR PAIN MAXIMUM DAILY DOSE 4 TABLETS completed acetam inophen 325 MG / hydrocodone bitartrate 5 MG Oral Tablet [place] ([facility]) Levothyroxine Sodium 0.088 MG Oral Tablet levothyroxin e 88 mcg tablet levothyroxine 88 mcg tablet completed levothyroxine sodium 0.088 MG Oral Tablet [place] ([facility]) Prednisone 20 MG Oral Tablet prednisone 20 mg tablet TAKE TWO TABLETS BY MOUTH TWICE A DAY prednisone 20 mg tablet TAKE TWO TABLETS BY MOUTH TWICE A DAY completed prednisone 20 MG Ora l Tablet [place] ([facility]) Escitalopram 10 MG Oral Tablet escitalop traci 10 mg tablet TAKE ONE TABLET BY MOUTH EVERY DAY escitalopram 10 mg tablet TAKE ONE TABLET BY MOUTH EVERY DAY completed escitalopram 1 0 MG Oral Tablet [place] ([facility]) Metronidazole 500 MG Oral Tablet metroni dazole 500 mg tablet TAKE ONE TABLET BY MOUTH THREE TIMES A DAY metronidazole 500 mg tablet TAKE ONE TAB LET BY MOUTH THREE TIMES A DAY completed metr onidazole 500 MG Oral Tablet [place] ([facility]) Bisacodyl 5 MG Delayed Release Oral Tabl et bisacodyl 5 mg tablet,delayed release bisacodyl 5 mg tablet,delayed release completed bisacodyl 5 MG Delayed Release Oral Tablet [place] ([facility]) benzonatate 100 MG Oral Capsule benzonat ate 100 mg capsule TAKE ONE CAPSULE BY MOUTH THREE TIMES A DAY benzonatate 100 mg capsule TAKE ONE CAPS ULE BY MOUTH THREE TIMES A DAY completed davion onatate 100 MG Oral Capsule [place] ([facility]) Levothyroxine Sodium 0.088 MG Oral Tablet levothyroxin e 88 mcg tablet levothyroxine 88 mcg tablet completed levothyroxine sodium 0.088 MG Oral Tablet ALEXANDRA ([facility]) Flulaval Quad 60 mcg (15 mcg x 4)/0.5 mL intramuscular susp. DIRECTED [id number] completed influe nza A virus A/ (H1N1) antigen 0.03 MG/ML / influenza A virus A/ (H3N2) antigen 0.03 MG/ML / influenza B virus B/ antigen 0.03 MG/ML / influenza B virus B/[facility] antigen 0.03 MG/ML Injectable Suspension [Flulaval Quadrivalent ] ALEXANDRA ([facility]) Levothyroxine Sodium 0.075 MG Oral Table t levothyroxine 75 mcg tablet TAKE 1 TABLET BY MOUTH ONCE A DAY IN THE MORNING ON AN EMPTY STOMACH levothyroxine 75 mcg tablet TAKE 1 TABLET BY MOUTH ONCE A DAY IN THE MORNING ON AN EMPTY STOMACH completed levothyroxine sodium 0.075 MG Oral Tablet ALEXANDRA ([facility]) Prednisone 20 MG Oral Tablet prednisone 20 mg tablet TAKE TWO TABLETS BY MOUTH TWICE A DAY prednisone 20 mg tablet TAKE TWO TABLETS BY MOUTH TWICE A DAY completed prednisone 20 MG Ora l Tablet ALEXANDRA ([facility]) POLYETHYLENE GLYCOL 3350 105 MG/ML / Pot assium Chloride 0.36194 MEQ/ML / Sodium Bicarbonate 0.017 MEQ/ML / Sodium Chloride 0.0479 MEQ/ML Oral Solution peg- electrolyte solution 420 gram oral solution peg-electrolyte solution 420 gram oral solution completed polyethylene glycol 3350 876343 MG / potassium chloride 1480 MG / sodium bicarbonate 5720 MG / sodium chloride 56549 MG Powder for Oral Solution ALEXANDRA ([facility]) Flulaval Quad 60 mcg (15 mcg x 4)/0.5 mL intramuscular susp. DIRECTED [id number] completed influe nza A virus A/ (H1N1) antigen 0.03 MG/ML / influenza A virus A/ (H3N2) antigen 0.03 MG/ML / influenza B virus B/ antigen 0.03 MG/ML / influenza B virus B/[facility] antigen 0.03 MG/ML Injectable Suspension [Flulaval Quadrivalent [id number]] ALEXANDRA ([facility]) Levothyroxine Sodium 0.075 MG Oral Table t levothyroxine 75 mcg tablet TAKE 1 TABLET BY MOUTH ONCE A DAY IN THE MORNING ON AN EMPTY STOMACH levothyroxine 75 mcg tablet TAKE 1 TABLET BY MOUTH ONCE A DAY IN THE MORNING ON AN EMPTY STOMACH completed levothyroxine sodium 0.075 MG Oral Tablet ALEXANDRA ([facility]) valacyclovir 1000 MG Oral Tablet valacyc lovir 1 gram tablet TAKE ONE TABLET BY MOUTH EVERY DAY valacyclovir 1 gram tablet TAKE ONE TABLET BY MOUTH EVERY DA Y completed valacyclovir 1 000 MG Oral Tablet ALEXANDRA ([facility]) Prednisone 10 MG Oral Tablet prednisone 10 mg tablet TAKE THREE TABLETS BY MOUTH EVERY DAY WITH FOOD DAYS 8 14 THEN 2 ONCE DAILY DAYS 15 21 THEN 1 ONCE DAILY DAYS 22 28 THEN 1/2 TABLET ONCE MENG prednisone 10 mg tablet TAKE THREE TABLE TS BY MOUTH EVERY DAY WITH FOOD DAYS 8 14 THEN 2 ONCE DAILY DAYS 15 21 THEN 1 ONCE DAILY DAYS 28 THEN 1/2 TABLET ONCE MENG completed prednisone 10 MG Oral Tablet ALEXANDRA ([facility]) POLYETHYLENE GLYCOL 3350 105 MG/ML / Pot assium Chloride 0.36133 MEQ/ML / Sodium Bicarbonate 0.017 MEQ/ML / Sodium Chloride 0.0479 MEQ/ML Oral Solution peg- electrolyte solution 420 gram oral solution peg-electrolyte solution 420 gram oral solution completed polyethylene glycol 3350 595153 MG / potassium chloride 1480 MG / sodium bicarbonate 5720 MG / sodium chloride 98496 MG Powder for Oral Solution ALEXANDRA ([facility]) Ondansetron 4 MG Oral Tablet ondansetron HCl 4 mg tablet TAKE 1 TABLET BY MOUTH ONCE TO TWICE DAILY BEFORE MEALS ONLY WHEN HAVING NAUSEA ondansetron HCl 4 mg tablet TAKE 1 TABLET BY MOUTH ONCE TO TWICE DAILY BEFORE MEALS ONLY WHEN HAVING NAUSEA completed ondansetron 4 M G Oral Tablet ALEXANDRA ([facility]) Levothyroxine Sodium 0.025 MG Oral Table t levothyroxine 25 mcg tablet TAKE ONE TABLET BY MOUTH EVERY DAY levothyroxine 25 mcg tablet TAKE ONE TAB LET BY MOUTH EVERY DAY completed levothyroxin e sodium 0.025 MG Oral Tablet ALEXANDRA ([facility]) meloxicam 15 MG Oral Tablet meloxicam 15 mg tablet TAKE ONE TABLET BY MOUTH EVERY DAY AFTER A MEAL MAXIMUM DAILY DOSE 1 meloxicam 15 mg tablet TAKE ONE TABLET BY MOUTH EVERY DAY AFTER A MEAL MAXIMUM DAILY DOSE 1 completed meloxicam 15 MG Oral Tablet LEONIDAS ALLRED ([facility]) Acetaminophen 300 MG / Codeine Phosphate 30 MG Oral Tablet acetaminophen 300 mg- codeine 30 mg tablet acetaminophen 300 mg-codeine 30 mg tablet completed acetaminophen 300 MG / codeine p hosphate 30 MG Oral Tablet ALEXANDRA ([facility]) valacyclovir 1000 MG Oral Tablet valacyc lovir 1 gram tablet TAKE ONE TABLET BY MOUTH EVERY DAY valacyclovir 1 gram tablet TAKE ONE TABLET BY MOUTH EVERY DA Y completed valacyclovir 1 000 MG Oral Tablet ALEXANDRA ([facility]) Prednisone 10 MG Oral Tablet prednisone 10 mg tablet TAKE THREE TABLETS BY MOUTH EVERY DAY WITH FOOD DAYS 8 14 THEN 2 ONCE DAILY DAYS 15 21 THEN 1 ONCE DAILY DAYS 22 28 THEN 1/2 TABLET ONCE MENG prednisone 10 mg tablet TAKE THREE TABLE TS BY MOUTH EVERY DAY WITH FOOD DAYS 8 14 THEN 2 ONCE DAILY DAYS 15 21 THEN 1 ONCE DAILY DAYS 22 28 THEN 1/2 TABLET ONCE MENG completed prednisone 10 MG Oral Tablet ALEXANDRA ([facility]) Acetaminophen 300 MG / Codeine Phosphate 30 MG Oral Tablet acetaminophen 300 mg- codeine 30 mg tablet acetaminophen 300 mg-codeine 30 mg tablet completed acetaminophen 300 MG / codeine p hosphate 30 MG Oral Tablet ALEXANDRA ([facility]) Levothyroxine Sodium 0.025 MG Oral Table t levothyroxine 25 mcg tablet TAKE ONE TABLET BY MOUTH EVERY DAY levothyroxine 25 mcg tablet TAKE ONE TAB LET BY MOUTH EVERY DAY completed levothyroxin e sodium 0.025 MG Oral Tablet ALEXANDRA ([facility]) Levothyroxine Sodium 0.075 MG Oral Table t levothyroxine 75 mcg tablet TAKE 1 TABLET BY MOUTH ONCE A DAY IN THE MORNING ON AN EMPTY STOMACH levothyroxine 75 mcg tablet TAKE 1 TABLET BY MOUTH ONCE A DAY IN THE MORNING ON AN EMPTY STOMACH completed levothyroxine sodium 0.075 MG Oral Tablet ALEXANDRA ([facility]) Acetaminophen 300 MG / Codeine Phosphate 30 MG Oral Tablet acetaminophen 300 mg- codeine 30 mg tablet acetaminophen 300 mg-codeine 30 mg tablet completed acetaminophen 300 MG / codeine p hosphate 30 MG Oral Tablet ALEXANDRA ([facility]) POLYETHYLENE GLYCOL 3350 105 MG/ML / Pot assium Chloride 0.77905 MEQ/ML / Sodium Bicarbonate 0.017 MEQ/ML / Sodium Chloride 0.0479 MEQ/ML Oral Solution peg- electrolyte solution 420 gram oral solution peg-electrolyte solution 420 gram oral solution completed polyethylene glycol 3350 797157 MG / potassium chloride 1480 MG / sodium bicarbonate 5720 MG / sodium chloride 96670 MG Powder for Oral Solution [place] ([facility]) buspirone hydrochloride 7.5 MG Oral Tabl et buspirone 7.5 mg tablet TAKE ONE TABLET BY MOUTH TWICE A DAY buspirone 7.5 mg tablet TAKE ONE TABLET BY MOUTH TWICE A DAY completed bu spirone hydrochloride 7.5 MG Oral Tablet [place] ([facility]) valacyclovir 500 MG Oral Tablet valacyclovir 500 mg ta blet valacyclovir 500 mg tablet completed valacyclovir 50 0 MG Oral Tablet [place] ([facility]) Ciprofloxacin 500 MG Oral Tablet ciprofl oxacin 500 mg tablet TAKE ONE TABLET BY MOUTH TWICE A DAY ciprofloxacin 500 mg tablet TAKE ONE TAB LET BY MOUTH TWICE A DAY completed ciprofloxacin 50 0 MG Oral Tablet [place] ([facility]) Bisacodyl 5 MG Delayed Release Oral Tabl et bisacodyl 5 mg tablet,delayed release bisacodyl 5 mg tablet,delayed release completed bisacodyl 5 MG Delayed Release Oral Tablet [place] ([facility]) Levothyroxine Sodium 0.088 MG Oral Tablet levothyroxin e 88 mcg tablet levothyroxine 88 mcg tablet completed levothyroxine sodium 0.088 MG Oral Tablet [place] ([facility]) valacyclovir 1000 MG Oral Tablet valacyc lovir 1 gram tablet TAKE ONE TABLET BY MOUTH EVERY DAY valacyclovir 1 gram tablet TAKE ONE TABLET BY MOUTH EVERY DA Y completed valacyclovir 1 000 MG Oral Tablet [facility]) Ibuprofen 800 MG Oral Tablet ibuprofen 800 mg tablet ibuprofen 8 00 mg tablet completed ibuprofen 800 MG Oral Tablet [place] ([facility]) Metronidazole 500 MG Oral Tablet metroni dazole 500 mg tablet TAKE ONE TABLET BY MOUTH THREE TIMES A DAY metronidazole 500 mg tablet TAKE ONE TAB LET BY MOUTH THREE TIMES A DAY completed metr onidazole 500 MG Oral Tablet [facility]) benzonatate 100 MG Oral Capsule benzonat ate 100 mg capsule TAKE ONE CAPSULE BY MOUTH THREE TIMES A DAY benzonatate 100 mg capsule TAKE ONE CAPS ULE BY MOUTH THREE TIMES A DAY completed davion onatate 100 MG Oral Capsule [place] ([facility]) Tri-Lo-Susie 0.18/0.215/0.25 mg-25 mcg tablet TAKE ONE TABLET BY MOUTH EVERY DAY [id number] completed Tri-Lo-Susie 0.1 8/0.215/0.25 mg-25 mcg tablet [facility] ([facility]) Amoxicillin 500 MG Oral Capsule amoxicil nabil 500 mg capsule TAKE TWO CAPSULES BY MOUTH THREE TIMES A DAY amoxicillin 500 mg capsule TAKE TWO CAPS ULES BY MOUTH THREE TIMES A DAY completed amox icillin 500 MG Oral Capsule [place] ([facility]) Ondansetron 4 MG Oral Tablet ondansetron HCl 4 mg tablet TAKE 1 TABLET BY MOUTH ONCE TO TWICE DAILY BEFORE MEALS ONLY WHEN HAVING NAUSEA ondansetron HCl 4 mg tablet TAKE 1 TABLET BY MOUTH ONCE TO TWICE DAILY BEFORE MEALS ONLY WHEN HAVING NAUSEA completed ondansetron 4 M G Oral Tablet [place] ([facility]) POLYETHYLENE GLYCOL 3350 105 MG/ML / Pot assium Chloride 0.82547 MEQ/ML / Sodium Bicarbonate 0.017 MEQ/ML / Sodium Chloride 0.0479 MEQ/ML Oral Solution peg- electrolyte solution 420 gram oral solution peg-electrolyte solution 420 gram oral solution completed polyethylene glycol 3350 787402 MG / potassium chloride 1480 MG / sodium bicarbonate 5720 MG / sodium chloride 25521 MG Powder for Oral Solution [facility]) Ibuprofen 800 MG Oral Tablet ibuprofen 800 mg tablet ibuprofen 8 00 mg tablet completed ibuprofen 800 MG Oral Tablet ALEXANDRA ([facility]) Hydroxyzine Hydrochloride 25 MG Oral Tab let hydroxyzine HCl 25 mg tablet TAKE 1 TABLET BY MOUTH 30 MINUTS PRIOR TO BEDTIME NEEDED FOR SLEEP DO NOT TAKE WITH MUSCLE RELAXER hydroxyzine HCl 25 mg tablet TAKE 1 TABL ET BY MOUTH 30 MINUTS PRIOR TO BEDTIME NEEDED FOR SLEEP DO NOT TAKE WITH MUSCLE RELAXER completed hydroxyzine hydrochloride 25 MG Oral Tablet ALEXANDRA ([facility]) valacyclovir 500 MG Oral Tablet valacyclovir 500 mg ta blet valacyclovir 500 mg tablet completed valacyclovir 50 0 MG Oral Tablet [place] [facility] [facility] Ciprofloxacin 500 MG Oral Tablet ciprofl oxacin 500 mg tablet TAKE ONE TABLET BY MOUTH TWICE A DAY ciprofloxacin 500 mg tablet TAKE ONE TAB LET BY MOUTH TWICE A DAY completed ciprofloxacin 50 0 MG Oral Tablet [place] ([facility]) Prednisone 20 MG Oral Tablet prednisone 20 mg tablet TAKE TWO TABLETS BY MOUTH TWICE A DAY prednisone 20 mg tablet TAKE TWO TABLETS BY MOUTH TWICE A DAY completed prednisone 20 MG Ora l Tablet [place] ([facility]) Prednisone 10 MG Oral Tablet prednisone 10 mg tablet TAKE THREE TABLETS BY MOUTH EVERY DAY WITH FOOD DAYS 8 14 THEN 2 ONCE DAILY DAYS 15 21 THEN 1 ONCE DAILY DAYS 22 28 THEN 1/2 TABLET ONCE MENG prednisone 10 mg tablet TAKE THREE TABLE TS BY MOUTH EVERY DAY WITH FOOD DAYS 8 14 THEN 2 ONCE DAILY DAYS 15 THEN 1 ONCE DAILY DAYS THEN 1/2 TABLET ONCE MENG completed prednisone 10 MG Oral Tablet [place] ([facility]) Methocarbamol 750 MG Oral Tablet methoca rbamol 750 mg tablet TAKE ONE TABLET BY MOUTH AT BEDTIME NEEDED FOR SPASMS methocarbamol 750 mg tablet TAKE ONE TABLET BY MOUTH AT BEDTIME NEEDED FOR SPASMS completed methocarbamol 750 MG Oral Tablet [place] ([facility]) Acetaminophen 300 MG / Codeine Phosphate 30 MG Oral Tablet acetaminophen 300 mg- codeine 30 mg tablet acetaminophen 300 mg-codeine 30 mg tablet completed acetaminophen 300 MG / codeine p hosphate 30 MG Oral Tablet [place] ([facility]) Escitalopram 10 MG Oral Tablet escitalop traci 10 mg tablet TAKE ONE TABLET BY MOUTH EVERY DAY escitalopram 10 mg tablet TAKE ONE TABLET BY MOUTH EVERY DAY completed escitalopram 1 0 MG Oral Tablet [place] ([facility]) topiramate 25 MG Oral Tablet topiramate 25 mg tablet Take 3 tablets every day by oral route as directed for 21 days. topiramate 25 mg tablet Take 3 tablets e very day by oral route as directed for 21 days. 3 completed topiramate 25 MG Oral Tablet [place] ([facility]) Acetaminophen 300 MG / Codeine Phosphate 30 MG Oral Tablet acetaminophen 300 mg- codeine 30 mg tablet acetaminophen 300 mg-codeine 30 mg tablet completed acetaminophen 300 MG / codeine p hosphate 30 MG Oral Tablet [place] ([facility]) Acetaminophen 325 MG / Hydrocodone Jaymie trate 5 MG Oral Tablet hydrocodone 5 mg- acetaminophen 325 mg tablet TAKE ONE TABLET BY MOUTH EVERY 6 HOURS NEEDED FOR PAIN MAXIMUM DAILY DOSE 4 TABLETS hydrocodone 5 mg-acetaminophen 325 mg ta blet TAKE ONE TABLET BY MOUTH EVERY 6 HOURS NEEDED FOR PAIN MAXIMUM DAILY DOSE 4 TABLETS completed acetam inophen 325 MG / hydrocodone bitartrate 5 MG Oral Tablet [facility] ([facility]) Flulaval Quad [id number] 60 mcg (15 mcg x 4)/0.5 mL intramuscular susp. DIRECTED [id number] completed influe nza A virus A/[place] (H1N1) antigen 0.03 MG/ML / influenza A virus A/ (H3N2) antigen 0.03 MG/ML / influenza B virus B/[place] antigen 0.03 MG/ML / influenza B virus B/[facility] antigen 0.03 MG/ML Injectable Suspension [Flulaval Quadrivalent ] [place] ([facility]) valacyclovir 500 MG Oral Tablet valacyclovir 500 mg ta blet valacyclovir 500 mg tablet completed valacyclovir 50 0 MG Oral Tablet [facility] ([facility]) Ondansetron 4 MG Oral Tablet ondansetron HCl 4 mg tablet TAKE 1 TABLET BY MOUTH ONCE TO TWICE DAILY BEFORE MEALS ONLY WHEN HAVING NAUSEA ondansetron HCl 4 mg tablet TAKE 1 TABLET BY MOUTH ONCE TO TWICE DAILY BEFORE MEALS ONLY WHEN HAVING NAUSEA completed ondansetron 4 M G Oral Tablet [place] ([facility]) Prednisone 10 MG Oral Tablet prednisone 10 mg tablet TAKE THREE TABLETS BY MOUTH EVERY DAY WITH FOOD DAYS 8 14 THEN 2 ONCE DAILY DAYS 21 THEN 1 ONCE DAILY DAYS 28 THEN 1/2 TABLET ONCE MENG prednisone 10 mg tablet TAKE THREE TABLE TS BY MOUTH EVERY DAY WITH FOOD DAYS 8 14 THEN 2 ONCE DAILY DAYS 15 21 THEN 1 ONCE DAILY DAYS 28 THEN 1/2 TABLET ONCE MENG completed prednisone 10 MG Oral Tablet [facility] ([facility]) Levothyroxine Sodium 0.075 MG Oral Table t levothyroxine 75 mcg tablet TAKE 1 TABLET BY MOUTH ONCE A DAY IN THE MORNING ON AN EMPTY STOMACH levothyroxine 75 mcg tablet TAKE 1 TABLET BY MOUTH ONCE A DAY IN THE MORNING ON AN EMPTY STOMACH completed levothyroxine sodium 0.075 MG Oral Tablet [facility] ([facility]) Escitalopram 10 MG Oral Tablet escitalop traci 10 mg tablet TAKE ONE TABLET BY MOUTH EVERY DAY escitalopram 10 mg tablet TAKE ONE TABLET BY MOUTH EVERY DAY completed escitalopram 1 0 MG Oral Tablet [facility] ([facility]) valacyclovir 1000 MG Oral Tablet valacyc lovir 1 gram tablet TAKE ONE TABLET BY MOUTH EVERY DAY valacyclovir 1 gram tablet TAKE ONE TABLET BY MOUTH EVERY DA Y completed valacyclovir 1 000 MG Oral Tablet [place] ([facility]) Amoxicillin 500 MG Oral Capsule amoxicil nabil 500 mg capsule TAKE TWO CAPSULES BY MOUTH THREE TIMES A DAY amoxicillin 500 mg capsule TAKE TWO CAPS ULES BY MOUTH THREE TIMES A DAY completed amox icillin 500 MG Oral Capsule [place] ([facility]) Ciprofloxacin 500 MG Oral Tablet ciprofl oxacin 500 mg tablet TAKE ONE TABLET BY MOUTH TWICE A DAY ciprofloxacin 500 mg tablet TAKE ONE TAB LET BY MOUTH TWICE A DAY completed ciprofloxacin 50 0 MG Oral Tablet [place] ([facility]) valacyclovir 1000 MG Oral Tablet valacyc lovir 1 gram tablet TAKE ONE TABLET BY MOUTH EVERY DAY valacyclovir 1 gram tablet TAKE ONE TABLET BY MOUTH EVERY DA Y completed valacyclovir 1 000 MG Oral Tablet [place] ([facility]) Bisacodyl 5 MG Delayed Release Oral Tabl et bisacodyl 5 mg tablet,delayed release bisacodyl 5 mg tablet,delayed release completed bisacodyl 5 MG Delayed Release Oral Tablet [place] ([facility]) Methocarbamol 750 MG Oral Tablet methoca rbamol 750 mg tablet TAKE ONE TABLET BY MOUTH AT BEDTIME NEEDED FOR SPASMS methocarbamol 750 mg tablet TAKE ONE TABLET BY MOUTH AT BEDTIME NEEDED FOR SPASMS completed methocarbamol 750 MG Oral Tablet [place] ([facility]) meloxicam 15 MG Oral Tablet meloxicam 15 mg tablet TAKE ONE TABLET BY MOUTH EVERY DAY AFTER A MEAL MAXIMUM DAILY DOSE 1 meloxicam 15 mg tablet TAKE ONE TABLET BY MOUTH EVERY DAY AFTER A MEAL MAXIMUM DAILY DOSE 1 completed meloxicam 15 MG Oral Tablet [facility] ([facility]) Flulaval Quad [id number] 60 mcg (15 mcg x 4)/0.5 mL intramuscular susp. DIRECTED [id number] completed influe nza A virus A/ (H1N1) antigen 0.03 MG/ML / influenza A virus A/ (H3N2) antigen 0.03 MG/ML / influenza B virus B/ antigen 0.03 MG/ML / influenza B virus B/[facility] antigen 0.03 MG/ML Injectable Suspension [Flulaval Quadrivalent ] [facility] ([facility]) Ibuprofen 800 MG Oral Tablet ibuprofen 800 mg tablet ibuprofen 8 00 mg tablet completed ibuprofen 800 MG Oral Tablet [facility] ([facility]) Metronidazole 500 MG Oral Tablet metroni dazole 500 mg tablet TAKE ONE TABLET BY MOUTH THREE TIMES A DAY metronidazole 500 mg tablet TAKE ONE TAB LET BY MOUTH THREE TIMES A DAY completed metr onidazole 500 MG Oral Tablet [facility] ([facility]) Ibuprofen 800 MG Oral Tablet ibuprofen 800 mg tablet ibuprofen 8 00 mg tablet completed ibuprofen 800 MG Oral Tablet [facility] ([facility]) POLYETHYLENE GLYCOL 3350 105 MG/ML / Pot assium Chloride 0.43798 MEQ/ML / Sodium Bicarbonate 0.017 MEQ/ML / Sodium Chloride 0.0479 MEQ/ML Oral Solution peg- electrolyte solution 420 gram oral solution peg-electrolyte solution 420 gram oral solution completed polyethylene glycol 3350 174417 MG / potassium chloride 1480 MG / sodium bicarbonate 5720 MG / sodium chloride 26920 MG Powder for Oral Solution [facility] ([facility]) Acetaminophen 300 MG / Codeine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 Low Back Pain Problem 05/23/2020 12:00:00 AM EDT ALEXANDRA ([facility]) 952219005 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 Secondary to Dental Caries Problem 05/13/2018 12:00:00 AM EDT - 10/16/2020 12:00:00 AM EST ALEXANDRA ([facility]) 701896722 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 Secondary to Dental Caries Problem 05/13/2018 12:00:00 AM EDT - 10/16/2020 12:00:00 AM EST ALEXANDRA ([facility]) 464980443 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 Secondary to Dental Caries Problem 05/13/2018 12:00:00 AM EDT - 10/16/2020 12:00:00 AM EST ALEXANDRA ([facility]) 068148203 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 Secondary to Dental Caries Problem 05/13/2018 12:00:00 AM EDT - 10/16/2020 12:00:00 AM EST ALEXANDRA ([facility]) 703468172 Head finding Head Finding Problem 03/11/2018 12:0 0:00 AM EDT - 07/30/2020 12:00:00 AM EST ALEXANDRA ([facility]) 400022739 Head finding Head Finding Problem 03/11/2018 12:0 0:00 AM EDT - 07/30/2020 12:00:00 AM EST ALEXANDRA ([facility]) 524940221 Head finding Head Finding Problem 03/11/2018 12:0 0:00 AM EDT - 07/30/2020 12:00:00 AM EST ALEXANDRA ([facility]) 553174614 Head finding Head Finding Problem 03/11/2018 12:0 0:00 AM EDT - 07/30/2020 12:00:00 AM EST ALEXANDRA ([facility]) 335898416 Head finding Head Finding Problem 03/11/2018 12:0 0:00 AM EDT - 07/30/2020 12:00:00 AM EST ALEXANDRA ([facility]) 754295211 Head finding Head Finding Problem 03/11/2018 12:0 0:00 AM EDT - 07/30/2020 12:00:00 AM EST ALEXANDRA ([facility]) 450272783 Head finding Head Finding Problem 03/11/2018 12:0 0:00 AM EDT - 07/30/2020 12:00:00 AM EST ALEXANDRA ([facility]) 760262220 Head finding Head Finding Problem 03/11/2018 12:0 0:00 AM EDT - 07/30/2020 12:00:00 AM EST ALEXANDRA ([facility]) 578187773 Swelling / lump finding Swelling / Lump Finding Proble 01/06/2018 12:00:00 AM EDT - 10/16/2020 12:00:00 AM EST ALEXANDRA ([facility]) 603608704 Swelling / lump finding Swelling / Lump Finding Proble 01/06/2018 12:00:00 AM EDT - 10/16/2020 12:00:00 AM EST ALEXANDRA ([facility]) 390602220 Swelling / lump finding Swelling / Lump Finding Proble m 01/06/2018 12:00:00 AM EDT - 10/16/2020 12:00:00 AM GEOVANI MORRIS ([facility]) 155647728 Swelling / lump finding Swelling / Lump Finding Proble m 01/06/2018 12:00:00 AM EDT - 10/16/2020 12:00:00 AM GEOVANI MORRIS ([facility]) Surgeries/Procedures Procedure Description Date Indications Data Source(s) OFFICE OUTPATIENT VISIT 15 MINUTES 05/27/2021 12:00:00 AM EDT MEDENT ([facility] ) OFFICE OUTPATIENT VISIT 25 MINUTES 02/12/2021 12:00:00 AM EDT MEDENT ([facility] ) OFFICE OUTPATIENT VISIT 15 MINUTES 01/09/2021 12:00:00 AM EDT MEDENT ([facility] ) APPL MODALITY 1/> AREAS ELEC STIMJ EA 15 MIN 12:00:00 AM EDT MEDENT ([facility] ) MANUAL THERAPY TQS 1/> REGIONS EACH 15 MINUTES 021 12:00:00 AM EDT MEDENT ([facility] ) APPL MODALITY 1/> AREAS ELEC STIMJ EA 15 MIN 12:00:00 AM EDT MEDENT ([facility] ) THERAPEUTIC PX 1/> AREAS EACH 15 MIN EXERCISES 021 12:00:00 AM EDT MEDENT ([facility] ) MANUAL THERAPY TQS 1/> REGIONS EACH 15 MINUTES 021 12:00:00 AM EDT MEDENT ([facility] ) OFFICE CONSULTATION NEW/ESTAB PATIENT 60 MIN 12:00:00 AM EDT MEDENT ([facility] ) APPL MODALITY 1/> AREAS ELEC STIMJ EA 15 MIN 12:00:00 AM EDT MEDENT ([facility] ) MANUAL THERAPY TQS 1/> REGIONS EACH 15 MINUTES 021 12:00:00 AM EDT MEDENT ([facility] ) MANUAL THERAPY TQS 1/> REGIONS EACH 15 MINUTES 021 12:00:00 AM EDT MEDENT ([facility] ) THERAPEUTIC PX 1/> AREAS EACH 15 MIN EXERCISES 021 12:00:00 AM EDT MEDENT ([facility] ) MANUAL THERAPY TQS 1/> REGIONS EACH 15 MINUTES 021 12:00:00 AM EDT MEDENT ([facility] ) THERAPEUTIC PX 1/> AREAS EACH 15 MIN EXERCISES 021 12:00:00 AM EDT MED[facility] ([facility] ) MANUAL THERAPY TQS 1/> REGIONS EACH 15 MINUTES 021 12:00:00 AM EDT MED[facility] ([facility] ) PHYSICIAN TELEPHONE EVALUATION 5-10 MIN 11/13/2020 12: 00:00 AM EST [facility] ([facility] ) Physical Therapy Eval - Low Complexity 11/12/2020 12:0 0:00 AM EST [facility] ([facility] ) ELECTROENCEPHALOGRAM W/REC AWAKE&ASLEEP 11/09/2020 12: 00:00 AM EST MEDENT ([facility] ) ELECTROENCEPHALOGRAM W/REC AWAKE&ASLEEP 11/09/2020 12: 00:00 AM EST MEDENT ([facility] ) Needle electromyography, each extremity, with related paraspinal areas, when performed, done with nerve conduction, amplitude and latency/velocity study; complete, five or more muscles studied, innervated by three or more nerves or four or more spinal levels (list separately in addition to the code for primary procedure). 10/24/2020 12:00:00 AM EST MEDEN T ([facility] ) Needle electromyography, each extremity, with related paraspinal areas, when performed, done with nerve conduction, amplitude and latency/velocity study; complete, five or more muscles studied, innervated by three or more nerves or four or more spinal levels (list separately in addition to the code for primary procedure). 10/24/2020 12:00:00 AM EST MEDEN T ([facility] ) Nerve Conduction 11-12 Studies 10/24/2020 12:00:00 AM EST [facility]ENT ([facility] ) PHYSICIAN TELEPHONE EVALUATION 5-10 MIN 10/18/2020 12: 00:00 AM EST [facility] ([facility] ) OFFICE OUTPATIENT VISIT 15 MINUTES 09/25/2020 12:00:00 AM EST [facility] ([facility] ) RADEX SPINE CRV COMPL W/OBLQ&FLEX&/XTN STDS 09/12/2020 12:00:00 AM EST [facility] ([facility] ) RADEX SPINE THORACIC 2 VIEWS 09/12/2020 12:00:00 AM ES T [facility] ([facility] ) OFFICE OUTPATIENT NEW 45 MINUTES 09/12/2020 12:00:00 A M EST [facility] ([facility] ) TSTG ANS FUNCJ CARDIOVAGAL INNERVAJ PARASYMP 0 12:00:00 AM EST MEDENT ([facility] ) TSTG ANS FUNCJ CARDIOVAGAL INNERVAJ PARASYMP 0 12:00:00 AM EST [facility] ([facility] ) TESTING AUTONOMIC NERVOUS SYSTEM FUNCTION 09/05/2020 1 2:00:00 AM EST [facility] ([facility] ) TESTING AUTONOMIC NERVOUS SYSTEM FUNCTION 09/05/2020 1 2:00:00 AM EST [facility] ([facility] ) NON-INVASIVE PHYSIOLOGIC STUDY EXTREMITY 3 LEVLS 09/05 12:00:00 AM EST [facility] ([facility] ) MRI Spine Thoracic W/O Contrast 08/21/2020 12:00:00 AM EST [facility] ([facility] ) MRI Spine Thoracic W/O Contrast 08/21/2020 12:00:00 AM EST [facility]ENT ([facility] ) MRI SPINAL CANAL CERVICAL W/O CONTRAST MATRL 0 12:00:00 AM EST MEDENT ([facility] ) MRI SPINAL CANAL CERVICAL W/O CONTRAST MATRL 0 12:00:00 AM EST MEDENT ([facility] ) MRI BRAIN BRAIN STEM W/O CONTRAST MATERIAL 08/21/2020 12:00:00 AM EST [facility]ENT ([facility] ) MRI BRAIN BRAIN STEM W/O CONTRAST MATERIAL 08/21/2020 12:00:00 AM EST [facility]ENT ([facility] ) Needle electromyography, each extremity, with related paraspinal areas, when performed, done with nerve conduction, amplitude and latency/velocity study; complete, five or more muscles studied, innervated by three or more nerves or four or more spinal levels (list separately in addition to the code for primary procedure). 08/08/2020 12:00:00 AM EST MEDEN T ([facility] ) Needle electromyography, each extremity, with related paraspinal areas, when performed, done with nerve conduction, amplitude and latency/velocity study; complete, five or more muscles studied, innervated by three or more nerves or four or more spinal levels (list separately in addition to the code for primary procedure). 08/08/2020 12:00:00 AM EST MEDEN T ([facility] ) 92018 Nerve conduction studies 13 or more studies NEW 201208/08/2020 12:00:00 AM EST [facility]ENT ([facility] ) Results ID Date Data Source [id number] 12/27/2020 12:46:07 PM EDT [facility] PCName: Bj HammerDOB: 1985Provider: Benja RainDOIdalia: 12/27/2020 Reason For VisitSsuzy Hammer is here today for Lumbar spine. Bj has not had the Covid vaccine. Bj Hammer is a new patient. Xrays and MRI were imported. Other DOI/DOO: 09/08/2020. Patient states the injury occurred after a fall. 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 History of Present IllnessChronic low back painMain complaint is axial low back painStates seeing [facility]-no injectionsPhysical therapy November 2020-no benefitM The patient complains of pain in the lumbar spine . The pain radiates to both, anterior and thigh(s) . The patient denies signs of bladder dysfunction, bowel dysfunction, cancer/metastasis, infection and myelopathy . The pain is achy . The pain severity is rated 8 out of 10. Pain is aggravated by periods of activity . There is numbness involving both feet. --Global numbnes s/constant since 09/10/2020 [facility] Multilevel DDD. L3-4 moderate stenosis. No significant herniation. No significant central stenosis.Reviewed in detail the results of the diagnostic testing. Reviewed the pertinent applicable clinical implications relating to the patient. Also provided a copy of the results for their personal records. Assessment 1. Degenerative lumbar disc (722.52) (M51.36) 2. Lower back pain (724.2) (M54.5) 3. Spinal stenosis of lumbar region without neurogenic claudication (724.02) (M48.061) Condition: Chronicetiology: Injury as abovelevels: L1-2, L2-3, L3-4, L4-5 and L5-S1 PlanLong discussion reviewing the different treatment conservative options(observation, medication(s), physical therapy, intensive care unit registered nurse, acupuncture, pain clinic, home exercise program, etc.)--- with pros and cons, potential risks/potential benefits of each option, as well as the chances of successes/failures of each option.At this time, they wish to proceed with:Pain management-continue with [facility] orth[facility] pain managementUnfortunately I do not feel I can help her with surgical invention. Advised she is always welcome to get a another surgical opinion.Regarding her bilateral foot numbness, she has global numbness in a nonanatomic submission. Advised to discuss further with PCP and discuss PCP referral to neurology for further evaluation This document was dictated and electronically signed using Gauzy software. A reasonable attempt at proof reading has been made to minimize errors. Please call with any questions. Signatures Electronically signed by : Benja Rain M.D.; Dec 27 2020 12:46PM EST (Author) Name Value Range Interpretation Code Description Data Ade rce(s) Supporting Document(s) ID Date Data Source [id number] 10/23/2020 03:10:00 PM EST [place] ([facility]) Name Value Range Interpretation Code Description Data Ade rce(s) Supporting Document(s) thyroid stimulating hormone 3.500 uIU/mL 0.358-3.740 Thyroid Stimulating Hormone [facility]) free T4 0.92 NG/dL 0.76-1.46 Free T4 [facility]) ID Date Data Source [id number] 10/23/2020 03:10:00 PM EST ALEXANDRA ([facility]) Name Value Range Interpretation Code Description Data Ade rce(s) Supporting Document(s) free T4 0.92 NG/dL 0.76-1.46 Free T4 ALEXANDRA ([facility]) thyroid stimulating hormone 3.500 uIU/mL 0.358-3.740 Thyroid Stimulating Hormone ALEXANDRA ([facility]) ID Date Data Source [id number] 10/23/2020 03:10:00 PM EST [facility]A ([facility] [facility]) Name Value Range Interpretation Code Description Data Ade rce(s) Supporting Document(s) thyroid stimulating hormone 3.500 uIU/mL 0.358-3.740 Thyroid Stimulating Hormone ALEXANDRA ([facility]) free T4 0.92 NG/dL 0.76-1.46 Free T4 ALEXANDRA ([facility]) ID Date Data Source [id number] 10/23/2020 03:10:00 PM EST MED[facility] ([facility]) Name Value Range Interpretation Code Description Data Ade rce(s) Supporting Document(s) Free T4 0.92 ng/dL 0.76-1.46 [facility] ([facility]) Thyroid Stimulating Hormone 3.500 uIU/ML 0.358-3.740 [facility] ([facility]) ID Date Data Source [id number] 08/29/2020 01:37:00 PM EST ALEXANDRA ([facility]) Name Value Range Interpretation Code Description Data Ade rce(s) Supporting Document(s) antinuclear antibodies direct negative negative Antinu clear Antibodies Direct A[facility]ANDRA ([facility]) ID Date Data Source [id number] 08/29/2020 01:37:00 PM EST ALEXANDRA ([facility]) Name Value Range Interpretation Code Description Data Ade rce(s) Supporting Document(s) vitamin B6,pyridoxal phosphate 5.7 ug/L 2.0-32.8 Vitamin B6,Pyridoxal Phosphate ALEXANDRA ([facility]) ID Date Data Source [id number] 08/29/2020 01:37:00 PM EST ALEXANDRA ([facility]) Name Value Range Interpretation Code Description Data Ade rce(s) Supporting Document(s) vitamin B1 level whole blood 158.2 nmol/L 66.5-200.0 Vitamin B1 Level Whole Blood A[facility]ANDRA ([facility]) ID Date Data Source [id number] 08/29/2020 01:37:00 PM EST ALEXANDRA ([facility]) Name Value Range Interpretation Code Description Data Ade rce(s) Supporting Document(s) vitamin E(alpha tocopherol) 9.2 mg/L 5.9-19.4 Vitamin E(alpha Tocopherol) ALEXANDRA ([facility]) vitamin E(gamma tocopherol) 1.7 mg/L 0.7-4.9 Vitamin E(gamma Tocopherol) [facility]LEXANDRA ([facility]) ID Date Data Source [id number] 08/29/2020 01:37:00 PM EST ALEXANDRA ([facility]) Name Value Range Interpretation Code Description Data Ade rce(s) Supporting Document(s) rheumatoid factor quant < 10.0 <15.0 Rheumatoid F actor Quant [facility]DRA ([facility]) ID Date Data Source [id number] 08/29/2020 01:37:00 PM EST ALEXANDRA ([facility]) Name Value Range Interpretation Code Description Data Ade rce(s) Supporting Document(s) ferritin 66 NG/mL 8-252 Ferritin [facility]DRA ([facility]) ID Date Data Source [id number] 08/29/2020 01:37:00 PM EST ALEXANDRA ([facility]) Name Value Range Interpretation Code Description Data Ade rce(s) Supporting Document(s) total 25(oh) vitamin D 24.2 NG/mL 30.0-100.0 Below low normal T otal 25(Oh) Vitamin D ALEXANDRA ([facility]) ID Date Data Source [id number] 08/29/2020 01:37:00 PM EST ALEXANDRA ([facility]) Name Value Range Interpretation Code Description Data Ade rce(s) Supporting Document(s) vitamin B12 level 447 pg/mL Vitamin B12 Level ALEXANDRA ([facility]) folate 8.7 NG/mL Folate [facility]DRA ([facility]) ID Date Data Source [id number] 08/29/2020 01:37:00 PM EST ALEXANDRA ([facility]) Name Value Range Interpretation Code Description Data Ade rce(s) Supporting Document(s) total iron binding capacity 349 ug/dL 250-450 Total Ir on Binding Capacity ALEXANDRA ([facility]) iron (fe) 67 ug/dL 50-170 Iron (Fe) ALEXANDRA ([facility]) percent saturation 19.2 % 13.2-45.0 Percent Saturatio n ALEXANDRA ([facility]) ID Date Data Source [id number] 08/29/2020 01:37:00 PM EST ALEXANDRA ([facility]) Name Value Range Interpretation Code Description Data Ade rce(s) Supporting Document(s) erythrocyte sedimentation rate 19 mm/HR 0-20 Eryth rocyte Sedimentation Rate ALEXANDRA ([facility]) ID Date Data Source [id number] 08/29/2020 01:37:00 PM EST ALEXANDRA ([facility]) Name Value Range Interpretation Code Description Data Ade rce(s) Supporting Document(s) antinuclear antibodies direct negative negative Antinu clear Antibodies Direct [facility]DRA ([facility]) ID Date Data Source [id number] 08/29/2020 01:37:00 PM EST A[facility]DRA ([facility]) Name Value Range Interpretation Code Description Data Ade rce(s) Supporting Document(s) vitamin B6,pyridoxal phosphate 5.7 ug/L 2.0-32.8 Vitamin B6,Pyridoxal Phosphate ALEXANDRA ([facility]) ID Date Data Source [id number] 08/29/2020 01:37:00 PM EST ALEXANDRA ([facility]) Name Value Range Interpretation Code Description Data Ade rce(s) Supporting Document(s) vitamin B1 level whole blood 158.2 nmol/L 66.5-200.0 Vitamin B1 Level Whole Blood ALEXANDRA ([facility]) ID Date Data Source [id number] 08/29/2020 01:37:00 PM EST ALEXANDRA ([facility]) Name Value Range Interpretation Code Description Data Ade rce(s) Supporting Document(s) vitamin E(alpha tocopherol) 9.2 mg/L 5.9-19.4 Vitamin E(alpha Tocopherol) ALEXANDRA ([facility]) vitamin E(gamma tocopherol) 1.7 mg/L 0.7-4.9 Vitamin E(gamma Tocopherol) [facility]ANDRA ([facility]) ID Date Data Source [id number] 08/29/2020 01:37:00 PM EST ALEXANDRA ([facility]) Name Value Range Interpretation Code Description Data Ade rce(s) Supporting Document(s) rheumatoid factor quant < 10.0 <15.0 Rheumatoid F actor Quant ALEXANDRA ([facility]) ID Date Data Source [id number] 08/29/2020 01:37:00 PM EST ALEXANDRA ([facility]) Name Value Range Interpretation Code Description Data Ade rce(s) Supporting Document(s) ferritin 66 NG/mL 8-252 Ferritin [facility]DRA ([facility]) ID Date Data Source [id number] 08/29/2020 01:37:00 PM EST ALEXANDRA ([facility]) Name Value Range Interpretation Code Description Data Ade rce(s) Supporting Document(s) total 25(oh) vitamin D 24.2 NG/mL 30.0-100.0 Below low normal T otal 25(Oh) Vitamin D ALEXANDRA ([facility]) ID Date Data Source [id number] 08/29/2020 01:37:00 PM EST ALEXANDRA ([facility]) Name Value Range Interpretation Code Description Data Ade rce(s) Supporting Document(s) folate 8.7 NG/mL Folate [facility]DRA ([facility]) vitamin B12 level 447 pg/mL Vitamin B12 Level ALEXANDRA ([facility]) ID Date Data Source [id number] 08/29/2020 01:37:00 PM EST ALEXANDRA ([facility]) Name Value Range Interpretation Code Description Data Ade rce(s) Supporting Document(s) total iron binding capacity 349 ug/dL 250-450 Total Ir on Binding Capacity ALEXANDRA ([facility]) iron (fe) 67 ug/dL 50-170 Iron (Fe) ALEXANDRA ([facility]) percent saturation 19.2 % 13.2-45.0 Percent Saturatio n ALEXANDRA ([facility]) ID Date Data Source [id number] 08/29/2020 01:37:00 PM EST ALEXANDRA ([facility]) Name Value Range Interpretation Code Description Data Ade rce(s) Supporting Document(s) erythrocyte sedimentation rate 19 mm/HR 0-20 Eryth rocyte Sedimentation Rate ALEXANDRA ([facility]) ID Date Data Source [id number] 08/29/2020 01:37:00 PM EST ALEXANDRA ([facility]) Name Value Range Interpretation Code Description Data Ade rce(s) Supporting Document(s) antinuclear antibodies direct negative negative Antinu clear Antibodies Direct ALEXANDRA ([facility]) ID Date Data Source [id number] 08/29/2020 01:37:00 PM EST ALEXANDRA ([facility]) Name Value Range Interpretation Code Description Data Ade rce(s) Supporting Document(s) vitamin B6,pyridoxal phosphate 5.7 ug/L 2.0-32.8 Vitamin B6,Pyridoxal Phosphate ALEXANDRA ([facility]) ID Date Data Source [id number] 08/29/2020 01:37:00 PM EST ALEXANDRA ([facility]) Name Value Range Interpretation Code Description Data Ade rce(s) Supporting Document(s) vitamin B1 level whole blood 158.2 nmol/L 66.5-200.0 Vitamin B1 Level Whole Blood ALEXANDRA ([facility]) ID Date Data Source [id number] 08/29/2020 01:37:00 PM EST ALEXANDRA ([facility]) Name Value Range Interpretation Code Description Data Ade rce(s) Supporting Document(s) vitamin E(alpha tocopherol) 9.2 mg/L 5.9-19.4 Vitamin E(alpha Tocopherol) ALEXANDRA ([facility]) vitamin E(gamma tocopherol) 1.7 mg/L 0.7-4.9 Vitamin E(gamma Tocopherol) [facility] ([facility]) ID Date Data Source [id number] 08/29/2020 01:37:00 PM EST ALEXANDRA ([facility]) Name Value Range Interpretation Code Description Data Ade rce(s) Supporting Document(s) rheumatoid factor quant < 10.0 <15.0 Rheumatoid F actor Quant ALEXANDRA ([facility]) ID Date Data Source [id number] 08/29/2020 01:37:00 PM EST ALEXANDRA ([facility]) Name Value Range Interpretation Code Description Data Ade rce(s) Supporting Document(s) ferritin 66 NG/mL 8-252 Ferritin ALEXANDRA ([facility]) ID Date Data Source [id number] 08/29/2020 01:37:00 PM EST ALEXANDRA ([facility]) Name Value Range Interpretation Code Description Data Ade rce(s) Supporting Document(s) total 25(oh) vitamin D 24.2 NG/mL 30.0-100.0 Below low normal T otal 25(Oh) Vitamin D ALEXANDRA ([facility]) ID Date Data Source [id number] 08/29/2020 01:37:00 PM EST ALEXANDRA ([facility]) Name Value Range Interpretation Code Description Data Ade rce(s) Supporting Document(s) vitamin B12 level 447 pg/mL Vitamin B12 Level ALEXANDRA ([facility]) folate 8.7 NG/mL Folate A[facility]ANDRA ([facility]) ID Date Data Source [id number] 08/29/2020 01:37:00 PM EST ALEXANDRA ([facility]) Name Value Range Interpretation Code Description Data Ade rce(s) Supporting Document(s) total iron binding capacity 349 ug/dL 250-450 Total Ir on Binding Capacity ALEXANDRA ([facility]) iron (fe) 67 ug/dL 50-170 Iron (Fe) ALEXANDRA ([facility]) percent saturation 19.2 % 13.2-45.0 Percent Saturatio n ALEXANDRA ([facility]) ID Date Data Source [id number] 08/29/2020 01:37:00 PM EST ALEXANDRA ([facility]) Name Value Range Interpretation Code Description Data Ade rce(s) Supporting Document(s) erythrocyte sedimentation rate 19 mm/HR 0-20 Eryth rocyte Sedimentation Rate ALEXANDRA ([facility]) ID Date Data Source [id number] 08/29/2020 01:37:00 PM EST MED[facility] ([facility]) Name Value Range Interpretation Code Description Data Ade rce(s) Supporting Document(s) Antinuclear Antibodies Direct Laboratory test result [facility] ([facility]) Performed at: - [facility] [address] [id number]: Adeola Salmon MD, Phone: [phone] Performed at: - [facility] [address] [id number] [employer]: Fang Byrd MD, Phone: [phone] ID Date Data Source [id number] 08/29/2020 01:37:00 PM EST MEDENT ([facility] ) Name Value Range Interpretation Code Description Data Ade rce(s) Supporting Document(s) Pyridoxine [Mass/volume] in Serum or Plasma 5.7 ug/L 2.0-32.8 MED[facility] ([facility] ) Specimen Comment: Test(s) [id number] E(Alpha Tocopherol); 443122- Specimen Comment: Vitamin E(Gamma Tocopherol); 716168-Wawithk B6; 908205- Specimen Comment: Vit. B1, Whole Blood Specimen Comment: was developed and its performance characteristics Specimen Comment: determined by [facility]. It has not been cleared or approved Specimen Comment: by the Food and Drug Administration. Thiamine [Mass/volume] in Blood 158.2 nmol/L 66.5-200.0 [facility] ([facility], ) Specimen Comment: Test(s) [id number]-Kxdsjbt E(Alpha Tocopherol); 028754- Specimen Comment: Vitamin E(Gamma Tocopherol); 423550-Slgwncg B6; 448077- Specimen Comment: Vit. B1, Whole Blood Specimen Comment: was developed and its performance characteristics Specimen Comment: determined by [facility]. It has not been cleared or approved Specimen Comment: by the Food and Drug Administration. ID Date Data Source [id number] 08/29/2020 01:37:00 PM EST MEDENT ([facility] ) Name Value Range Interpretation Code Description Data Ade rce(s) Supporting Document(s) Vitamin E(Alpha Tocopherol) 9.2 mg/L 5.9-19.4 [facility] ([facility]) Vitamin E(Gamma Tocopherol) 1.7 mg/L 0.7-4.9 [facility] ([facility] ) Reference intervals for alpha and gamma- tocopherol determined from National Health and Nutrition Examination Survey, 6368-8609. Individuals with alpha-tocopherol levels less than 5.0 mg/L are considered vitamin E deficient. ID Date Data Source [id number] 08/29/2020 01:37:00 PM EST MED[facility] ([facility] ) Name Value Range Interpretation Code Description Data Ade rce(s) Supporting Document(s) Calcidiol [Mass/volume] in Serum or Plasma 24.2 ng/mL 30.0-100.0 [facility] ([facility]) Ferritin [Mass/volume] in Serum or Plasma 66 ng/mL 8-252 [facility] ([facility]) Rheumatoid factor [Units/volume] in Serum or Plasma Laboratory test result [facility] ([facility]) ID Date Data Source [id number] 08/29/2020 01:37:00 PM EST [facility] ([facility]) Name Value Range Interpretation Code Description Data Ade rce(s) Supporting Document(s) Vitamin B12 Level 447 pg/mL [facility] ([facility]) VITAMIN B12 NORMAL RANGE NORMAL 247 - 911 PG/ML INDETERMINATE 211 - 246 PG/ML DEFICIENT LESS THAN 211 PG/ML Folate 8.7 ng/mL [facility] ([facility]) FOLATE NORMAL RANGE NORMAL GREATER THAN 5.4 NG/ML INDETERMINATE 3.4-5.4 NG/ML DEFICIENT LESS THAN 3.4 NG/ML ID Date Data Source [id number] 08/29/2020 01:37:00 PM EST [facility] ([facility]) Name Value Range Interpretation Code Description Data Ade rce(s) Supporting Document(s) Iron (Fe) 67 ug/dL 50-170 [facility] ([facility]) Total Iron Binding Capacity 349 ug/dL 250-450 [facility] ([facility]) Percent Saturation 19.2 % 13.2-45.0 [facility] ([facility]) ID Date Data Source [id number] 08/29/2020 01:37:00 PM EST [facility] ([facility]) Name Value Range Interpretation Code Description Data Ade rce(s) Supporting Document(s) Erythrocyte sedimentation rate by 2H Westergren method 19 mm/hr 0-2 0 [facility] ([facility]) ID Date Data Source [id number] 08/29/2020 01:37:00 PM EST ALEXANDRA ([facility]) Name Value Range Interpretation Code Description Data Ade rce(s) Supporting Document(s) antinuclear antibodies direct negative negative Antinu clear Antibodies Direct [place] ([facility]) ID Date Data Source [id number] 08/29/2020 01:37:00 PM EST ALEXANDRA ([facility]) Name Value Range Interpretation Code Description Data Ade rce(s) Supporting Document(s) vitamin B6,pyridoxal phosphate 5.7 ug/L 2.0-32.8 Vitamin B6,Pyridoxal Phosphate ALEXANDRA ([facility]) ID Date Data Source [id number] 08/29/2020 01:37:00 PM EST ALEXANDRA ([facility]) Name Value Range Interpretation Code Description Data Ade rce(s) Supporting Document(s) vitamin B1 level whole blood 158.2 nmol/L 66.5-200.0 Vitamin B1 Level Whole Blood ALEXANDRA ([facility]) ID Date Data Source [id number] 08/29/2020 01:37:00 PM EST ALEXANDRA ([facility]) Name Value Range Interpretation Code Description Data Ade rce(s) Supporting Document(s) vitamin E(gamma tocopherol) 1.7 mg/L 0.7-4.9 Vitamin E(gamma Tocopherol) ALEXANDRA ([facility]) vitamin E(alpha tocopherol) 9.2 mg/L 5.9-19.4 Vitamin E(alpha Tocopherol) [facility]LEXANDRA ([facility]) ID Date Data Source [id number] 08/29/2020 01:37:00 PM EST ALEXANDRA ([facility]) Name Value Range Interpretation Code Description Data Ade rce(s) Supporting Document(s) rheumatoid factor quant < 10.0 <15.0 Rheumatoid F actor Quant [facility]ANDRA ([facility]) ID Date Data Source [id number] 08/29/2020 01:37:00 PM EST ALEXANDRA ([facility]) Name Value Range Interpretation Code Description Data Ade rce(s) Supporting Document(s) ferritin 66 NG/mL 8-252 Ferritin [facility]ANDRA ([facility]) ID Date Data Source [id number] 08/29/2020 01:37:00 PM EST ALEXANDRA ([facility]) Name Value Range Interpretation Code Description Data Ade rce(s) Supporting Document(s) total 25(oh) vitamin D 24.2 NG/mL 30.0-100.0 Below low normal T otal 25(Oh) Vitamin D ALEXANDRA ([facility]) ID Date Data Source [id number] 08/29/2020 01:37:00 PM EST ALEXANDRA ([facility]) Name Value Range Interpretation Code Description Data Ade rce(s) Supporting Document(s) vitamin B12 level 447 pg/mL Vitamin B12 Level ALEXANDRA ([facility]) folate 8.7 NG/mL Folate [facility]DRA ([facility]) ID Date Data Source [id number] 08/29/2020 01:37:00 PM EST ALEXANDRA ([facility]) Name Value Range Interpretation Code Description Data Ade rce(s) Supporting Document(s) iron (fe) 67 ug/dL 50-170 Iron (Fe) ALEXANDRA ([facility]) total iron binding capacity 349 ug/dL 250-450 Total Ir on Binding Capacity ALEXANDRA ([facility]) percent saturation 19.2 % 13.2-45.0 Percent Saturatio n ALEXANDRA ([facility]) ID Date Data Source [id number] 08/29/2020 01:37:00 PM EST ALEXANDRA ([facility]) Name Value Range Interpretation Code Description Data Ade rce(s) Supporting Document(s) erythrocyte sedimentation rate 19 mm/HR 0-20 Eryth rocyte Sedimentation Rate ALEXANDRA ([facility]) ID Date Data Source [id number] 08/29/2020 01:37:00 PM EST A[facility]DRA ([facility]) Name Value Range Interpretation Code Description Data Ade rce(s) Supporting Document(s) antinuclear antibodies direct negative negative Antinu clear Antibodies Direct A[facility]ANDRA ([facility]) ID Date Data Source [id number] 08/29/2020 01:37:00 PM EST A[facility]ANDRA ([facility]) Name Value Range Interpretation Code Description Data Ade rce(s) Supporting Document(s) vitamin B6,pyridoxal phosphate 5.7 ug/L 2.0-32.8 Vitamin B6,Pyridoxal Phosphate [facility] ([facility]) ID Date Data Source [id number] 08/29/2020 01:37:00 PM EST A[facility]ANDRA ([facility]) Name Value Range Interpretation Code Description Data Ade rce(s) Supporting Document(s) vitamin B1 level whole blood 158.2 nmol/L 66.5-200.0 Vitamin B1 Level Whole Blood [facility] ([facility]) ID Date Data Source [id number] 08/29/2020 01:37:00 PM EST [place] ([facility]) Name Value Range Interpretation Code Description Data Ade rce(s) Supporting Document(s) vitamin E(gamma tocopherol) 1.7 mg/L 0.7-4.9 Vitamin E(gamma Tocopherol) [place] ([facility]) vitamin E(alpha tocopherol) 9.2 mg/L 5.9-19.4 Vitamin E(alpha Tocopherol) [place] ([facility]) ID Date Data Source [id number] 08/29/2020 01:37:00 PM EST A[facility]DRA ([facility]) Name Value Range Interpretation Code Description Data Ade rce(s) Supporting Document(s) rheumatoid factor quant < 10.0 <15.0 [facility] Date Data Source [id number] 08/29/2020 01:37:00 PM EST [facility]) Name Value Range Interpretation Code Description Data Ade rce(s) Supporting Document(s) ferritin 66 NG/mL 8-252 Ferritin [facility]LEXANDRA ([facility]) ID Date Data Source [id number] 08/29/2020 01:37:00 PM EST A[facility]A ([facility]) Name Value Range Interpretation Code Description Data Ade rce(s) Supporting Document(s) total 25(oh) vitamin D 24.2 NG/mL 30.0-100.0 Below low normal T otal 25(Oh) Vitamin D [facility] ([facility]) ID Date Data Source [id number] 08/29/2020 01:37:00 PM EST [facility] ([facility]) Name Value Range Interpretation Code Description Data Ade rce(s) Supporting Document(s) vitamin B12 level 447 pg/mL Vitamin B12 Level [facility] ([facility]) folate 8.7 NG/mL Folate [facility] ([facility]) ID Date Data Source [id number] 08/29/2020 01:37:00 PM EST [facility] ([facility]) Name Value Range Interpretation Code Description Data Ade rce(s) Supporting Document(s) total iron binding capacity 349 ug/dL 250-450 Total Ir on Binding Capacity [facility] ([facility]) percent saturation 19.2 % 13.2-45.0 Percent Saturatio n [facility] ([facility]) iron (fe) 67 ug/dL 50-170 Iron (Fe) [facility] ([facility]) ID Date Data Source [id number] 08/29/2020 01:37:00 PM EST [facility] ([facility]) Name Value Range Interpretation Code Description Data Ade rce(s) Supporting Document(s) erythrocyte sedimentation rate 19 mm/HR 0-20 Eryth rocyte Sedimentation Rate [facility] ([facility]) ID Date Data Source [id number] 08/14/2020 02:05:00 PM EST [facility] ([facility]) Name Value Range Interpretation Code Description Data Ade rce(s) Supporting Document(s) ID Date Data Source [id number] 08/14/2020 02:05:00 PM EST [facility] [facility]) Name Value Range Interpretation Code Description Data Ade rce(s) Supporting Document(s) C reactive protein quantitativ 1.29 mg/dL 0.00-0.30 Above high normal C Reactive Protein Quantitativ [facility]DR[facility] ([facility]) ID Date Data Source [id number] 08/14/2020 02:05:00 PM EST A[facility]ANDRA ([facility]) Name Value Range Interpretation Code Description Data Ade rce(s) Supporting Document(s) HCG, serum qualitative negative negative HCG, Serum Qu alitative [facility] ([facility]) ID Date Data Source [id number] 08/14/2020 02:05:00 PM EST A[facility]DRA ([facility]) Name Value Range Interpretation Code Description Data Ade rce(s) Supporting Document(s) bilirubin,direct < 0.1 0.0-0.2 Bilirubin,direct AT [facility] ([facility]) ID Date Data Source [id number] 08/14/2020 02:05:00 PM EST [facility]DRA ([facility]) Name Value Range Interpretation Code Description Data Ade rce(s) Supporting Document(s) mb/CK relative index < or =4 mb/CK Relative Index [facility] ([facility]) CK-mb value mass < 1.0 <3.6 CK-mb Value Mass AT [facility] ([facility]) CPK creatine phosphokinase 81 U/L 26-192 CPK Creat ine Phosphokinase [facility]LEX[facility]DRA ([facility]) troponin I < 0.02 < 0.10 Troponin I [facility] ([facility]) ID Date Data Source [id number] 08/14/2020 02:05:00 PM EST A[facility]DRA ([facility]) Name Value Range Interpretation Code Description Data Ade rce(s) Supporting Document(s) glucose, fasting 89 mg/dL 70-100 Glucose, Fasting AT [facility] ([facility]) glomerular filtration rate > 60.0 >60 Glomerula r Filtration Rate [facility]DRA ([facility]) creatinine for GFR 0.82 mg/dL 0.55-1.30 Creatinine for GF R ALEXANDRA ([facility]) blood urea nitrogen 14 mg/dL 7-18 Blood Urea Nitro gen [facility]DRA ([facility]) sodium level 140 mEq/L 136-145 Sodium Level ALEXANDRA (No [facility]) potassium serum 4.1 mEq/L 3.5-5.1 Potassium Serum ATHE ([facility]) chloride level 112 mEq/L 98-107 Above high normal Chloride Level [place] ([facility]) calcium level 8.7 mg/dL 8.5-10.1 Calcium Level [facility]DRA ( [facility]) anion gap 5 mEq/L 8-16 Below low normal Anion Gap [facility]DRA ( [facility]) AST/SGOT 19 U/L 7-37 AST/SGOT [facility] ([facility]) carbon dioxide level 23 mEq/L 21-32 Carbon Dioxide Level A[facility]ANDRA ([facility]) bilirubin,total 0.5 mg/dL 0.2-1.0 Bilirubin,total AT[facility] ([facility]) alkaline phosphatase 95 U/L 45-117 Alkaline Phosph atase [facility]DRA ([facility]) ALT/SGPT 34 U/L 12-78 ALT/SGPT [facility] ([facility]) total protein 7.2 gm/dL 6.4-8.2 Total Protein [facility]DRA ( [facility]) albumin 3.8 gm/dL 3.2-5.2 Albumin [facility]A ([facility]) albumin/globulin ratio 1.2-2.2 Below low normal Albumin /globulin Ratio [facility]DRA ([facility]) ID Date Data Source [id number] 08/14/2020 02:05:00 PM EST A[facility]DRA ([facility]) Name Value Range Interpretation Code Description Data Ade rce(s) Supporting Document(s) D-dimer quant 338.18 NG/mL <500 D-dimer Quant [facility]DRA ([facility]) ID Date Data Source [id number] 08/14/2020 02:05:00 PM EST A[facility]DRA ([facility]) Name Value Range Interpretation Code Description Data Ade rce(s) Supporting Document(s) white blood count 8.0 10 4.0-10.0 White Blood Count [facility] ([facility]) red blood count 5.31 10 4.00-5.40 Red Blood Count ATHE ([facility]) hemoglobin 13.5 g/dL 12.0-15.5 Hemoglobin [place] ([facility]) hematocrit 42.1 % 36.0-47.0 Hematocrit [facility]DRA ([facility]) mean corpuscular volume 79.3 fL 80.0-96.0 Below low normal Mean Corpuscular Volume [facility]ANDRA ([facility]) red cell distribution width 13.6 % 11.5-14.5 Red Cell Distribution Width [facility]A ([facility]) mean corpuscular hemoglobin 25.4 pg 27.0-33.0 Below low nor mal Mean Corpuscular Hemoglobin [place] ([facility]) mean corpuscular HGB conc 32.1 g/dL 32.0-36.5 Mean Corpu scular HGB Conc A[facility]DRA ([facility]) platelet count, automated 266 10 150-450 Platelet C ount, Automated A[facility]DRA ([facility]) lymph % 31.6 % 24.0-44.0 Lymph % [facility] ([facility]) neutrophils % 56.8 % 36.0-66.0 Neutrophils % [facility]DRA ( [facility]) eos % 3.1 % 0.0-3.0 Above high normal Eos % [facility]DRA ([facility]) mono % 7.6 % 0.0-5.0 Above high normal [place] % [facility]DRA ([facility]) nucleated red blood cell % 0.0 % 0-0 Nucleated Red Blood Cell % [facility]ANDRA ([facility]) baso % 0.5 % 0.0-1.0 Baso % ALEAXNDRA ([facility]) immature granulocyte % 0.4 % 0-3.0 Immature Gran ulocyte % [facility]ANDRA ([facility]) mono # 0.6 10 0.0-0.8 [place] # [facility]LEXANDRA ([facility]) lymph # 2.5 10 1.5-5.0 Lymph # [facility]ANDRA ([facility]) neutrophils # 4.6 10 1.5-8.5 Neutrophils # ALEXANDRA ( [facility]) baso # 0.0 10 0.0-0.2 Baso # [facility]DRA ([facility]) eos # 0.3 10 0.0-0.5 Eos # [facility]A ([facility]) ID Date Data Source [id number] 08/14/2020 02:05:00 PM EST A[facility]DRA ([facility]) Name Value Range Interpretation Code Description Data Ade rce(s) Supporting Document(s) ID Date Data Source [id number] 08/14/2020 02:05:00 PM EST A[facility]DRA ([facility]) Name Value Range Interpretation Code Description Data Ade rce(s) Supporting Document(s) C reactive protein quantitativ 1.29 mg/dL 0.00-0.30 Above high normal C Reactive Protein Quantitativ [facility]DRA ([facility]) ID Date Data Source [id number] 08/14/2020 02:05:00 PM EST A[facility]DRA ([facility]) Name Value Range Interpretation Code Description Data Ade rce(s) Supporting Document(s) HCG, serum qualitative negative negative [facility], [facility] Date Data Source [id number] 08/14/2020 02:05:00 PM EST A[facility]DRA ([facility]) Name Value Range Interpretation Code Description Data Ade rce(s) Supporting Document(s) bilirubin,direct < 0.1 0.0-0.2 Bilirubin,direct AT [facility] ([facility]) ID Date Data Source [id number] 08/14/2020 02:05:00 PM EST [place] ([facility]) Name Value Range Interpretation Code Description Data Ade rce(s) Supporting Document(s) mb/CK relative index < or =4 mb/CK Relative Index [facility]DRA ([facility]) CPK creatine phosphokinase 81 U/L 26-192 CPK Creat ine Phosphokinase [place] ([facility]) CK-mb value mass < 1.0 <3.6 CK-mb Value Mass AT [facility] ([facility]) troponin I < 0.02 < 0.10 Troponin I [place] ([facility]) ID Date Data Source [id number] 08/14/2020 02:05:00 PM EST [place] ([facility]) Name Value Range Interpretation Code Description Data Ade rce(s) Supporting Document(s) blood urea nitrogen 14 mg/dL 7-18 Blood Urea Nitro gen [place] ([facility]) glucose, fasting 89 mg/dL 70-100 Glucose, Fasting AT [facility] ([facility]) creatinine for GFR 0.82 mg/dL 0.55-1.30 Creatinine for GF R ALEX[facility]DRA ([facility]) potassium serum 4.1 mEq/L 3.5-5.1 Potassium Serum ATHE NA ([facility]) glomerular filtration rate > 60.0 >60 Glomerula r Filtration Rate A[facility]ANDRA ([facility]) chloride level 112 mEq/L 98-107 Above high normal Chloride Level [facility]DRA ([facility]) sodium level 140 mEq/L 136-145 Sodium Level [facility] ([facility]) carbon dioxide level 23 mEq/L 21-32 Carbon Dioxide Level A[facility]ANDRA ([facility]) AST/SGOT 19 U/L 7-37 AST/SGOT [place] ([facility]) anion gap 5 mEq/L 8-16 Below low normal Anion Gap A[facility]ANDRA ( [facility]) calcium level 8.7 mg/dL 8.5-10.1 Calcium Level A[facility]ANDRA ( [facility]) ALT/SGPT 34 U/L 12-78 ALT/SGPT [facility] ([facility]) alkaline phosphatase 95 U/L 45-117 Alkaline Phosph atase [facility]DRA ([facility]) bilirubin,total 0.5 mg/dL 0.2-1.0 Bilirubin,total ATHE NA ([facility]) total protein 7.2 gm/dL 6.4-8.2 Total Protein A[facility]DRA ( [facility]) albumin/globulin ratio 1.2-2.2 Below low normal Albumin /globulin Ratio [facility]DRA ([facility]) albumin 3.8 gm/dL 3.2-5.2 Albumin [facility]A ([facility]) ID Date Data Source [id number] 08/14/2020 02:05:00 PM EST A[facility]ANDRA ([facility]) Name Value Range Interpretation Code Description Data Ade rce(s) Supporting Document(s) D-dimer quant 338.18 NG/mL <500 D-dimer Quant [facility]DRA ([facility]) ID Date Data Source [id number] 08/14/2020 02:05:00 PM EST A[facility]ANDRA ([facility]) Name Value Range Interpretation Code Description Data Ade rce(s) Supporting Document(s) white blood count 8.0 10 4.0-10.0 White Blood Count [facility]DRA ([facility]) red blood count 5.31 10 4.00-5.40 Red Blood Count ATHE NA ([facility]) hemoglobin 13.5 g/dL 12.0-15.5 Hemoglobin A[facility]DRA ([facility]) hematocrit 42.1 % 36.0-47.0 Hematocrit [facility]DRA ([facility]) mean corpuscular hemoglobin 25.4 pg 27.0-33.0 Below low nor mal Mean Corpuscular Hemoglobin [facility]ANDRA ([facility]) mean corpuscular volume 79.3 fL 80.0-96.0 Below low normal Mean Corpuscular Volume [facility]ANDRA ([facility]) platelet count, automated 266 10 150-450 Platelet C ount, Automated A[facility]DRA ([facility]) mean corpuscular HGB conc 32.1 g/dL 32.0-36.5 Mean Corpu scular HGB Conc ALEXANDRA ([facility]) red cell distribution width 13.6 % 11.5-14.5 Red Cell Distribution Width [facility]DRA ([facility]) lymph % 31.6 % 24.0-44.0 Lymph % [facility]DR[facility] ([facility]) mono % 7.6 % 0.0-5.0 Above high normal [place] % [place] ([facility]) neutrophils % 56.8 % 36.0-66.0 Neutrophils % [place] ( [facility]) baso % 0.5 % 0.0-1.0 Baso % [place] ([facility]) immature granulocyte % 0.4 % 0-3.0 Immature Gran ulocyte % [place] ([facility]) eos % 3.1 % 0.0-3.0 Above high normal Eos % A[facility]ANDRA ([facility]) nucleated red blood cell % 0.0 % 0-0 Nucleated Red Blood Cell % [place] ([facility]) neutrophils # 4.6 10 1.5-8.5 Neutrophils # ALEXANDRA ( [facility]) mono # 0.6 10 0.0-0.8 [place] # [facility]ANDRA ([facility]) eos # 0.3 10 0.0-0.5 Eos # [facility]DRA ([facility]) lymph # 2.5 10 1.5-5.0 Lymph # [place] ([facility]) baso # 0.0 10 0.0-0.2 Baso # [facility] ([facility]) ID Date Data Source [id number] 08/14/2020 02:05:00 PM EST [place] ([facility]) Name Value Range Interpretation Code Description Data Ade rce(s) Supporting Document(s) ID Date Data Source [id number] 08/14/2020 02:05:00 PM EST A[facility]ANDRA ([facility]) Name Value Range Interpretation Code Description Data Ade rce(s) Supporting Document(s) C reactive protein quantitativ 1.29 mg/dL 0.00-0.30 Above high normal C Reactive Protein Quantitativ [facility]ANDRA ([facility]) ID Date Data Source [id number] 08/14/2020 02:05:00 PM EST A[facility]ANDRA ([facility]) Name Value Range Interpretation Code Description Data Ade rce(s) Supporting Document(s) HCG, serum qualitative negative negative HCG, Serum Qu alitative [facility]) ID Date Data Source [id number] 08/14/2020 02:05:00 PM EST A[facility]DRA ([facility]) Name Value Range Interpretation Code Description Data Ade rce(s) Supporting Document(s) bilirubin,direct < 0.1 0.0-0.2 Bilirubin,direct AT [facility] ([facility]) ID Date Data Source [id number] 08/14/2020 02:05:00 PM EST A[facility]ANDRA ([facility]) Name Value Range Interpretation Code Description Data Ade rce(s) Supporting Document(s) CK-mb value mass < 1.0 <3.6 CK-mb Value Mass AT [facility] ([facility]) CPK creatine phosphokinase 81 U/L 26-192 CPK Creat ine Phosphokinase [facility]ANDRA ([facility]) mb/CK relative index < or =4 mb/CK Relative Index [facility]DRA ([facility]) troponin I < 0.02 < 0.10 Troponin I [place] ([facility]) ID Date Data Source [id number] 08/14/2020 02:05:00 PM EST A[facility]ANDRA ([facility]) Name Value Range Interpretation Code Description Data Ade rce(s) Supporting Document(s) glucose, fasting 89 mg/dL 70-100 Glucose, Fasting AT [facility]) blood urea nitrogen 14 mg/dL 7-18 Blood Urea Nitro gen A[facility]ANDRA ([facility]) creatinine for GFR 0.82 mg/dL 0.55-1.30 Creatinine for GF R ALEXANDRA ([facility]) glomerular filtration rate > 60.0 >60 Glomerula r Filtration Rate [facility]DR[facility] ([facility]) sodium level 140 mEq/L 136-145 Sodium Level [facility] ([facility]) potassium serum 4.1 mEq/L 3.5-5.1 Potassium Serum [facility] ([facility]) chloride level 112 mEq/L 98-107 Above high normal Chloride Level [place] ([facility]) anion gap 5 mEq/L 8-16 Below low normal Anion Gap A[facility]ANDRA ( [facility]) carbon dioxide level 23 mEq/L 21-32 Carbon Dioxide Level [facility]DRA ([facility]) calcium level 8.7 mg/dL 8.5-10.1 Calcium Level [facility]ANDRA ( [facility]) AST/SGOT 19 U/L 7-37 AST/SGOT [facility] ([facility]) bilirubin,total 0.5 mg/dL 0.2-1.0 Bilirubin,total [facility] ([facility]) ALT/SGPT 34 U/L 12-78 ALT/SGPT [facility] ([facility]) alkaline phosphatase 95 U/L 45-117 Alkaline Phosph atase [facility]ANDRA ([facility]) albumin 3.8 gm/dL 3.2-5.2 Albumin [facility]A ([facility]) total protein 7.2 gm/dL 6.4-8.2 Total Protein [facility]DRA ( [facility]) albumin/globulin ratio 1.2-2.2 Below low normal Albumin /globulin Ratio [facility]DRA ([facility]) ID Date Data Source [id number] 08/14/2020 02:05:00 PM EST A[facility]ANDRA ([facility]) Name Value Range Interpretation Code Description Data Ade rce(s) Supporting Document(s) D-dimer quant 338.18 NG/mL <500 D-dimer Quant [facility]DRA ([facility]) ID Date Data Source [id number] 08/14/2020 02:05:00 PM EST A[facility]DRA ([facility]) Name Value Range Interpretation Code Description Data Ade rce(s) Supporting Document(s) white blood count 8.0 10 4.0-10.0 White Blood Count [facility]DRA ([facility]) hemoglobin 13.5 g/dL 12.0-15.5 Hemoglobin [facility]DRA ([facility]) red blood count 5.31 10 4.00-5.40 Red Blood Count [facility] ([facility]) mean corpuscular volume 79.3 fL 80.0-96.0 Below low normal Mean Corpuscular Volume [facility]ANDRA ([facility]) hematocrit 42.1 % 36.0-47.0 Hematocrit [facility]DRA ([facility]) mean corpuscular HGB conc 32.1 g/dL 32.0-36.5 Mean Corpu scular HGB Conc [facility]DRA ([facility]) mean corpuscular hemoglobin 25.4 pg 27.0-33.0 Below low nor mal Mean Corpuscular Hemoglobin [facility]ANDRA ([facility]) red cell distribution width 13.6 % 11.5-14.5 Red Cell Distribution Width [facility]A ([facility]) platelet count, automated 266 10 150-450 Platelet C ount, Automated A[facility]ANDRA ([facility]) lymph % 31.6 % 24.0-44.0 Lymph % [facility] ([facility]) neutrophils % 56.8 % 36.0-66.0 Neutrophils % A[facility]DRA ( [facility]) eos % 3.1 % 0.0-3.0 Above high normal Eos % A[facility]DRA ([facility]) mono % 7.6 % 0.0-5.0 Above high normal [place] % [facility] ([facility]) nucleated red blood cell % 0.0 % 0-0 Nucleated Red Blood Cell % [facility]DRA ([facility]) baso % 0.5 % 0.0-1.0 Baso % [facility]A ([facility]) immature granulocyte % 0.4 % 0-3.0 Immature Gran ulocyte % A[facility]ANDRA ([facility]) neutrophils # 4.6 10 1.5-8.5 Neutrophils # A[facility]ANDRA ( [facility]) lymph # 2.5 10 1.5-5.0 Lymph # [facility]DRA ([facility]) mono # 0.6 10 0.0-0.8 [place] # [facility]DRA ([facility]) eos # 0.3 10 0.0-0.5 Eos # [facility]A ([facility]) baso # 0.0 10 0.0-0.2 Baso # [facility] ([facility]) ID Date Data Source [id number] 08/14/2020 02:05:00 PM EST A[facility]DRA ([facility]) Name Value Range Interpretation Code Description Data Ade rce(s) Supporting Document(s) ID Date Data Source [id number] 08/14/2020 02:05:00 PM EST A[facility]DRA ([facility]) Name Value Range Interpretation Code Description Data Ade rce(s) Supporting Document(s) C reactive protein quantitativ 1.29 mg/dL 0.00-0.30 Above high normal C Reactive Protein Quantitativ [place] ([facility]) ID Date Data Source [id number] 08/14/2020 02:05:00 PM EST A[facility]DRA ([facility]) Name Value Range Interpretation Code Description Data Ade rce(s) Supporting Document(s) HCG, serum qualitative negative negative HCG, Serum Qu alitative [place] ([facility]) ID Date Data Source [id number] 08/14/2020 02:05:00 PM EST A[facility]DRA ([facility]) Name Value Range Interpretation Code Description Data Ade rce(s) Supporting Document(s) bilirubin,direct < 0.1 0.0-0.2 Bilirubin,direct AT [facility] ([facility]) ID Date Data Source [id number] 08/14/2020 02:05:00 PM EST A[facility]DRA ([facility]) Name Value Range Interpretation Code Description Data Ade rce(s) Supporting Document(s) CK-mb value mass < 1.0 <3.6 CK-mb Value Mass AT [facility] ([facility]) CPK creatine phosphokinase 81 U/L 26-192 CPK Creat ine Phosphokinase [facility]DRA ([facility]) mb/CK relative index < or =4 mb/CK Relative Index [facility]A ([facility]) troponin I < 0.02 < 0.10 Troponin I [facility] ([facility]) ID Date Data Source [id number] 08/14/2020 02:05:00 PM EST A[facility]ANDRA ([facility]) Name Value Range Interpretation Code Description Data Ade rce(s) Supporting Document(s) blood urea nitrogen 14 mg/dL 7-18 Blood Urea Nitro gen [facility]DRA ([facility]) glucose, fasting 89 mg/dL 70-100 Glucose, Fasting AT [facility] ([facility]) glomerular filtration rate > 60.0 >60 Glomerula r Filtration Rate [facility]DRA ([facility]) sodium level 140 mEq/L 136-145 Sodium Level [facility]A ([facility]) creatinine for GFR 0.82 mg/dL 0.55-1.30 Creatinine for GF R ALEXANDRA ([facility]) carbon dioxide level 23 mEq/L 21-32 Carbon Dioxide Level [facility]DRA ([facility]) chloride level 112 mEq/L 98-107 Above high normal Chloride Level A[facility]DRA ([facility]) potassium serum 4.1 mEq/L 3.5-5.1 Potassium Serum AT[facility] ([facility]) anion gap 5 mEq/L 8-16 Below low normal Anion Gap A[facility]ANDRA ( [facility]) ALT/SGPT 34 U/L 12-78 ALT/SGPT [facility] ([facility]) AST/SGOT 19 U/L 7-37 AST/SGOT [facility] ([facility]) calcium level 8.7 mg/dL 8.5-10.1 Calcium Level ALEXANDRA ( [facility]) alkaline phosphatase 95 U/L 45-117 Alkaline Phosph atase [facility]DRA ([facility]) total protein 7.2 gm/dL 6.4-8.2 Total Protein [facility]DRA ( [facility]) albumin 3.8 gm/dL 3.2-5.2 Albumin [facility]DRA ([facility]) bilirubin,total 0.5 mg/dL 0.2-1.0 Bilirubin,total ATHE NA ([facility]) albumin/globulin ratio 1.2-2.2 Below low normal Albumin /globulin Ratio [facility]DRA ([facility]) ID Date Data Source [id number] 08/14/2020 02:05:00 PM EST A[facility]ANDRA ([facility]) Name Value Range Interpretation Code Description Data Ade rce(s) Supporting Document(s) D-dimer quant 338.18 NG/mL <500 D-dimer Quant [facility]DRA ([facility]) ID Date Data Source [id number] 08/14/2020 02:05:00 PM EST A[facility]DRA ([facility]) Name Value Range Interpretation Code Description Data Ade rce(s) Supporting Document(s) white blood count 8.0 10 4.0-10.0 White Blood Count [facility]DRA ([facility]) red blood count 5.31 10 4.00-5.40 Red Blood Count AT[facility] NA ([facility]) hemoglobin 13.5 g/dL 12.0-15.5 Hemoglobin [facility]DRA ([facility]) hematocrit 42.1 % 36.0-47.0 Hematocrit [facility]DRA ([facility]) mean corpuscular volume 79.3 fL 80.0-96.0 Below low normal Mean Corpuscular Volume [facility]DRA ([facility]) mean corpuscular HGB conc 32.1 g/dL 32.0-36.5 Mean Corpu scular HGB Conc [facility]A ([facility]) mean corpuscular hemoglobin 25.4 pg 27.0-33.0 Below low nor mal Mean Corpuscular Hemoglobin [facility]DRA ([facility]) platelet count, automated 266 10 150-450 Platelet C ount, Automated [facility] ([facility]) red cell distribution width 13.6 % 11.5-14.5 Red Cell Distribution Width [facility] ([facility]) neutrophils % 56.8 % 36.0-66.0 Neutrophils % [facility] ( [facility]) lymph % 31.6 % 24.0-44.0 Lymph % [facility] ([facility]) eos % 3.1 % 0.0-3.0 Above high normal Eos % [facility] ([facility]) mono % 7.6 % 0.0-5.0 Above high normal [place] % [place] ([facility]) neutrophils # 4.6 10 1.5-8.5 Neutrophils # [facility] ( [facility]) baso % 0.5 % 0.0-1.0 Baso % [place] ([facility]) nucleated red blood cell % 0.0 % 0-0 Nucleated Red Blood Cell % [facility] ([facility]) immature granulocyte % 0.4 % 0-3.0 Immature Gran ulocyte % [place] ([facility]) mono # 0.6 10 0.0-0.8 [place] # [facility]A ([facility]) eos # 0.3 10 0.0-0.5 Eos # [facility] ([facility]) lymph # 2.5 10 1.5-5.0 Lymph # [facility] ([facility]) baso # 0.0 10 0.0-0.2 Baso # [facility] ([facility]) ID Date Data Source [id number] 08/14/2020 02:05:00 PM EST [facility] ([facility]) Name Value Range Interpretation Code Description Data Ade rce(s) Supporting Document(s) ID Date Data Source [id number] 08/14/2020 02:05:00 PM EST [facility] ([facility]) Name Value Range Interpretation Code Description Data Ade rce(s) Supporting Document(s) C reactive protein quantitativ 1.29 mg/dL 0.00-0.30 Above high normal C Reactive Protein Quantitativ [facility] ([facility]) ID Date Data Source [id number] 08/14/2020 02:05:00 PM EST [facility] ([facility]) Name Value Range Interpretation Code Description Data Ade rce(s) Supporting Document(s) HCG, serum qualitative negative negative HCG, Serum Qu alitative [facility] ([facility]) ID Date Data Source [id number] 08/14/2020 02:05:00 PM EST [facility] ([facility]) Name Value Range Interpretation Code Description Data Ade rce(s) Supporting Document(s) bilirubin,direct < 0.1 0.0-0.2 Bilirubin,direct AT [facility]) ID Date Data Source [id number] 08/14/2020 02:05:00 PM EST [place] ([facility]) Name Value Range Interpretation Code Description Data Ade rce(s) Supporting Document(s) CPK creatine phosphokinase 81 U/L 26-192 CPK Creat ine Phosphokinase [facility]A ([facility]) CK-mb value mass < 1.0 <3.6 CK-mb Value Mass AT [facility] ([facility]) troponin I < 0.02 < 0.10 Troponin I [facility] ([facility]) mb/CK relative index < or =4 mb/CK Relative Index [place] ([facility]) ID Date Data Source [id number] 08/14/2020 02:05:00 PM EST [facility] ([facility]) Name Value Range Interpretation Code Description Data Ade rce(s) Supporting Document(s) blood urea nitrogen 14 mg/dL 7-18 Blood Urea Nitro gen [facility] ([facility]) glucose, fasting 89 mg/dL 70-100 Glucose, Fasting AT [facility] ([facility]) potassium serum 4.1 mEq/L 3.5-5.1 Potassium Serum AT[facility] ([facility]) glomerular filtration rate > 60.0 >60 Glomerula r Filtration Rate [facility] ([facility]) creatinine for GFR 0.82 mg/dL 0.55-1.30 Creatinine for GF R [facility] ([facility]) sodium level 140 mEq/L 136-145 Sodium Level [facility] ([facility]) carbon dioxide level 23 mEq/L 21-32 Carbon Dioxide Level [facility] ([facility]) chloride level 112 mEq/L 98-107 Above high normal Chloride Level [facility] ([facility]) AST/SGOT 19 U/L 7-37 AST/SGOT [facility] ([facility]) anion gap 5 mEq/L 8-16 Below low normal Anion Gap [facility] ( [facility]) calcium level 8.7 mg/dL 8.5-10.1 Calcium Level [facility] ( [facility]) total protein 7.2 gm/dL 6.4-8.2 Total Protein [facility] ( [facility]) bilirubin,total 0.5 mg/dL 0.2-1.0 Bilirubin,total AT[facility] ([facility]) alkaline phosphatase 95 U/L 45-117 Alkaline Phosph atase [facility] ([facility]) ALT/SGPT 34 U/L 12-78 ALT/SGPT [facility] ([facility]) albumin/globulin ratio 1.2-2.2 Below low normal Albumin /globulin Ratio [facility] ([facility]) albumin 3.8 gm/dL 3.2-5.2 Albumin [facility] ([facility]) ID Date Data Source [id number] 08/14/2020 02:05:00 PM EST [facility] ([facility]) Name Value Range Interpretation Code Description Data Ade rce(s) Supporting Document(s) D-dimer quant 338.18 NG/mL <500 D-dimer Quant [facility] ([facility]) ID Date Data Source [id number] 08/14/2020 02:05:00 PM EST [facility] ([facility]) Name Value Range Interpretation Code Description Data Ade rce(s) Supporting Document(s) white blood count 8.0 10 4.0-10.0 White Blood Count [facility] ([facility]) red blood count 5.31 10 4.00-5.40 Red Blood Count ATHE NA ([facility]) hematocrit 42.1 % 36.0-47.0 Hematocrit [facility] ([facility]) mean corpuscular volume 79.3 fL 80.0-96.0 Below low normal Mean Corpuscular Volume [facility] ([facility]) mean corpuscular hemoglobin 25.4 pg 27.0-33.0 Below low nor mal Mean Corpuscular Hemoglobin [facility] ([facility]) hemoglobin 13.5 g/dL 12.0-15.5 Hemoglobin [place] ([facility]) platelet count, automated 266 10 150-450 Platelet C ount, Automated [facility] ([facility]) red cell distribution width 13.6 % 11.5-14.5 Red Cell Distribution Width [facility] ([facility]) mean corpuscular HGB conc 32.1 g/dL 32.0-36.5 Mean Corpu scular HGB Conc [place] ([facility]) neutrophils % 56.8 % 36.0-66.0 Neutrophils % [facility] ( [facility]) lymph % 31.6 % 24.0-44.0 Lymph % [facility]ADNRA ([facility]) mono % 7.6 % 0.0-5.0 Above high normal [place] % [facility] ([facility]) eos % 3.1 % 0.0-3.0 Above high normal [place] % [place] ([facility]) neutrophils # 4.6 10 1.5-8.5 Neutrophils # [place] ( [facility]) nucleated red blood cell % 0.0 % 0-0 Nucleated Red Blood Cell % [facility] ([facility]) baso % 0.5 % 0.0-1.0 Baso % [facility] ([facility]) immature granulocyte % 0.4 % 0-3.0 Immature Gran ulocyte % [facility] ([facility]) eos # 0.3 10 0.0-0.5 Eos # [facility] ([facility]) baso # 0.0 10 0.0-0.2 Baso # [facility] ([facility]) mono # 0.6 10 0.0-0.8 [place] # [facility] ([facility]) lymph # 2.5 10 1.5-5.0 Lymph # [facility] ([facility]) ID Date Data Source [id number] 08/14/2020 02:05:00 PM EST [facility] ([facility]) Name Value Range Interpretation Code Description Data Ade rce(s) Supporting Document(s) ID Date Data Source [id number] 08/14/2020 02:05:00 PM EST [facility] ([facility]) Name Value Range Interpretation Code Description Data Ade rce(s) Supporting Document(s) C reactive protein quantitativ 1.29 mg/dL 0.00-0.30 Above high normal C Reactive Protein Quantitativ [facility] ([facility]) ID Date Data Source [id number] 08/14/2020 02:05:00 PM EST [facility] ([facility]) Name Value Range Interpretation Code Description Data Ade rce(s) Supporting Document(s) HCG, serum qualitative negative negative HCG, Serum Qu alitative [facility] ([facility]) ID Date Data Source [id number] 08/14/2020 02:05:00 PM EST [facility] ([facility]) Name Value Range Interpretation Code Description Data Ade rce(s) Supporting Document(s) bilirubin,direct < 0.1 0.0-0.2 Bilirubin,direct AT [facility] ([facility]) ID Date Data Source [id number] 08/14/2020 02:05:00 PM EST [facility] ([facility]) Name Value Range Interpretation Code Description Data Ade rce(s) Supporting Document(s) CK-mb value mass < 1.0 <3.6 CK-mb Value Mass AT [facility]) mb/CK relative index < or =4 mb/CK Relative Index [facility] ([facility]) troponin I < 0.02 < 0.10 Troponin I [facility] ([facility]) CPK creatine phosphokinase 81 U/L 26-192 CPK Creat ine Phosphokinase [facility] ([facility]) ID Date Data Source [id number] 08/14/2020 02:05:00 PM EST [facility] ([facility]) Name Value Range Interpretation Code Description Data Ade rce(s) Supporting Document(s) blood urea nitrogen 14 mg/dL 7-18 Blood Urea Nitro gen [facility] ([facility]) glucose, fasting 89 mg/dL 70-100 Glucose, Fasting AT [facility]) sodium level 140 mEq/L 136-145 Sodium Level [facility] ([facility]) potassium serum 4.1 mEq/L 3.5-5.1 Potassium Serum ATHE NA ([facility]) creatinine for GFR 0.82 mg/dL 0.55-1.30 Creatinine for GF R [facility] ([facility]) glomerular filtration rate > 60.0 >60 Glomerula r Filtration Rate [facility] ([facility]) calcium level 8.7 mg/dL 8.5-10.1 Calcium Level [facility] ( [facility]) anion gap 5 mEq/L 8-16 Below low normal Anion Gap [facility] ( [facility]) carbon dioxide level 23 mEq/L 21-32 Carbon Dioxide Level [facility] ([facility]) chloride level 112 mEq/L 98-107 Above high normal Chloride Level [facility] ([facility]) bilirubin,total 0.5 mg/dL 0.2-1.0 Bilirubin,total ATHE NA ([facility]) alkaline phosphatase 95 U/L 45-117 [facility] AST/SGOT 19 U/L 7-37 AST/SGOT [facility] ([facility]) total protein 7.2 gm/dL 6.4-8.2 Total Protein [facility] ( [facility]) ALT/SGPT 34 U/L 12-78 ALT/SGPT [facility] ([facility]) albumin/globulin ratio 1.2-2.2 Below low normal Albumin /globulin Ratio [facility] ([facility]) albumin 3.8 gm/dL 3.2-5.2 Albumin [facility] ([facility]) ID Date Data Source [id number] 08/14/2020 02:05:00 PM EST [facility] ([facility]) Name Value Range Interpretation Code Description Data Ade rce(s) Supporting Document(s) D-dimer quant 338.18 NG/mL <500 D-dimer Quant [facility] ([facility]) ID Date Data Source [id number] 08/14/2020 02:05:00 PM EST [facility] ([facility]) Name Value Range Interpretation Code Description Data Ade rce(s) Supporting Document(s) white blood count 8.0 10 4.0-10.0 White Blood Count [facility] ([facility]) mean corpuscular volume 79.3 fL 80.0-96.0 Below low normal Mean Corpuscular Volume [facility] ([facility]) hemoglobin 13.5 g/dL 12.0-15.5 Hemoglobin [facility] ([facility]) hematocrit 42.1 % 36.0-47.0 Hematocrit [facility] ([facility]) red blood count 5.31 10 4.00-5.40 Red Blood Count ATHE NA ([facility]) red cell distribution width 13.6 % 11.5-14.5 Red Cell Distribution Width [facility] ([facility]) mean corpuscular hemoglobin 25.4 pg 27.0-33.0 Below low nor mal Mean Corpuscular Hemoglobin [facility]A ([facility]) mean corpuscular HGB conc 32.1 g/dL 32.0-36.5 Mean Corpu scular HGB Conc [facility] ([facility]) platelet count, automated 266 10 150-450 Platelet C ount, Automated [facility] ([facility]) lymph % 31.6 % 24.0-44.0 Lymph % [facility] ([facility]) neutrophils % 56.8 % 36.0-66.0 Neutrophils % [facility] ( [facility]) mono % 7.6 % 0.0-5.0 Above high normal [place] % [facility] ([facility]) eos % 3.1 % 0.0-3.0 Above high normal [place] % [place] ([facility]) immature granulocyte % 0.4 % 0-3.0 Immature Gran ulocyte % [place] ([facility]) baso % 0.5 % 0.0-1.0 Baso % [place] ([facility]) nucleated red blood cell % 0.0 % 0-0 Nucleated Red Blood Cell % [place] ([facility]) neutrophils # 4.6 10 1.5-8.5 Neutrophils # [place] ( [facility]) lymph # 2.5 10 1.5-5.0 Lymph # [facility] ([facility]) mono # 0.6 10 0.0-0.8 [place] # [facility] ([facility]) eos # 0.3 10 0.0-0.5 Eos # [facility] ([facility]) baso # 0.0 10 0.0-0.2 Baso # [place] ([facility]) ID Date Data Source [id number] 08/14/2020 02:05:00 PM EST [facility] Name Value Range Interpretation Code Description Data Ade rce(s) Supporting Document(s) SARS-CoV-2 (COVID 19) [facility] This lab was ordered by [facility] a nd reported by [facility]. ID Date Data Source [id number] 08/14/2020 12:00:00 AM EST [facility] ([facility]) Name Value Range Interpretation Code Description Data Ade rce(s) Supporting Document(s) ID Date Data Source [id number] 08/14/2020 12:00:00 AM EST [facility] ([facility]) Name Value Range Interpretation Code Description Data Ade rce(s) Supporting Document(s) ID Date Data Source [id number] 08/14/2020 12:00:00 AM EST [facility] ([facility]) Name Value Range Interpretation Code Description Data Ade rce(s) Supporting Document(s) ID Date Data Source [id number] 08/14/2020 12:00:00 AM EST [facility] ([facility]) Name Value Range Interpretation Code Description Data Ade rce(s) Supporting Document(s) ID Date Data Source [id number] 08/14/2020 12:00:00 AM EST [facility] ([facility]) Name Value Range Interpretation Code Description Data Ade rce(s) Supporting Document(s) ID Date Data Source [id number] 08/14/2020 12:00:00 AM EST [facility]) Name Value Range Interpretation Code Description Data Ade rce(s) Supporting Document(s) ID Date Data Source [id number] 08/09/2020 12:00:00 AM EST [facility] ([facility]) Name Value Range Interpretation Code Description Data Ade rce(s) Supporting Document(s) SARS-CoV-2 (COVID-19) RNA [Presence] in Respiratory specimen by KATHY with probe detection not detected not detected [facility] ID Date Data Source [id number] 08/09/2020 12:00:00 AM EST [facility]) Name Value Range Interpretation Code Description Data Ade rce(s) Supporting Document(s) SARS-CoV-2 (COVID-19) RNA [Presence] in Respiratory specimen by KATHY with probe detection not detected not detected Sars Cov 2 RNA [facility] ([facility]) ID Date Data Source [id number] 08/09/2020 12:00:00 AM [facility] Name Value Range Interpretation Code Description Data Ade rce(s) Supporting Document(s) SARS-CoV-2 (COVID-19) RNA [Presence] in Respiratory specimen by KATHY with probe detection not detected not detected Sars Cov 2 RNA [facility]) ID Date Data Source [id number] 08/09/2020 12:00:00 AM EST [facility] Name Value Range Interpretation Code Description Data Ade rce(s) Supporting Document(s) SARS-CoV-2 (COVID-19) RNA [Presence] in Respiratory specimen by KATHY with probe detection not detected not detected Sars Cov 2 RNA [facility]) ID Date Data Source [id number] 08/09/2020 12:00:00 AM EST [facility]) Name Value Range Interpretation Code Description Data Ade rce(s) Supporting Document(s) SARS-CoV-2 (COVID-19) RNA [Presence] in Respiratory specimen by KATHY with probe detection not detected not detected Sars Cov 2 RNA [facility]) ID Date Data Source [id number] 08/09/2020 12:00:00 AM [facility] Name Value Range Interpretation Code Description Data Ade rce(s) Supporting Document(s) SARS-CoV-2 (COVID-19) RNA [Presence] in Respiratory specimen by KATHY with probe detection not detected not detected Sars Cov 2 RNA [facility]) ID Date Data Source [id number] 07/23/2020 08:57:00 AM EST [facility]) Name Value Range Interpretation Code Description Data Ade rce(s) Supporting Document(s) free T4 0.96 NG/dL 0.76-1.46 Free T4 [facility] ([facility]) thyroid stimulating hormone 7.870 uIU/mL 0.358-3.740 Above high no rmal Thyroid Stimulating Hormone [facility]DRA ([facility]) ID Date Data Source [id number] 07/23/2020 08:57:00 AM EST [facility] ([facility]) Name Value Range Interpretation Code Description Data Ade rce(s) Supporting Document(s) thyroid stimulating hormone 7.870 uIU/mL 0.358-3.740 Above high no rmal Thyroid Stimulating Hormone [facility]DRA ([facility]) free T4 0.96 NG/dL 0.76-1.46 Free T4 [place] ([facility]) ID Date Data Source [id number] 07/23/2020 08:57:00 AM EST [facility] ([facility]) Name Value Range Interpretation Code Description Data Ade rce(s) Supporting Document(s) thyroid stimulating hormone 7.870 uIU/mL 0.358-3.740 Above high no rmal Thyroid Stimulating Hormone [facility]DRA ([facility]) free T4 0.96 NG/dL 0.76-1.46 Free T4 [place] ([facility]) ID Date Data Source [id number] 07/23/2020 08:57:00 AM EST [facility] ([facility]) Name Value Range Interpretation Code Description Data Ade rce(s) Supporting Document(s) free T4 0.96 NG/dL 0.76-1.46 Free T4 [facility] ([facility]) thyroid stimulating hormone 7.870 uIU/mL 0.358-3.740 Above high no rmal [facility]roid [facility]ulating [facility]one [facility] ID Date Data Source [id number] 07/23/2020 08:57:00 AM EST [facility] Name Value Range Interpretation Code Description Data Ade rce(s) Supporting Document(s) thyroid stimulating hormone 7.870 uIU/mL 0.358-3.740 Above high no rmal Thyroid Stimulating Hormone ALEXANDRA ([facility]) free T4 0.96 NG/dL 0.76-1.46 Free T4 [facility]) ID Date Data Source [id number] 07/23/2020 08:57:00 AM EST [facility]) Name Value Range Interpretation Code Description Data Ade rce(s) Supporting Document(s) thyroid stimulating hormone 7.870 uIU/mL 0.358-3.740 Above high no rmal Thyroid Stimulating Hormone [facility]) free T4 0.96 NG/dL 0.76-1.46 Free T4 [facility]) ID Date Data Source [id number] 07/23/2020 08:57:00 AM EST [facility]) Name Value Range Interpretation Code Description Data Ade rce(s) Supporting Document(s) thyroid stimulating hormone 7.870 uIU/mL 0.358-3.740 Above high no rmal Thyroid Stimulating Hormone [facility]) free T4 0.96 NG/dL 0.76-1.46 Free T4 [facility]) ID Date Data Source [id number] 07/23/2020 08:57:00 AM EST [facility]) Name Value Range Interpretation Code Description Data Ade rce(s) Supporting Document(s) thyroid stimulating hormone 7.870 uIU/mL 0.358-3.740 Above high no rmal Thyroid Stimulating Hormone [facility]) free T4 0.96 NG/dL 0.76-1.46 Free T4 [facility]) ID Date Data Source [id number] 06/13/2020 12:30:00 PM EDT [facility] Name Value Range Interpretation Code Description Data Ade rce(s) Supporting Document(s) SARS coronavirus 2 RNA [facility] This lab was ordered by [facility] and reported by [facility]. ID Date Data Source [id number] 05/24/2020 09:08:06 AM EDT [facility] In-House Blood TestsDate/Time Colle cted: May 24, 2020 8:54 AMTest Result Reference Range Normal ValueComments: Labs drawn in office taken from right AC. Tolerated well.Kaci Fontenot MA, May 24, 2020 9:08 AMAssessment & Plan Orders:[id number] Vst-Est Level I [[id number]] [id number] - Venipuncture [[id number]] Name Value Range Interpretation Code Description Data Ade rce(s) Supporting Document(s) ID Date Data Source [id number] 05/24/2020 08:54:00 AM EDT [facility] Name Value Range Interpretation Code Description Data Ade rce(s) Supporting Document(s) HCT 38.7 % 36.0-47.0 N [facility] HGB 12.5 g/dL 12.0-15.5 N [facility] MCH 32.3 G/DL pg 32.0-36.5 N [facility] MCHC 25.9 PG % 27.0-33.0 L [facility] PLATELETS 264 10 10*3/mm3 150-450 N [facility] RBC 4.82 10 10*6/mm3 4.00-5.40 N [facility] RDW 13.1 % 11.5-14.5 [facility] WBC TOTAL 7.1 4.0-10.0 N [facility] ID Date Data Source [id number] 05/24/2020 08:54:00 AM EDT [facility] Name Value Range Interpretation Code Description Data Ade rce(s) Supporting Document(s) VIT D25 TOT 18.3 ng/mL 30.0-100.0 L [facility] BG FASTING 87 mg/dL 70-100 N [facility] T4, FREE 0.91 ng/dL 0.76-1.46 N [facility] TSH 6.940 microintl units/mL 0.358-3.740 H [facility] ID Date Data Source [id number] 05/24/2020 08:54:00 AM EDT [facility] Name Value Range Interpretation Code Description Data Ade rce(s) Supporting Document(s) HGBA1C 5.4 % N [facility] ID Date Data Source [id number] 05/23/2020 03:44:40 PM EDT [facility] Measurements & CalculationsHeight: 64 inches (5 ft. 4 in.) 162.56 cm Weight: 317 pounds 144.09 kg Body Mass Index (BMI): 54.61BMI Interpretation: Morbidly ObeseBody Surface Area (BSA): 2.38Weight Management Education Done (Nutrition/Physical Activity)Vital SignsTemperature: 98.2F 36.78C tympanic Pulse Rate: 108 beats/minuteRespiratory Rate: 18 respirations/minuteBlood Pressure: 149/98 right arm sitting automaticO2 Saturation: 96% Vital Signs performed by: Monique Pedroza LPN, May 23, 2020 3:45 PMVital Signs performed by: Kevyn MARES, May 23, 2020 4:14 PMInitial Intake Information From: patientRoom #: 2Infectious Disease / Travel ScreeningRecent travel for you or any close contacts? NoHave you had any close contact with anyone diagnosed with or under investigation for COVID-19 (coronavirus)? NoFever? NoRespiratory symptoms: cough, cold, congestion, shortn ess of breath, difficulty breathing? NoLoss of smell? NoLoss of taste? NoSmoking, Tobacco, Vaping or Smoke Exposure StatusSmoke Status: former smokerTobacco Use: NoDo you vape? NoPassive Smoke Exposure: NoMenstrual HistoryLast Menstrual Period (LMP): 05/16/2020LMP History: ApproximateAny possibility of ? NoHealthcare HistorySince your last office visit...Have you been admitted to the hospital? NoHave you been to an emergency room (ER) or urgent care clinic? No - urgent care for bronchitisHave you seen another healthcare provider? No - ob a woman's perspectiveHave you seen a dentist? Yes - NCFHDIntake performed by: Monique Pedroza LPN, May 23, 2020 3:49 PMRate Your HealthIn general, would you say your health is? FairPain AssessmentAre you currently having any pain which... You would like your provider to address? Yes Affects your activity level? YesDepression Screening - PHQ-2Over the last two weeks, have you... Had little interest or pleasure in doing things? Several days Been feeling down, depressed, or hopeless? Several days PHQ-2 Score: 2Anxiety Screening - THADDEUS-2Over the last two weeks, have you been... Feeling nervous, anxious, or on edge? Nearly every day Unable to stop or control worrying? Nearly every day THADDEUS-2 Score: 6Food InsecurityWithin the past year...Did you worry whether your food would run out before you got money to buy more? Never trueWas there a time when the food you bought didn't last and you didn't have money to get more? Never truePHQ-9 1. Over the last 2 weeks, patient reports the following frequency of symptoms: a. Little interest or pleasure in doing things - Several days b. Feeling down, depressed, or hopeless -Several days c. Trouble falling asleep, staying asleep, or sleeping too much -Several days d. Feeling tired or having little energy -Several days e. Poor appetite or overeating -Several days f. Feeling bad about yourself, feeling that you are a failure, or feeling that you have let yourself or your family down -Several days g. Trouble concentrating on things such as reading the newspaper or watching television -Several days h. Moving or speaking so slowly that other people could have noticed. Or being so fidgety or restless that you have been moving around a lot more than usual -Several days i. Thinking that you would be better off or that you want to hurt yourself in some way -Not at all2. If you checked off any problems, how difficult have these problems made it for you to do your work, take care of things at home, or get along with other people? -Somewhat DifficultToday's PHQ-9 Results Score: 8 Severity: Mild Diagnosis Recommendation: No recommendation Functional Impairment: Somewhat DifficultToday's Follow-Up Action Depression follow-up done. Follow-Up Action: Prescribed Antidepressant MedicationGeneralized Anxiety Disorder 7-Item Screening (THADDEUS-7)Answer Guide:0 = Not at all1 = Several days2 = Over half the days3 = Nearly every dayOver the last 2 weeks, how often have you been bothered by the following problems?Feeling nervous, anxious, or on edge: 3Not being able to stop or control worryinWorrying too much about different things: 3Trouble relaxinBeing so restless that it's hard to sit still: 3Becoming easily annoyed or irritable: 3Feeling afraid as if something awful might happen: 3Answer Guide:0 = Not difficult at all1 = Somewhat difficult2 = Very difficult3 = Extremely difficultHow difficult have these made it for you to do your work, take care of things at home, or get along with other people? 3GAD-7 Screening Results THADDEUS-2 Score: 6GAD-7 Score: 21Functional Impairment: Extremely difficultRecommendation: Severe anxietyPRAPARE Sociodemographic Characteristics Race: White Ethnicity: Not or Preferred Language: EnglishFamily and Home Address: [address] [place] [address] What is your housing situation today? I have housing Are you worried about losing your housing? NoMoney and Resources What is the highest level of school that you have finished? bachelor's degree Employed? 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 Denies Insecurity: food, utilities, clothing, child adolescent psychiatrist, phone, legal services, otherWithin the past year did you worry whether your food would run out before you got money to buy more? Never trueWithin the past year was there a time when the food you bought didn't last and you didn't have money to get more? Never trueIn the past year, have you had trouble affording costs associated with health insurance (such as deductibles, co-payments, etc.)? NoScreening, Brief Intervention, & Referral to Treatment (SBIRT)Pre-Screening Questions How many times have you have 4 or more drinks in a day? 0How many times have you used an illegal drug or used a prescription medication for a non-medical reason? 0Performed by: Monique Pedroza LPN, May 23, 2020 3:53 PMPatient History Medical History:eugenia's diseaseHSV 2thyroid nodulesdiverticulosis 2015crohn's disease 2015pancreatitisSurgical History:gallbladderAppendectomycolonoscopy 2015Family History:Hypertension (Mother, Father)Social/Personal History: Chief Complaintannual examHistory of Present Illness (HPI)34 yo female presents for annual PE. Pt states she can not stop gaining weight, believes thyroid is acting up again. Has been exercising 30 minutes daily, tracking meals with [employer]. Has gained 8 pounds since 01/2020 visit. Pt needs control refilled and unable to get ahold of OB. Pt states she has had migraines frequently, low back pain, leg weakness. Pt's father had MS and she has never been screened. Also reports significant social anxiety, denies relation to COVID19. Admits to having issues with her and relationship (he is screaming at her at times), financial instability, children schooling remotely, patient attending work/school together. Previously was on Paxil, states it was ineffective and she "didn't like it". Has been seen by [facility], Dr. Montenegro, had stool studies and CBC done a few weeks. Scheduled for colonoscopy and EGD on 06/18/2020. Transitions of Care InboundProblem ReviewProblem List was reviewed and/or updated during this visit.Medication Reconciliation & ReviewMedication List was reviewed and/or updated during this visit, including review of any [id number] medications, herbal therapies, and/or supplements.Allergy ReviewAllergy List was reviewed and/or updated during this visit.Adult Preventive CareLabs/Meds/Other Counseling-Nutrition and Physical Activity:BMI Interpretation: Morbidly Obese (05/23/2020) Counseling: Done (05/23/2020) Physical Activity: Done (05/23/2020)Review of Systems General: Complains of headache. Denies loss of appetite, chills, dizziness, fatigue, fever, feeling ill. Eyes: Denies blurring of vision, double vision. Ears/Nose/Throat: Denies earache, nasal congestion, sore throat, swollen glands. Cardiovascular: Denies chest pain, palpitations, feeling faint, peripheral edema. Respiratory: Denies cough, difficulty breathing, shortness of breath, wh eezing. Gastrointestinal: Complains of see HPI. Genitourinary: Denies pain with urination, burning with urination, blood in urine. Musculoskeletal: Complains of see HPI, leg pain, muscle weakness. Denies recent injury. Skin: Denies rash, redness, suspicious lesions. Neurologic: Complains of see HPI, weakness. Denies numbness/tingling, seizures, slurred speech, feeling faint. Psychiatric: Complains of see HPI, depression, anxiety, feeling stressed. Physical ExamGeneral Appearance: well nourished, well hydrated, no acute distress, obese femaleEyes, External: conjunctivae and lids normal, EOMIExternal Ears: normal, no lesions or deformitiesHearing: grossly intactOtoscopy: canals clear, tympanic membranes intact, no fluid, light reflex intact bilaterallyExternal Nose: normal, no lesions or deformitiesNasal: mucosa, septum, and turbinates normal, nares patentLips/Teeth/Gums: no gingival inflammation, no labial lesionsPharynx: tongue normal, posterior pharynx without erythema or exudate, no thrush/aphthous ulcerNeck: supple, no masses, trachea midline, full range of motion of neckThyroid: no nodules, masses, tenderness, or enlargementRespiratory, Auscultation: clear to auscultation bilaterally; no rales, rhonchi, or wheezesCardiovascular, Auscultation: S1, S2 audible; no murmur, rub, or gallop; RRRPeripheral Circulation: no clubbing, cyanosis, edema, or varicositiesAbdomen: soft, non-tender, no masses, bowel sounds normalGait & Station: normalSkin, Inspection: no rashes, lesions, or ulcerationsOrientation: oriented to time, place, and personMood & Affect: somewhat flat affect and anxious appearingJudgment & Insight: intactCare Management Plan Transitions of CareInboundRate Your HealthIn general, would you say your health is? FairAssessment & Plan Problems:Added: Encounter for general adult medical examination with abnormal findings (ICD-V70.0) (XLD07-J90.01) Assessment: Instructions: Recommend annual medical appointments. Recommend routine dental and vision care. Recommend influenza vaccines annually and tetanus boosters every 10 years. Continue with [facility] for routine pap.Encounter for initial prescription of other contraceptives (ICD-V25.02) (ZUJ73-P35.018) Assessment: Instructions: Start Ortho TriCyclen Lo as previously prescribed.Morbid obesity (ICD-278.01) (ZDK55-I06.01) Assessment: Instructions: Recommend healthy lifestyle modification. Encourage portion control, healthy food choices, and increasing routine physical activity. Recommendation is for 150 minutes throughout the week of cardiovascular exercise.Weight gain (AZM24-L30.5) Asses sment: Instructions: Fasting labs have been ordered for you today. When labs are drawn, please ensure that you have had nothing to eat or drink for 8-10 hours prior to the blood drawn. Water or black coffee is OK to have before the blood draw.Family history of other neurological diseases (ICD-V17.2) (ICD10- Z82.0): multiple sclerosis-father Assessment: Instructions: Referral to neurology for evaluation for possible MS given family history.Mild memory disturbance (ICD-310.89) (ULL32-N98.3) Assessment: Instructions: As above.Low back pain (ICD-724.2) (NXT32-A51.5) Assessment: Instructions: May be secondary to weight gain. Wear supportive shoes, use safe body/lifting mechanics, heat/ice as needed.Mixed anxiety and depressive disorder (ICD-300.4) (HND27-I70.8) Assessment: Instructions: Start Lexapro daily as prescribed. Stress reduction as able. Consider counseling services.Changed:From: Dx of Body Mass Index 40.0-44.9, adult (ICD-V85.41) (KLM08-P49.41) To: Body Mass Index 50.0-59.9, adult (ICD-V85.43) (MMO53-E68.43)Assessed:Crohn's disease of large intestine with rectal bleeding (SBR17-F95.111) Assessment: Instructions: Continue per GI.Diverticulosis of large intestine without perforation or abscess with bleeding (ICD-562.12) (GSM49-G05.31) Assessment: Instructions: As above.Body Mass Index 50.0-59.9, adult (ICD-V85.43) (BGO27-T05.43) Assessment: Instructions: Continue current healthy lifestyle efforts.Autoimmune thyroiditis (ICD-245.2) (SEC25-A99.3) Assessment: Instructions: Update labs to assess further.Removed:Periorbital edema of left eye (NVY31-S73.222), Subcutaneous nodule (ICD-782.2) (XXS87-D46.9), Subcutaneous nodule (ICD-782.2) (ZPU55-C44.9)Patient Instructions/Care Plan: Encounter for general adult medical examination with abnormal findings: Recommend annual medical appointments. Recommend routine dental and vision care. Recommend influenza vaccines annually and tetanus boosters every 10 years. Continue with [facility] for routine pap.E ncounter for initial prescription of other contraceptives: Start Ortho TriCyclen Lo as previously prescribed.Crohn's disease of large intestine with rectal bleeding: Continue per GI.Diverticulosis of large intestine without perforation or abscess with bleeding: As above.Morbid obesity: Recommend healthy lifestyle modification. Encourage portion control, healthy food choices, and increasing routine physical activity. Recommendation is for 150 minutes throughout the week of cardiovascular exercise.Weight gain: Fasting labs have been ordered for you today. When labs are drawn, please ensure that you have had nothing to eat or drink for 8-10 hours prior to the blood drawn. Water or black coffee is OK to have before the blood draw.Body Mass Index 50.0-59.9- adult: Continue current healthy lifestyle efforts.Autoimmune thyroiditis: Update labs to assess further.Family history of other neurological diseases: Referral to neurology for evaluation for possible MS given family history.Mild memory disturbance: As above.Low back pain: May be secondary to weight gain. Wear supportive shoes, use safe body/lifting mechanics, heat/ice as needed.Mixed anxiety and depressive disorder: Start Lexapro daily as prescribed. Stress reduction as able. Consider counseling services. Plan developed in collaboration with patient and/or familyMedications:LEXAPRO 10 MG ORAL TABLETORTHO TRI-CYCLEN LO 0.18/0.215/0.25 MG-25 MCG ORAL TABLETLEVO-T88 MCG ORAL TABLET (LEVOTHYROXINE SODIUM)Medication Changes:Refilled:ORTHO TRI-CYCLEN LO 0.18/0.215/0.25 MG-25 MCG ORAL TABLET-Take 1 tablet po daily Qty: 28[Tablet] Refills: 11 Method: ElectronicNew Prescription:LEXAPRO 10 MG ORAL TABLET-Take 1 tablet by mouth once daily Qty: 30[Tablet] Refills: 1 Method: ElectronicRemoved:PREDNISONE 10 MG ORAL TABLET-Take 3 tablets po daily with food days 8-14, 2 tabs daily days 15- , 1 tablet daily days -, 0.5 tablet daily days -36, then stop Qty: 46[Tablet] Refills: 0, PREDNISONE 20 MG ORAL TABLET-Take 2 tablets po daily with food days 1-7 Qty: 14[Tablet] Refills: 0Changed:From: ORAL ORTHO TRI-CYCLEN LO 0.18/0.215/0.25 MG-25 MCG ORAL TABLET Qty: [id number] Refills: 28[Tablet] To: ORTHO TRI-CYCLEN LO 0.18/0.215/0.25 MG-25 MCG ORAL TABLET-Take 1 tablet po daily Qty: 28[Tablet] Refills: 11Allergies:* SEASONAL (Critical)* BEES (Critical)PAXIL (PAROXETINE HCL) (Moderate)Orders:HCG [CPT-38825] COMP METABOLIC PANEL [CPT-44883] CBC W/DIFF [CPT-89814] LIPID PANEL [CPT-76330] TSH [CPT-18706] T-4 free [CPT-94149] Vitamin D 250H Unspecified [CPT-22842] VITAMIN B-12 [CPT- 42743] HgBA1c [CPT-03672] Neurology Consult [CPT-99366] Preventive, Est, (18-39) [CPT-69529] Follow-Up Return to clinic: as needed, 3-6 months for follow upClinical Visit Summary Completed Name Value Range Interpretation Code Description Data Ade rce(s) Supporting Document(s) Procedure Social History No Information Vital Signs ID Date Data Source UNK Name Value Range Interpretation Code Description Data Source(s) Body height 64 [in_i] 64 [in_i] ALEXANDRA ([facility]) Body height 64 [in_i] 64 [in_i] A[facility] ([facility]) Diastolic blood pressure 94 mm[Hg] 94 mm[Hg] ALEXANDRA ([facility]) Systolic blood pressure 142 mm[Hg] 142 mm[Hg] A [facility] ([facility]) Body weight 4912 [oz_av] 4912 [oz_av] ALEXANDRA ([facility]) Body height 64 [in_i] 64 [in_i] ALEXANDRA ([facility]) Body mass index (BMI) [Ratio] 52.7 kg/m2 52.7 k g/m2 ALEXANDRA ([facility]) Diastolic blood pressure 94 mm[Hg] 94 mm[Hg] ALEXANDRA ([facility]) Body height 64 [in_i] 64 [in_i] A[facility]DRA ([facility]) Body mass index (BMI) [Ratio] 52.7 kg/m2 52.7 k g/m2 ALEXANDRA ([facility]) Systolic blood pressure 142 mm[Hg] 142 mm[Hg] A [facility] ([facility]) Body weight 4912 [oz_av] 4912 [oz_av] ALEXANDRA ([facility]) Diastolic blood pressure 94 mm[Hg] 94 mm[Hg] ALEXANDRA ([facility]) Body height 64 [in_i] 64 [in_i] A[facility]ANDRA ([facility]) Body mass index (BMI) [Ratio] 52.7 kg/m2 52.7 k g/m2 ALEXANDRA ([facility]) Systolic blood pressure 142 mm[Hg] 142 mm[Hg] A THENA ([facility]) Body weight 4912 [oz_av] 4912 [oz_av] ALEXANDRA ([facility]) Body weight 305.00 [lb_av] 305.00 [lb_av] MEDEN T ([facility], ) Body mass index (BMI) [Ratio] 50.7 kg/m2 50.7 k g/m2 MEDENT ([facility], ) [place] body weight 125 [lb_av] 125 [lb_av] MEDEN T ([facility], ) Respiratory rate 12 /min 12 /min MEDENT ( [facility], ) Body height 65 [in_i] 65 [in_i] MEDENT ([facility], ) 5'5" Heart rate 79 /min 79 /min MEDENT ([facility] ) Body temperature 97.1 [degF] 97.1 [degF] MEDENT ([facility] ) Body height 63.7 [in_i] 63.7 [in_i] MEDENT ([facility] ) 5'3.70" Body weight 312.25 [lb_av] 312.25 [lb_av] MEDEN T ([facility] ) Body mass index (BMI) [Ratio] 54.1 kg/m2 54.1 k g/m2 MEDENT ([facility] ) Oxygen saturation in Arterial blood by Pulse oximetry 97 % 97 % MEDENT ([facility] ) Systolic blood pressure 132 mm[Hg] 132 mm[Hg] M EDENT ([facility] ) Diastolic blood pressure 98 mm[Hg] 98 mm[Hg] MEDENT ([facility] ) Body height 64 [in_i] 64 [in_i] ALEXANDRA ([facility]) Body height 64 [in_i] 64 [in_i] ALEXANDRA ([facility]) Body height 64 [in_i] 64 [in_i] ALEXANDRA ([facility]) Body height 64 [in_i] 64 [in_i] ALEXANDRA ([facility]) Body height 64 [in_i] 64 [in_i] ALEXANDRA ([facility]) Body height 64 [in_i] 64 [in_i] ALEXANDRA ([facility]) Body height 64 [in_i] 64 [in_i] ALEXANDRA ([facility]) Body height 64 [in_i] 64 [in_i] ALEXANDRA ([facility]) Body height 64 [in_i] 64 [in_i] ALEXANDRA ([facility]) Body temperature 96.0 [degF] 96.0 [degF] MEDENT ([facility]) Body height 64 [in_i] 64 [in_i] MEDENT ([facility]) 5'4" Body weight 300.38 [lb_av] 300.38 [lb_av] MEDEN T ([facility]) Body mass index (BMI) [Ratio] 51.6 kg/m2 51.6 k g/m2 MEDENT ([facility]) Body height 64 [in_i] 64 [in_i] ALEXANDRA ([facility]) Body height 64 [in_i] 64 [in_i] ALEXANDRA ([facility]) Body height 64 [in_i] 64 [in_i] ALEXANDRA ([facility]) Body height 64 [in_i] 64 [in_i] ALEXANDRA ([facility]) Body height 64 [in_i] 64 [in_i] ALEXANDRA ([facility]) Body height 64 [in_i] 64 [in_i] ALEXANDRA ([facility]) Respiratory rate 12 /min 12 /min MEDENT ( [facility] ) Body height 65 [in_i] 65 [in_i] MEDENT ([facility]) 5'5" Body weight 315.00 [lb_av] 315.00 [lb_av] MEDEN T ([facility]) Body mass index (BMI) [Ratio] 52.4 kg/m2 52.4 k g/m2 MEDENT ([facility]) [place] body weight 125 [lb_av] 125 [lb_av] MEDEN T ([facility]) Diastolic blood pressure 98 mm[Hg] 98 mm[Hg] ALEXANDRA ([facility]) Body height 64 [in_i] 64 [in_i] ALEXANDRA ([facility]) Body mass index (BMI) [Ratio] 54.61 kg/m2 54.61 kg/m2 ALEXANDRA ([facility]) Systolic blood pressure 149 mm[Hg] 149 mm[Hg] [facility] Body weight 5072 [oz_av] 5072 [oz_av] ALEXANDRA ([facility]) Diastolic blood pressure 98 mm[Hg] 98 mm[Hg] ALEXANDRA ([facility]) Body mass index (BMI) [Ratio] 54.61 kg/m2 54.61 kg/m2 ALEXANDRA ([facility]) Systolic blood pressure 149 mm[Hg] 149 mm[Hg] [facility] Body weight 5072 [oz_av] 5072 [oz_av] ALEXANDRA ([facility]) Body height 64 [in_i] 64 [in_i] ALEXANDRA ([facility]) Diastolic blood pressure 98 mm[Hg] 98 mm[Hg] ALEXANDRA ([facility]) Body height 64 [in_i] 64 [in_i] ALEXANDRA ([facility]) Body mass index (BMI) [Ratio] 54.61 kg/m2 54.61 kg/m2 ALEXANDRA ([facility]) Systolic blood pressure 149 mm[Hg] 149 mm[Hg] [facility] Body weight 5072 [oz_av] 5072 [oz_av] ALEXANDRA ([facility]) Diastolic blood pressure 98 mm[Hg] 98 mm[Hg] ALEXANDRA ([facility]) Body height 64 [in_i] 64 [in_i] ALEXANDRA ([facility]) Body mass index (BMI) [Ratio] 54.61 kg/m2 54.61 kg/m2 ALEXANDRA ([facility]) Systolic blood pressure 149 mm[Hg] 149 mm[Hg] [facility] Body weight 5072 [oz_av] 5072 [oz_av] ALEXANDRA ([facility]) Patient Treatment Plan of Care Planned Activity Planned Date Details Description Data Source (s) POLYETHYLENE GLYCOL 3350 105 MG/ML / Pot assium Chloride 0.13333 MEQ/ML / Sodium Bicarbonate 0.017 MEQ/ML / Sodium Chloride 0.0479 MEQ/ML Oral Solution ALEXANDRA ([facility]) Ondansetron 4 MG Oral Tablet ALEXANDRA ([facility]) Metronidazole 500 MG Oral Tablet ALEXANDRA ([facility]) Methocarbamol 750 MG Oral Tablet ALEXANDRA ([facility]) meloxicam 15 MG Oral Tablet ALEXANDRA ([facility]) Levothyroxine Sodium 0.088 MG Oral Tablet ALEXANDRA ([facility]) Levothyroxine Sodium 0.075 MG Oral Tablet ALEXANDRA ([facility]) Levothyroxine Sodium 0.025 MG Oral Tablet ALEXANDRA ([facility]) Ibuprofen 800 MG Oral Tablet ALEXANDRA ([facility]) Hydroxyzine Hydrochloride 25 MG Oral Tablet ALEXANDRA ([facility]) Acetaminophen 325 MG / Hydrocodone Bitartrate 5 MG Oral Tablet ALEXANDRA ([facility]) Codeine Phosphate 2 MG/ML / Guaifenesin 20 MG/ML Oral Solution [place] ([facility]) Flulaval Quad 4503-7644 60 mcg (15 mcg x 4)/0.5 mL intramuscular susp. DIRECTED ALEXANDRA ([facility]) Escitalopram 10 MG Oral Tablet ALEXANDRA ([facility]) Ciprofloxacin 500 MG Oral Tablet ALEXANDRA ([facility]) buspirone hydrochloride 7.5 MG Oral Tablet ALEXANDRA ([facility]) Bisacodyl 5 MG Delayed Release Oral Tablet ALEXANDRA ([facility]) benzonatate 100 MG Oral Capsule [facility]DR[facility] ([facility] [facility]) Amoxicillin 500 MG Oral Capsule ALEXANDRA ([facility]) Acetaminophen 300 MG / Codeine Phosphate 30 MG Oral Tablet [facility]DRA ([facility]) valacyclovir 500 MG Oral Tablet [facility]A ([facility]) valacyclovir 1000 MG Oral Tablet [facility]LEX[facility]DRA ([facility]) Tri-Lo-Susie 0.18/0.215/0.25 mg-25 mcg tablet TAKE ONE TABLET BY MOUTH EVERY DAY ALEXANDRA ([facility]) topiramate 25 MG Oral Tablet [facility]DRA ([facility]) Prednisone 20 MG Oral Tablet [facility]A ([facility]) Prednisone 10 MG Oral Tablet [facility]DRA ([facility]) POLYETHYLENE GLYCOL 3350 105 MG/ML / Pot assium Chloride 0.93809 MEQ/ML / Sodium Bicarbonate 0.017 MEQ/ML / Sodium Chloride 0.0479 MEQ/ML Oral Solution ALEXANDRA ([facility]) Ondansetron 4 MG Oral Tablet [facility]A ([facility]) Metronidazole 500 MG Oral Tablet [facility]DRA ([facility]) Methocarbamol 750 MG Oral Tablet [facility]DRA ([facility]) meloxicam 15 MG Oral Tablet [facility]A ([facility]) Levothyroxine Sodium 0.088 MG Oral Tablet [facility]A ([facility]) Levothyroxine Sodium 0.075 MG Oral Tablet [facility]A ([facility]) Levothyroxine Sodium 0.025 MG Oral Tablet [facility]A ([facility]) Ibuprofen 800 MG Oral Tablet [facility]DRA ([facility]) Hydroxyzine Hydrochloride 25 MG Oral Tablet [facility]DRA ([facility]) Acetaminophen 325 MG / Hydrocodone Bitartrate 5 MG Oral Tablet [facility]DRA ([facility]) Codeine Phosphate 2 MG/ML / Guaifenesin 20 MG/ML Oral Solution [place] ([facility]) Flulaval Quad 9472-8713 60 mcg (15 mcg x 4)/0.5 mL intramuscular susp. DIRECTED ALEXANDRA ([facility]) Escitalopram 10 MG Oral Tablet ALEX[facility]DRA ([facility]) Ciprofloxacin 500 MG Oral Tablet ALEX[facility]DRA ([facility]) buspirone hydrochloride 7.5 MG Oral Tablet [facility]LEX[facility]DRA ([facility]) Bisacodyl 5 MG Delayed Release Oral Tablet [facility]LEX[facility]DRA ([facility]) benzonatate 100 MG Oral Capsule [facility] ([facility] Acetaminophen 300 MG / Codeine Phosphate 30 MG Oral Tablet [facility]A ([facility]) valacyclovir 500 MG Oral Tablet [facility]DRA ([facility]) valacyclovir 1000 MG Oral Tablet [facility]DRA ([facility]) Tri-Lo-Susie 0.18/0.215/0.25 mg-25 mcg tablet TAKE ONE TABLET BY MOUTH EVERY DAY [facility]LEXANDRA ([facility]) topiramate 25 MG Oral Tablet [facility]A ([facility]) Prednisone 20 MG Oral Tablet [facility] ([facility]) Prednisone 10 MG Oral Tablet [facility]A ([facility]) POLYETHYLENE GLYCOL 3350 105 MG/ML / Pot assium Chloride 0.59210 MEQ/ML / Sodium Bicarbonate 0.017 MEQ/ML / Sodium Chloride 0.0479 MEQ/ML Oral Solution [facility]LEXANDRA ([facility]) Ondansetron 4 MG Oral Tablet [facility]A ([facility]) Metronidazole 500 MG Oral Tablet [facility]A ([facility]) Methocarbamol 750 MG Oral Tablet [facility]DRA ([facility]) meloxicam 15 MG Oral Tablet [facility]DRA ([facility]) Levothyroxine Sodium 0.088 MG Oral Tablet [facility] ([facility]) Levothyroxine Sodium 0.075 MG Oral Tablet [facility]A ([facility]) Levothyroxine Sodium 0.025 MG Oral Tablet [facility]A ([facility]) Ibuprofen 800 MG Oral Tablet [facility]A ([facility]) Hydroxyzine Hydrochloride 25 MG Oral Tablet [facility]A ([facility]) Acetaminophen 325 MG / Hydrocodone Bitartrate 5 MG Oral Tablet [facility]A ([facility]) Codeine Phosphate 2 MG/ML / Guaifenesin 20 MG/ML Oral Solution [place] ([facility]) Flulaval Quad 8327-5912 60 mcg (15 mcg x 4)/0.5 mL intramuscular susp. DIRECTED ALEXANDRA ([facility]) Escitalopram 10 MG Oral Tablet [facility]LEXANDRA ([facility]) Ciprofloxacin 500 MG Oral Tablet [facility]) Bisacodyl 5 MG Delayed Release Oral Tablet [facility]DRA ([facility]) benzonatate 100 MG Oral Capsule [facility]DRA ([facility]) Amoxicillin 500 MG Oral Capsule [facility]) Acetaminophen 300 MG / Codeine Phosphate 30 MG Oral Tablet [facility]) Escitalopram 10 MG Oral Tablet [facility]A ([facility]) Ciprofloxacin 500 MG Oral Tablet [facility]A ([facility]) Bisacodyl 5 MG Delayed Release Oral Tablet [facility]A ([facility]) benzonatate 100 MG Oral Capsule [facility]) Amoxicillin 500 MG Oral Capsule [facility]DRA ([facility]) Acetaminophen 300 MG / Codeine Phosphate 30 MG Oral Tablet [facility]A ([facility]) valacyclovir 500 MG Oral Tablet [facility]A ([facility]) valacyclovir 1000 MG Oral Tablet [facility]DRA ([facility]) topiramate 25 MG Oral Tablet [facility] ([facility]) Prednisone 20 MG Oral Tablet [facility]A ([facility]) Prednisone 10 MG Oral Tablet [facility]A ([facility]) POLYETHYLENE GLYCOL 3350 105 MG/ML / Pot assium Chloride 0.00894 MEQ/ML / Sodium Bicarbonate 0.017 MEQ/ML / Sodium Chloride 0.0479 MEQ/ML Oral Solution [facility]LEX[facility]DRA ([facility]) Ondansetron 4 MG Oral Tablet [facility]A ([facility]) Metronidazole 500 MG Oral Tablet [facility]DRA ([facility]) Levothyroxine Sodium 0.088 MG Oral Tablet [facility]A ([facility]) Levothyroxine Sodium 0.075 MG Oral Tablet [facility]DRA ([facility]) Levothyroxine Sodium 0.025 MG Oral Tablet [facility]A ([facility]) Ibuprofen 800 MG Oral Tablet [facility]A ([facility]) Acetaminophen 325 MG / Hydrocodone Bitartrate 5 MG Oral Tablet [facility]A ([facility]) Flulaval Quad 7984-2252 60 mcg (15 mcg x 4)/0.5 mL intramuscular susp. DIRECTED ALEXANDRA ([facility]) Escitalopram 10 MG Oral Tablet [facility]A ([facility]) Ciprofloxacin 500 MG Oral Tablet [facility]A ([facility]) Bisacodyl 5 MG Delayed Release Oral Tablet [facility]LEX[facility]DRA ([facility]) benzonatate 100 MG Oral Capsule [facility]DRA ([facility]) Amoxicillin 500 MG Oral Capsule [facility]DRA ([facility]) Acetaminophen 300 MG / Codeine Phosphate 30 MG Oral Tablet [facility]DRA ([facility]) valacyclovir 1000 MG Oral Tablet [facility]LEX[facility]DRA ([facility]) Tri-Lo-Susie 0.18/0.215/0.25 mg-25 mcg tablet [facility]LEXANDRA ([facility]) Prednisone 20 MG Oral Tablet [facility]A ([facility]) Prednisone 10 MG Oral Tablet [facility]A ([facility]) POLYETHYLENE GLYCOL 3350 105 MG/ML / Pot assium Chloride 0.77083 MEQ/ML / Sodium Bicarbonate 0.017 MEQ/ML / Sodium Chloride 0.0479 MEQ/ML Oral Solution [facility]DRA ([facility]) Ondansetron 4 MG Oral Tablet [facility]A ([facility]) Metronidazole 500 MG Oral Tablet [facility]A ([facility]) Levothyroxine Sodium 0.088 MG Oral Tablet [facility]A ([facility]) Levothyroxine Sodium 0.075 MG Oral Tablet [facility]DRA ([facility]) Levothyroxine Sodium 0.025 MG Oral Tablet [facility]A ([facility]) Ibuprofen 800 MG Oral Tablet [facility]DRA ([facility]) Acetaminophen 325 MG / Hydrocodone Bitartrate 5 MG Oral Tablet [facility]DRA ([facility]) Flulaval Quad 60 mcg (15 mcg x 4)/0.5 mL intramuscular susp. DIRECTED ALEXANDRA ([facility]) Escitalopram 10 MG Oral Tablet [facility]DRA ([facility]) Ciprofloxacin 500 MG Oral Tablet [facility]DRA ([facility]) Bisacodyl 5 MG Delayed Release Oral Tablet [facility]DRA ([facility]) Acetaminophen 300 MG / Codeine Phosphate 30 MG Oral Tablet [facility]DRA ([facility]) Ondansetron 4 MG Oral Tablet [facility]DRA ([facility]) Metronidazole 500 MG Oral Tablet [facility]DRA ([facility]) Levothyroxine Sodium 0.088 MG Oral Tablet [facility]A ([facility]) Levothyroxine Sodium 0.075 MG Oral Tablet [facility]DRA ([facility]) Levothyroxine Sodium 0.025 MG Oral Tablet [facility]DRA ([facility]) Ibuprofen 800 MG Oral Tablet [facility]DRA ([facility]) Acetaminophen 325 MG / Hydrocodone Bitartrate 5 MG Oral Tablet [facility]DRA ([facility]) Flulaval Quad 60 mcg (15 mcg x 4)/0.5 mL intramuscular susp. DIRECTED ALEXANDRA ([facility]) Escitalopram 10 MG Oral Tablet [facility]LEX[facility]DRA ([facility]) Ciprofloxacin 500 MG Oral Tablet [facility]DRA ([facility]) Bisacodyl 5 MG Delayed Release Oral Tablet [facility]DRA ([facility]) Acetaminophen 300 MG / Codeine Phosphate 30 MG Oral Tablet [facility]DRA ([facility]) valacyclovir 500 MG Oral Tablet [facility]DRA ([facility]) valacyclovir 1000 MG Oral Tablet [facility]A ([facility]) Tri-Lo-Susie 0.18/0.215/0.25 mg-25 mcg tablet TAKE ONE TABLET BY MOUTH EVERY DAY ALEXANDRA ([facility]) topiramate 25 MG Oral Tablet [facility]DRA ([facility]) Prednisone 20 MG Oral Tablet [facility]A ([facility]) Prednisone 10 MG Oral Tablet [facility]A ([facility]) valacyclovir 500 MG Oral Tablet [facility]DRA ([facility]) valacyclovir 1000 MG Oral Tablet [facility]DRA ([facility]) Tri-Lo-Susie 0.18/0.215/0.25 mg-25 mcg tablet TAKE ONE TABLET BY MOUTH EVERY DAY ALEXANDRA ([facility]) topiramate 25 MG Oral Tablet [facility]DRA ([facility]) Prednisone 20 MG Oral Tablet [facility]DRA ([facility]) Prednisone 10 MG Oral Tablet [facility]DRA ([facility]) POLYETHYLENE GLYCOL 3350 105 MG/ML / Pot assium Chloride 0.55155 MEQ/ML / Sodium Bicarbonate 0.017 MEQ/ML / Sodium Chloride 0.0479 MEQ/ML Oral Solution ALEXANDRA ([facility]) Ondansetron 4 MG Oral Tablet ALEXANDRA ([facility]) Metronidazole 500 MG Oral Tablet [facility]DRA ([facility]) Methocarbamol 750 MG Oral Tablet [facility]DRA ([facility]) Levothyroxine Sodium 0.088 MG Oral Tablet [facility]DRA ([facility]) Levothyroxine Sodium 0.075 MG Oral Tablet [facility]DRA ([facility]) Levothyroxine Sodium 0.025 MG Oral Tablet [facility]ANDRA ([facility]) Ibuprofen 800 MG Oral Tablet [facility]DRA ([facility]) Acetaminophen 325 MG / Hydrocodone Bitartrate 5 MG Oral Tablet [facility]DRA ([facility]) Codeine Phosphate 2 MG/ML / Guaifenesin 20 MG/ML Oral Solution ALEXANDRA ([facility]) Flulaval Quad 4686-6798 60 mcg (15 mcg x 4)/0.5 mL intramuscular susp. DIRECTED ALEXANDRA ([facility]) valacyclovir 1000 MG Oral Tablet ALEXANDRA ([facility]) Tri-Lo-Susie 0.18/0.215/0.25 mg-25 mcg tablet ALEXANDRA ([facility]) Prednisone 20 MG Oral Tablet [facility]DRA ([facility]) Prednisone 10 MG Oral Tablet [facility]DRA ([facility]) POLYETHYLENE GLYCOL 3350 105 MG/ML / Pot assium Chloride 0.99157 MEQ/ML / Sodium Bicarbonate 0.017 MEQ/ML / Sodium Chloride 0.0479 MEQ/ML Oral Solution [facility]LEXANDRA ([facility]) Ondansetron 4 MG Oral Tablet [facility]DRA ([facility]) Metronidazole 500 MG Oral Tablet [facility]DRA ([facility]) Levothyroxine Sodium 0.088 MG Oral Tablet [facility]DRA ([facility]) Levothyroxine Sodium 0.075 MG Oral Tablet ALEX[facility]DRA ([facility]) Levothyroxine Sodium 0.025 MG Oral Tablet ALEXANDRA ([facility]) Ibuprofen 800 MG Oral Tablet [facility]DRA ([facility]) Acetaminophen 325 MG / Hydrocodone Bitartrate 5 MG Oral Tablet ALEXANDRA ([facility]) Flulaval Quad 6839-5605 60 mcg (15 mcg x 4)/0.5 mL intramuscular susp. DIRECTED ALEXANDRA ([facility]) Escitalopram 10 MG Oral Tablet [facility]LEX[facility]DRA ([facility]) Ciprofloxacin 500 MG Oral Tablet [facility]LEX[facility]DRA ([facility]) Bisacodyl 5 MG Delayed Release Oral Tablet [facility]LEXANDRA ([facility]) Acetaminophen 300 MG / Codeine Phosphate 30 MG Oral Tablet [facility]LEX[facility]DRA ([facility]) valacyclovir 1000 MG Oral Tablet [facility]LEXANDRA ([facility]) Tri-Lo-Susie 0.18/0.215/0.25 mg-25 mcg tablet ALEXANDRA ([facility]) Prednisone 20 MG Oral Tablet ALEXANDRA ([facility]) Prednisone 10 MG Oral Tablet [facility]LEXANDRA ([facility]) POLYETHYLENE GLYCOL 3350 105 MG/ML / Pot assium Chloride 0.63480 MEQ/ML / Sodium Bicarbonate 0.017 MEQ/ML / Sodium Chloride 0.0479 MEQ/ML Oral Solution ALEXANDRA ([facility])
[2021-07-13 00:30] LABS: BASO # 0.1 10^3/uL (0.0-0.2); BASO % 0.5 % (0.0-1.0); EOS # 0.3 10^3/uL (0.0-0.5); EOS % 2.9 % (0.0-3.0); HEMATOCRIT 41.2 % (36.0-47.0); HEMOGLOBIN 13.5 g/dl (12.0-15.5); LYMPH # 3.6 10^3/uL (1.5-5.0); LYMPH % 31.3 % (24.0-44.0); MEAN CORPUSCULAR HEMOGLOBIN 26.6 pg (27.0-33.0); MEAN CORPUSCULAR HGB CONC 32.8 g/dl (32.0-36.5); MEAN CORPUSCULAR VOLUME 81.1 fl (80.0-96.0); MONO # 0.8 10^3/uL (0.0-0.8); MONO % 6.8 % (2.0-8.0); NEUTROPHILS # 6.6 10^3/uL (1.5-8.5); NEUTROPHILS % 57.8 % (36.0-66.0); PLATELET COUNT, AUTOMATED 306 10^3/uL (150-450); RED BLOOD COUNT 5.08 10^6/uL (4.00-5.40); WHITE BLOOD COUNT 11.5 10^3/uL (4.0-10.0)
[2021-07-13 00:35] LABS: HCG, SERUM QUALITATIVE NEGATIVE (NEGATIVE)
[2021-07-13 00:38] LABS: ALBUMIN 3.8 GM/DL (3.2-5.2); ALT/SGPT 40 U/L (12-78); BILIRUBIN,DIRECT 0.1 MG/DL (0.0-0.2); BILIRUBIN,TOTAL 0.6 MG/DL (0.2-1.0); BLOOD UREA NITROGEN 17 MG/DL (7-18); CALCIUM LEVEL 9.7 MG/DL (8.5-10.1); CARBON DIOXIDE LEVEL 28 MEQ/L (21-32); CHLORIDE LEVEL 103 MEQ/L (98-107); CREATININE FOR GFR 0.91 MG/DL (0.55-1.30); GLOMERULAR FILTRATION RATE > 60.0 (>60); GLUCOSE, FASTING 108 MG/DL (70-100); LIPASE 89 U/L (73-393); POTASSIUM SERUM 3.9 MEQ/L (3.5-5.1); SODIUM LEVEL 140 MEQ/L (136-145); TOTAL PROTEIN 7.6 GM/DL (6.4-8.2)
--- OUTSIDE RECORDS SUMMARY | 2021-07-13 06:19 | CCD ---
Author Author [facility] Organization [facility] Address Unknown Phone Unavailable Support Name Relationship Address Phone Florecita Gaitan Next Of Kin [address] [place] [address] ANGELES ELENO Next Of Kin [address] [place] [address] Chayito Sales Next Of Kin [address] [place], [place] [id number] ALEJA VELEZ Next Of Kin [address] [facility] [address] [place] [address] Prema Barriga MD Next Of Kin [address] [place], [place] [id number] [employer] Next Of [facility] [address] [facility] [address] [place] [address] [employer] Next Of Kin [address] [place] [address] UE Next Of Kin Unknown Unavailable UN Next Of Kin Unknown Unavailable CONTACT, OTHER NO Next Of Kin - -, - - - RJ IBARRA Next Of Kin [address] [place] [address] [employer] [place] [address] NICOLE STALEY Next Of Kin [address] [place] [address] [employer] Next Of Kin [address] [place] [address] NONE, PATIENT PER Next Of Kin - - -, [place] - - ALEJA JOYCE Next Of Kin [address] [facility] [address] [place] [address] MING STALEY Next Of Kin Unknown LORRAINE RAMÍREZ Next Of Kin Unknown ALEJA JOYCE Next Of Kin Unknown ELENO HAMMER ECON [address] [place] [address] Unavailable Jorge Velez Unknown Unavailable Care Team Providers Care Radiator Repairer Name Role Phone Andree Anderson MD Unavailable [...] Unavailable Unavailable Andree Anderson MD Unavailable Unavailable Anderson, Andree Blue MD Unavailable Unavailable Anderson, Andree Blue MD Unavailable Unavailable Anderson, Andree Blue MD Unavailable Unavailable Anderson, Andree Blue MD Unavailable Unavailable Anderson, Andree Blue MD Unavailable Unavailable Anderson, Andree Blue MD Unavailable Unavailable Anderson, Andree Blue MD Unavailable Unavailable Justin, Andree Blue MD Unavailable Unavailable Justin, nAdree Blue MD Unavailable Unavailable Anderson, Andree Blue [...] LINDA KEVYN RPA-C Unavailable Unavailable ARREDONDO, LINDA GONSALES RPA-C Unavailable Unavailable Fish, Molly Simmons MD [...] Fish, B Irsi WILDER Unavailable Unavailable Fish, B Iris WILDER [...] Simmons MD Unavailable Unavailable Fish, B Iris MD Unavailable Unavailable Molly Romero MD Unavailable [...] Unavailable Unavailable Anuj Montoya MD Unavailable Unavailable Scordo, M Ester [...] M Ester PA Unavailable Unavailable Scordo, M Seter PA Unavailable Unavailable Scordo, M Ester PA [...] Unavailable Cynthia RAIN MD Unavailable Unavailable Cynthia RANI MD Unavailable Unavailable Cynthia RAIN MD Unavailable [...] is protected by Article 27-F of the [facility] law. If you continue you may have access to information: Regarding HIV / AIDS; Provided by facilities licensed or operated by the [facility] Office of Mental Health; or Provided by the [facility] Office for People With Developmental Disabilities. If such information is present, then the following [facility] mandated warning applies: This information has been [...] law may result in a fine or shelter sentence or both. A general authorization for the release of medical or other information is NOT sufficient authorization for further disc losure. Allergies and Adverse Reactions Type Description Substance Reaction Status Data Source(s ) Drug allergy PAXIL Paroxetine Hydrochloride 10 MG O ral Tablet [Paxil] ineffective U [facility] Allergy to substance Allergy to substance Allergy to substance [facility] ([facility]) Family History Family Member Name Family Member Gender Family Member Status Date o f Status Description Data Source(s) Unknown Female Diagnosis 08/16/2015 12:00:00 AM EST [facility] ([facility]) Unknown Female Diagnosis 08/16/2015 12:00:00 AM EST [facility] ([facility]) Unknown Female Diagnosis 08/16/2015 12:00:00 AM EST [facility] ([facility]) Encounters Encounter Providers Location Date Indications Data Source(s ) OFFICE OUTPATIENT VISIT 15 MINUTES Attender: RACHNA MARES Phys ical Therapy 05/27/2021 10:45:00 AM EDT [facility] ([facility]) Outpatient Attender: Tim Lr Physical Therapy 02/12/2021 04:00:0 0 PM EDT [facility] ([facility]) OFFICE OUTPATIENT VISIT 15 MINUTES Attender: RACHNA MARES Phys ical Therapy 01/09/2021 01:20:00 PM EDT [facility] ([facility]) Ester Glover PA-C: [address], [place] [address], Ph. Attender: Ester MARES [facility] Medical 01/08/2021 12:00:00 AM EDT [facility] ([facility]) Ester Glover PA-C: [address], [place] [address], Ph. Attender: Ester MARES [facility] Medical 01/08/2021 12:00:00 AM EDT [place] ([facility]) Ester Glover PA-C: [address], [place] [address], Ph. Attender: Ester MARES [facility] Medical 12/28/2020 12:00:00 AM EDT [place] ([facility]) Jazmyne Sprague LMSW: [address], [place] [address], Ph. Attender: Jazmyne Sprague [facility] Medical 12/28/2020 12:00:00 AM EDT [place] ([facility]) Ester Glover PA-C: [address], [place] [address], Ph. Attender: Ester MARES [facility] Medical 12/28/2020 12:00:00 AM EDT [place] ([facility]) Jazmyne Sprague LMSW: [address], [place] [address], Ph. Attender: Jazmyne Sprague [facility] Medical 12/28/2020 12:00:00 AM EDT [place] ([facility]) Ester Glover PA-C: [address], [place] [address], Ph. Attender: sEter MARES [facility] Medical 12/28/2020 12:00:00 AM EDT [place] ([facility]) Jazmyne Sprague LMSW: [address], [place] [address], Ph. Attender: Jazmyne Sprague [facility] Medical 12/28/2020 12:00:00 AM EDT [facility] ([facility]) Outpatient Attender: BENJA RAIN MDReferrer: KEVYN GAMA RPA-C 12/27/2020 12:46:07 PM EDT [facility] Recurring Patient Referrer: Tim Lr 12/27/2020 09:03: 47 AM EDT [facility] Recurring Patient Referrer: Tim Lr 12/27/2020 09:00: 17 AM EDT [facility] Recurring Patient Referrer: Tim Lr 12/24/2020 10:59: 46 AM EDT [facility] Recurring Patient Referrer: Tim Lr 12/24/2020 09:27: 59 AM EDT [facility] Recurring Patient Referrer: Tim Lr 12/13/2020 11:15: 42 AM EDT [facility] Office Visit Attender: RACHNA MARES Physical Therapy 2020 09:40:00 AM EST [facility] ([facility]) Outpatient Attender: Kenneth Montoya MD Main office - [facility] 10/30/2020 10:30:00 AM EST [facility] ([facility]) OFFICE OUTPATIENT NEW 60 MINUTES Attender: Iris Romero MD Physi gayle Therapy 10/23/2020 01:00:00 PM EST [facility] ([facility]) Office Visit Attender: RACHNA MARES Physical Therapy 2020 01:00:00 PM EST [facility] ([facility]) Ester Glover PA-C: [address], [place] [address], Ph. Attender: Ester MARES [facility] Medical 10/16/2020 12:00:00 AM EST [facility] ([facility]) Ester Glover PA-C: [address], [place] [address], Ph. Attender: Ester MARES [facility] Medical 10/16/2020 12:00:00 AM EST [facility] ([facility]) Ester Glover PA-C: [address], [address], [place] [address], Ph. Attender: Ester MARES [facility] Medical 10/16/2020 12:00:00 AM EST [facility] ([facility]) Ester Glover PA-C: [address], [address], [place] [address], Ph. Attender: Ester MARES [facility] Medical 10/16/2020 12:00:00 AM EST [facility] ([facility]) OFFICE OUTPATIENT VISIT 15 MINUTES Attender: RACHNA MARES Phys ical Therapy 09/25/2020 09:40:00 AM EST [facility] ([facility]) Ester Glover PA-C: [address], [address], [place] [address], Ph. Attender: Ester MARES [facility] Medical 09/25/2020 12:00:00 AM EST [facility] ([facility]) Ester Glover PA-C: [address], [address], [place] [address], Ph. Attender: Ester MAERS [facility] Medical 09/25/2020 12:00:00 AM EST [facility] ([facility]) Ester Glover PA-C: [address], [address], [place] [address], Ph. Attender: Ester MARES [facility] Medical 09/25/2020 12:00:00 AM EST [facility] ([facility]) SUZAN Gonzalez-C: [address], [address], [place] [address], Ph. Attender: Ester MARES [facility] Medical 09/25/2020 12:00:00 AM EST [facility] ([facility]) FELICITA GonzalezC: [address], [address], [place] [address], Ph. Attender: Ester MARES [facility] Medical 09/25/2020 12:00:00 AM EST [facility] ([facility]) Outpatient Attender: RACHNA MARES Physical Therapy 09/12/2020 0 9:15:00 AM EST [facility] ([facility] Kevyn Arredondo RPA-C: [address], [place] [address], Ph. Attender: KEVYN FRIEDMANC [facility] Medical 08/14/2020 12:00:00 AM EST [facility] ([facility]) Kevyn Arredondo RPA-C: [address], [place] [address], Ph. Attender: KEVYN FRIEDMANC [facility] Medical 08/14/2020 12:00:00 AM EST [facility] ([facility]) Kevyn Arredondo RPA-C: [address], [place] [address], Ph. Attender: KEVYN FRIEDMANC [facility] Medical 08/14/2020 12:00:00 AM EST [facility] ([facility]) Kevyn Arredondo RPA-C: [address], [place] [address], Ph. Attender: KEVYN ARREDONDO RPA-C [facility] Medical 08/14/2020 12:00:00 AM EST [facility] ([facility]) Kevyn Arredondo RPA-C: [address], [place] [address], Ph. Attender: KEVYN ARREDONDO RPA-C [facility] Medical 08/14/2020 12:00:00 AM EST [facility] ([facility]) Kevyn Arredondo RPA-C: [address], [place] [address], Ph. Attender: KEVYN ARREDONDO RPA-C [facility] Medical 08/14/2020 12:00:00 AM EST [facility] ([facility]) Mirza Anderson MD: [address] [place] [address], Ph. Attender: Mirza Anderson MD [facility] Medical 08/09/2020 12:00:00 AM EST [facility] ([facility]) Mirza Anderson MD: [address] [place] [address], Ph. Attender: Mirza Anderson MD [facility] Medical 08/09/2020 12:00:00 AM EST [facility] ([facility]) Mirza Anderson MD: [address] [place] [address], Ph. Attender: Mirza Anderson MD [facility] Medical 08/09/2020 12:00:00 AM EST [facility] ([facility]) iMrza Anderson MD: [address] [place] [address], Ph. Attender: Mirza Anderson MD [facility] Medical 08/09/2020 12:00:00 AM EST [facility] ([facility]) Mirza Anderson MD: [address] [place] [address], Ph. Attender: Mirza Anderson MD [facility] Medical 08/09/2020 12:00:00 AM EST [facility] ([facility]) Mirza Anderson MD: [address] [place] [address], Ph. Attender: Mirza Anderson MD [facility] Medical 08/09/2020 12:00:00 AM EST [facility] ([facility]) Mirza Anderson MD: [address] [place] [address], Ph. Attender: Mirza Anderson MD [facility] Medical 08/09/2020 12:00:00 AM EST [facility] ([facility]) Outpatient Attender: Kenneth Montoya MD Main office - [facility] 07/30/2020 07:00:00 AM EST [facility] ([facility] ) Kevyn Arredondo RPA-C: [address], [place] [address], Ph. Attender: KEVYN FRIEDMANC [facility] Medical 07/30/2020 12:00:00 AM EST [facility] ([facility]) Kevyn Arredondo RPA-C: [address], [place] [address], Ph. Attender: KEVYN FRIEDMANC [facility] Medical 07/30/2020 12:00:00 AM EST [facility] ([facility]) Kevyn Arredondo RPA-C: [address], [place] [address], Ph. Attender: KEVYN ARREDONDO RPA-C [facility] Medical 07/30/2020 12:00:00 AM EST [facility] ([facility]) Kevyn Arredondo RPA-C: [address], [place] [address], Ph. Attender: KEVYN ARREDONDO RPA-C [facility] Medical 07/30/2020 12:00:00 AM EST [facility] ([facility]) Kevyn Arredondo RPA-C: [address], [place] [address], Ph. Attender: KEVYN ARREDONDO RPA-C [facility] Medical 07/30/2020 12:00:00 AM EST [facility] ([facility]) Kevyn Arredondo RPA-C: [address], [place] [address], Ph. Attender: KEVYN ARREDONDO RPA-C [facility] Medical 07/30/2020 12:00:00 AM EST [facility] ([facility]) Kevyn Arredondo, RPA-C: [address], [place] [address], Ph. Attender: KEVYN ARREDONDO RPA-C [facility] Medical 07/30/2020 12:00:00 AM EST [facility] ([facility]) Kevyn Arredondo, RPA-C: [address], [place] [address], Ph. Attender: KEVYN ARREDONDO RPA-C [facility] Medical 07/30/2020 12:00:00 AM EST [facility] ([facility]) Kevyn Arredondo, RPA-C: [address], [place] [address], Ph. Attender: KEVYN ARREDONDO RPA-C [facility] Medical 07/23/2020 12:00:00 AM EST [facility] ([facility]) Kevyn Arredondo RPA-C: [address], [place] [address], Ph. Attender: KEVYN ARREDONDO RPA-C [facility] Medical 07/23/2020 12:00:00 AM EST [facility] ([facility]) Kevyn Arredondo RPA-C: [address], [place] [address], Ph. Attender: KEVYN ARREDONDO RPA-C [facility] Medical 07/23/2020 12:00:00 AM EST [facility] ([facility]) Kevyn Arredondo RPA-C: [address], [place] [address], Ph. Attender: KEVYN ARREDONDO RPA-C [facility] Medical 07/23/2020 12:00:00 AM EST [facility] ([facility]) Kevyn Arredondo RPA-C: [address], [place] [address], Ph. Attender: KEVYN ARREDONDO RPA-C [facility] Medical 07/23/2020 12:00:00 AM EST [facility] ([facility]) Kevyn Arredondo RPA-C: [address], [place] [address], Ph. Attender: KEVYN ARREDONDO RPA-C [facility] Medical 07/23/2020 12:00:00 AM EST [facility] ([facility]) Kevyn Arredondo RPA-C: [address], [place] [address], Ph. Attender: KEVYN ARREDONDO RPA-C [facility] Medical 07/23/2020 12:00:00 AM EST [facility] ([facility]) Kevyn Arredondo RPA-C: [address], [place] [address], Ph. Attender: KEVYN ARREDONDO RPA-C [facility] Medical 07/23/2020 12:00:00 AM EST [facility] ([facility]) Kevyn Arredondo RPA-C: [address], [place] [address], Ph. Attender: KEVYN ARREDONDO RPA-C [facility] Medical 07/23/2020 12:00:00 AM EST [facility] ([facility]) Outpatient Attender: KEVYN ARREDONDO RPA-C [facility] 06/11/2020 11:54:03 AM EDT [facility] Outpatient Attender: KEVYN ARREDONDO RPA-C [facility] 06/11/2020 11:44:02 AM EDT [facility] Outpatient Attender: KEVYN ARREDONDO RPA-C [facility] 06/11/2020 11:44:02 AM EDT [facility] Unknown [facility], [facility] [address] 05/29/2020 12:00:00 AM EDT eCW1 ([facility]) Outpatient Attender: KEVYN ARREDONDO RPA-C [facility] 05/24/2020 01:30:07 PM EDT [facility] Outpatient Attender: KEVYN ARREDONDO RPA-C [facility] 05/24/2020 12:00:11 AM EDT [facility] Outpatient Attender: KEVYN ARREDONDO RPA-C [facility] 05/23/2020 04:36:09 PM EDT [facility] Immunizations Vaccine Date Status Description Data Source(s) COVID-19 VACCINE Moderna 01/25/2021 12:00:00 AM EDT completed [facility] Vaccine Series Complete: YESThis Data wa s Submitted to [facility] [employer]. COVID-19 VACCINE Moderna 12/28/2020 12:00:00 AM EDT completed [facility] Vaccine Series Complete: NOThis Data was Submitted to [facility] [employer]. Medications Medication Brand Name Start Date Product [...] DAILY DOSE = 12 TABLETS SOLD: 04/14/2021 [facility] tizanidine 2 MG Oral Tablet TIZANIDINE HCL 02/13/2021 12:00:00 AM E DT tablet 120 INCREASE NO MORE THAN ONCE A WEEK 1 TABLET BY MOUTH AT A TIME MAXIMUM DAILY DOSE = 12 TABLETS INCREASE NO MORE THAN ONCE A WEEK 1 TABL ET BY MOUTH AT A TIME MAXIMUM DAILY DOSE = 12 TABLETS SOLD: 06/29/2021 [facility] tizanidine 2 MG Oral Tablet TIZANIDINE HCL 02/13/2021 12:00:00 AM E DT tablet 120 INCREASE NO MORE THAN ONCE A WEEK 1 TABLET BY MOUTH AT A TIME MAXIMUM DAILY DOSE = 12 TABLETS INCREASE NO MORE THAN ONCE A WEEK 1 TABL ET BY MOUTH AT A TIME MAXIMUM DAILY DOSE = 12 TABLETS SOLD: 02/21/2021 [facility] Escitalopram 20 MG Oral Tablet ESCITALOPRAM OXALATE 01/25/2021 1 2:00:00 AM EDT tablet 30 TAKE ONE TABLET BY MOUTH EVERY D AY TAKE ONE TABLET BY MOUTH EVERY DAY SOLD: 02/03/2021 [facility] 50 mcg/actuation 01/25/2021 12:00:00 AM EDT spray,suspension 16 SPRAY ONE SPRAY IN EACH NOSTRIL EVERY DAY SPRAY ONE SPRAY IN EACH NOSTRIL EVERY DAY SOLD: 03/08/2021 [facility] 50 mcg/actuation 01/25/2021 12:00:00 AM EDT [...] (DR/EC) 30 TAKE ONE CAPSULE BY MOUTH METAL SPRAYER PROTECTIVE COATING ON AN EMPTY STOMACH, AT LEAST 1/2 HOUR BEFORE BREAKFAST (TAPER OFF AFTER 6 WEEKS) TAKE ONE CAPSULE BY MOUTH METAL SPRAYER PROTECTIVE COATING ON AN EMPTY STOMACH, AT LEAST 1/2 HOUR BEFORE BREAKFAST (TAPER OFF AFTER 6 WEEKS) SOLD: 02/03/2021 [facility] 40 mg 01/24/2021 12:00:00 AM EDT capsule,delayed release (DR/EC) 30 TAKE ONE CAPSULE BY MOUTH METAL SPRAYER PROTECTIVE COATING ON AN EMPTY STOMACH, AT LEAST 1/2 HOUR BEFORE BREAKFAST (TAPER OFF AFTER 6 WEEKS) TAKE ONE CAPSULE BY MOUTH METAL SPRAYER PROTECTIVE COATING ON AN EMPTY STOMACH, AT LEAST 1/2 [...] EVERY 4 HOURS NEEDED SOLD: 12/23/2020 [facility] tizanidine 2 MG Oral Tablet TIZANIDINE HCL [...] HCL 11/29/2020 12:00:00 AM EDT active [facility] ([facility]) 40 mg 11/13/2020 12:00:00 AM EST capsule,delayed release (DR/EC) 30 TAKE ONE CAPSULE BY MOUTH METAL SPRAYER PROTECTIVE COATING ON AN EMPTY STOMACH, AT LEAST 1/2 HOUR BEFORE BREAKFAST (TAPER OFF AFTER 6 WEEKS) TAKE ONE CAPSULE BY MOUTH METAL SPRAYER PROTECTIVE COATING ON AN EMPTY STOMACH, AT LEAST 1/2 HOUR BEFORE BREAKFAST (TAPER OFF AFTER 6 WEEKS) SOLD: 11/30/2020 [facility] 40 mg 11/13/2020 12:00:00 AM EST capsule,delayed release (DR/EC) 30 TAKE ONE CAPSULE BY MOUTH METAL SPRAYER PROTECTIVE COATING ON AN EMPTY STOMACH, AT LEAST 1/2 HOUR BEFORE BREAKFAST (TAPER OFF AFTER 6 WEEKS) TAKE ONE CAPSULE BY MOUTH METAL SPRAYER PROTECTIVE COATING ON AN EMPTY STOMACH, AT LEAST 1/2 [...] TABLET BY MOUTH EVERY DAY SOLD: 10/27/2020 [facility] Escitalopram 20 MG Oral [...] BY MOUTH EVERY MORNING SOLD: 10/03/2020 [facility] . UNIT 09/26/2020 12:00:00 AM EST Misc [...] 09/12/2020 12:00:00 AM EST ORAL active [facility] ([facility]) meloxicam 15 MG Oral Tablet [Mobic] Mobic 09/12/2020 12:00:00 AM EST ORAL active [facility] ([facility]) 40 mg 09/10/2020 12:00:00 AM EST capsule,delayed release (DR/EC) 30 TAKE ONE CAPSULE BY MOUTH METAL SPRAYER PROTECTIVE COATING ON AN EMPTY STOMACH, AT LEAST 1/2 HOUR BEFORE BREAKFAST (TAPER OFF AFTER 6 WEEKS) TAKE ONE CAPSULE BY MOUTH METAL SPRAYER PROTECTIVE COATING ON AN EMPTY STOMACH, AT LEAST 1/2 HOUR BEFORE BREAKFAST (TAPER OFF AFTER 6 WEEKS) SOLD: 09/12/2020 [facility] 40 mg 09/10/2020 12:00:00 AM EST capsule,delayed release (DR/EC) 30 TAKE ONE CAPSULE BY MOUTH METAL SPRAYER PROTECTIVE COATING ON AN EMPTY STOMACH, AT LEAST 1/2 HOUR BEFORE BREAKFAST (TAPER OFF AFTER 6 WEEKS) TAKE ONE CAPSULE BY MOUTH METAL SPRAYER PROTECTIVE COATING ON AN EMPTY STOMACH, AT LEAST 1/2 [...] TABLET BY MOUTH EVERY DAY SOLD: 07/30/2020 [facility] 100 mg 07/30/2020 12:00:00 AM [...] R 25MG TABLETS FINISHED SOLD: 07/30/2020 [facility] topiramate 25 MG Oral Tablet Topiramate 07/30/2020 12:00:00 AM EST active [facility] ([facility] ) topiramate 100 MG Oral Tablet Topiramate 07/30/2020 12:00:00 AM EST ORAL active [facility] ([facility], ) 0.35 mg 07/30/2020 12:00:00 AM [...] THEN TAKE 100MG AT BEDTIME SOLD: 07/30/2020 [facility] 100 mg 07/30/2020 12:00:00 AM [...] TABLET BY MOUTH EVERY MORNING SOLD: 08/27/2020 [facility] Escitalopram 20 MG Oral Tablet ESCITALOPRAM OXALATE 07/23/2020 1 2:00:00 AM EST tablet 30 TAKE ONE TABLET BY MOUTH EVERY D AY TAKE ONE TABLET BY MOUTH EVERY DAY SOLD: 08/23/2020 [facility] Escitalopram 20 MG Oral [...] (DR/EC) 30 TAKE ONE CAPSULE BY MOUTH METAL SPRAYER PROTECTIVE COATING ON AN EMPTY STOMACH, AT LEAST 1/2 HOUR BEFORE BREAKFAST (TAPER OFF AFTER 6 WEEKS) TAKE ONE CAPSULE BY MOUTH METAL SPRAYER PROTECTIVE COATING ON AN EMPTY STOMACH, AT LEAST 1/2 [...] 00 AM EDT ORAL completed [facility] ([facility]) Tri-Lo-Susie 28 Day Pack [...] prednisone 20 MG Ora l Tablet [facility] ([facility]) Levothyroxine Sodium 0.075 MG Oral Table t levothyroxine 75 mcg tablet TAKE 1 TABLET BY MOUTH ONCE A DAY IN THE MORNING ON AN EMPTY STOMACH levothyroxine 75 mcg tablet TAKE 1 TABLET BY MOUTH ONCE A DAY IN THE MORNING ON AN EMPTY STOMACH completed levothyroxine sodium 0.075 MG Oral Tablet [facility] ([facility]) Acetaminophen 300 MG / Codeine Phosphate 30 MG Oral Tablet acetaminophen 300 mg- codeine 30 mg tablet acetaminophen 300 mg-codeine 30 mg tablet completed acetaminophen 300 MG / codeine p hosphate 30 MG Oral Tablet [facility] ([facility]) Levothyroxine Sodium 0.025 MG Oral Table t levothyroxine 25 mcg tablet TAKE ONE TABLET BY MOUTH EVERY DAY levothyroxine 25 mcg tablet TAKE ONE TAB LET BY MOUTH EVERY DAY completed levothyroxin e sodium 0.025 MG Oral Tablet [facility] ([facility]) Levothyroxine Sodium 0.075 MG Oral Table t levothyroxine 75 mcg tablet TAKE 1 TABLET BY MOUTH ONCE A DAY IN THE MORNING ON AN EMPTY STOMACH levothyroxine 75 mcg tablet TAKE 1 TABLET BY MOUTH ONCE A DAY IN THE MORNING ON AN EMPTY STOMACH completed levothyroxine sodium 0.075 MG Oral Tablet [facility] ([facility]) Levothyroxine Sodium 0.088 MG Oral Tablet levothyroxin e 88 mcg tablet levothyroxine 88 mcg tablet completed levothyroxine sodium 0.088 MG Oral Tablet [facility] ([facility]) Levothyroxine Sodium 0.025 MG Oral Table t levothyroxine 25 mcg tablet TAKE ONE TABLET BY MOUTH EVERY DAY levothyroxine 25 mcg tablet TAKE ONE TAB LET BY MOUTH EVERY DAY completed levothyroxin e sodium 0.025 MG Oral Tablet [facility] ([facility]) Bisacodyl 5 MG Delayed Release Oral Tabl et bisacodyl 5 mg tablet,delayed release bisacodyl 5 mg tablet,delayed release completed bisacodyl 5 MG Delayed Release Oral Tablet [facility] ([facility]) Tri-Lo-Susie 0.18/0.215/0.25 mg-25 mcg tablet TAKE ONE TABLET BY MOUTH EVERY DAY [id number] completed [facility]ie 0.1 8/0.215/0.25 mg-25 mcg tablet ALEXANDRA ([facility]) Flulaval Quad [id number] 60 mcg (15 mcg x 4)/0.5 mL intramuscular susp. DIRECTED [id number] completed influe nza A virus A/[place] (H1N1) antigen 0.03 MG/ML / influenza A virus A/ (H3N2) antigen 0.03 MG/ML / influenza B virus B/[place] antigen 0.03 MG/ML / influenza B virus B/[facility] antigen 0.03 MG/ML Injectable Suspension [Flulaval Quadrivalent ] ALEXANDRA ([facility]) Levothyroxine Sodium 0.075 MG Oral Table t levothyroxine 75 mcg tablet TAKE 1 TABLET BY MOUTH ONCE A DAY IN THE MORNING ON AN EMPTY STOMACH levothyroxine 75 mcg tablet TAKE 1 TABLET BY MOUTH ONCE A DAY IN THE MORNING ON AN EMPTY STOMACH completed levothyroxine sodium 0.075 MG Oral Tablet ALEXANDRA ([facility]) Escitalopram 10 MG Oral Tablet escitalop traci 10 mg tablet TAKE ONE TABLET BY MOUTH EVERY DAY escitalopram 10 mg tablet TAKE ONE TABLET BY MOUTH EVERY DAY completed escitalopram 1 0 MG Oral Tablet GALLIPOLIS ([facility]) Levothyroxine Sodium 0.025 MG Oral Table t levothyroxine 25 mcg tablet TAKE ONE TABLET BY MOUTH EVERY DAY levothyroxine 25 mcg tablet TAKE ONE TAB LET BY MOUTH EVERY DAY completed levothyroxin e sodium 0.025 MG Oral Tablet ALEXANDRA ([facility]) Metronidazole 500 MG Oral Tablet metroni dazole 500 mg tablet TAKE ONE TABLET BY MOUTH THREE TIMES A DAY metronidazole 500 mg tablet TAKE ONE TAB LET BY MOUTH THREE TIMES A DAY completed metr onidazole 500 MG Oral Tablet ALEXANDRA ([facility]) Levothyroxine Sodium 0.088 MG Oral Tablet levothyroxin e 88 mcg tablet levothyroxine 88 mcg tablet completed levothyroxine sodium 0.088 MG Oral Tablet ALEXANDRA ([facility]) Methocarbamol 750 MG Oral Tablet methoca rbamol 750 mg tablet TAKE ONE TABLET BY MOUTH AT BEDTIME NEEDED FOR SPASMS methocarbamol 750 mg tablet TAKE ONE TABLET BY MOUTH AT BEDTIME NEEDED FOR SPASMS completed methocarbamol 750 MG Oral Tablet GALLIPOLIS ([facility]) Tri-Lo-Susie 0.18/0.215/0.25 mg-25 mcg tablet [id number] completed Tri-Lo-Susie 0.18/0.215/0.25 mg-25 mcg tablet GALLIPOLIS ([facility]) Ondansetron 4 MG Oral Tablet ondansetron HCl 4 mg tablet TAKE 1 TABLET BY MOUTH ONCE TO TWICE DAILY BEFORE MEALS ONLY WHEN HAVING NAUSEA ondansetron HCl 4 mg tablet TAKE 1 TABLET BY MOUTH ONCE TO TWICE DAILY BEFORE MEALS ONLY WHEN HAVING NAUSEA completed ondansetron 4 M G Oral Tablet GALLIPOLIS ([facility]) Metronidazole 500 MG Oral Tablet metroni dazole 500 mg tablet TAKE ONE TABLET BY MOUTH THREE TIMES A DAY metronidazole 500 mg tablet TAKE ONE TAB LET BY MOUTH THREE TIMES A DAY completed metr onidazole 500 MG Oral Tablet GALLIPOLIS ([facility]) Prednisone 10 MG Oral Tablet prednisone 10 [...] MENG completed prednisone 10 MG Oral Tablet GALLIPOLIS ([facility]) meloxicam 15 MG Oral Tablet meloxicam 15 mg tablet TAKE ONE TABLET BY MOUTH EVERY DAY AFTER A MEAL MAXIMUM DAILY DOSE 1 meloxicam 15 mg tablet TAKE ONE TABLET BY MOUTH EVERY DAY AFTER A MEAL MAXIMUM DAILY DOSE 1 completed meloxicam 15 MG Oral Tablet ATHHailey NA ([facility]) benzonatate 100 MG Oral Capsule benzonat ate 100 mg capsule TAKE ONE CAPSULE BY MOUTH THREE TIMES A DAY benzonatate 100 mg capsule TAKE ONE CAPS ULE BY MOUTH THREE TIMES A DAY completed davion onatate 100 MG Oral Capsule GALLIPOLIS ([facility]) Ciprofloxacin 500 MG Oral Tablet ciprofl oxacin 500 mg tablet TAKE ONE TABLET BY MOUTH TWICE A DAY ciprofloxacin 500 mg tablet TAKE ONE TAB LET BY MOUTH TWICE A DAY completed ciprofloxacin 50 0 MG Oral Tablet ALEXANDRA ([facility]) Amoxicillin 500 MG Oral Capsule amoxicil nabil 500 mg capsule TAKE TWO CAPSULES BY MOUTH THREE TIMES A DAY amoxicillin 500 mg capsule TAKE TWO CAPS ULES BY MOUTH THREE TIMES A DAY completed amox icillin 500 MG Oral Capsule GALLIPOLIS ([facility]) Ibuprofen 800 MG Oral Tablet ibuprofen 800 mg tablet ibuprofen 8 00 mg tablet completed ibuprofen 800 MG Oral Tablet GALLIPOLIS ([facility]) Bisacodyl 5 MG Delayed Release Oral Tabl et bisacodyl 5 mg tablet,delayed release bisacodyl 5 mg tablet,delayed release completed bisacodyl 5 MG Delayed Release Oral Tablet GALLIPOLIS ([facility]) Tri-Lo-Susie 0.18/0.215/0.25 mg-25 mcg tablet TAKE ONE TABLET BY MOUTH EVERY DAY [id number] completed Tri-Lo-Susie 0.1 8/0.215/0.25 mg-25 mcg tablet GALLIPOLIS ([facility]) POLYETHYLENE GLYCOL 3350 105 MG/ML / Pot assium Chloride 0.60902 MEQ/ML / Sodium Bicarbonate 0.017 MEQ/ML / Sodium Chloride 0.0479 MEQ/ML Oral Solution peg- electrolyte solution 420 gram oral solution peg-electrolyte solution 420 gram oral solution completed polyethylene glycol 3350 796835 MG / potassium chloride 1480 MG / sodium bicarbonate 5720 MG / sodium chloride 97850 MG Powder for Oral Solution GALLIPOLIS ([facility]) topiramate 25 MG Oral Tablet topiramate 25 mg tablet Take 3 tablets every day by oral route as directed for 21 days. topiramate 25 mg tablet Take 3 tablets e very day by oral route as directed for 21 days. 3 completed topiramate 25 MG Oral Tablet GALLIPOLIS ([facility]) valacyclovir 1000 MG Oral Tablet valacyc lovir 1 gram tablet TAKE ONE TABLET BY MOUTH EVERY DAY valacyclovir 1 gram tablet TAKE ONE TABLET BY MOUTH EVERY DA Y completed valacyclovir 1 000 MG Oral Tablet GALLIPOLIS ([facility]) benzonatate 100 MG Oral Capsule benzonat ate 100 mg capsule TAKE ONE CAPSULE BY MOUTH THREE TIMES A DAY benzonatate 100 mg capsule TAKE ONE CAPS ULE BY MOUTH THREE TIMES A DAY completed davion onatate 100 MG Oral Capsule GALLIPOLIS ([facility]) topiramate 25 MG Oral Tablet topiramate 25 mg tablet Take 3 tablets every day by oral route as directed for 21 days. topiramate 25 mg tablet Take 3 tablets e very day by oral route as directed for 21 days. 3 completed topiramate 25 MG Oral Tablet ALEXANDRA ([facility]) Prednisone 20 MG Oral Tablet prednisone 20 mg tablet TAKE TWO TABLETS BY MOUTH TWICE A DAY prednisone 20 mg tablet TAKE TWO TABLETS BY MOUTH TWICE A DAY completed prednisone 20 MG Ora l Tablet ALEXANDRA ([facility]) Acetaminophen 325 MG / Hydrocodone Jaymie trate [...] bitartrate 5 MG Oral Tablet ALEXANDRA ([facility]) topiramate 25 MG Oral Tablet topiramate 25 mg tablet Take 3 tablets every day by oral route as directed for 21 days. topiramate 25 mg tablet Take 3 tablets e very day by oral route as directed for 21 days. 3 completed topiramate 25 MG Oral Tablet ALEXANDRA ([facility]) Amoxicillin 500 MG Oral Capsule amoxicil nabil 500 mg capsule TAKE TWO CAPSULES BY MOUTH THREE TIMES A DAY amoxicillin 500 mg capsule TAKE TWO CAPS ULES BY MOUTH THREE TIMES A DAY completed amox icillin 500 MG Oral Capsule GALLIPOLIS ([facility]) Flulaval Quad [id number] 60 mcg (15 mcg x 4)/0.5 mL intramuscular susp. DIRECTED [id number] completed influe nza A virus A/ (H1N1) antigen 0.03 MG/ML / influenza A virus A/ (H3N2) antigen 0.03 MG/ML / influenza B virus B/ antigen 0.03 MG/ML / influenza B virus B/[facility] antigen 0.03 MG/ML Injectable Suspension [Flulaval Quadrivalent ] ALEXANDRA ([facility]) valacyclovir 1000 MG Oral Tablet valacyc lovir 1 gram tablet TAKE ONE TABLET BY MOUTH EVERY DAY valacyclovir 1 gram tablet TAKE ONE TABLET BY MOUTH EVERY DA Y completed valacyclovir 1 000 MG Oral Tablet ALEXANDRA ([facility]) Acetaminophen 325 MG / Hydrocodone Jaymie trate [...] bitartrate 5 MG Oral Tablet ALEXANDRA ([facility]) Hydroxyzine Hydrochloride 25 MG Oral [...] completed hydroxyzine hydrochloride 25 MG Oral Tablet GALLIPOLIS ([facility]) Bisacodyl 5 MG Delayed Release Oral Tabl et bisacodyl 5 mg tablet,delayed release bisacodyl 5 mg tablet,delayed release completed bisacodyl 5 MG Delayed Release Oral Tablet GALLIPOLIS ([facility]) valacyclovir 1000 MG Oral Tablet valacyc lovir 1 gram tablet TAKE ONE TABLET BY MOUTH EVERY DAY valacyclovir 1 gram tablet TAKE ONE TABLET BY MOUTH EVERY DA Y completed valacyclovir 1 000 MG Oral Tablet GALLIPOLIS ([facility]) Acetaminophen 325 MG / Hydrocodone Jaymie trate [...] bitartrate 5 MG Oral Tablet ALEXANDRA ([facility]) Acetaminophen 300 MG / Codeine Phosphate 30 MG Oral Tablet acetaminophen 300 mg- codeine 30 mg tablet acetaminophen 300 mg-codeine 30 mg tablet completed acetaminophen 300 MG / codeine p hosphate 30 MG Oral Tablet GALLIPOLIS ([facility]) Bisacodyl 5 MG Delayed Release Oral Tabl et bisacodyl 5 mg tablet,delayed release bisacodyl 5 mg tablet,delayed release completed bisacodyl 5 MG Delayed Release Oral Tablet GALLIPOLIS ([facility]) Ondansetron 4 MG Oral Tablet ondansetron HCl 4 mg tablet TAKE 1 TABLET BY MOUTH ONCE TO TWICE DAILY BEFORE MEALS ONLY WHEN HAVING NAUSEA ondansetron HCl 4 mg tablet TAKE 1 TABLET BY MOUTH ONCE TO TWICE DAILY BEFORE MEALS ONLY WHEN HAVING NAUSEA completed ondansetron 4 M G Oral Tablet GALLIPOLIS ([facility]) Metronidazole 500 MG Oral Tablet metroni dazole 500 mg tablet TAKE ONE TABLET BY MOUTH THREE TIMES A DAY metronidazole 500 mg tablet TAKE ONE TAB LET BY MOUTH THREE TIMES A DAY completed metr onidazole 500 MG Oral Tablet GALLIPOLIS ([facility]) benzonatate 100 MG Oral Capsule benzonat ate 100 mg capsule TAKE ONE CAPSULE BY MOUTH THREE TIMES A DAY benzonatate 100 mg capsule TAKE ONE CAPS ULE BY MOUTH THREE TIMES A DAY completed davion onatate 100 MG Oral Capsule GALLIPOLIS ([facility]) Ciprofloxacin 500 MG Oral Tablet ciprofl oxacin 500 mg tablet TAKE ONE TABLET BY MOUTH TWICE A DAY ciprofloxacin 500 mg tablet TAKE ONE TAB LET BY MOUTH TWICE A DAY completed ciprofloxacin 50 0 MG Oral Tablet [facility]) Levothyroxine Sodium 0.088 MG Oral Tablet levothyroxin e 88 mcg tablet levothyroxine 88 mcg tablet completed levothyroxine sodium 0.088 MG Oral Tablet GALLIPOLIS ([facility]) Metronidazole 500 MG Oral Tablet metroni dazole 500 mg tablet TAKE ONE TABLET BY MOUTH THREE TIMES A DAY metronidazole 500 mg tablet TAKE ONE TAB LET BY MOUTH THREE TIMES A DAY completed metr onidazole 500 MG Oral Tablet GALLIPOLIS ([facility]) Tri-Lo-Susie 0.18/0.215/0.25 mg-25 mcg tablet TAKE ONE TABLET BY MOUTH EVERY DAY [id number] completed Tri-Lo-Susie 0.1 8/0.215/0.25 mg-25 mcg tablet GALLIPOLIS ([facility]) Bisacodyl 5 MG Delayed Release Oral Tabl et bisacodyl 5 mg tablet,delayed release bisacodyl 5 mg tablet,delayed release completed bisacodyl 5 MG Delayed Release Oral Tablet [facility]) Metronidazole 500 MG Oral Tablet metroni dazole 500 mg tablet TAKE ONE TABLET BY MOUTH THREE TIMES A DAY metronidazole 500 mg tablet TAKE ONE TAB LET BY MOUTH THREE TIMES A DAY completed metr onidazole 500 MG Oral Tablet [facility]) topiramate 25 MG Oral Tablet topiramate 25 mg tablet Take 3 tablets every day by oral route as directed for 21 days. topiramate 25 mg tablet Take 3 tablets e very day by oral route as directed for 21 days. 3 completed topiramate 25 MG Oral Tablet ALEXANDRA ([facility]) Acetaminophen 325 MG / Hydrocodone [...] bitartrate 5 MG Oral Tablet ALEXANDRA ([facility]) Levothyroxine Sodium 0.088 MG Oral Tablet levothyroxin e 88 mcg tablet levothyroxine 88 mcg tablet completed levothyroxine sodium 0.088 MG Oral Tablet GALLIPOLIS ([facility]) Prednisone 20 MG Oral Tablet prednisone 20 mg tablet TAKE TWO TABLETS BY MOUTH TWICE A DAY prednisone 20 mg tablet TAKE TWO TABLETS BY MOUTH TWICE A DAY completed prednisone 20 MG Ora l Tablet GALLIPOLIS ([facility]) Escitalopram 10 MG Oral Tablet escitalop traci 10 mg tablet TAKE ONE TABLET BY MOUTH EVERY DAY escitalopram 10 mg tablet TAKE ONE TABLET BY MOUTH EVERY DAY completed escitalopram 1 0 MG Oral Tablet GALLIPOLIS ([facility]) Metronidazole 500 MG Oral Tablet metroni dazole 500 mg tablet TAKE ONE TABLET BY MOUTH THREE TIMES A DAY metronidazole 500 mg tablet TAKE ONE TAB LET BY MOUTH THREE TIMES A DAY completed metr onidazole 500 MG Oral Tablet ALEXANDRA ([facility]) Bisacodyl 5 MG Delayed Release Oral Tabl et bisacodyl 5 mg tablet,delayed release bisacodyl 5 mg tablet,delayed release completed bisacodyl 5 MG Delayed Release Oral Tablet ALEXANDRA ([facility]) benzonatate 100 MG Oral Capsule benzonat ate 100 mg capsule TAKE ONE CAPSULE BY MOUTH THREE TIMES A DAY benzonatate 100 mg capsule TAKE ONE CAPS ULE BY MOUTH THREE TIMES A DAY completed davion onatate 100 MG Oral Capsule GALLIPOLIS ([facility]) Levothyroxine Sodium 0.088 MG Oral Tablet levothyroxin e 88 mcg tablet levothyroxine 88 mcg tablet completed levothyroxine sodium 0.088 MG Oral Tablet ALEXANDRA ([facility]) Flulaval Quad 60 mcg (15 mcg x 4)/0.5 mL intramuscular susp. DIRECTED [id number] completed influe nza A virus A/ (H1N1) antigen 0.03 MG/ML / influenza A virus A/ (H3N2) antigen 0.03 MG/ML / influenza B virus B/ antigen 0.03 MG/ML / influenza B virus B/[facility] antigen 0.03 MG/ML Injectable Suspension [Flulaval Quadrivalent ] ALEXANDRA ([facility]) Levothyroxine Sodium 0.075 MG Oral Table t levothyroxine 75 mcg tablet TAKE 1 TABLET BY MOUTH ONCE A DAY IN THE MORNING ON AN EMPTY STOMACH levothyroxine 75 mcg tablet TAKE 1 TABLET BY MOUTH ONCE A DAY IN THE MORNING ON AN EMPTY STOMACH completed levothyroxine sodium 0.075 MG Oral Tablet ALEXANDRA ([facility]) Prednisone 20 MG Oral Tablet prednisone 20 mg tablet TAKE TWO TABLETS BY MOUTH TWICE A DAY prednisone 20 mg tablet TAKE TWO TABLETS BY MOUTH TWICE A DAY completed prednisone 20 MG Ora l Tablet ALEXANDRA ([facility]) POLYETHYLENE GLYCOL 3350 105 MG/ML / Pot assium Chloride 0.31988 MEQ/ML / Sodium Bicarbonate 0.017 MEQ/ML / Sodium Chloride 0.0479 MEQ/ML Oral Solution peg- electrolyte solution 420 gram oral solution peg-electrolyte solution 420 gram oral solution completed polyethylene glycol 3350 424049 MG / potassium chloride 1480 MG / sodium bicarbonate 5720 MG / sodium chloride 70668 MG Powder for Oral Solution ALEXANDRA ([facility]) Flulaval Quad 60 mcg (15 mcg x 4)/0.5 mL intramuscular susp. DIRECTED [id number] completed influe nza A virus A/ (H1N1) antigen 0.03 MG/ML / influenza A virus A/ (H3N2) antigen 0.03 MG/ML / influenza B virus B/ antigen 0.03 MG/ML / influenza B virus B/[facility] antigen 0.03 MG/ML Injectable Suspension [Flulaval Quadrivalent [id number]] ALEXANDRA ([facility]) Levothyroxine Sodium 0.075 MG Oral Table t levothyroxine 75 mcg tablet TAKE 1 TABLET BY MOUTH ONCE A DAY IN THE MORNING ON AN EMPTY STOMACH levothyroxine 75 mcg tablet TAKE 1 TABLET BY MOUTH ONCE A DAY IN THE MORNING ON AN EMPTY STOMACH completed levothyroxine sodium 0.075 MG Oral Tablet ALEXANDRA ([facility]) valacyclovir 1000 MG Oral Tablet valacyc lovir 1 gram tablet TAKE ONE TABLET BY MOUTH EVERY DAY valacyclovir 1 gram tablet TAKE ONE TABLET BY MOUTH EVERY DA Y completed valacyclovir 1 000 MG Oral Tablet ALEXANDRA ([facility]) Prednisone 10 MG Oral Tablet prednisone 10 [...] prednisone 10 MG Oral Tablet ALEXANDRA ([facility]) POLYETHYLENE GLYCOL 3350 105 MG/ML / Pot assium Chloride 0.21357 MEQ/ML / Sodium Bicarbonate 0.017 MEQ/ML / Sodium Chloride 0.0479 MEQ/ML Oral Solution peg- electrolyte solution 420 gram oral solution peg-electrolyte solution 420 gram oral solution completed polyethylene glycol 3350 089706 MG / potassium chloride 1480 MG / sodium bicarbonate 5720 MG / sodium chloride 66744 MG Powder for Oral Solution ALEXANDRA ([facility]) Ondansetron 4 MG Oral Tablet ondansetron HCl 4 mg tablet TAKE 1 TABLET BY MOUTH ONCE TO TWICE DAILY BEFORE MEALS ONLY WHEN HAVING NAUSEA ondansetron HCl 4 mg tablet TAKE 1 TABLET BY MOUTH ONCE TO TWICE DAILY BEFORE MEALS ONLY WHEN HAVING NAUSEA completed ondansetron 4 M G Oral Tablet ALEXANDRA ([facility]) Levothyroxine Sodium 0.025 MG Oral Table t levothyroxine 25 mcg tablet TAKE ONE TABLET BY MOUTH EVERY DAY levothyroxine 25 mcg tablet TAKE ONE TAB LET BY MOUTH EVERY DAY completed levothyroxin e sodium 0.025 MG Oral Tablet ALEXANDRA ([facility]) meloxicam 15 MG Oral Tablet meloxicam 15 mg tablet TAKE ONE TABLET BY MOUTH EVERY DAY AFTER A MEAL MAXIMUM DAILY DOSE 1 meloxicam 15 mg tablet TAKE ONE TABLET BY MOUTH EVERY DAY AFTER A MEAL MAXIMUM DAILY DOSE 1 completed meloxicam 15 MG Oral Tablet ATHHailey ALLRED ([facility]) Acetaminophen 300 MG / Codeine Phosphate 30 MG Oral Tablet acetaminophen 300 mg- codeine 30 mg tablet acetaminophen 300 mg-codeine 30 mg tablet completed acetaminophen 300 MG / codeine p hosphate 30 MG Oral Tablet ALEXANDRA ([facility]) valacyclovir 1000 MG Oral Tablet valacyc lovir 1 gram tablet TAKE ONE TABLET BY MOUTH EVERY DAY valacyclovir 1 gram tablet TAKE ONE TABLET BY MOUTH EVERY DA Y completed valacyclovir 1 000 MG Oral Tablet ALEXANDRA ([facility]) Prednisone 10 MG Oral Tablet prednisone 10 [...] completed prednisone 10 MG Oral Tablet ALEXANDRA ([facility]) Acetaminophen 300 MG / Codeine Phosphate 30 MG Oral Tablet acetaminophen 300 mg- codeine 30 mg tablet acetaminophen 300 mg-codeine 30 mg tablet completed acetaminophen 300 MG / codeine p hosphate 30 MG Oral Tablet ALEXANDRA ([facility]) Levothyroxine Sodium 0.025 MG Oral Table t levothyroxine 25 mcg tablet TAKE ONE TABLET BY MOUTH EVERY DAY levothyroxine 25 mcg tablet TAKE ONE TAB LET BY MOUTH EVERY DAY completed levothyroxin e sodium 0.025 MG Oral Tablet ALEXANDRA ([facility]) Levothyroxine Sodium 0.075 MG Oral Table t levothyroxine 75 mcg tablet TAKE 1 TABLET BY MOUTH ONCE A DAY IN THE MORNING ON AN EMPTY STOMACH levothyroxine 75 mcg tablet TAKE 1 TABLET BY MOUTH ONCE A DAY IN THE MORNING ON AN EMPTY STOMACH completed levothyroxine sodium 0.075 MG Oral Tablet ALEXANDRA ([facility]) Acetaminophen 300 MG / Codeine Phosphate 30 MG Oral Tablet acetaminophen 300 mg- codeine 30 mg tablet acetaminophen 300 mg-codeine 30 mg tablet completed acetaminophen 300 MG / codeine p hosphate 30 MG Oral Tablet ALEXANDRA ([facility]) POLYETHYLENE GLYCOL 3350 105 MG/ML / Pot assium Chloride 0.76469 MEQ/ML / Sodium Bicarbonate 0.017 MEQ/ML / Sodium Chloride 0.0479 MEQ/ML Oral Solution peg- electrolyte solution 420 gram oral solution peg-electrolyte solution 420 gram oral solution completed polyethylene glycol 3350 392056 MG / potassium chloride 1480 MG / sodium bicarbonate 5720 MG / sodium chloride 75916 MG Powder for Oral Solution GALLIPOLIS ([facility]) buspirone hydrochloride 7.5 MG Oral Tabl et buspirone 7.5 mg tablet TAKE ONE TABLET BY MOUTH TWICE A DAY buspirone 7.5 mg tablet TAKE ONE TABLET BY MOUTH TWICE A DAY completed bu spirone hydrochloride 7.5 MG Oral Tablet GALLIPOLIS ([facility]) valacyclovir 500 MG Oral Tablet valacyclovir 500 mg ta blet valacyclovir 500 mg tablet completed valacyclovir 50 0 MG Oral Tablet GALLIPOLIS ([facility]) Ciprofloxacin 500 MG Oral Tablet ciprofl oxacin 500 mg tablet TAKE ONE TABLET BY MOUTH TWICE A DAY ciprofloxacin 500 mg tablet TAKE ONE TAB LET BY MOUTH TWICE A DAY completed ciprofloxacin 50 0 MG Oral Tablet GALLIPOLIS ([facility]) Bisacodyl 5 MG Delayed Release Oral Tabl et bisacodyl 5 mg tablet,delayed release bisacodyl 5 mg tablet,delayed release completed bisacodyl 5 MG Delayed Release Oral Tablet GALLIPOLIS ([facility]) Levothyroxine Sodium 0.088 MG Oral Tablet levothyroxin e 88 mcg tablet levothyroxine 88 mcg tablet completed levothyroxine sodium 0.088 MG Oral Tablet GALLIPOLIS ([facility]) valacyclovir 1000 MG Oral Tablet valacyc lovir 1 gram tablet TAKE ONE TABLET BY MOUTH EVERY DAY valacyclovir 1 gram tablet TAKE ONE TABLET BY MOUTH EVERY DA Y completed valacyclovir 1 000 MG Oral Tablet GALLIPOLIS ([facility]) Ibuprofen 800 MG Oral Tablet ibuprofen 800 mg tablet ibuprofen 8 00 mg tablet completed ibuprofen 800 MG Oral Tablet GALLIPOLIS ([facility]) Metronidazole 500 MG Oral Tablet metroni dazole 500 mg tablet TAKE ONE TABLET BY MOUTH THREE TIMES A DAY metronidazole 500 mg tablet TAKE ONE TAB LET BY MOUTH THREE TIMES A DAY completed metr onidazole 500 MG Oral Tablet GALLIPOLIS ([facility]) benzonatate 100 MG Oral Capsule benzonat ate 100 mg capsule TAKE ONE CAPSULE BY MOUTH THREE TIMES A DAY benzonatate 100 mg capsule TAKE ONE CAPS ULE BY MOUTH THREE TIMES A DAY completed davion onatate 100 MG Oral Capsule GALLIPOLIS ([facility]) Tri-Lo-Susie 0.18/0.215/0.25 mg-25 mcg tablet TAKE ONE TABLET BY MOUTH EVERY DAY [id number] completed Tri-Lo-Susie 0.1 8/0.215/0.25 mg-25 mcg tablet GALLIPOLIS ([facility]) Amoxicillin 500 MG Oral Capsule amoxicil nabil 500 mg capsule TAKE TWO CAPSULES BY MOUTH THREE TIMES A DAY amoxicillin 500 mg capsule TAKE TWO CAPS ULES BY MOUTH THREE TIMES A DAY completed amox icillin 500 MG Oral Capsule [facility]) Ondansetron 4 MG Oral Tablet ondansetron HCl 4 mg tablet TAKE 1 TABLET BY MOUTH ONCE TO TWICE DAILY BEFORE MEALS ONLY WHEN HAVING NAUSEA ondansetron HCl 4 mg tablet TAKE 1 TABLET BY MOUTH ONCE TO TWICE DAILY BEFORE MEALS ONLY WHEN HAVING NAUSEA completed ondansetron 4 M G Oral Tablet GALLIPOLIS ([facility]) POLYETHYLENE GLYCOL 3350 105 MG/ML / Pot assium Chloride 0.04311 MEQ/ML / Sodium Bicarbonate 0.017 MEQ/ML / Sodium Chloride 0.0479 MEQ/ML Oral Solution peg- electrolyte solution 420 gram oral solution peg-electrolyte solution 420 gram oral solution completed polyethylene glycol 3350 289123 MG / potassium chloride 1480 MG / sodium bicarbonate 5720 MG / sodium chloride 13203 MG Powder for Oral Solution [facility]) Ibuprofen 800 MG Oral Tablet ibuprofen 800 mg tablet ibuprofen 8 00 mg tablet completed ibuprofen 800 MG Oral Tablet GALLIPOLIS ([facility]) Hydroxyzine Hydrochloride 25 MG Oral Tab let hydroxyzine HCl 25 mg tablet TAKE 1 TABLET BY MOUTH 30 MINUTS PRIOR TO BEDTIME NEEDED FOR SLEEP DO NOT TAKE WITH MUSCLE [employer]ER hydroxyzine HCl 25 mg tablet TAKE 1 TABL ET BY MOUTH 30 MINUTS PRIOR TO BEDTIME NEEDED FOR SLEEP DO NOT TAKE WITH MUSCLE REL[employer]ER completed hydroxyzine hydrochloride 25 MG Oral Tablet GALLIPOLIS ([facility]) valacyclovir 500 MG Oral Tablet valacyclovir 500 mg ta blet valacyclovir 500 mg tablet completed valacyclovir 50 0 MG Oral Tablet [facility]) Ciprofloxacin 500 MG Oral Tablet ciprofl oxacin 500 mg tablet TAKE ONE TABLET BY MOUTH TWICE A DAY ciprofloxacin 500 mg tablet TAKE ONE TAB LET BY MOUTH TWICE A DAY completed ciprofloxacin 50 0 MG Oral Tablet ALEXANDRA ([facility]) Prednisone 20 MG Oral Tablet prednisone 20 mg tablet TAKE TWO TABLETS BY MOUTH TWICE A DAY prednisone 20 mg tablet TAKE TWO TABLETS BY MOUTH TWICE A DAY completed prednisone 20 MG Ora l Tablet GALLIPOLIS ([facility]) Prednisone 10 MG Oral Tablet prednisone 10 [...] MENG completed prednisone 10 MG Oral Tablet GALLIPOLIS ([facility]) Methocarbamol 750 MG Oral Tablet methoca rbamol 750 mg tablet TAKE ONE TABLET BY MOUTH AT BEDTIME NEEDED FOR SPASMS methocarbamol 750 mg tablet TAKE ONE TABLET BY MOUTH AT BEDTIME NEEDED FOR SPASMS completed methocarbamol 750 MG Oral Tablet GALLIPOLIS ([facility]) Acetaminophen 300 MG / Codeine Phosphate 30 MG Oral Tablet acetaminophen 300 mg- codeine 30 mg tablet acetaminophen 300 mg-codeine 30 mg tablet completed acetaminophen 300 MG / codeine p hosphate 30 MG Oral Tablet [facility] ([facility]) Escitalopram 10 MG Oral Tablet escitalop traci 10 mg tablet TAKE ONE TABLET BY MOUTH EVERY DAY escitalopram 10 mg tablet TAKE ONE TABLET BY MOUTH EVERY DAY completed escitalopram 1 0 MG Oral Tablet [facility]) topiramate 25 MG Oral Tablet topiramate 25 mg tablet Take 3 tablets every day by oral route as directed for 21 days. topiramate 25 mg tablet Take 3 tablets e very day by oral route as directed for 21 days. 3 completed topiramate 25 MG Oral Tablet [facility]LEXANDRA ([facility]) Acetaminophen 300 MG / Codeine Phosphate 30 MG Oral Tablet acetaminophen 300 mg- codeine 30 mg tablet acetaminophen 300 mg-codeine 30 mg tablet completed acetaminophen 300 MG / codeine p hosphate 30 MG Oral Tablet [facility] ([facility]) Acetaminophen 325 MG / Hydrocodone Jaymie trate [...] bitartrate 5 MG Oral Tablet ALEXANDRA ([facility]) Flulaval Quad 60 mcg (15 mcg x 4)/0.5 mL intramuscular susp. DIRECTED [id number] completed influe nza A virus A/ (H1N1) antigen 0.03 MG/ML / influenza A virus A/ (H3N2) antigen 0.03 MG/ML / influenza B virus B/ antigen 0.03 MG/ML / influenza B virus B/[facility] antigen 0.03 MG/ML Injectable Suspension [Flulaval Quadrivalent ] [facility] ([facility]) valacyclovir 500 MG Oral Tablet valacyclovir 500 mg ta blet valacyclovir 500 mg tablet completed valacyclovir 50 0 MG Oral Tablet ALEXANDRA ([facility]) Ondansetron 4 MG Oral Tablet ondansetron HCl 4 mg tablet TAKE 1 TABLET BY MOUTH ONCE TO TWICE DAILY BEFORE MEALS ONLY WHEN HAVING NAUSEA ondansetron HCl 4 mg tablet TAKE 1 TABLET BY MOUTH ONCE TO TWICE DAILY BEFORE MEALS ONLY WHEN HAVING NAUSEA completed ondansetron 4 M G Oral Tablet [facility] ([facility]) Prednisone 10 MG Oral Tablet prednisone 10 [...] prednisone 10 MG Oral Tablet [facility]DRA ([facility]) Levothyroxine Sodium 0.075 MG Oral Table t levothyroxine 75 mcg tablet TAKE 1 TABLET BY MOUTH ONCE A DAY IN THE MORNING ON AN EMPTY STOMACH levothyroxine 75 mcg tablet TAKE 1 TABLET BY MOUTH ONCE A DAY IN THE MORNING ON AN EMPTY STOMACH completed levothyroxine sodium 0.075 MG Oral Tablet ALEXANDRA ([facility]) Escitalopram 10 MG Oral Tablet escitalop traci 10 mg tablet TAKE ONE TABLET BY MOUTH EVERY DAY escitalopram 10 mg tablet TAKE ONE TABLET BY MOUTH EVERY DAY completed escitalopram 1 0 MG Oral Tablet [facility]DRA ([facility]) valacyclovir 1000 MG Oral Tablet valacyc lovir 1 gram tablet TAKE ONE TABLET BY MOUTH EVERY DAY valacyclovir 1 gram tablet TAKE ONE TABLET BY MOUTH EVERY DA Y completed valacyclovir 1 000 MG Oral Tablet [facility] ([facility]) Amoxicillin 500 MG Oral Capsule amoxicil nabil 500 mg capsule TAKE TWO CAPSULES BY MOUTH THREE TIMES A DAY amoxicillin 500 mg capsule TAKE TWO CAPS ULES BY MOUTH THREE TIMES A DAY completed amox icillin 500 MG Oral Capsule [facility] ([facility]) Ciprofloxacin 500 MG Oral Tablet ciprofl oxacin 500 mg tablet TAKE ONE TABLET BY MOUTH TWICE A DAY ciprofloxacin 500 mg tablet TAKE ONE TAB LET BY MOUTH TWICE A DAY completed ciprofloxacin 50 0 MG Oral Tablet [facility] ([facility]) valacyclovir 1000 MG Oral Tablet valacyc lovir 1 gram tablet TAKE ONE TABLET BY MOUTH EVERY DAY valacyclovir 1 gram tablet TAKE ONE TABLET BY MOUTH EVERY DA Y completed valacyclovir 1 000 MG Oral Tablet [facility] ([facility]) Bisacodyl 5 MG Delayed Release Oral Tabl et bisacodyl 5 mg tablet,delayed release bisacodyl 5 mg tablet,delayed release completed bisacodyl 5 MG Delayed Release Oral Tablet [facility] ([facility]) Methocarbamol 750 MG Oral Tablet methoca rbamol 750 mg tablet TAKE ONE TABLET BY MOUTH AT BEDTIME NEEDED FOR SPASMS methocarbamol 750 mg tablet TAKE ONE TABLET BY MOUTH AT BEDTIME NEEDED FOR SPASMS completed methocarbamol 750 MG Oral Tablet [facility]DRA ([facility]) meloxicam 15 MG Oral Tablet meloxicam 15 mg tablet TAKE ONE TABLET BY MOUTH EVERY DAY AFTER A MEAL MAXIMUM DAILY DOSE 1 meloxicam 15 mg tablet TAKE ONE TABLET BY MOUTH EVERY DAY AFTER A MEAL MAXIMUM DAILY DOSE 1 completed meloxicam 15 MG Oral Tablet ATHE ([facility]) Flulaval Quad [id number] 60 mcg (15 mcg x 4)/0.5 mL intramuscular susp. DIRECTED [id number] completed influe nza A virus A/ (H1N1) antigen 0.03 MG/ML / influenza A virus A/ (H3N2) antigen 0.03 MG/ML / influenza B virus B/ antigen 0.03 MG/ML / influenza B virus B/[facility] antigen 0.03 MG/ML Injectable Suspension [Flulaval Quadrivalent ] [facility]LEXANDRA ([facility]) Ibuprofen 800 MG Oral Tablet ibuprofen 800 mg tablet ibuprofen 8 00 mg tablet completed ibuprofen 800 MG Oral Tablet [facility] ([facility]) Metronidazole 500 MG Oral Tablet metroni dazole 500 mg tablet TAKE ONE TABLET BY MOUTH THREE TIMES A DAY metronidazole 500 mg tablet TAKE ONE TAB LET BY MOUTH THREE TIMES A DAY completed metr onidazole 500 MG Oral Tablet [facility]DRA ([facility]) Ibuprofen 800 MG Oral Tablet ibuprofen 800 mg tablet ibuprofen 8 00 mg tablet completed ibuprofen 800 MG Oral Tablet [facility] ([facility]) POLYETHYLENE GLYCOL 3350 105 MG/ML / Pot assium Chloride 0.61975 MEQ/ML / Sodium Bicarbonate 0.017 MEQ/ML / Sodium Chloride 0.0479 MEQ/ML Oral Solution peg- electrolyte solution 420 gram oral solution peg-electrolyte solution 420 gram oral solution completed polyethylene glycol 3350 099768 MG / potassium chloride 1480 MG / sodium bicarbonate 5720 MG / sodium chloride 46102 MG Powder for Oral Solution [facility]DRA ([facility]) Acetaminophen 300 MG / Codeine Phosphate 30 MG Oral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 03/11/2018 12:0 0:00 AM EDT - 07/30/2020 12:00:00 AM EST ALEXANDRA ([facility]) 754549239 Head finding Head Finding Problem 03/11/2018 12:0 0:00 AM EDT - 07/30/2020 12:00:00 AM EST ALEXANDRA ([facility]) 307947911 Swelling / lump finding Swelling / Lump Finding Proble 01/06/2018 12:00:00 AM EDT - 10/16/2020 12:00:00 AM EST ALEXANDRA ([facility]) 181054960 Swelling / lump finding Swelling / Lump Finding Proble 01/06/2018 12:00:00 AM EDT - 10/16/2020 12:00:00 AM EST ALEXANDRA ([facility]) [id number] Swelling / lump finding Swelling / Lump Finding Proble m 01/06/2018 12:00:00 AM EDT - 10/16/2020 12:00:00 AM GEOVANI MORRIS ([facility]) 112084285 Swelling / lump finding Swelling / Lump Finding Proble m 01/06/2018 12:00:00 AM EDT - 10/16/2020 12:00:00 AM GEOVANI MORRIS ([facility]) Surgeries/Procedures Procedure Description Date Indications Data Source(s) OFFICE OUTPATIENT VISIT 15 MINUTES 05/27/2021 12:00:00 AM EDT MED[facility] ([facility] ) OFFICE OUTPATIENT VISIT 25 MINUTES 02/12/2021 12:00:00 AM EDT MED[facility] ([facility] ) OFFICE OUTPATIENT VISIT 15 MINUTES 01/09/2021 12:00:00 AM EDT [facility] ([facility] ) APPL MODALITY 1/> AREAS ELEC STIMJ EA 15 MIN 12:00:00 AM EDT MEDENT ([facility] ) MANUAL THERAPY TQS 1/> REGIONS EACH 15 MINUTES 021 12:00:00 AM EDT [facility] ([facility] ) APPL MODALITY 1/> AREAS ELEC STIMJ EA 15 MIN 12:00:00 AM EDT [facility] ([facility] ) THERAPEUTIC PX 1/> AREAS EACH 15 MIN EXERCISES 021 12:00:00 AM EDT MED[facility] ([facility] ) MANUAL THERAPY TQS 1/> REGIONS EACH 15 MINUTES 021 12:00:00 AM EDT [facility] ([facility] ) OFFICE CONSULTATION NEW/ESTAB PATIENT 60 MIN 12:00:00 AM EDT [facility] ([facility] ) APPL MODALITY 1/> AREAS ELEC STIMJ EA 15 MIN 12:00:00 AM EDT [facility] ([facility] ) MANUAL THERAPY TQS 1/> REGIONS EACH 15 MINUTES 021 12:00:00 AM EDT MED[facility] ([facility] ) MANUAL THERAPY TQS 1/> REGIONS EACH 15 MINUTES 021 12:00:00 AM EDT [facility] ([facility] ) THERAPEUTIC PX 1/> AREAS EACH 15 MIN EXERCISES 021 12:00:00 AM EDT [facility] ([facility] ) MANUAL THERAPY TQS 1/> REGIONS EACH 15 MINUTES 021 12:00:00 AM EDT [facility] ([facility] ) THERAPEUTIC PX 1/> AREAS EACH 15 MIN EXERCISES 021 12:00:00 AM EDT [facility] ([facility] ) MANUAL THERAPY TQS 1/> REGIONS EACH 15 MINUTES 021 12:00:00 AM EDT [facility] ([facility] ) PHYSICIAN TELEPHONE EVALUATION 5-10 MIN 11/13/2020 12: 00:00 AM EST [facility] ([facility]) Physical Therapy Eval - Low Complexity 11/12/2020 12:0 0:00 AM EST MED[facility] ([facility] ) ELECTROENCEPHALOGRAM W/REC AWAKE&ASLEEP 11/09/2020 12: 00:00 AM EST MED[facility] ([facility] ) ELECTROENCEPHALOGRAM W/REC AWAKE&ASLEEP 11/09/2020 12: 00:00 AM EST MEDENT ([facility] ) Needle electromyography, each extremity, with related paraspinal areas, when performed, done with nerve conduction, amplitude and latency/velocity study; complete, five or more muscles studied, innervated by three or more nerves or four or more spinal levels (list separately in addition to the code for primary procedure). 10/24/2020 12:00:00 AM EST MEDEN T ([facility] ) Needle electromyography, each extremity, with related paraspinal areas, when performed, done with nerve conduction, amplitude and latency/velocity study; complete, five or more muscles studied, innervated by three or more nerves or four or more spinal levels (list separately in addition to the code for primary procedure). 10/24/2020 12:00:00 AM EST MEDEN T ([facility] ) Nerve Conduction 11-12 Studies 10/24/2020 12:00:00 AM EST [facility] ([facility] ) PHYSICIAN TELEPHONE EVALUATION 5-10 MIN 10/18/2020 12: 00:00 AM EST [facility] ([facility] ) OFFICE OUTPATIENT VISIT 15 MINUTES 09/25/2020 12:00:00 AM EST [facility] ([facility] ) RADEX SPINE CRV COMPL W/OBLQ&FLEX&/XTN STDS 09/12/2020 12:00:00 AM EST [facility] ([facility] ) RADEX SPINE THORACIC 2 VIEWS 09/12/2020 12:00:00 AM ES T [facility] ([facility] ) OFFICE OUTPATIENT NEW 45 MINUTES 09/12/2020 12:00:00 A M EST [facility] ([facility] ) TSTG ANS FUNCJ CARDIOVAGAL INNERVAJ PARASYMP 0 12:00:00 AM EST MED[facility] ([facility] ) TSTG ANS FUNCJ CARDIOVAGAL INNERVAJ PARASYMP 0 12:00:00 AM EST [facility] ([facility] ) TESTING AUTONOMIC NERVOUS SYSTEM FUNCTION 09/05/2020 1 2:00:00 AM EST MEDENT ([facility] ) TESTING AUTONOMIC NERVOUS SYSTEM FUNCTION 09/05/2020 1 2:00:00 AM EST MEDENT ([facility] ) NON-INVASIVE PHYSIOLOGIC STUDY EXTREMITY 3 LEVLS 09/05 12:00:00 AM EST [facility] ([facility] ) MRI Spine Thoracic W/O Contrast 08/21/2020 12:00:00 AM EST [facility] ([facility] ) MRI Spine Thoracic W/O Contrast 08/21/2020 12:00:00 AM EST [facility] ([facility] ) MRI SPINAL CANAL CERVICAL W/O CONTRAST MATRL 0 12:00:00 AM EST [facility]ENT ([facility] ) MRI SPINAL CANAL CERVICAL W/O CONTRAST MATRL 0 12:00:00 AM EST [facility] ([facility] ) MRI BRAIN BRAIN STEM W/O CONTRAST MATERIAL 08/21/2020 12:00:00 AM EST [facility] ([facility] ) MRI BRAIN BRAIN STEM W/O CONTRAST MATERIAL 08/21/2020 12:00:00 AM EST MEDENT ([facility] ) Needle electromyography, each extremity, with related paraspinal areas, when performed, done with nerve conduction, amplitude and latency/velocity study; complete, five or more muscles studied, innervated by three or more nerves or four or more spinal levels (list separately in addition to the code for primary procedure). 08/08/2020 12:00:00 AM EST MEDEN T ([facility] ) Needle electromyography, each extremity, with related paraspinal areas, when performed, done with nerve conduction, amplitude and latency/velocity study; complete, five or more muscles studied, innervated by three or more nerves or four or more spinal levels (list separately in addition to the code for primary procedure). 08/08/2020 12:00:00 AM EST MEDEN T ([facility], ) 79668 Nerve conduction studies 13 or more studies NEW 201208/08/2020 12:00:00 AM EST [facility] ([facility] ) Results ID Date Data Source [id number] 12/27/2020 12:46:07 PM EDT [facility] PCName: Bj HammerDOB: 1985Provider: Benja RainDOS: 12/27/2020 Reason For VisitSsuzy Hammer is here today for Lumbar spine. Bj has not had the Covid vaccine. Bj Hammer is a new patient. Xrays and MRI were imported. Other DOI/DOO: 09/08/2020. Patient states the injury occurred after a fall. 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 History of Present IllnessChronic low back painMain complaint is axial low back painStates seeing [facility]-no injectionsPhysical therapy November 2020-no [...] feet. --Global numbnes s/constant since 09/10/2020 [facility] Multilevel DDD. L3-4 moderate stenosis. No [...] different treatment conservative options(observation, medication(s), physical therapy, direct care specialist, acupuncture, pain clinic, home exercise program, etc.)--- with pros and cons, potential risks/potential benefits of each option, as well as the chances of successes/failures of each option.At this time, they wish to proceed with:Pain management-continue with [facility] orth[facility] pain managementUnfortunately I do not feel I can help her with surgical invention. Advised she is always welcome to get a another surgical opinion.Regarding her bilateral foot numbness, she has global numbness in a nonanatomic submission. Advised to discuss further with PCP and discuss PCP referral to neurology for further evaluation This document was dictated and electronically signed using Miroi software. A reasonable attempt at proof reading has been made to minimize errors. Please call with any questions. Signatures Electronically signed by : Benja Rain M.D.; Dec 27 2020 12:46PM EST (Author) Name Value Range Interpretation Code Description Data Ade rce(s) Supporting Document(s) ID Date Data Source [id number] 10/23/2020 03:10:00 PM EST [place] ([facility]) Name Value Range Interpretation Code Description Data Ade rce(s) Supporting Document(s) thyroid stimulating hormone 3.500 uIU/mL 0.358-3.740 Thyroid Stimulating Hormone [place] ([facility]) free T4 0.92 NG/dL 0.76-1.46 Free T4 [facility]) ID Date Data Source [id number] 10/23/2020 03:10:00 PM EST ALEXANDRA ([facility]) Name Value Range Interpretation Code Description Data Ade rce(s) Supporting Document(s) free T4 0.92 NG/dL 0.76-1.46 Free T4 ALEXANDRA ([facility]) thyroid stimulating hormone 3.500 uIU/mL 0.358-3.740 Thyroid Stimulating Hormone ALEXANDRA ([facility]) ID Date Data Source [id number] 10/23/2020 03:10:00 PM EST ALEXANDRA ([facility]) Name Value Range Interpretation Code Description Data Ade rce(s) Supporting Document(s) thyroid stimulating hormone 3.500 uIU/mL 0.358-3.740 Thyroid Stimulating Hormone ALEXANDRA ([facility]) free T4 0.92 NG/dL 0.76-1.46 Free T4 ALEXANDRA ([facility]) ID Date Data Source [id number] 10/23/2020 03:10:00 PM EST [facility] ([facility]) Name Value Range Interpretation Code Description Data Ade rce(s) Supporting Document(s) Free T4 0.92 ng/dL 0.76-1.46 [facility] Thyroid Stimulating Hormone 3.500 uIU/ML 0.358-3.740 [facility] ([facility]) ID Date Data Source [id number] 08/29/2020 01:37:00 PM EST ALEXANDRA ([facility]) Name Value Range Interpretation Code Description Data Ade rce(s) Supporting Document(s) antinuclear antibodies direct negative negative Antinu clear Antibodies Direct [facility] ID Date Data Source [id number] 08/29/2020 01:37:00 PM EST ALEXANDRA ([facility]) Name Value Range Interpretation Code Description Data Ade rce(s) Supporting Document(s) vitamin B6,pyridoxal phosphate 5.7 ug/L 2.0-32.8 Vitamin B6,Pyridoxal Phosphate ALEXANDRA ([facility]) ID Date Data Source [id number] 08/29/2020 01:37:00 PM EST ALEXANDRA ([facility]) Name Value Range Interpretation Code Description Data Ade rce(s) Supporting Document(s) vitamin B1 level whole blood 158.2 nmol/L 66.5-200.0 Vitamin B1 Level Whole Blood ALEXANDRA ([facility]) ID Date Data Source [id number] 08/29/2020 01:37:00 PM EST ALEXANDRA ([facility]) Name Value Range Interpretation Code Description Data Ade rce(s) Supporting Document(s) vitamin E(alpha tocopherol) 9.2 mg/L 5.9-19.4 Vitamin E(alpha Tocopherol) ALEXANDRA ([facility]) vitamin E(gamma tocopherol) 1.7 mg/L 0.7-4.9 Vitamin E(gamma Tocopherol) ALEXANDRA ([facility]) ID Date Data Source [id number] 08/29/2020 01:37:00 PM EST ALEXANDRA ([facility]) Name Value Range Interpretation Code Description Data Ade rce(s) Supporting Document(s) rheumatoid factor quant < 10.0 <15.0 Rheumatoid F actor Quant ALEXANDRA ([facility]) ID Date Data Source [id number] 08/29/2020 01:37:00 PM EST ALEXANDRA ([facility]) Name Value Range Interpretation Code Description Data Ade rce(s) Supporting Document(s) ferritin 66 NG/mL 8-252 Ferritin A[facility]ANDRA ([facility]) ID Date Data Source [id number] 08/29/2020 01:37:00 PM EST ALEXANDRA ([facility]) Name Value Range Interpretation Code Description Data Ade rce(s) Supporting Document(s) total 25(oh) vitamin D 24.2 NG/mL 30.0-100.0 Below low normal T otal 25(Oh) Vitamin D [place] ([facility]) ID Date Data Source [id number] 08/29/2020 01:37:00 PM EST ALEXANDRA ([facility]) Name Value Range Interpretation Code Description Data Ade rce(s) Supporting Document(s) vitamin B12 level 447 pg/mL Vitamin B12 Level ALEXANDRA ([facility]) folate 8.7 NG/mL Folate ALEXANDRA ([facility]) ID Date Data Source [id number] 08/29/2020 01:37:00 PM EST ALEXANDRA ([facility]) Name Value Range Interpretation Code Description Data Ade rce(s) Supporting Document(s) total iron binding capacity 349 ug/dL 250-450 Total Ir on Binding Capacity ALEXANDRA ([facility]) iron (fe) 67 ug/dL 50-170 Iron (Fe) ALEXANDRA ([facility]) percent saturation 19.2 % 13.2-45.0 Percent Saturatio n ALEXANDRA ([facility]) ID Date Data Source [id number] 08/29/2020 01:37:00 PM EST ALEXANDRA ([facility]) Name Value Range Interpretation Code Description Data Ade rce(s) Supporting Document(s) erythrocyte sedimentation rate 19 mm/HR 0-20 Eryth rocyte Sedimentation Rate A[facility]ANDRA ([facility]) ID Date Data Source [id number] 08/29/2020 01:37:00 PM EST ALEXANDRA ([facility]) Name Value Range Interpretation Code Description Data Ade rce(s) Supporting Document(s) antinuclear antibodies direct negative negative Antinu clear Antibodies Direct [facility]ANDRA ([facility]) ID Date Data Source [id number] 08/29/2020 01:37:00 PM EST ALEXANDRA ([facility]) Name Value Range Interpretation Code Description Data Ade rce(s) Supporting Document(s) vitamin B6,pyridoxal phosphate 5.7 ug/L 2.0-32.8 Vitamin B6,Pyridoxal Phosphate [facility]DRA ([facility]) ID Date Data Source [id number] 08/29/2020 01:37:00 PM EST A[facility]ANDRA ([facility]) Name Value Range Interpretation Code Description Data Ade rce(s) Supporting Document(s) vitamin B1 level whole blood 158.2 nmol/L 66.5-200.0 Vitamin B1 Level Whole Blood [facility] ([facility]) ID Date Data Source [id number] 08/29/2020 01:37:00 PM EST [facility]DRA ([facility]) Name Value Range Interpretation Code Description Data Ade rce(s) Supporting Document(s) vitamin E(alpha tocopherol) 9.2 mg/L 5.9-19.4 Vitamin E(alpha Tocopherol) [facility]DR[facility] ([facility]) vitamin E(gamma tocopherol) 1.7 mg/L 0.7-4.9 Vitamin E(gamma Tocopherol) [facility]DR[facility] ([facility]) ID Date Data Source [id number] 08/29/2020 01:37:00 PM EST A[facility]DRA ([facility]) Name Value Range Interpretation Code Description Data Ade rce(s) Supporting Document(s) rheumatoid factor quant < 10.0 <15.0 Rheumatoid F actor Quant [facility] ([facility]) ID Date Data Source [id number] 08/29/2020 01:37:00 PM EST A[facility]ANDRA ([facility]) Name Value Range Interpretation Code Description Data Ade rce(s) Supporting Document(s) ferritin 66 NG/mL 8-252 Ferritin [facility]DR[facility] ([facility]) ID Date Data Source [id number] 08/29/2020 01:37:00 PM EST A[facility]DRA ([facility]) Name Value Range Interpretation Code Description Data Ade rce(s) Supporting Document(s) total 25(oh) vitamin D 24.2 NG/mL 30.0-100.0 Below low normal T otal 25(Oh) Vitamin D [facility]LEX[facility]DRA ([facility]) ID Date Data Source [id number] 08/29/2020 01:37:00 PM EST [facility]DR[facility] ([facility]) Name Value Range Interpretation Code Description Data Ade rce(s) Supporting Document(s) folate 8.7 NG/mL Folate [facility] ([facility]) vitamin B12 level 447 pg/mL Vitamin B12 Level [facility]DR[facility] ([facility]) ID Date Data Source [id number] 08/29/2020 01:37:00 PM EST A[facility]ANDRA ([facility]) Name Value Range Interpretation Code Description Data Ade rce(s) Supporting Document(s) total iron binding capacity 349 ug/dL 250-450 Total Ir on Binding Capacity [facility]DR[facility] ([facility]) iron (fe) 67 ug/dL 50-170 Iron (Fe) [facility] ([facility]) percent saturation 19.2 % 13.2-45.0 Percent Saturatio n ALEXANDRA ([facility]) ID Date Data Source [id number] 08/29/2020 01:37:00 PM EST [facility] ([facility]) Name Value Range Interpretation Code Description Data Ade rce(s) Supporting Document(s) erythrocyte sedimentation rate 19 mm/HR 0-20 Eryth rocyte Sedimentation Rate [facility] ([facility]) ID Date Data Source [id number] 08/29/2020 01:37:00 PM EST [facility]DRA ([facility]) Name Value Range Interpretation Code Description Data Ade rce(s) Supporting Document(s) antinuclear antibodies direct negative negative Antinu clear Antibodies Direct [facility]DRA ([facility]) ID Date Data Source [id number] 08/29/2020 01:37:00 PM EST [facility]DR[facility] ([facility]) Name Value Range Interpretation Code Description Data Ade rce(s) Supporting Document(s) vitamin B6,pyridoxal phosphate 5.7 ug/L 2.0-32.8 Vitamin B6,Pyridoxal Phosphate [facility] ([facility]) ID Date Data Source [id number] 08/29/2020 01:37:00 PM EST [facility]DR[facility] ([facility]) Name Value Range Interpretation Code Description Data Ade rce(s) Supporting Document(s) vitamin B1 level whole blood 158.2 nmol/L 66.5-200.0 Vitamin B1 Level Whole Blood [facility] ([facility]) ID Date Data Source [id number] 08/29/2020 01:37:00 PM EST A[facility]DRA ([facility]) Name Value Range Interpretation Code Description Data Ade rce(s) Supporting Document(s) vitamin E(alpha tocopherol) 9.2 mg/L 5.9-19.4 Vitamin E(alpha Tocopherol) [facility]DRA ([facility]) vitamin E(gamma tocopherol) 1.7 mg/L 0.7-4.9 Vitamin E(gamma Tocopherol) [place] ([facility]) ID Date Data Source [id number] 08/29/2020 01:37:00 PM EST ALEX[facility]DRA ([facility]) Name Value Range Interpretation Code Description Data Ade rce(s) Supporting Document(s) rheumatoid factor quant < 10.0 <15.0 Rheumatoid F actor Quant [facility]DRA ([facility]) ID Date Data Source [id number] 08/29/2020 01:37:00 PM EST A[facility]DRA ([facility]) Name Value Range Interpretation Code Description Data Ade rce(s) Supporting Document(s) ferritin 66 NG/mL 8-252 Ferritin [facility] ([facility]) ID Date Data Source [id number] 08/29/2020 01:37:00 PM EST A[facility]DRA ([facility]) Name Value Range Interpretation Code Description Data Ade rce(s) Supporting Document(s) total 25(oh) vitamin D 24.2 NG/mL 30.0-100.0 Below low normal T otal 25(Oh) Vitamin D [facility]DRA ([facility]) ID Date Data Source [id number] 08/29/2020 01:37:00 PM EST A[facility]DRA ([facility]) Name Value Range Interpretation Code Description Data Ade rce(s) Supporting Document(s) vitamin B12 level 447 pg/mL Vitamin B12 Level ALEXANDRA ([facility]) folate 8.7 NG/mL Folate [facility] ([facility]) ID Date Data Source [id number] 08/29/2020 01:37:00 PM EST ALEXANDRA ([facility]) Name Value Range Interpretation Code Description Data Ade rce(s) Supporting Document(s) total iron binding capacity 349 ug/dL 250-450 Total Ir on Binding Capacity [facility]DRA ([facility]) iron (fe) 67 ug/dL 50-170 Iron (Fe) [facility]DRA ([facility]) percent saturation 19.2 % 13.2-45.0 Percent Saturatio n [facility]LEXANDRA ([facility]) ID Date Data Source [id number] 08/29/2020 01:37:00 PM EST ALEXANDRA ([facility]) Name Value Range Interpretation Code Description Data Ade rce(s) Supporting Document(s) erythrocyte sedimentation rate 19 mm/HR 0-20 Eryth rocyte Sedimentation Rate [facility] ([facility]) ID Date Data Source [id number] 08/29/2020 01:37:00 PM EST [facility] ([facility]) Name Value Range Interpretation Code Description Data Ade rce(s) Supporting Document(s) Antinuclear Antibodies Direct Laboratory test result [facility] ([facility]) Performed at: - [facility] [id number] Rating Specialist: Adeola Salmon MD, Phone: [phone] Performed at: - [facility] [address] [id number] Rating Specialist: Fang Byrd MD, Phone: [phone] ID Date Data Source [id number] 08/29/2020 01:37:00 PM EST [facility] ([facility] ) Name Value Range Interpretation Code Description Data Ade rce(s) Supporting Document(s) Pyridoxine [Mass/volume] in Serum or Plasma 5.7 ug/L 2.0-32.8 [facility] ([facility], ) Specimen Comment: Test(s) 415345-Nnkihnr E(Alpha Tocopherol); 650679- Specimen Comment: Vitamin E(Gamma Tocopherol); 073590-Dwlskzf B6; 636109- Specimen Comment: Vit. B1, Whole Blood Specimen Comment: was developed and its performance characteristics Specimen Comment: determined by [facility]. It has not been cleared or approved Specimen Comment: by the Food and Drug Administration. Thiamine [Mass/volume] in Blood 158.2 nmol/L 66.5-200.0 [facility] ([facility], ) Specimen Comment: Test(s) 899637-Aiegaiv E(Alpha Tocopherol); 968562- Specimen Comment: Vitamin E(Gamma Tocopherol); 576162-Jiyzgne B6; 889941- Specimen Comment: Vit. B1, Whole Blood Specimen Comment: was developed and its performance characteristics Specimen Comment: determined by [facility]. It has not been cleared or approved Specimen Comment: by the Food and Drug Administration. ID Date Data Source [id number] 08/29/2020 01:37:00 PM EST [facility] ([facility], ) Name Value Range Interpretation Code Description Data Ade rce(s) Supporting Document(s) Vitamin E(Alpha Tocopherol) 9.2 mg/L 5.9-19.4 [facility] ([facility]) Vitamin E(Gamma Tocopherol) 1.7 mg/L 0.7-4.9 [facility] ([facility] ) Reference intervals for alpha and gamma- tocopherol determined from National Health and Nutrition Examination Survey, 5477-9151. Individuals with alpha-tocopherol levels less than 5.0 mg/L are considered vitamin E deficient. ID Date Data Source [id number] 08/29/2020 01:37:00 PM EST [facility] ([facility] ) Name Value Range Interpretation Code Description Data Ade rce(s) Supporting Document(s) Calcidiol [Mass/volume] in Serum or Plasma 24.2 ng/mL 30.0-100.0 [facility] ([facility]) Ferritin [Mass/volume] in Serum or Plasma 66 ng/mL 8-[facility] Rheumatoid factor [Units/volume] in Serum or Plasma Laboratory test result [facility] ([facility]) ID Date Data Source [id number] 08/29/2020 01:37:00 PM EST [facility] ([facility]) Name Value Range Interpretation Code Description Data Ade rce(s) Supporting Document(s) Vitamin B12 Level 447 pg/mL [facility] ([facility]) VITAMIN B12 NORMAL RANGE NORMAL 247 - 911 PG/ML INDETERMINATE 211 - 246 PG/ML DEFICIENT LESS THAN 211 PG/ML Folate 8.7 ng/mL [facility] ([facility]) FOLATE NORMAL RANGE NORMAL GREATER THAN 5.4 NG/ML INDETERMINATE 3.4-5.4 NG/ML DEFICIENT LESS THAN 3.4 NG/ML ID Date Data Source [id number] 08/29/2020 01:37:00 PM EST [facility] ([facility]) Name Value Range Interpretation Code Description Data Ade rce(s) Supporting Document(s) Iron (Fe) 67 ug/dL 50-170 [facility] ([facility]) Total Iron Binding Capacity 349 ug/dL 250-450 [facility] ([facility]) Percent Saturation 19.2 % 13.2-45.0 [facility] ([facility]) ID Date Data Source [id number] 08/29/2020 01:37:00 PM EST [facility] ([facility]) Name Value Range Interpretation Code Description Data Ade rce(s) Supporting Document(s) Erythrocyte sedimentation rate by 2H Westergren method 19 mm/hr 0-[address] [facility] ID Date Data Source [id number] 08/29/2020 01:37:00 PM EST ALEXANDRA ([facility]) Name Value Range Interpretation Code Description Data Ade rce(s) Supporting Document(s) antinuclear antibodies direct negative negative Antinu clear Antibodies Direct [place] ([facility]) ID Date Data Source [id number] 08/29/2020 01:37:00 PM EST ALEXANDRA ([facility]) Name Value Range Interpretation Code Description Data Ade rce(s) Supporting Document(s) vitamin B6,pyridoxal phosphate 5.7 ug/L 2.0-32.8 Vitamin B6,Pyridoxal Phosphate [facility]DRA ([facility]) ID Date Data Source [id number] 08/29/2020 01:37:00 PM EST A[facility]DRA ([facility]) Name Value Range Interpretation Code Description Data Ade rce(s) Supporting Document(s) vitamin B1 level whole blood 158.2 nmol/L 66.5-200.0 Vitamin B1 Level Whole Blood A[facility]DRA ([facility]) ID Date Data Source [id number] 08/29/2020 01:37:00 PM EST A[facility]DRA ([facility]) Name Value Range Interpretation Code Description Data Ade rce(s) Supporting Document(s) vitamin E(gamma tocopherol) 1.7 mg/L 0.7-4.9 Vitamin E(gamma Tocopherol) [facility]DR[facility] ([facility]) vitamin E(alpha tocopherol) 9.2 mg/L 5.9-19.4 Vitamin E(alpha Tocopherol) [place] ([facility]) ID Date Data Source [id number] 08/29/2020 01:37:00 PM EST ALEXANDRA ([facility]) Name Value Range Interpretation Code Description Data Ade rce(s) Supporting Document(s) rheumatoid factor quant < 10.0 <15.0 Rheumatoid F actor Quant [facility] ([facility]) ID Date Data Source [id number] 08/29/2020 01:37:00 PM EST ALEXANDRA ([facility]) Name Value Range Interpretation Code Description Data Ade rce(s) Supporting Document(s) ferritin 66 NG/mL 8-252 Ferritin [facility] ([facility]) ID Date Data Source [id number] 08/29/2020 01:37:00 PM EST A[facility]DRA ([facility]) Name Value Range Interpretation Code Description Data Ade rce(s) Supporting Document(s) total 25(oh) vitamin D 24.2 NG/mL 30.0-100.0 Below low normal T otal 25(Oh) Vitamin D [facility]DRA ([facility]) ID Date Data Source [id number] 08/29/2020 01:37:00 PM EST A[facility]DRA ([facility]) Name Value Range Interpretation Code Description Data Ade rce(s) Supporting Document(s) vitamin B12 level 447 pg/mL Vitamin B12 Level ALEXANDRA ([facility]) folate 8.7 NG/mL Folate [facility] ([facility]) ID Date Data Source [id number] 08/29/2020 01:37:00 PM EST A[facility]DRA ([facility]) Name Value Range Interpretation Code Description Data Ade rce(s) Supporting Document(s) iron (fe) 67 ug/dL 50-170 Iron (Fe) [facility]ANDRA ([facility]) total iron binding capacity 349 ug/dL 250-450 Total Ir on Binding Capacity A[facility]DRA ([facility]) percent saturation 19.2 % 13.2-45.0 Percent Saturatio n [facility]DRA ([facility]) ID Date Data Source [id number] 08/29/2020 01:37:00 PM EST A[facility]DRA ([facility]) Name Value Range Interpretation Code Description Data Ade rce(s) Supporting Document(s) erythrocyte sedimentation rate 19 mm/HR 0-20 Eryth rocyte Sedimentation Rate [facility]DRA ([facility]) ID Date Data Source [id number] 08/29/2020 01:37:00 PM EST A[facility]DRA ([facility]) Name Value Range Interpretation Code Description Data Ade rce(s) Supporting Document(s) antinuclear antibodies direct negative negative Antinu clear Antibodies Direct [facility]DR[facility] ([facility]) ID Date Data Source [id number] 08/29/2020 01:37:00 PM EST A[facility]DRA ([facility]) Name Value Range Interpretation Code Description Data Ade rce(s) Supporting Document(s) vitamin B6,pyridoxal phosphate 5.7 ug/L 2.0-32.8 Vitamin B6,Pyridoxal Phosphate [place] ([facility]) ID Date Data Source [id number] 08/29/2020 01:37:00 PM EST [place] ([facility]) Name Value Range Interpretation Code Description Data Ade rce(s) Supporting Document(s) vitamin B1 level whole blood 158.2 nmol/L 66.5-200.0 Vitamin B1 Level Whole Blood [place] ([facility]) ID Date Data Source [id number] 08/29/2020 01:37:00 PM EST A[facility]ANDRA ([facility]) Name Value Range Interpretation Code Description Data Ade rce(s) Supporting Document(s) vitamin E(gamma tocopherol) 1.7 mg/L 0.7-4.9 Vitamin E(gamma Tocopherol) [facility]DRA ([facility]) vitamin E(alpha tocopherol) 9.2 mg/L 5.9-19.4 Vitamin E(alpha Tocopherol) [place] ([facility]) ID Date Data Source [id number] 08/29/2020 01:37:00 PM EST A[facility]DRA ([facility]) Name Value Range Interpretation Code Description Data Ade rce(s) Supporting Document(s) rheumatoid factor quant < 10.0 <15.0 Rheumatoid F actor [facility] ID Date Data Source [id number] 08/29/2020 01:37:00 PM EST [facility] Name Value Range Interpretation Code Description Data Ade rce(s) Supporting Document(s) ferritin 66 NG/mL 8-252 Ferritin [facility] ([facility]) ID Date Data Source [id number] 08/29/2020 01:37:00 PM EST [facility]DRA ([facility]) Name Value Range Interpretation Code Description Data Ade rce(s) Supporting Document(s) total 25(oh) vitamin D 24.2 NG/mL 30.0-100.0 Below low normal T otal 25(Oh) Vitamin D [facility]DR[facility] ([facility]) ID Date Data Source [id number] 08/29/2020 01:37:00 PM EST [facility]DR[facility] ([facility]) Name Value Range Interpretation Code Description Data Ade rce(s) Supporting Document(s) vitamin B12 level 447 pg/mL Vitamin B12 Level [facility] ([facility]) folate 8.7 NG/mL Folate [facility] ([facility]) ID Date Data Source [id number] 08/29/2020 01:37:00 PM EST [facility] ([facility]) Name Value Range Interpretation Code Description Data Ade rce(s) Supporting Document(s) total iron binding capacity 349 ug/dL 250-450 Total Ir on Binding Capacity [facility] ([facility]) percent saturation 19.2 % 13.2-45.0 Percent Saturatio n [facility] ([facility]) iron (fe) 67 ug/dL 50-170 Iron (Fe) [facility] ([facility]) ID Date Data Source [id number] 08/29/2020 01:37:00 PM EST [facility] ([facility]) Name Value Range Interpretation Code Description Data Ade rce(s) Supporting Document(s) erythrocyte sedimentation rate 19 mm/HR 0-20 Eryth rocyte Sedimentation Rate [facility] ([facility]) ID Date Data Source [id number] 08/14/2020 02:05:00 PM EST [facility] ([facility]) Name Value Range Interpretation Code Description Data Ade rce(s) Supporting Document(s) ID Date Data Source [id number] 08/14/2020 02:05:00 PM EST [facility] ([facility]) Name Value Range Interpretation Code Description Data Ade rce(s) Supporting Document(s) C reactive protein quantitativ 1.29 mg/dL 0.00-0.30 Above high normal C Reactive Protein Quantitativ [facility] ([facility]) ID Date Data Source [id number] 08/14/2020 02:05:00 PM EST A[facility]DR[facility] ([facility]) Name Value Range Interpretation Code Description Data Ade rce(s) Supporting Document(s) HCG, serum qualitative negative negative HCG, Serum Qu alitative [facility] ID Date Data Source [id number] 08/14/2020 02:05:00 PM EST A[facility]DRA ([facility]) Name Value Range Interpretation Code Description Data Ade rce(s) Supporting Document(s) bilirubin,direct < 0.1 0.0-0.2 Bilirubin,direct AT [facility] ([facility]) ID Date Data Source [id number] 08/14/2020 02:05:00 PM EST [facility]DR[facility] ([facility]) Name Value Range Interpretation Code Description Data Ade rce(s) Supporting Document(s) mb/CK relative index < or =4 mb/CK Relative Index [facility] ([facility]) CK-mb value mass < 1.0 <3.6 CK-mb Value Mass AT [facility] ([facility]) CPK creatine phosphokinase 81 U/L 26-192 CPK Creat ine Phosphokinase [facility]DRA ([facility]) troponin I < 0.02 < 0.10 Troponin I [place] ([facility]) ID Date Data Source [id number] 08/14/2020 02:05:00 PM EST [facility]DRA ([facility]) Name Value Range Interpretation Code Description Data Ade rce(s) Supporting Document(s) glucose, fasting 89 mg/dL 70-100 Glucose, Fasting AT [facility] ([facility]) glomerular filtration rate > 60.0 >60 Glomerula r Filtration Rate [facility]DR[facility] ([facility]) creatinine for GFR 0.82 mg/dL 0.55-1.30 Creatinine for GF R [facility] ([facility]) blood urea nitrogen 14 mg/dL 7-18 Blood Urea Nitro gen [facility] ([facility]) sodium level 140 mEq/L 136-145 Sodium Level [facility] ([facility]) potassium serum 4.1 mEq/L 3.5-5.1 Potassium Serum [facility] ([facility]) chloride level 112 mEq/L 98-107 Above high normal Chloride Level [place] ([facility]) calcium level 8.7 mg/dL 8.5-10.1 Calcium Level [facility] ( [facility]) anion gap 5 mEq/L 8-16 Below low normal Anion Gap [facility] ( [facility]) AST/SGOT 19 U/L 7-37 AST/SGOT [facility] ([facility]) carbon dioxide level 23 mEq/L 21-32 Carbon Dioxide Level [facility]DR[facility] ([facility]) bilirubin,total 0.5 mg/dL 0.2-1.0 Bilirubin,total [facility] ([facility]) alkaline phosphatase 95 U/L 45-117 Alkaline Phosph atase [facility] ([facility]) ALT/SGPT 34 U/L 12-78 ALT/SGPT [facility] ([facility]) total protein 7.2 gm/dL 6.4-8.2 Total Protein [facility] ( [facility]) albumin 3.8 gm/dL 3.2-5.2 Albumin [facility] ([facility]) albumin/globulin ratio 1.2-2.2 Below low normal Albumin /globulin Ratio [facility] ([facility]) ID Date Data Source [id number] 08/14/2020 02:05:00 PM EST [facility] ([facility]) Name Value Range Interpretation Code Description Data Ade rce(s) Supporting Document(s) D-dimer quant 338.18 NG/mL <500 D-dimer Quant [facility] ([facility]) ID Date Data Source [id number] 08/14/2020 02:05:00 PM EST [facility] ([facility]) Name Value Range Interpretation Code Description Data Ade rce(s) Supporting Document(s) white blood count 8.0 10 4.0-10.0 White Blood Count [facility] ([facility]) red blood count 5.31 10 4.00-5.40 Red Blood Count [facility] ([facility]) hemoglobin 13.5 g/dL 12.0-15.5 Hemoglobin [facility] ([facility]) hematocrit 42.1 % 36.0-47.0 Hematocrit [facility] ([facility]) mean corpuscular volume 79.3 fL 80.0-96.0 Below low normal Mean Corpuscular Volume [facility] ([facility]) red cell distribution width 13.6 % 11.5-14.5 Red Cell Distribution Width [facility] ([facility]) mean corpuscular hemoglobin 25.4 pg 27.0-33.0 Below low nor mal Mean Corpuscular Hemoglobin [facility] ([facility]) mean corpuscular HGB conc 32.1 g/dL 32.0-36.5 Mean Corpu scular HGB Conc [facility] ([facility]) platelet count, automated 266 10 150-450 Platelet C ount, Automated [facility] ([facility]) lymph % 31.6 % 24.0-44.0 Lymph % [facility] ([facility]) neutrophils % 56.8 % 36.0-66.0 Neutrophils % [facility] ( [facility]) eos % 3.1 % 0.0-3.0 Above high normal Eos % [facility] ([facility]) mono % 7.6 % 0.0-5.0 Above high normal [place] % [facility] ([facility]) nucleated red blood cell % 0.0 % 0-0 Nucleated Red Blood Cell % [facility] ([facility]) baso % 0.5 % 0.0-1.0 Baso % [facility] ([facility]) immature granulocyte % 0.4 % 0-3.0 Immature Gran ulocyte % [facility] ([facility]) mono # 0.6 10 0.0-0.8 [place] # [facility] ([facility]) lymph # 2.5 10 1.5-5.0 Lymph # [facility] ([facility]) neutrophils # 4.6 10 1.5-8.5 Neutrophils # [facility] ( [facility]) baso # 0.0 10 0.0-0.2 Baso # [facility] ([facility]) eos # 0.3 10 0.0-0.5 Eos # [facility] ([facility]) ID Date Data Source [id number] 08/14/2020 02:05:00 PM EST [facility] ([facility]) Name Value Range Interpretation Code Description Data Ade rce(s) Supporting Document(s) ID Date Data Source [id number] 08/14/2020 02:05:00 PM EST [facility] ([facility]) Name Value Range Interpretation Code Description Data Ade rce(s) Supporting Document(s) C reactive protein quantitativ 1.29 mg/dL 0.00-0.30 Above high normal C Reactive Protein Quantitativ [facility] ([facility]) ID Date Data Source [id number] 08/14/2020 02:05:00 PM EST [facility] ([facility]) Name Value Range Interpretation Code Description Data Ade rce(s) Supporting Document(s) HCG, serum qualitative negative negative HCG, Serum Qu alitative [facility] ID Date Data Source [id number] 08/14/2020 02:05:00 PM EST [facility] Name Value Range Interpretation Code Description Data Ade rce(s) Supporting Document(s) bilirubin,direct < 0.1 0.0-0.2 Bilirubin,direct AT [facility] ([facility]) ID Date Data Source [id number] 08/14/2020 02:05:00 PM EST [place] ([facility]) Name Value Range Interpretation Code Description Data Ade rce(s) Supporting Document(s) mb/CK relative index < or =4 mb/CK Relative Index [place] ([facility]) CPK creatine phosphokinase 81 U/L 26-192 CPK Creat ine Phosphokinase [place] ([facility]) CK-mb value mass < 1.0 <3.6 CK-mb Value Mass AT [facility] ([facility]) troponin I < 0.02 < 0.10 Troponin I [place] ([facility]) ID Date Data Source [id number] 08/14/2020 02:05:00 PM EST [place] ([facility]) Name Value Range Interpretation Code Description Data Ade rce(s) Supporting Document(s) blood urea nitrogen 14 mg/dL 7-18 Blood Urea Nitro gen [place] ([facility]) glucose, fasting 89 mg/dL 70-100 Glucose, Fasting AT [facility] ([facility]) creatinine for GFR 0.82 mg/dL 0.55-1.30 Creatinine for GF R [facility] ([facility]) potassium serum 4.1 mEq/L 3.5-5.1 Potassium Serum [facility] ([facility]) glomerular filtration rate > 60.0 >60 Glomerula r Filtration Rate [place] ([facility]) chloride level 112 mEq/L 98-107 Above high normal Chloride Level [place] ([facility]) sodium level 140 mEq/L 136-145 Sodium Level [facility] ([facility]) carbon dioxide level 23 mEq/L 21-32 Carbon Dioxide Level [facility] ([facility]) AST/SGOT 19 U/L 7-37 AST/SGOT [place] ([facility]) anion gap 5 mEq/L 8-16 Below low normal Anion Gap [facility] ( [facility]) calcium level 8.7 mg/dL 8.5-10.1 Calcium Level [facility] ( [facility]) ALT/SGPT 34 U/L 12-78 ALT/SGPT [facility] ([facility]) alkaline phosphatase 95 U/L 45-117 Alkaline Phosph atase [facility] ([facility]) bilirubin,total 0.5 mg/dL 0.2-1.0 Bilirubin,total [facility] NA ([facility]) total protein 7.2 gm/dL 6.4-8.2 Total Protein [facility] ( [facility]) albumin/globulin ratio 1.2-2.2 Below low normal Albumin /globulin Ratio [facility] ([facility]) albumin 3.8 gm/dL 3.2-5.2 Albumin [facility] ([facility]) ID Date Data Source [id number] 08/14/2020 02:05:00 PM EST [facility] ([facility]) Name Value Range Interpretation Code Description Data Ade rce(s) Supporting Document(s) D-dimer quant 338.18 NG/mL <500 D-dimer Quant [facility] ([facility]) ID Date Data Source [id number] 08/14/2020 02:05:00 PM EST [facility] ([facility]) Name Value Range Interpretation Code Description Data Dae rce(s) Supporting Document(s) white blood count 8.0 10 4.0-10.0 White Blood Count [facility] ([facility]) red blood count 5.31 10 4.00-5.40 Red Blood Count ATHE NA ([facility]) hemoglobin 13.5 g/dL 12.0-15.5 Hemoglobin [facility] ([facility]) hematocrit 42.1 % 36.0-47.0 Hematocrit [facility] ([facility]) mean corpuscular hemoglobin 25.4 pg 27.0-33.0 Below low nor mal Mean Corpuscular Hemoglobin [facility] ([facility]) mean corpuscular volume 79.3 fL 80.0-96.0 Below low normal Mean Corpuscular Volume [facility] ([facility]) platelet count, automated 266 10 150-450 Platelet C ount, Automated [facility] ([facility]) mean corpuscular HGB conc 32.1 g/dL 32.0-36.5 Mean Corpu scular HGB Conc [facility] ([facility]) red cell distribution width 13.6 % 11.5-14.5 Red Cell Distribution Width [facility] ([facility]) lymph % 31.6 % 24.0-44.0 Lymph % [place] ([facility]) mono % 7.6 % 0.0-5.0 Above high normal [place] % [place] ([facility]) neutrophils % 56.8 % 36.0-66.0 Neutrophils % [place] ( [facility]) baso % 0.5 % 0.0-1.0 Baso % [place] ([facility]) immature granulocyte % 0.4 % 0-3.0 Immature Gran ulocyte % [place] ([facility]) eos % 3.1 % 0.0-3.0 Above high normal Eos % [place] ([facility]) nucleated red blood cell % 0.0 % 0-0 Nucleated Red Blood Cell % [place] ([facility]) neutrophils # 4.6 10 1.5-8.5 Neutrophils # [facility] ( [facility]) mono # 0.6 10 0.0-0.8 [place] # [facility] ([facility]) eos # 0.3 10 0.0-0.5 Eos # [facility] ([facility]) lymph # 2.5 10 1.5-5.0 Lymph # [place] ([facility]) baso # 0.0 10 0.0-0.2 Baso # [place] ([facility]) ID Date Data Source [id number] 08/14/2020 02:05:00 PM EST [place] ([facility]) Name Value Range Interpretation Code Description Data Ade rce(s) Supporting Document(s) ID Date Data Source [id number] 08/14/2020 02:05:00 PM EST [facility] ([facility]) Name Value Range Interpretation Code Description Data Ade rce(s) Supporting Document(s) C reactive protein quantitativ 1.29 mg/dL 0.00-0.30 Above high normal C Reactive Protein Quantitativ [facility] ([facility]) ID Date Data Source [id number] 08/14/2020 02:05:00 PM EST [facility] ([facility]) Name Value Range Interpretation Code Description Data Ade rce(s) Supporting Document(s) HCG, serum qualitative negative negative HCG, Serum Qu alitative [facility]) ID Date Data Source [id number] 08/14/2020 02:05:00 PM EST [facility] ([facility]) Name Value Range Interpretation Code Description Data Ade rce(s) Supporting Document(s) bilirubin,direct < 0.1 0.0-0.2 Bilirubin,direct AT [facility]) ID Date Data Source [id number] 08/14/2020 02:05:00 PM EST [place] ([facility]) Name Value Range Interpretation Code Description Data Ade rce(s) Supporting Document(s) CK-mb value mass < 1.0 <3.6 CK-mb Value Mass AT [facility] ([facility]) CPK creatine phosphokinase 81 U/L 26-192 CPK Creat ine Phosphokinase [facility] ([facility]) mb/CK relative index < or =4 mb/CK Relative Index [facility] ([facility]) troponin I < 0.02 < 0.10 Troponin I [place] ([facility]) ID Date Data Source [id number] 08/14/2020 02:05:00 PM EST [facility] ([facility]) Name Value Range Interpretation Code Description Data Ade rce(s) Supporting Document(s) glucose, fasting 89 mg/dL 70-100 Glucose, Fasting AT [facility]) blood urea nitrogen 14 mg/dL 7-18 Blood Urea Nitro gen [facility] ([facility]) creatinine for GFR 0.82 mg/dL 0.55-1.30 Creatinine for GF R [facility] ([facility]) glomerular filtration rate > 60.0 >60 Glomerula r Filtration Rate [facility] ([facility]) sodium level 140 mEq/L 136-145 Sodium Level [facility] ([facility]) potassium serum 4.1 mEq/L 3.5-5.1 Potassium Serum [facility] ([facility]) chloride level 112 mEq/L 98-107 Above high normal Chloride Level [place] ([facility]) anion gap 5 mEq/L 8-16 Below low normal Anion Gap [facility] ( [facility]) carbon dioxide level 23 mEq/L 21-32 Carbon Dioxide Level [facility] ([facility]) calcium level 8.7 mg/dL 8.5-10.1 Calcium Level [facility] ( [facility]) AST/SGOT 19 U/L 7-37 AST/SGOT [facility] ([facility]) bilirubin,total 0.5 mg/dL 0.2-1.0 Bilirubin,total [facility] ([facility]) ALT/SGPT 34 U/L 12-78 ALT/SGPT [facility] ([facility]) alkaline phosphatase 95 U/L 45-117 Alkaline Phosph atase [facility] ([facility]) albumin 3.8 gm/dL 3.2-5.2 Albumin [facility] ([facility]) total protein 7.2 gm/dL 6.4-8.2 Total Protein [facility] ( [facility]) albumin/globulin ratio 1.2-2.2 Below low normal Albumin /globulin Ratio [facility] ([facility]) ID Date Data Source [id number] 08/14/2020 02:05:00 PM EST [facility] ([facility]) Name Value Range Interpretation Code Description Data Ade rce(s) Supporting Document(s) D-dimer quant 338.18 NG/mL <500 D-dimer Quant [facility] ([facility]) ID Date Data Source [id number] 08/14/2020 02:05:00 PM EST [facility] ([facility]) Name Value Range Interpretation Code Description Data Ade rce(s) Supporting Document(s) white blood count 8.0 10 4.0-10.0 White Blood Count [facility] ([facility]) hemoglobin 13.5 g/dL 12.0-15.5 Hemoglobin [facility] ([facility]) red blood count 5.31 10 4.00-5.40 Red Blood Count [facility] ([facility]) mean corpuscular volume 79.3 fL 80.0-96.0 Below low normal Mean Corpuscular Volume [facility] ([facility]) hematocrit 42.1 % 36.0-47.0 Hematocrit [facility] ([facility]) mean corpuscular HGB conc 32.1 g/dL 32.0-36.5 Mean Corpu scular HGB Conc [facility] ([facility]) mean corpuscular hemoglobin 25.4 pg 27.0-33.0 Below low nor mal Mean Corpuscular Hemoglobin [facility] ([facility]) red cell distribution width 13.6 % 11.5-14.5 Red Cell Distribution Width [place] ([facility]) platelet count, automated 266 10 150-450 Platelet C ount, Automated [place] ([facility]) lymph % 31.6 % 24.0-44.0 Lymph % [facility] ([facility]) neutrophils % 56.8 % 36.0-66.0 Neutrophils % [facility] ( [facility]) eos % 3.1 % 0.0-3.0 Above high normal Eos % [facility] ([facility]) mono % 7.6 % 0.0-5.0 Above high normal [place] % [facility] ([facility]) nucleated red blood cell % 0.0 % 0-0 Nucleated Red Blood Cell % [facility] ([facility]) baso % 0.5 % 0.0-1.0 Baso % [facility] ([facility]) immature granulocyte % 0.4 % 0-3.0 Immature Gran ulocyte % [facility] ([facility]) neutrophils # 4.6 10 1.5-8.5 Neutrophils # [facility] ( [facility]) lymph # 2.5 10 1.5-5.0 Lymph # [facility] ([facility]) mono # 0.6 10 0.0-0.8 [place] # [facility] ([facility]) eos # 0.3 10 0.0-0.5 Eos # [facility] ([facility]) baso # 0.0 10 0.0-0.2 Baso # [facility] ([facility]) ID Date Data Source [id number] 08/14/2020 02:05:00 PM EST [facility] ([facility]) Name Value Range Interpretation Code Description Data Ade rce(s) Supporting Document(s) ID Date Data Source [id number] 08/14/2020 02:05:00 PM EST [facility] ([facility]) Name Value Range Interpretation Code Description Data Ade rce(s) Supporting Document(s) C reactive protein quantitativ 1.29 mg/dL 0.00-0.30 Above high normal C Reactive Protein Quantitativ [place] ([facility]) ID Date Data Source [id number] 08/14/2020 02:05:00 PM EST [facility] ([facility]) Name Value Range Interpretation Code Description Data Ade rce(s) Supporting Document(s) HCG, serum qualitative negative negative HCG, Serum Qu alitative [place] ([facility]) ID Date Data Source [id number] 08/14/2020 02:05:00 PM EST [facility] ([facility]) Name Value Range Interpretation Code Description Data Ade rce(s) Supporting Document(s) bilirubin,direct < 0.1 0.0-0.2 Bilirubin,direct AT [facility] ([facility]) ID Date Data Source [id number] 08/14/2020 02:05:00 PM EST [place] ([facility]) Name Value Range Interpretation Code Description Data Ade rce(s) Supporting Document(s) CK-mb value mass < 1.0 <3.6 CK-mb Value Mass AT [facility]) CPK creatine phosphokinase 81 U/L 26-192 CPK Creat ine Phosphokinase [facility] ([facility]) mb/CK relative index < or =4 mb/CK Relative Index [facility] ([facility]) troponin I < 0.02 < 0.10 Troponin I [place] ([facility]) ID Date Data Source [id number] 08/14/2020 02:05:00 PM EST [facility] ([facility]) Name Value Range Interpretation Code Description Data Ade rce(s) Supporting Document(s) blood urea nitrogen 14 mg/dL 7-18 Blood Urea Nitro gen [facility] ([facility]) glucose, fasting 89 mg/dL 70-100 Glucose, Fasting AT [facility]) glomerular filtration rate > 60.0 >60 Glomerula r Filtration Rate [facility] ([facility]) sodium level 140 mEq/L 136-145 Sodium Level [facility] ([facility]) creatinine for GFR 0.82 mg/dL 0.55-1.30 Creatinine for GF R [facility] ([facility]) carbon dioxide level 23 mEq/L 21-32 Carbon Dioxide Level [facility] ([facility]) chloride level 112 mEq/L 98-107 Above high normal Chloride Level [facility] ([facility]) potassium serum 4.1 mEq/L 3.5-5.1 Potassium Serum AT[facility] NA ([facility]) anion gap 5 mEq/L 8-16 Below low normal Anion Gap [facility] ( [facility]) ALT/SGPT 34 U/L 12-78 ALT/SGPT [facility] ([facility]) AST/SGOT 19 U/L 7-37 AST/SGOT [facility] ([facility]) calcium level 8.7 mg/dL 8.5-10.1 Calcium Level [facility] ( [facility]) alkaline phosphatase 95 U/L 45-117 Alkaline Phosph atase [facility] ([facility]) total protein 7.2 gm/dL 6.4-8.2 Total Protein [facility] ( [facility]) albumin 3.8 gm/dL 3.2-5.2 Albumin [facility] ([facility]) bilirubin,total 0.5 mg/dL 0.2-1.0 Bilirubin,total AT[facility] NA ([facility]) albumin/globulin ratio 1.2-2.2 Below low normal Albumin /globulin Ratio [facility] ([facility]) ID Date Data Source [id number] 08/14/2020 02:05:00 PM EST [facility] ([facility]) Name Value Range Interpretation Code Description Data Ade rce(s) Supporting Document(s) D-dimer quant 338.18 NG/mL <500 D-dimer Quant [facility] ([facility]) ID Date Data Source [id number] 08/14/2020 02:05:00 PM EST [facility] ([facility]) Name Value Range Interpretation Code Description Data Ade rce(s) Supporting Document(s) white blood count 8.0 10 4.0-10.0 White Blood Count [facility] ([facility]) red blood count 5.31 10 4.00-5.40 Red Blood Count [facility] NA ([facility]) hemoglobin 13.5 g/dL 12.0-15.5 Hemoglobin [facility] ([facility]) hematocrit 42.1 % 36.0-47.0 Hematocrit [facility] ([facility]) mean corpuscular volume 79.3 fL 80.0-96.0 Below low normal Mean Corpuscular Volume [facility] ([facility]) mean corpuscular HGB conc 32.1 g/dL 32.0-36.5 Mean Corpu scular HGB Conc [facility] ([facility]) mean corpuscular hemoglobin 25.4 pg 27.0-33.0 Below low nor mal Mean Corpuscular Hemoglobin [facility] ([facility]) platelet count, automated 266 10 150-450 Platelet C ount, Automated [facility] ([facility]) red cell distribution width 13.6 % 11.5-14.5 Red Cell Distribution Width [facility] ([facility]) neutrophils % 56.8 % 36.0-66.0 Neutrophils % [facility] ( [facility]) lymph % 31.6 % 24.0-44.0 Lymph % [facility] ([facility]) eos % 3.1 % 0.0-3.0 Above high normal Eos % [facility] ([facility]) mono % 7.6 % 0.0-5.0 Above high normal [place] % [facility] ([facility]) neutrophils # 4.6 10 1.5-8.5 Neutrophils # [facility] ( [facility]) baso % 0.5 % 0.0-1.0 Baso % [facility] ([facility]) nucleated red blood cell % 0.0 % 0-0 Nucleated Red Blood Cell % [facility] ([facility]) immature granulocyte % 0.4 % 0-3.0 Immature Gran ulocyte % [facility] ([facility]) mono # 0.6 10 0.0-0.8 [place] # [facility] ([facility]) eos # 0.3 10 0.0-0.5 Eos # [facility] ([facility]) lymph # 2.5 10 1.5-5.0 Lymph # [facility] ([facility]) baso # 0.0 10 0.0-0.2 Baso # [facility] ([facility]) ID Date Data Source [id number] 08/14/2020 02:05:00 PM EST [facility] ([facility]) Name Value Range Interpretation Code Description Data Ade rce(s) Supporting Document(s) ID Date Data Source [id number] 08/14/2020 02:05:00 PM EST [facility] ([facility]) Name Value Range Interpretation Code Description Data Ade rce(s) Supporting Document(s) C reactive protein quantitativ 1.29 mg/dL 0.00-0.30 Above high normal C Reactive Protein Quantitativ [facility] ([facility]) ID Date Data Source [id number] 08/14/2020 02:05:00 PM EST [facility] ([facility]) Name Value Range Interpretation Code Description Data Ade rce(s) Supporting Document(s) HCG, serum qualitative negative negative HCG, Serum Qu alitative [facility] ([facility]) ID Date Data Source [id number] 08/14/2020 02:05:00 PM EST [place] ([facility]) Name Value Range Interpretation Code Description Data Ade rce(s) Supporting Document(s) bilirubin,direct < 0.1 0.0-0.2 Bilirubin,direct AT [facility] ([facility]) ID Date Data Source [id number] 08/14/2020 02:05:00 PM EST [facility] ([facility]) Name Value Range Interpretation Code Description Data Ade rce(s) Supporting Document(s) CPK creatine phosphokinase 81 U/L 26-192 CPK Creat ine Phosphokinase [facility] ([facility]) CK-mb value mass < 1.0 <3.6 CK-mb Value Mass AT [facility] ([facility]) troponin I < 0.02 < 0.10 Troponin I [facility] ([facility]) mb/CK relative index < or =4 mb/CK Relative Index [place] ([facility]) ID Date Data Source [id number] 08/14/2020 02:05:00 PM EST [facility] ([facility]) Name Value Range Interpretation Code Description Data Ade rce(s) Supporting Document(s) blood urea nitrogen 14 mg/dL 7-18 Blood Urea Nitro gen [facility] ([facility]) glucose, fasting 89 mg/dL 70-100 Glucose, Fasting AT [facility] ([facility]) potassium serum 4.1 mEq/L 3.5-5.1 Potassium Serum [facility] ([facility]) glomerular filtration rate > 60.0 >60 Glomerula r Filtration Rate [facility] ([facility]) creatinine for GFR 0.82 mg/dL 0.55-1.30 Creatinine for GF R [facility] ([facility]) sodium level 140 mEq/L 136-145 Sodium Level [facility] ([facility]) carbon dioxide level 23 mEq/L 21-32 Carbon Dioxide Level [facility] ([facility]) chloride level 112 mEq/L 98-107 Above high normal Chloride Level [facility] ([facility]) AST/SGOT 19 U/L 7-37 AST/SGOT [facility] ([facility]) anion gap 5 mEq/L 8-16 Below low normal Anion Gap [facility] ( [facility]) calcium level 8.7 mg/dL 8.5-10.1 Calcium Level [facility] ( [facility]) total protein 7.2 gm/dL 6.4-8.2 Total Protein [facility] ( [facility]) bilirubin,total 0.5 mg/dL 0.2-1.0 Bilirubin,total [facility] ([facility]) alkaline phosphatase 95 U/L 45-117 Alkaline Phosph atase [facility] ([facility]) ALT/SGPT 34 U/L 12-78 ALT/SGPT [facility] ([facility]) albumin/globulin ratio 1.2-2.2 Below low normal Albumin /globulin Ratio [facility] ([facility]) albumin 3.8 gm/dL 3.2-5.2 Albumin [facility] ([facility]) ID Date Data Source [id number] 08/14/2020 02:05:00 PM EST [facility] ([facility]) Name Value Range Interpretation Code Description Data Ade rce(s) Supporting Document(s) D-dimer quant 338.18 NG/mL <500 D-dimer Quant [facility] ([facility]) ID Date Data Source [id number] 08/14/2020 02:05:00 PM EST [facility] ([facility]) Name Value Range Interpretation Code Description Data Ade rce(s) Supporting Document(s) white blood count 8.0 10 4.0-10.0 White Blood Count [facility] ([facility]) red blood count 5.31 10 4.00-5.40 Red Blood Count [facility] NA ([facility]) hematocrit 42.1 % 36.0-47.0 Hematocrit [facility] ([facility]) mean corpuscular volume 79.3 fL 80.0-96.0 Below low normal Mean Corpuscular Volume [facility] ([facility]) mean corpuscular hemoglobin 25.4 pg 27.0-33.0 Below low nor mal Mean Corpuscular Hemoglobin [facility] ([facility]) hemoglobin 13.5 g/dL 12.0-15.5 Hemoglobin [place] ([facility]) platelet count, automated 266 10 150-450 Platelet C ount, Automated [facility] ([facility]) red cell distribution width 13.6 % 11.5-14.5 Red Cell Distribution Width [facility] ([facility]) mean corpuscular HGB conc 32.1 g/dL 32.0-36.5 Mean Corpu scular HGB Conc [place] ([facility]) neutrophils % 56.8 % 36.0-66.0 Neutrophils % [place] ( [facility]) lymph % 31.6 % 24.0-44.0 Lymph % [facility] ([facility]) mono % 7.6 % 0.0-5.0 Above high normal [place] % [place] ([facility]) eos % 3.1 % 0.0-3.0 Above high normal Eos % [place] ([facility]) neutrophils # 4.6 10 1.5-8.5 Neutrophils # [place] ( [facility]) nucleated red blood cell % 0.0 % 0-0 Nucleated Red Blood Cell % [facility] ([facility]) baso % 0.5 % 0.0-1.0 Baso % [facility] ([facility]) immature granulocyte % 0.4 % 0-3.0 Immature Gran ulocyte % [facility] ([facility]) eos # 0.3 10 0.0-0.5 Eos # [facility] ([facility]) baso # 0.0 10 0.0-0.2 Baso # [facility] ([facility]) mono # 0.6 10 0.0-0.8 [place] # [facility] ([facility]) lymph # 2.5 10 1.5-5.0 Lymph # [facility] ([facility]) ID Date Data Source [id number] 08/14/2020 02:05:00 PM EST [facility] ([facility]) Name Value Range Interpretation Code Description Data Ade rce(s) Supporting Document(s) ID Date Data Source [id number] 08/14/2020 02:05:00 PM EST [facility] ([facility]) Name Value Range Interpretation Code Description Data Ade rce(s) Supporting Document(s) C reactive protein quantitativ 1.29 mg/dL 0.00-0.30 Above high normal C Reactive Protein Quantitativ [facility] ([facility]) ID Date Data Source [id number] 08/14/2020 02:05:00 PM EST [facility] ([facility]) Name Value Range Interpretation Code Description Data Ade rce(s) Supporting Document(s) HCG, serum qualitative negative negative HCG, Serum Qu alitative [facility] ([facility]) ID Date Data Source [id number] 08/14/2020 02:05:00 PM EST [facility] ([facility]) Name Value Range Interpretation Code Description Data Ade rce(s) Supporting Document(s) bilirubin,direct < 0.1 0.0-0.2 Bilirubin,direct AT [facility] ([facility]) ID Date Data Source [id number] 08/14/2020 02:05:00 PM EST [facility] ([facility]) Name Value Range Interpretation Code Description Data Ade rce(s) Supporting Document(s) CK-mb value mass < 1.0 <3.6 CK-mb Value Mass AT [facility]) mb/CK relative index < or =4 mb/CK Relative Index [facility] ([facility]) troponin I < 0.02 < 0.10 Troponin I [facility] ([facility]) CPK creatine phosphokinase 81 U/L 26-192 CPK Creat ine Phosphokinase [facility] ([facility]) ID Date Data Source [id number] 08/14/2020 02:05:00 PM EST [facility] ([facility]) Name Value Range Interpretation Code Description Data Ade rce(s) Supporting Document(s) blood urea nitrogen 14 mg/dL 7-18 Blood Urea Nitro gen [place] ([facility]) glucose, fasting 89 mg/dL 70-100 Glucose, Fasting AT [facility]) sodium level 140 mEq/L 136-145 Sodium Level [facility] ([facility]) potassium serum 4.1 mEq/L 3.5-5.1 Potassium Serum [facility] ([facility]) creatinine for GFR 0.82 mg/dL 0.55-1.30 Creatinine for GF R [facility] ([facility]) glomerular filtration rate > 60.0 >60 Glomerula r Filtration Rate [facility] ([facility]) calcium level 8.7 mg/dL 8.5-10.1 Calcium Level [facility] ( [facility]) anion gap 5 mEq/L 8-16 Below low normal Anion Gap [facility] ( [facility]) carbon dioxide level 23 mEq/L 21-32 Carbon Dioxide Level [facility] ([facility]) chloride level 112 mEq/L 98-107 Above high normal Chloride Level [facility] ([facility]) bilirubin,total 0.5 mg/dL 0.2-1.0 Bilirubin,total ATHE NA ([facility]) alkaline phosphatase 95 U/L 45-117 Alkaline Phosph atase [facility] ([facility]) AST/SGOT 19 U/L 7-37 AST/SGOT [facility] ([facility]) total protein 7.2 gm/dL 6.4-8.2 Total Protein [facility] ( [facility]) ALT/SGPT 34 U/L 12-78 ALT/SGPT [facility] ([facility]) albumin/globulin ratio 1.2-2.2 Below low normal Albumin /globulin Ratio [facility] ([facility]) albumin 3.8 gm/dL 3.2-5.2 Albumin [facility] ([facility]) ID Date Data Source [id number] 08/14/2020 02:05:00 PM EST [facility] ([facility]) Name Value Range Interpretation Code Description Data Ade rce(s) Supporting Document(s) D-dimer quant 338.18 NG/mL <500 D-dimer Quant [facility] ([facility]) ID Date Data Source [id number] 08/14/2020 02:05:00 PM EST ALEXANDRA ([facility]) Name Value Range Interpretation Code Description Data Ade rce(s) Supporting Document(s) white blood count 8.0 10 4.0-10.0 White Blood Count ALEXANDRA ([facility]) mean corpuscular volume 79.3 fL 80.0-96.0 Below low normal Mean Corpuscular Volume ALEXANDRA ([facility]) hemoglobin 13.5 g/dL 12.0-15.5 Hemoglobin ALEXANDRA ([facility]) hematocrit 42.1 % 36.0-47.0 Hematocrit ALEXANDRA ([facility]) red blood count 5.31 10 4.00-5.40 Red Blood Count ATHE NA ([facility]) red cell distribution width 13.6 % 11.5-14.5 Red Cell Distribution Width ALEXANDRA ([facility]) mean corpuscular hemoglobin 25.4 pg 27.0-33.0 Below low nor mal Mean Corpuscular Hemoglobin ALEXANDRA ([facility]) mean corpuscular HGB conc 32.1 g/dL 32.0-36.5 Mean Corpu scular HGB Conc ALEXANDRA ([facility]) platelet count, automated 266 10 150-450 Platelet C ount, Automated [place] ([facility]) lymph % 31.6 % 24.0-44.0 Lymph % [place] ([facility]) neutrophils % 56.8 % 36.0-66.0 Neutrophils % [place] ( [facility]) mono % 7.6 % 0.0-5.0 Above high normal [place] % [place] ([facility]) eos % 3.1 % 0.0-3.0 Above high normal Eos % [place] ([facility]) immature granulocyte % 0.4 % 0-3.0 Immature Gran ulocyte % [place] ([facility]) baso % 0.5 % 0.0-1.0 Baso % [place] ([facility]) nucleated red blood cell % 0.0 % 0-0 Nucleated Red Blood Cell % [place] ([facility]) neutrophils # 4.6 10 1.5-8.5 Neutrophils # [place] ( [facility]) lymph # 2.5 10 1.5-5.0 Lymph # [place] ([facility]) mono # 0.6 10 0.0-0.8 [place] # [place] ([facility]) eos # 0.3 10 0.0-0.5 Eos # [place] ([facility]) baso # 0.0 10 0.0-0.2 Baso # [place] ([facility]) ID Date Data Source [id number] 08/14/2020 02:05:00 PM EST [facility] Name Value Range Interpretation Code Description Data Ade rce(s) Supporting Document(s) SARS-CoV-2 (COVID 19) [facility] This lab was ordered by [facility] a nd reported by [facility]. ID Date Data Source [id number] 08/14/2020 12:00:00 AM EST ALEXANDRA ([facility]) Name Value Range Interpretation Code Description Data Ade rce(s) Supporting Document(s) ID Date Data Source [id number] 08/14/2020 12:00:00 AM EST ALEXANDRA [facility]) Name Value Range Interpretation Code Description Data Ade rce(s) Supporting Document(s) ID Date Data Source [id number] 08/14/2020 12:00:00 AM EST ALEXANDRA ([facility]) Name Value Range Interpretation Code Description Data Ade rce(s) Supporting Document(s) ID Date Data Source [id number] 08/14/2020 12:00:00 AM EST ALEXANDRA ([facility]) Name Value Range Interpretation Code Description Data Ade rce(s) Supporting Document(s) ID Date Data Source [id number] 08/14/2020 12:00:00 AM EST ALEXANDRA [facility]) Name Value Range Interpretation Code Description Data Ade rce(s) Supporting Document(s) ID Date Data Source [id number] 08/14/2020 12:00:00 AM EST ALEXANDRA [facility]) Name Value Range Interpretation Code Description Data Ade rce(s) Supporting Document(s) ID Date Data Source [id number] 08/09/2020 12:00:00 AM EST ALEXANDRA [facility]) Name Value Range Interpretation Code Description Data Ade rce(s) Supporting Document(s) SARS-CoV-2 (COVID-19) RNA [Presence] in Respiratory specimen by KATHY with probe detection not detected not detected [facility] 2 [facility] ID Date Data Source [id number] 08/09/2020 12:00:00 AM EST ALEXANDRA [facility]) Name Value Range Interpretation Code Description Data Ade rce(s) Supporting Document(s) SARS-CoV-2 (COVID-19) RNA [Presence] in Respiratory specimen by KATHY with probe detection not detected not detected Sars Cov 2 RNA [place] ([facility]) ID Date Data Source [id number] 08/09/2020 12:00:00 AM EST ALEXANDRA ([facility]) Name Value Range Interpretation Code Description Data Ade rce(s) Supporting Document(s) SARS-CoV-2 (COVID-19) RNA [Presence] in Respiratory specimen by KATHY with probe detection not detected not detected Sars Cov 2 RNA [facility]) ID Date Data Source [id number] 08/09/2020 12:00:00 AM EST [facility] Name Value Range Interpretation Code Description Data Ade rce(s) Supporting Document(s) SARS-CoV-2 (COVID-19) RNA [Presence] in Respiratory specimen by KATHY with probe detection not detected not detected Sars Cov 2 RNA [facility]) ID Date Data Source [id number] 08/09/2020 12:00:00 AM EST [facility] Name Value Range Interpretation Code Description Data Ade rce(s) Supporting Document(s) SARS-CoV-2 (COVID-19) RNA [Presence] in Respiratory specimen by KATHY with probe detection not detected not detected Sars Cov 2 RNA [facility]) ID Date Data Source [id number] 08/09/2020 12:00:00 AM EST [facility] Name Value Range Interpretation Code Description Data Ade rce(s) Supporting Document(s) SARS-CoV-2 (COVID-19) RNA [Presence] in Respiratory specimen by KATHY with probe detection not detected not detected Sars Cov 2 RNA [facility]) ID Date Data Source [id number] 07/23/2020 08:57:00 AM EST [facility] Name Value Range Interpretation Code Description Data Ade rce(s) Supporting Document(s) free T4 0.96 NG/dL 0.76-1.46 Free T4 ALEXANDRA ([facility]) thyroid stimulating hormone 7.870 uIU/mL 0.358-3.740 Above high no rmal Thyroid Stimulating Hormone ALEXANDRA ([facility]) ID Date Data Source [id number] 07/23/2020 08:57:00 AM EST ALEXANDRA ([facility]) Name Value Range Interpretation Code Description Data Ade rce(s) Supporting Document(s) thyroid stimulating hormone 7.870 uIU/mL 0.358-3.740 Above high no rmal Thyroid Stimulating Hormone ALEXANDRA ([facility]) free T4 0.96 NG/dL 0.76-1.46 Free T4 ALEXANDRA ([facility]) ID Date Data Source [id number] 07/23/2020 08:57:00 AM EST ALEXANDRA ([facility]) Name Value Range Interpretation Code Description Data Ade rce(s) Supporting Document(s) thyroid stimulating hormone 7.870 uIU/mL 0.358-3.740 Above high no rmal Thyroid Stimulating Hormone ALEXANDRA ([facility]) free T4 0.96 NG/dL 0.76-1.46 Free T4 ALEXANDRA ([facility]) ID Date Data Source [id number] 07/23/2020 08:57:00 AM EST ALEXANDRA ([facility]) Name Value Range Interpretation Code Description Data Ade rce(s) Supporting Document(s) free T4 0.96 NG/dL 0.76-1.46 Free T4 ALEXANDRA ([facility]) thyroid stimulating hormone 7.870 uIU/mL 0.358-3.740 Above high no rmal Thyroid Stimulating Hormone ALEXANDRA ([facility]) ID Date Data Source [id number] 07/23/2020 08:57:00 AM EST [facility] Name Value Range Interpretation Code Description Data Ade rce(s) Supporting Document(s) thyroid stimulating hormone 7.870 uIU/mL 0.358-3.740 Above high no rmal Thyroid Stimulating Hormone ALEXANDRA ([facility]) free T4 0.96 NG/dL 0.76-1.46 Free T4 ALEXANDRA ([facility]) ID Date Data Source [id number] 07/23/2020 08:57:00 AM EST [facility] Name Value Range Interpretation Code Description Data Ade rce(s) Supporting Document(s) thyroid stimulating hormone 7.870 uIU/mL 0.358-3.740 Above high no rmal Thyroid Stimulating Hormone ALEXANDRA ([facility]) free T4 0.96 NG/dL 0.76-1.46 Free T4 [facility]) ID Date Data Source [id number] 07/23/2020 08:57:00 AM EST [facility] Name Value Range Interpretation Code Description Data Ade rce(s) Supporting Document(s) thyroid stimulating hormone 7.870 uIU/mL 0.358-3.740 Above high no rmal Thyroid Stimulating Hormone ALEXANDRA ([facility]) free T4 0.96 NG/dL 0.76-1.46 Free T4 [facility]) ID Date Data Source [id number] 07/23/2020 08:57:00 AM EST ALEXANDRA ([facility]) Name Value Range Interpretation Code Description Data Ade rce(s) Supporting Document(s) thyroid stimulating hormone 7.870 uIU/mL 0.358-3.740 Above high no rmal Thyroid Stimulating Hormone ALEXANDRA ([facility]) free T4 0.96 NG/dL 0.76-1.46 Free T4 [facility] ID Date Data Source [id number] 06/13/2020 12:30:00 PM EDT [facility] Name Value Range Interpretation Code Description Data Ade rce(s) Supporting Document(s) SARS coronavirus 2 RNA [facility] This lab was ordered by [facility] and reported by [facility]. ID Date Data Source [id number] 05/24/2020 09:08:06 AM EDT [facility] Labs In-House Blood TestsDate/Time Colle cted: May 24, 2020 8:54 AMTest Result Reference Range Normal ValueComments: Labs drawn in office taken from right AC. Tolerated well.Kaci Fontenot MA, May 24, 2020 9:08 AMAssessment & Plan Orders:[id number] Vst-Est Level I [CPT-26955] 11112 - Venipuncture [CPT-15321] Name Value Range Interpretation Code Description Data Ade rce(s) Supporting Document(s) ID Date Data Source [id number] 05/24/2020 08:54:00 AM EDT [facility] Name Value Range Interpretation Code Description Data Ade rce(s) Supporting Document(s) HCT 38.7 % 36.0-47.0 N [facility] HGB 12.5 g/dL 12.0-15.5 N [facility] MCH 32.3 G/DL pg 32.0-36.5 N [facility] MCHC 25.9 PG % 27.0-33.0 L [facility] PLATELETS 264 10 10*3/mm3 150-450 N [facility] RBC 4.82 10 10*6/mm3 4.00-5.40 N [facility] RDW 13.1 % 11.5-14.5 [facility] WBC TOTAL 7.1 4.0-10.0 N [facility] ID Date Data Source [id number] 05/24/2020 08:54:00 AM EDT [facility] Name Value Range Interpretation Code Description Data Ade rce(s) Supporting Document(s) VIT D25 TOT 18.3 ng/mL 30.0-100.0 L [facility] BG FASTING 87 mg/dL 70-100 N [facility] T4, FREE 0.91 ng/dL 0.76-1.46 N [facility] TSH 6.940 microintl units/mL 0.358-3.740 H [facility] ID Date Data Source [id number] 05/24/2020 08:54:00 AM EDT [facility] Name Value Range Interpretation Code Description Data Ade rce(s) Supporting Document(s) HGBA1C 5.4 % N [facility] ID Date Data Source [id number] 05/23/2020 03:44:40 PM EDT [facility] Measurements & CalculationsHeight: 64 inches (5 ft. [...] or Preferred Language: EnglishFamily and Home Address: [address] [place] [address] What is your housing situation today? I have housing Are you worried about losing your housing? NoMoney and Resources What is the highest level of school that you have finished? bachelor's degree Employed? 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 Denies Insecurity: food, utilities, clothing, vocational childcare teacher, phone, legal services, otherWithin the past year [...] exercising 30 minutes daily, tracking meals with [employer]. Has gained 8 pounds since 01/2020 visit. [...] "didn't like it". Has been seen by [facility], Dr. Montenegro, had stool studies and CBC done a few weeks. Scheduled for colonoscopy and EGD on 06/18/2020. Transitions of Care InboundProblem ReviewProblem List was reviewed and/or updated during this visit.Medication Reconciliation & ReviewMedication List was reviewed and/or updated during this visit, including review of any mvlb-[id number] medications, herbal therapies, and/or supplements.Allergy ReviewAllergy List [...] adult medical examination with abnormal findings (ICD-V70.0) (VHE74-F01.01) Assessment: Instructions: Recommend annual medical appointments. Recommend routine dental and vision care. Recommend influenza vaccines annually and tetanus boosters every 10 years. Continue with ACUTE CARE PHYSICAL THERAPIST for routine pap.Encounter for initial prescription of other contraceptives (ICD-V25.02) (CVQ47-Y54.018) Assessment: Instructions: Start Ortho TriCyclen Lo as previously prescribed.Morbid obesity (ICD-278.01) (AGP75-J58.01) Assessment: Instructions: Recommend healthy lifestyle modification. Encourage portion control, healthy food choices, and increasing routine physical activity. Recommendation is for 150 minutes throughout the week of cardiovascular exercise.Weight gain (JGS87-C52.5) Asses sment: Instructions: Fasting labs have been [...] MS given family history.Mild memory disturbance (ICD-310.89) (UCD25-X60.3) Assessment: Instructions: As above.Low back pain (ICD-724.2) (PFP66-I64.5) Assessment: Instructions: May be secondary to weight gain. Wear supportive shoes, use safe body/lifting mechanics, heat/ice as needed.Mixed anxiety and depressive disorder (ICD-300.4) (WHQ24-J67.8) Assessment: Instructions: Start Lexapro daily as prescribed. Stress reduction as able. Consider counseling services.Changed:From: Dx of Body Mass Index 40.0-44.9, adult (ICD-V85.41) (EOP14-E53.41) To: Body Mass Index 50.0-59.9, adult (ICD-V85.43) (VPA34-R47.43)Assessed:Crohn's disease of large intestine with rectal bleeding (GXM46-R01.111) Assessment: Instructions: Continue per GI.Diverticulosis of large intestine without perforation or abscess with bleeding (ICD-562.12) (STI13-I24.31) Assessment: Instructions: As above.Body Mass Index 50.0-59.9, adult (ICD-V85.43) (XXL05-G45.43) Assessment: Instructions: Continue current healthy lifestyle efforts.Autoimmune thyroiditis (ICD-245.2) (RGF29-H34.3) Assessment: Instructions: Update labs to assess further.Removed:Periorbital edema of left eye (QDR27-K51.222), Subcutaneous nodule (ICD-782.2) (GIQ11-N70.9), Subcutaneous nodule (ICD-782.2) (CBB48-D08.9)Patient Instructions/Care Plan: Encounter for general adult medical examination with abnormal findings: Recommend annual medical appointments. Recommend routine dental and vision care. Recommend influenza vaccines annually and tetanus boosters every 10 years. Continue with ACUTE CARE PHYSICAL THERAPIST for routine pap.E ncounter for initial prescription [...] days 15- , 1 tablet daily days 22-, 0.5 tablet daily days 29-36, then stop Qty: 46[Tablet] Refills: 0, PREDNISONE 20 MG ORAL TABLET-Take 2 tablets po daily with food days 1-7 Qty: 14[Tablet] Refills: 0Changed:From: ORAL ORTHO TRI-CYCLEN LO 0.18/0.215/0.25 MG-25 MCG ORAL TABLET Qty: [id number] Refills: 28[Tablet] To: ORTHO TRI-CYCLEN LO 0.18/0.215/0.25 MG-25 MCG ORAL TABLET-Take 1 tablet po daily Qty: 28[Tablet] Refills: 11Allergies:* SEASONAL (Critical)* BEES (Critical)PAXIL (PAROXETINE HCL) (Moderate)Orders:HCG [CPT-80063] COMP METABOLIC PANEL [CPT-39552] CBC W/DIFF [CPT-63603] LIPID PANEL [CPT-33809] TSH [CPT-24134] T-4 free [CPT-15102] Vitamin D 250H Unspecified [CPT-73307] VITAMIN B-12 [CPT- 62841] HgBA1c [CPT-52293] Neurology Consult [CPT-53954] Preventive, Est, (18-39) [CPT-63321] Follow-Up Return to clinic: as needed, 3-6 months for follow upClinical Visit Summary Completed Name Value Range Interpretation Code Description Data Ade rce(s) Supporting Document(s) Procedure Social History No Information Vital Signs ID Date Data Source UNK Name Value Range Interpretation Code Description Data Source(s) Body height 64 [in_i] 64 [in_i] [facility]DR[facility] ([facility]) Body height 64 [in_i] 64 [in_i] ALEXANDRA ([facility]) Body height 64 [in_i] 64 [in_i] ALEXANDRA ([facility]) Body mass index (BMI) [Ratio] 52.7 kg/m2 52.7 k g/m2 ALEXANDRA ([facility]) Diastolic blood pressure 94 mm[Hg] 94 mm[Hg] ALEXANDRA ([facility]) Systolic blood pressure 142 mm[Hg] 142 mm[Hg] A [facility] ([facility]) Body weight 4912 [oz_av] 4912 [oz_av] ALEXANDRA ([facility]) Diastolic blood pressure 94 mm[Hg] 94 mm[Hg] ALEXANDRA ([facility]) Body height 64 [in_i] 64 [in_i] ALEXANDRA ([facility]) Body mass index (BMI) [Ratio] 52.7 kg/m2 52.7 k g/m2 ALEXANDRA ([facility]) Systolic blood pressure 142 mm[Hg] 142 mm[Hg] A [facility] ([facility]) Body weight 4912 [oz_av] 4912 [oz_av] ALEXANDRA ([facility]) Diastolic blood pressure 94 mm[Hg] 94 mm[Hg] ALEXANDRA ([facility]) Body height 64 [in_i] 64 [in_i] ALEXANDRA ([facility]) Body mass index (BMI) [Ratio] 52.7 kg/m2 52.7 k g/m2 A[facility]DRA ([facility]) Systolic blood pressure 142 mm[Hg] 142 mm[Hg] A [place] ([facility]) Body weight 4912 [oz_av] 4912 [oz_av] ALEXANDRA ([facility]) Body weight 305.00 [lb_av] 305.00 [lb_av] MEDEN T ([facility], ) Respiratory rate 12 /min 12 /min MEDENT ( [facility] ) Body mass index (BMI) [Ratio] 50.7 kg/m2 50.7 k g/m2 [facility] ([facility] ) [place] body weight 125 [lb_av] 125 [lb_av] MEDEN T ([facility], ) Body height 65 [in_i] 65 [in_i] [facility] ([facility], ) 5'5" Heart rate 79 /min 79 /min [facility] ([facility] ) Body temperature 97.1 [degF] 97.1 [degF] [facility] ([facility] ) Body height 63.7 [in_i] 63.7 [in_i] MEDENT ([facility] ) 5'3.70" Body weight 312.25 [lb_av] 312.25 [lb_av] MEDEN T ([facility] ) Body mass index (BMI) [Ratio] 54.1 kg/m2 54.1 k g/m2 [facility] ([facility] ) Oxygen saturation in Arterial blood by Pulse oximetry 97 % 97 % [facility] ([facility] ) Systolic blood pressure 132 mm[Hg] 132 mm[Hg] M EDENT ([facility] ) Diastolic blood pressure 98 mm[Hg] 98 mm[Hg] [facility] ([facility] ) Body height 64 [in_i] 64 [in_i] ALEXANDRA ([facility]) Body height 64 [in_i] 64 [in_i] ALEXANDRA ([facility]) Body height 64 [in_i] 64 [in_i] ALEXANDRA ([facility]) Body height 64 [in_i] 64 [in_i] ALEXANDRA ([facility]) Body height 64 [in_i] 64 [in_i] ALEXANDRA ([facility]) Body height 64 [in_i] 64 [in_i] ALEXANDRA ([facility]) Body height 64 [in_i] 64 [in_i] ALEXANDRA ([facility]) Body height 64 [in_i] 64 [in_i] ALEXANDRA ([facility]) Body height 64 [in_i] 64 [in_i] ALEXANDRA ([facility]) Body temperature 96.0 [degF] 96.0 [degF] MEDENT ([facility]) Body height 64 [in_i] 64 [in_i] [facility] ([facility]) 5'4" Body weight 300.38 [lb_av] 300.38 [lb_av] MEDEN T ([facility]) Body mass index (BMI) [Ratio] 51.6 kg/m2 51.6 k g/m2 [facility] ([facility]) Body height 64 [in_i] 64 [in_i] ALEXANDRA ([facility]) Body height 64 [in_i] 64 [in_i] ALEXANDRA ([facility]) Body height 64 [in_i] 64 [in_i] ALEXANDRA ([facility]) Body height 64 [in_i] 64 [in_i] ALEXANDRA ([facility]) Body height 64 [in_i] 64 [in_i] ALEXANDRA ([facility]) Body height 64 [in_i] 64 [in_i] ALEXANDRA ([facility]) Respiratory rate 12 /min 12 /min MEDENT ( [facility]) Body height 65 [in_i] 65 [in_i] [facility] ([facility]) 5'5" Body weight 315.00 [lb_av] 315.00 [lb_av] MEDEN T ([facility]) Body mass index (BMI) [Ratio] 52.4 kg/m2 52.4 k g/m2 MED[facility] ([facility]) [place] body weight 125 [lb_av] 125 [lb_av] MEDEN T ([facility]) Body height 64 [in_i] 64 [in_i] ALEXANDRA ([facility]) Diastolic blood pressure 98 mm[Hg] 98 mm[Hg] ALEXANDRA ([facility]) Body mass index (BMI) [Ratio] 54.61 kg/m2 54.61 kg/m2 A[facility]DR[facility] ([facility]) Body weight 5072 [oz_av] 5072 [oz_av] ALEXANDRA ([facility]) Systolic blood pressure 149 mm[Hg] 149 mm[Hg] A [facility] ([facility]) Body mass index (BMI) [Ratio] 54.61 kg/m2 54.61 kg/m2 ALEXANDRA ([facility]) Systolic blood pressure 149 mm[Hg] 149 mm[Hg] A [facility] ([facility]) Body weight 5072 [oz_av] 5072 [oz_av] ALEXANDRA ([facility]) Diastolic blood pressure 98 mm[Hg] 98 mm[Hg] ALEXANDRA ([facility]) Body height 64 [in_i] 64 [in_i] ALEXANDRA ([facility]) Diastolic blood pressure 98 mm[Hg] 98 mm[Hg] ALEXANDRA ([facility]) Body height 64 [in_i] 64 [in_i] ALEXANDRA ([facility]) Body mass index (BMI) [Ratio] 54.61 kg/m2 54.61 kg/m2 ALEXANDRA ([facility]) Systolic blood pressure 149 mm[Hg] 149 mm[Hg] A [facility] ([facility]) Body weight 5072 [oz_av] 5072 [oz_av] ALEXANDRA ([facility]) Diastolic blood pressure 98 mm[Hg] 98 mm[Hg] ALEXANDRA ([facility]) Body height 64 [in_i] 64 [in_i] ALEXANDRA ([facility]) Body mass index (BMI) [Ratio] 54.61 kg/m2 54.61 kg/m2 ALEXANDRA ([facility]) Systolic blood pressure 149 mm[Hg] 149 mm[Hg] [facility] Body weight 5072 [oz_av] 5072 [oz_av] ALEXANDRA ([facility]) Patient Treatment Plan of Care Planned Activity Planned Date Details Description Data Source (s) POLYETHYLENE GLYCOL 3350 105 MG/ML / Pot assium Chloride 0.67427 MEQ/ML / Sodium Bicarbonate 0.017 MEQ/ML / Sodium Chloride 0.0479 MEQ/ML Oral Solution ALEXANDRA ([facility]) Ondansetron 4 MG Oral Tablet ALEXANDRA ([facility]) Metronidazole 500 MG Oral Tablet ALEXANDRA ([facility]) Methocarbamol 750 MG Oral Tablet ALEXANDRA ([facility]) meloxicam 15 MG Oral Tablet ALEXANDRA ([facility]) Levothyroxine Sodium 0.088 MG Oral Tablet ALEXANDRA ([facility]) Levothyroxine Sodium 0.075 MG Oral Tablet ALEXANDRA ([facility]) Levothyroxine Sodium 0.025 MG Oral Tablet ALEXANDRA ([facility]) Ibuprofen 800 MG Oral Tablet ALEXANDRA ([facility]) Hydroxyzine Hydrochloride 25 MG Oral Tablet ALEXANDRA ([facility]) Acetaminophen 325 MG / Hydrocodone Bitartrate 5 MG Oral Tablet ALEXANDRA ([facility]) Codeine Phosphate 2 MG/ML / Guaifenesin 20 MG/ML Oral Solution [place] ([facility]) Flulaval Quad [id number] 60 mcg (15 mcg x 4)/0.5 mL intramuscular susp. DIRECTED ALEXANDRA ([facility]) Escitalopram 10 MG Oral Tablet ALEXANDRA ([facility]) Ciprofloxacin 500 MG Oral Tablet ALEXANDRA ([facility]) buspirone hydrochloride 7.5 MG Oral Tablet ALEXANDRA ([facility]) Bisacodyl 5 MG Delayed Release Oral Tablet ALEXANDRA ([facility]) benzonatate 100 MG Oral Capsule ALEXANDRA ([facility]) [facility]ox[facility] 500 [facility] Acetaminophen 300 MG / Codeine Phosphate 30 MG Oral Tablet ALEXANDRA ([facility]) valacyclovir 500 MG Oral Tablet ALEXANDRA ([facility]) valacyclovir 1000 MG Oral Tablet ALEXANDRA ([facility]) Tri-Lo-Susie 0.18/0.215/0.25 mg-25 mcg tablet TAKE ONE TABLET BY MOUTH EVERY DAY ALEXANDRA ([facility]) topiramate 25 MG Oral Tablet ALEXANDRA ([facility]) Prednisone 20 MG Oral Tablet ALEXANDRA ([facility]) Prednisone 10 MG Oral Tablet ALEXANDRA ([facility]) POLYETHYLENE GLYCOL 3350 105 MG/ML / Pot assium Chloride 0.21427 MEQ/ML / Sodium Bicarbonate 0.017 MEQ/ML / Sodium Chloride 0.0479 MEQ/ML Oral Solution ALEXANDRA ([facility]) Ondansetron 4 MG Oral Tablet ALEXANDRA ([facility]) Metronidazole 500 MG Oral Tablet ALEXANDRA ([facility]) Methocarbamol 750 MG Oral Tablet ALEXANDRA ([facility]) meloxicam 15 MG Oral Tablet ALEXANDRA ([facility]) Levothyroxine Sodium 0.088 MG Oral Tablet ALEXANDRA ([facility]) Levothyroxine Sodium 0.075 MG Oral Tablet ALEXANDRA ([facility]) Levothyroxine Sodium 0.025 MG Oral Tablet ALEXANDRA ([facility]) Ibuprofen 800 MG Oral Tablet ALEXANDRA ([facility]) Hydroxyzine Hydrochloride 25 MG Oral Tablet ALEXANDRA ([facility]) Acetaminophen 325 MG / Hydrocodone Bitartrate 5 MG Oral Tablet ALEXANDRA ([facility]) Codeine Phosphate 2 MG/ML / Guaifenesin 20 MG/ML Oral Solution ALEXANDRA ([facility]) Flulaval Quad 3627-1959 60 mcg (15 mcg x 4)/0.5 mL intramuscular susp. DIRECTED ALEXANDRA ([facility]) Escitalopram 10 MG Oral Tablet ALEXANDRA ([facility]) Ciprofloxacin 500 MG Oral Tablet ALEXANDRA ([facility]) buspirone hydrochloride 7.5 MG Oral Tablet ALEXANDRA ([facility]) Bisacodyl 5 MG Delayed Release Oral Tablet ALEXANDRA ([facility]) benzonatate 100 MG Oral Capsule ALEXANDRA ([facility]) Amoxicillin 500 MG Oral Capsule ALEXANDRA ([facility]) Acetaminophen 300 MG / Codeine Phosphate 30 MG Oral Tablet ALEXANDRA ([facility]) valacyclovir 500 MG Oral Tablet ALEXANDRA ([facility]) valacyclovir 1000 MG Oral Tablet ALEXANDRA ([facility]) Tri-Lo-Susie 0.18/0.215/0.25 mg-25 mcg tablet TAKE ONE TABLET BY MOUTH EVERY DAY ALEXANDRA ([facility]) topiramate 25 MG Oral Tablet ALEXANDRA ([facility]) Prednisone 20 MG Oral Tablet ALEXANDRA ([facility]) Prednisone 10 MG Oral Tablet ALEXANDRA ([facility]) POLYETHYLENE GLYCOL 3350 105 MG/ML / Pot assium Chloride 0.11856 MEQ/ML / Sodium Bicarbonate 0.017 MEQ/ML / Sodium Chloride 0.0479 MEQ/ML Oral Solution ALEXANDRA ([facility]) Ondansetron 4 MG Oral Tablet ALEXANDRA ([facility]) Metronidazole 500 MG Oral Tablet ALEXANDRA ([facility]) Methocarbamol 750 MG Oral Tablet ALEXANDRA ([facility]) meloxicam 15 MG Oral Tablet ALEXANDRA ([facility]) Levothyroxine Sodium 0.088 MG Oral Tablet ALEXANDRA ([facility]) Levothyroxine Sodium 0.075 MG Oral Tablet ALEXANDRA ([facility]) Levothyroxine Sodium 0.025 MG Oral Tablet ALEXANDRA ([facility]) Ibuprofen 800 MG Oral Tablet ALEXANDRA ([facility]) Hydroxyzine Hydrochloride 25 MG Oral Tablet ALEXANDRA ([facility]) Acetaminophen 325 MG / Hydrocodone Bitartrate 5 MG Oral Tablet ALEXANDRA ([facility]) Codeine Phosphate 2 MG/ML / Guaifenesin 20 MG/ML Oral Solution GALLIPOLIS ([facility]) Flulaval Quad 1542-7972 60 mcg (15 mcg x 4)/0.5 mL intramuscular susp. DIRECTED ALEXANDRA ([facility]) Escitalopram 10 MG Oral Tablet ALEXANDRA ([facility]) Ciprofloxacin 500 MG Oral Tablet ALEXANDRA ([facility]) Bisacodyl 5 MG Delayed Release Oral Tablet ALEXANDRA ([facility]) benzonatate 100 MG Oral Capsule ALEXANDRA ([facility]) Amoxicillin 500 MG Oral Capsule [facility]LEXANDRA [facility]) Acetaminophen 300 MG / Codeine Phosphate 30 MG Oral Tablet [facility]LEXANDRA [facility]) Escitalopram 10 MG Oral Tablet ALEXANDRA ([facility]) Ciprofloxacin 500 MG Oral Tablet ALEXANDRA ([facility]) Bisacodyl 5 MG Delayed Release Oral Tablet ALEXANDRA ([facility]) benzonatate 100 MG Oral Capsule ALEXANDRA ([facility]) Amoxicillin 500 MG Oral Capsule ALEXANDRA ([facility]) Acetaminophen 300 MG / Codeine Phosphate 30 MG Oral Tablet ALEXANDRA ([facility]) valacyclovir 500 MG Oral Tablet ALEXANDRA ([facility]) valacyclovir 1000 MG Oral Tablet ALEXANDRA ([facility]) topiramate 25 MG Oral Tablet ALEXANDRA ([facility]) Prednisone 20 MG Oral Tablet ALEXANDRA ([facility]) Prednisone 10 MG Oral Tablet ALEXANDRA ([facility]) POLYETHYLENE GLYCOL 3350 105 MG/ML / Pot assium Chloride 0.02746 MEQ/ML / Sodium Bicarbonate 0.017 MEQ/ML / Sodium Chloride 0.0479 MEQ/ML Oral Solution ALEXANDRA ([facility]) Ondansetron 4 MG Oral Tablet ALEXANDRA ([facility]) Metronidazole 500 MG Oral Tablet ALEXANDRA ([facility]) Levothyroxine Sodium 0.088 MG Oral Tablet ALEAXNDRA ([facility]) Levothyroxine Sodium 0.075 MG Oral Tablet ALEXANDRA ([facility]) Levothyroxine Sodium 0.025 MG Oral Tablet ALEXANDRA ([facility]) Ibuprofen 800 MG Oral Tablet ALEXANDRA ([facility]) Acetaminophen 325 MG / Hydrocodone Bitartrate 5 MG Oral Tablet ALEXANDRA ([facility]) Flulaval Quad 5807-1545 60 mcg (15 mcg x 4)/0.5 mL intramuscular susp. DIRECTED ALEXANDRA ([facility]) Escitalopram 10 MG Oral Tablet ALEXANDRA ([facility]) Ciprofloxacin 500 MG Oral Tablet ALEXANDRA ([facility]) Bisacodyl 5 MG Delayed Release Oral Tablet ALEXANDRA ([facility]) benzonatate 100 MG Oral Capsule ALEXANDRA ([facility]) Amoxicillin 500 MG Oral Capsule ALEXANDRA ([facility]) Acetaminophen 300 MG / Codeine Phosphate 30 MG Oral Tablet ALEXANDRA ([facility]) valacyclovir 1000 MG Oral Tablet ALEXANDRA ([facility]) Tri-Lo-Susie 0.18/0.215/0.25 mg-25 mcg tablet ALEXANDRA ([facility]) Prednisone 20 MG Oral Tablet ALEXANDRA ([facility]) Prednisone 10 MG Oral Tablet ALEXANDRA ([facility]) POLYETHYLENE GLYCOL 3350 105 MG/ML / Pot assium Chloride 0.74588 MEQ/ML / Sodium Bicarbonate 0.017 MEQ/ML / Sodium Chloride 0.0479 MEQ/ML Oral Solution ALEXANDRA ([facility]) Ondansetron 4 MG Oral Tablet ALEXANDRA ([facility]) Metronidazole 500 MG Oral Tablet ALEXANDRA ([facility]) Levothyroxine Sodium 0.088 MG Oral Tablet ALEXANDRA ([facility]) Levothyroxine Sodium 0.075 MG Oral Tablet ALEXANDRA ([facility]) Levothyroxine Sodium 0.025 MG Oral Tablet ALEXANDRA ([facility]) Ibuprofen 800 MG Oral Tablet ALEXANDRA ([facility]) Acetaminophen 325 MG / Hydrocodone Bitartrate 5 MG Oral Tablet ALEXANDRA ([facility]) Flulaval Quad 60 mcg (15 mcg x 4)/0.5 mL intramuscular susp. DIRECTED ALEXANDRA ([facility]) Escitalopram 10 MG Oral Tablet ALEXANDRA ([facility]) Ciprofloxacin 500 MG Oral Tablet ALEXANDRA ([facility]) Bisacodyl 5 MG Delayed Release Oral Tablet ALEXANDRA ([facility]) Acetaminophen 300 MG / Codeine Phosphate 30 MG Oral Tablet ALEXANDRA ([facility]) Ondansetron 4 MG Oral Tablet ALEXANDRA ([facility]) Metronidazole 500 MG Oral Tablet ALEXANDRA ([facility]) Levothyroxine Sodium 0.088 MG Oral Tablet ALEXANDRA ([facility]) Levothyroxine Sodium 0.075 MG Oral Tablet ALEXANDRA ([facility]) Levothyroxine Sodium 0.025 MG Oral Tablet ALEXANDRA ([facility]) Ibuprofen 800 MG Oral Tablet ALEXANDRA ([facility]) Acetaminophen 325 MG / Hydrocodone Bitartrate 5 MG Oral Tablet ALEXANDRA ([facility]) Flulaval Quad 60 mcg (15 mcg x 4)/0.5 mL intramuscular susp. DIRECTED ALEXANDRA ([facility]) Escitalopram 10 MG Oral Tablet ALEXANDRA ([facility]) Ciprofloxacin 500 MG Oral Tablet ALEXANDRA ([facility]) Bisacodyl 5 MG Delayed Release Oral Tablet ALEXANDRA ([facility]) Acetaminophen 300 MG / Codeine Phosphate 30 MG Oral Tablet ALEXANDRA ([facility]) valacyclovir 500 MG Oral Tablet ALEXANDRA ([facility]) valacyclovir 1000 MG Oral Tablet ALEXANDRA ([facility]) Tri-Lo-Susie 0.18/0.215/0.25 mg-25 mcg tablet TAKE ONE TABLET BY MOUTH EVERY DAY ALEXANDRA ([facility]) topiramate 25 MG Oral Tablet ALEXANDRA ([facility]) Prednisone 20 MG Oral Tablet ALEXANDRA ([facility]) Prednisone 10 MG Oral Tablet ALEXANDRA ([facility]) valacyclovir 500 MG Oral Tablet ALEXANDRA ([facility]) valacyclovir 1000 MG Oral Tablet ALEXANDRA ([facility]) Tri-Lo-Susie 0.18/0.215/0.25 mg-25 mcg tablet TAKE ONE TABLET BY MOUTH EVERY DAY ALEXANDRA ([facility]) topiramate 25 MG Oral Tablet ALEXANDRA ([facility]) Prednisone 20 MG Oral Tablet ALEXANDRA ([facility]) Prednisone 10 MG Oral Tablet ALEXANDRA ([facility]) POLYETHYLENE GLYCOL 3350 105 MG/ML / Pot assium Chloride 0.41900 MEQ/ML / Sodium Bicarbonate 0.017 MEQ/ML / Sodium Chloride 0.0479 MEQ/ML Oral Solution ALEXANDRA ([facility]) Ondansetron 4 MG Oral Tablet ALEXANDRA ([facility]) Metronidazole 500 MG Oral Tablet ALEXANDRA ([facility]) Methocarbamol 750 MG Oral Tablet ALEXANDRA ([facility]) Levothyroxine Sodium 0.088 MG Oral Tablet ALEXANDRA ([facility]) Levothyroxine Sodium 0.075 MG Oral Tablet ALEXANDRA ([facility]) Levothyroxine Sodium 0.025 MG Oral Tablet ALEXANDRA ([facility]) Ibuprofen 800 MG Oral Tablet ALEXANDRA ([facility]) Acetaminophen 325 MG / Hydrocodone Bitartrate 5 MG Oral Tablet ALEXANDRA ([facility]) Codeine Phosphate 2 MG/ML / Guaifenesin 20 MG/ML Oral Solution ALEXANDRA ([facility]) Flulaval Quad 6165-1116 60 mcg (15 mcg x 4)/0.5 mL intramuscular susp. DIRECTED ALEXANDRA ([facility]) valacyclovir 1000 MG Oral Tablet ALEXANDRA ([facility]) Tri-Lo-Susie 0.18/0.215/0.25 mg-25 mcg tablet ALEXANDRA ([facility]) Prednisone 20 MG Oral Tablet ALEXANDRA ([facility]) Prednisone 10 MG Oral Tablet ALEXANDRA ([facility]) POLYETHYLENE GLYCOL 3350 105 MG/ML / Pot assium Chloride 0.74052 MEQ/ML / Sodium Bicarbonate 0.017 MEQ/ML / Sodium Chloride 0.0479 MEQ/ML Oral Solution ALEXANDRA ([facility]) Ondansetron 4 MG Oral Tablet ALEXANDRA ([facility]) Metronidazole 500 MG Oral Tablet ALEXANDRA ([facility]) Levothyroxine Sodium 0.088 MG Oral Tablet ALEXANDRA ([facility]) Levothyroxine Sodium 0.075 MG Oral Tablet ALEXANDRA ([facility]) Levothyroxine Sodium 0.025 MG Oral Tablet ALEXANDRA ([facility]) Ibuprofen 800 MG Oral Tablet ALEXANDRA ([facility]) Acetaminophen 325 MG / Hydrocodone Bitartrate 5 MG Oral Tablet ALEXANDRA ([facility]) Flulaval Quad 8092-1646 60 mcg (15 mcg x 4)/0.5 mL intramuscular susp. DIRECTED ALEXANDRA ([facility]) Escitalopram 10 MG Oral Tablet ALEXANDRA ([facility]) Ciprofloxacin 500 MG Oral Tablet ALEXANDRA ([facility]) Bisacodyl 5 MG Delayed Release Oral Tablet ALEXANDRA ([facility]) Acetaminophen 300 MG / Codeine Phosphate 30 MG Oral Tablet ALEXANDRA ([facility]) valacyclovir 1000 MG Oral Tablet ALEXANDRA ([facility]) Tri-Lo-Susie 0.18/0.215/0.25 mg-25 mcg tablet ALEXANDRA ([facility]) Prednisone 20 MG Oral Tablet ALEXANDRA ([facility]) Prednisone 10 MG Oral Tablet ALEXANDRA ([facility]) POLYETHYLENE GLYCOL 3350 105 MG/ML / Pot assium Chloride 0.92997 MEQ/ML / Sodium Bicarbonate 0.017 MEQ/ML / Sodium Chloride 0.0479 MEQ/ML Oral Solution ALEXANDRA ([facility])
[2021-07-13] MEDS ORDERED: TIZA2TA PO (06:29)
[2021-07-13] MEDS ORDERED: BUSP1TAB PO (06:29)
[2021-07-13] MEDS ORDERED: ONDANSETRON 4MG/2ML VIAL IV ONE ×2 (06:50→10:05)
[2021-07-13] MEDS ORDERED: MORPHINE 4 MG/ML 1ML VIAL/SYRINGE (J2270) IV PRN (06:50)
[2021-07-13] MEDS: GASTROGRAFIN SOLUTION 30ML PO SCH ×2 (08:32→09:00)
[2021-07-13] MEDS ORDERED: ISOVUE-370 76% 100ML VIAL As Ordered ONE (08:35)
[2021-07-13] MEDS ORDERED: MORPHINE 4 MG/ML 1ML VIAL/SYRINGE (J2270) IV ONE (10:05)
--- NOTE | 2021-07-13 10:23 | REP ---
INDICATION: RIGHT SIDED ABD PAIN, IBD. COMPARISON: 02/02/2020 TECHNIQUE: Bolus 100 mL Isovue 370 scanning through the abdomen and pelvis with coronal and sagittal reconstructions. FINDINGS: CT abdomen: Lung bases are clear. The heart is not enlarged. There is no pericardial thickening or effusion. No hiatal hernia. There is hepatomegaly with a 19 cm vertical diameter of the right hepatic lobe in the mid clavicular line. Homogeneous low density of the liver may reflect some fatty infiltration but no hepatic mass or biliary dilatation nor adjacent ascites. Gallbladder surgically absent. The pancreas, adrenal glands, kidneys and spleen are unremarkable. The aorta is without aneurysm or dissection. No periaortic, other retroperitoneal or mesenteric pathologic sized lymphadenopathy small bowel loops show oral contrast without abnormal dilatation, wall thickening or adjacent inflammatory change. Scattered diverticula in the left colon without diverticulitis. There is a small umbilical hernia with only omental fat within it and no bowel herniation in the ventral abdominal wall. Bone windows show thoracic and lumbar spine in the posterior elements as well as the visualized ribs all without acute finding. CT pelvis: The sacrum, SI joints, pelvis and hips show no acute finding. Ureters without dilatation and show no stone. Bladder is partially filled without wall thickening, mass or stone. No dilated distal ureter in the deep pelvis. Uterus anteverted, not enlarged. There is no adnexal mass or pelvic free fluid diverticulosis of the distal left colon and proximal sigmoid noted without diverticulitis distal sigmoid and rectum unremarkable. No ventral or inguinal hernia nor pathologic sized inguinal adenopathy. There are several small nodes in the pericecal region but no abnormality of the terminal ileum identified. There are no inflammatory changes of the cecum. Appendix is surgically absent by history. IMPRESSION: 1. Some left colonic and proximal sigmoid diverticulosis without diverticulitis, stricture or mass no sign of colitis. 2. Small bowel loops and terminal ileum grossly unremarkable. There were several small pericecal nodes without inflammatory changes of the fat, edema or wall thickening of the terminal ileum or other acute finding. 3. There is no ascites, pathologic sized retroperitoneal or mesenteric lymphadenopathy trauma perforation or free air 4. Mild hepatomegaly with fatty infiltration. Spleen, kidneys, pancreas, adrenal glands were unremarkable. Gallbladder surgically absent. Lung bases clear. Bones intact. 5. No renal, ureteral or bladder stone. <Electronically signed by Walter Piper > 07/13/21 0249
[2021-07-13] MEDS ORDERED: ZOFR4TAB16 PO (10:54)
[2021-07-13 11:16] VITALS: BP 137/79
== END 2021-07-13 11:25 | disposition home or self-care (01) ==
LOC: M ED 19:58
DX: R10.9 Unspecified abdominal pain (principal); K50.90 Crohn's disease, unspecified, without complications; Z79.899 Other long term (current) drug therapy; Z79.890 Hormone replacement therapy
CPT/HCPCS: 74177; 80048; 80076; 81001; 83690; 84703; 85025; 96374; 96375; 96376; 99284; J2270; J2405; Q9963; Q9967

== ENCOUNTER 2021-10-10 15:37 | Emergency (ER) | payer OTHER ==
[~2021-10-10] VITALS: Ht 165.1 cm; Wt 131.8 kg
[~2021-10-10 15:37] MED LIST changes: +BUSP1TAB PO; -FLUC150T PO; +FLUC150T9 PO; -OMEP-221 PO; +OMEP40CA5 PO; +PARO25TA12 PO; -PAXI25TA13 PO; +TIZA2TA PO; +ZOFR4TAB16 PO
[2021-10-10] MEDS ORDERED: NS 1,000 ML IV ONE (18:30)
[2021-10-10] MEDS ORDERED: ONDANSETRON 4MG/2ML VIAL IV ONE (18:30)
[2021-10-10] MEDS ORDERED: KETOROLAC 30 MG/ML 1ML VIAL IV ONE (18:30)
[2021-10-10 18:46] VITALS: O2SAT 99
[2021-10-10 18:52] LABS: BASO % 0.6 % (0.0-1.0); EOS # 0.2 10^3/uL (0.0-0.5); EOS % 3.9 % (0.0-3.0); HEMATOCRIT 40.8 % (36.0-47.0); HEMOGLOBIN 12.9 g/dl (12.0-15.5); LYMPH # 1.7 10^3/uL (1.5-5.0); LYMPH % 34.2 % (24.0-44.0); MEAN CORPUSCULAR HEMOGLOBIN 25.2 pg (27.0-33.0); MEAN CORPUSCULAR HGB CONC 31.6 g/dl (32.0-36.5); MEAN CORPUSCULAR VOLUME 79.8 fl (80.0-96.0); MONO # 0.8 10^3/uL (0.0-0.8); MONO % 16.5 % (2.0-8.0); NEUTROPHILS # 2.2 10^3/uL (1.5-8.5); NEUTROPHILS % 44.6 % (36.0-66.0); PLATELET COUNT, AUTOMATED 230 10^3/uL (150-450); RED BLOOD COUNT 5.11 10^6/uL (4.00-5.40); WHITE BLOOD COUNT 4.9 10^3/uL (4.0-10.0)
[2021-10-10 19:05] LABS: ALBUMIN 3.7 GM/DL (3.2-5.2); ALT/SGPT 47 U/L (12-78); BILIRUBIN,TOTAL 0.6 MG/DL (0.2-1.0); BLOOD UREA NITROGEN 10 MG/DL (7-18); CALCIUM LEVEL 9.5 MG/DL (8.5-10.1); CARBON DIOXIDE LEVEL 24 MEQ/L (21-32); CHLORIDE LEVEL 109 MEQ/L (98-107); GLOMERULAR FILTRATION RATE > 60.0 (>60); GLUCOSE, FASTING 90 MG/DL (70-100); SODIUM LEVEL 141 MEQ/L (136-145); TOTAL PROTEIN 7.3 GM/DL (6.4-8.2)
[2021-10-10] MEDS ORDERED: guaiFENesin ER 600 MG TAB PO ONE (19:20)
[2021-10-10] MEDS ORDERED: METOCLOPRAMIDE INJ 10MG/2ML VIAL (J2765 PER 1) IV ONE (20:30)
[2021-10-10 21:27] VITALS: BP 165/101
[2021-10-10] MEDS ORDERED: ONDA4TAB6 PO (22:00)
== END 2021-10-10 22:10 | disposition home or self-care (01) ==
LOC: M ED 15:37
DX: R06.02 Shortness of breath (principal); R50.9 Fever, unspecified; R07.9 Chest pain, unspecified; R51.9 Headache, unspecified; J02.9 Acute pharyngitis, unspecified; U07.1 COVID-19; J45.909 Unspecified asthma, uncomplicated; E06.3 Autoimmune thyroiditis
CPT/HCPCS: 71045; 80053; 85025; 93005; 96361; 96374; 96375; 99284; J1885; J2405; J2765

== ENCOUNTER → 2021-11-19 | Outpatient (CLI) | payer OTHER ==
[~2021-11-19] MED LIST changes: +ONDA4TAB6 PO
[2021-11-19 10:46] LABS: HCG, SERUM QUALITATIVE NEGATIVE (NEGATIVE)
== END ==
LOC: M PLALAB 08:51 → M LAB 08:51
PROVIDERS: ATTEND Advanced Practice Midwife
DX: N91.2 Amenorrhea, unspecified (principal)

== ENCOUNTER → 2022-01-06 | Outpatient (CLI) | payer OTHER | LOC: M WHC 08:35 | PROVIDERS: ATTEND Physician Assistant | DX: N63.12 Unspecified lump in the right breast, upper inner quadrant (principal) ==

== ENCOUNTER → 2022-05-13 | Outpatient (CLI) | payer OTHER ==
[~2022-05-13] MED LIST changes: +ALBU2.5V10; +ALBU8.5H INH; -ALBU83IN; +AMLO1TAB24 PO; +BUSP10TA PO; +CELE1CAP7 PO; +FEXO-112 PO; +GABA-1171 PO; +LEVO112T2 PO; +LEXA1TAB2 PO; +VITA100012 PO; +VITMTA PO
[2022-05-13 18:23] LABS: HEMATOCRIT 40.3 % (36.0-47.0); MEAN CORPUSCULAR HEMOGLOBIN 25.9 pg (27.0-33.0); MEAN CORPUSCULAR HGB CONC 32.3 g/dl (32.0-36.5); MEAN CORPUSCULAR VOLUME 80.3 fl (80.0-96.0); PLATELET COUNT, AUTOMATED 246 10^3/uL (150-450); RED BLOOD COUNT 5.02 10^6/uL (4.00-5.40); WHITE BLOOD COUNT 9.2 10^3/uL (4.0-10.0)
[2022-05-13 18:58] LABS: HCG, SERUM QUALITATIVE NEGATIVE (NEGATIVE)
[2022-05-13 19:06] LABS: ALBUMIN 3.6 GM/DL (3.2-5.2); ALT/SGPT 32 U/L (12-78); BILIRUBIN,TOTAL 0.5 MG/DL (0.2-1.0); BLOOD UREA NITROGEN 12 MG/DL (7-18); CALCIUM LEVEL 9.1 MG/DL (8.5-10.1); CARBON DIOXIDE LEVEL 26 MEQ/L (21-32); CHLORIDE LEVEL 106 MEQ/L (98-107); CREATININE FOR GFR 0.74 MG/DL (0.55-1.30); GLOMERULAR FILTRATION RATE > 60.0 (>60); GLUCOSE, FASTING 93 MG/DL (70-100); POTASSIUM SERUM 3.9 MEQ/L (3.5-5.1); SODIUM LEVEL 138 MEQ/L (136-145)
== END ==
LOC: M EKG 17:29
PROVIDERS: ATTEND Anesthesiology
DX: I10 Essential (primary) hypertension (principal)

== ENCOUNTER → 2022-05-19 | Outpatient (CLI) | payer OTHER | LOC: M LABSMTC 09:50 | PROVIDERS: ATTEND Anesthesiology | DX: Z01.818 Encounter for other preprocedural examination (principal); Z11.52 Encounter for screening for COVID-19 ==

== ENCOUNTER 2022-05-23 11:40 | Day surgery (SDC) | payer OTHER ==
[~2022-05-23] VITALS: Ht 162.6 cm; Wt 147.9 kg
[2022-05-23 12:19] LABS: HEMATOCRIT 41.3 % (36.0-47.0); HEMOGLOBIN 13.4 g/dl (12.0-15.5); MEAN CORPUSCULAR HEMOGLOBIN 26.3 pg (27.0-33.0); MEAN CORPUSCULAR HGB CONC 32.4 g/dl (32.0-36.5); MEAN CORPUSCULAR VOLUME 81.1 fl (80.0-96.0); PLATELET COUNT, AUTOMATED 242 10^3/uL (150-450); RED BLOOD COUNT 5.09 10^6/uL (4.00-5.40); WHITE BLOOD COUNT 8.1 10^3/uL (4.0-10.0)
[2022-05-23] MEDS ORDERED: MIDAZOLAM INJ 2MG/2ML VIAL (J2250 PER 1MG) As Ordered ONE (12:24)
[2022-05-23] MEDS ORDERED: fentaNYL 100 MCG/2 ML INJECTION As Ordered ONE (12:24)
[2022-05-23] MEDS ORDERED: ROCURONIUM BROMIDE 50 MG/5 ML VIAL As Ordered ONE ×2 (12:26→14:07)
[2022-05-23] MEDS ORDERED: ONDANSETRON 4MG 2ML VIAL As Ordered ONE (12:26)
[2022-05-23] MEDS ORDERED: dexameTHASONE 4 MG/ML 1ML VIAL (J1100 PER 1MG) As Ordered ONE (12:26)
[2022-05-23] MEDS ORDERED: KETOROLAC 60MG 2ML VIAL As Ordered ONE (12:26)
[2022-05-23] MEDS ORDERED: LIDOCAINE 2% 100MG/5ML SDV (FOR ANES.) As Ordered ONE (12:26)
[2022-05-23] MEDS ORDERED: propofoL 200 MG/20 ML VIAL As Ordered ONE (12:26)
[2022-05-23] MEDS ORDERED: SUGAMMADEX SODIUM 500 MG/5 ML VIAL (BRIDION) As Ordered ONE (12:32)
[2022-05-23] MEDS ORDERED: LR 1,000 ML IV SCH ×2 (12:45→14:30)
[2022-05-23] MEDS ORDERED: BUPIVACAINE HCL 0.25% 10ML VIAL As Ordered ONE (13:10)
[2022-05-23] MEDS ORDERED: METOCLOPRAMIDE INJ 10MG/2ML VIAL (J2765 PER 1) IV PRN (13:20)
[2022-05-23] MEDS ORDERED: ACETAMINOPHEN 500 MG TAB PO PRN (13:20)
[2022-05-23] MEDS ORDERED: ONDANSETRON 4MG 2ML VIAL IV PRN ×2 (13:20→14:30)
[2022-05-23] MEDS ORDERED: IBUPROFEN 600MG TAB PO PRN (13:20)
[2022-05-23] MEDS ORDERED: ACETAMINOPHEN 1000MG 100ML IV BTL (OFIRMEV) (J0131 PER 10MG) As Ordered ONE (14:23)
[2022-05-23] MEDS ORDERED: fentaNYL 100 MCG/2 ML INJECTION IV PRN (14:30)
[2022-05-23] MEDS ORDERED: oxyCODONE 5MG TAB PO PRN (14:30)
[2022-05-23] MEDS: HYDROMORPHONE HCL 0.5 MG/ 0.5 ML SYRINGE (J1170 PER 1) IV PRN ×2 (15:19→15:34)
[2022-05-23 16:25] VITALS: BP 116/75
== END 2022-05-23 16:30 | disposition home or self-care (01) ==
LOC: M SDC 11:40
PROVIDERS: ATTEND Obstetrics & Gynecology
DX: Z30.2 Encounter for sterilization (principal); E06.3 Autoimmune thyroiditis; I10 Essential (primary) hypertension; K50.90 Crohn's disease, unspecified, without complications; M51.9 Unspecified thoracic, thoracolumbar and lumbosacral intervertebral disc disorder; Z79.899 Other long term (current) drug therapy; Z79.890 Hormone replacement therapy
CPT/HCPCS: 36415; 58661; 81025; 85027; 86850; 86900; 86901; 88302; J0131; J1100; J1170; J1885; J2250; J2405; J3010

== ENCOUNTER 2022-05-26 13:22 | Emergency (ER) | payer OTHER ==
[~2022-05-26] VITALS: Ht 165.1 cm; Wt 131.8 kg
[2022-05-26 14:18] LABS: BASO # 0.1 10^3/uL (0.0-0.2); BASO % 0.6 % (0.0-1.0); EOS # 0.4 10^3/uL (0.0-0.5); EOS % 5.1 % (0.0-3.0); HEMATOCRIT 39.3 % (36.0-47.0); HEMOGLOBIN 12.8 g/dl (12.0-15.5); LYMPH # 1.8 10^3/uL (1.5-5.0); LYMPH % 21.9 % (24.0-44.0); MEAN CORPUSCULAR HEMOGLOBIN 26.4 pg (27.0-33.0); MEAN CORPUSCULAR HGB CONC 32.6 g/dl (32.0-36.5); MEAN CORPUSCULAR VOLUME 81.2 fl (80.0-96.0); MONO # 0.7 10^3/uL (0.0-0.8); MONO % 8.3 % (2.0-8.0); NEUTROPHILS # 5.2 10^3/uL (1.5-8.5); NEUTROPHILS % 63.6 % (36.0-66.0); PLATELET COUNT, AUTOMATED 254 10^3/uL (150-450); RED BLOOD COUNT 4.84 10^6/uL (4.00-5.40); WHITE BLOOD COUNT 8.2 10^3/uL (4.0-10.0)
[2022-05-26 15:12] LABS: ALBUMIN 3.7 GM/DL (3.2-5.2); ALT/SGPT 34 U/L (12-78); AMYLASE 33 U/L (25-115); BILIRUBIN,DIRECT 0.1 MG/DL (0.0-0.2); BILIRUBIN,TOTAL 0.7 MG/DL (0.2-1.0); BLOOD UREA NITROGEN 13 MG/DL (7-18); CALCIUM LEVEL 9.4 MG/DL (8.5-10.1); CARBON DIOXIDE LEVEL 28 MEQ/L (21-32); CHLORIDE LEVEL 106 MEQ/L (98-107); CREATININE FOR GFR 0.76 MG/DL (0.55-1.30); GLOMERULAR FILTRATION RATE > 60.0 (>60); GLUCOSE, FASTING 99 MG/DL (70-100); LIPASE 96 U/L (73-393); POTASSIUM SERUM 4.2 MEQ/L (3.5-5.1); SODIUM LEVEL 138 MEQ/L (136-145); TOTAL PROTEIN 7.3 GM/DL (6.4-8.2)
[2022-05-26] MEDS ORDERED: ISOVUE-370 76% 100ML VIAL As Ordered ONE (15:45)
[2022-05-26 18:15] VITALS: BP 133/76
== END 2022-05-26 18:28 | disposition home or self-care (01) ==
LOC: M ED 13:22
DX: R10.9 Unspecified abdominal pain (principal); R19.7 Diarrhea, unspecified; G89.18 Other acute postprocedural pain; I10 Essential (primary) hypertension; Z79.899 Other long term (current) drug therapy; Z79.890 Hormone replacement therapy
CPT/HCPCS: 36415; 74021; 74177; 80048; 80076; 82150; 83690; 85025; 93041; 99283; 99284; Q9967

== ENCOUNTER → 2022-06-14 | Outpatient (CLI) | payer OTHER ==
[2022-06-14 13:31] LABS: BLOOD UREA NITROGEN 11 MG/DL (7-18); CALCIUM LEVEL 8.9 MG/DL (8.5-10.1); CARBON DIOXIDE LEVEL 27 MEQ/L (21-32); CHLORIDE LEVEL 107 MEQ/L (98-107); CREATININE FOR GFR 0.71 MG/DL (0.55-1.30); GLOMERULAR FILTRATION RATE > 60.0 (>60); GLUCOSE, FASTING 100 MG/DL (70-100); POTASSIUM SERUM 3.9 MEQ/L (3.5-5.1); SODIUM LEVEL 139 MEQ/L (136-145)
== END ==
LOC: M LAB 12:41
PROVIDERS: ATTEND Physician Assistant
DX: I10 Essential (primary) hypertension (principal)

== ENCOUNTER 2022-11-20 23:33 | Emergency (ER) | payer OTHER ==
[~2022-11-20] VITALS: Ht 162.6 cm; Wt 140.9 kg
[2022-11-21] MEDS ORDERED: NS 1,000 ML IV ONE (00:35)
[2022-11-21] MEDS ORDERED: METOCLOPRAMIDE INJ 10MG/2ML VIAL IV ONE (00:35)
[2022-11-21] MEDS ORDERED: ACETAMINOPHEN 500 MG TAB PO ONE (00:35)
[2022-11-21] MEDS ORDERED: ISOVUE-370 76% 100ML VIAL As Ordered ONE (00:51)
[2022-11-21 01:11] LABS: BASO # 0.1 10^3/uL (0.0-0.2); BASO % 0.6 % (0.0-1.0); EOS # 0.3 10^3/uL (0.0-0.5); EOS % 3.9 % (0.0-3.0); HEMATOCRIT 40.8 % (36.0-47.0); LYMPH # 3.1 10^3/uL (1.5-5.0); LYMPH % 36.3 % (24.0-44.0); MEAN CORPUSCULAR HGB CONC 31.9 g/dl (32.0-36.5); MEAN CORPUSCULAR VOLUME 81.6 fl (80.0-96.0); MONO # 0.7 10^3/uL (0.0-0.8); MONO % 8.4 % (2.0-8.0); NEUTROPHILS # 4.2 10^3/uL (1.5-8.5); NEUTROPHILS % 50.3 % (36.0-66.0); PLATELET COUNT, AUTOMATED 241 10^3/uL (150-450); WHITE BLOOD COUNT 8.4 10^3/uL (4.0-10.0)
[2022-11-21 01:41] LABS: HCG, SERUM QUALITATIVE NEGATIVE (NEGATIVE); MAGNESIUM LEVEL 1.8 MG/DL (1.8-2.4)
[2022-11-21 01:44] LABS: THYROXINE (T4) 8.8 UG/DL (4.5-10.9)
[2022-11-21 01:45] LABS: T UPTAKE 33.7 % (22.5-37.0); THYROID STIMULATING HORMONE 5.175 uIU/ML (0.55-4.78)
[2022-11-21] MEDS ORDERED: KETOROLAC 30 MG/ML 1ML VIAL IV ONE (02:25)
[2022-11-21] MEDS ORDERED: RIZA10TA2 PO (03:18)
[2022-11-21 03:29] VITALS: BP 120/67
== END 2022-11-21 03:32 | disposition home or self-care (01) ==
LOC: M ED 23:33 → EDBD 23:33 → M ED 11-21 03:32
DX: G43.909 Migraine, unspecified, not intractable, without status migrainosus (principal); K50.90 Crohn's disease, unspecified, without complications; E06.3 Autoimmune thyroiditis; B00.1 Herpesviral vesicular dermatitis; Z79.899 Other long term (current) drug therapy
CPT/HCPCS: 70450; 70496; 70498; 80047; 83735; 84436; 84443; 84479; 84703; 85025; 96374; 96375; 99284; J1100; J1885; J2765; Q9967

== ENCOUNTER 2023-01-05 19:59 | Emergency (ER) | payer OTHER ==
[~2023-01-05] VITALS: Ht 162.6 cm; Wt 69.1 kg
[~2023-01-05 19:59] MED LIST changes: +ETON1VAG7 PV; -NUVAMIS2 PV; +RIZA10TA2 PO
[2023-01-05 21:15] LABS: BASO # 0.1 10^3/uL (0.0-0.2); BASO % 0.6 % (0.0-1.0); EOS # 0.3 10^3/uL (0.0-0.5); EOS % 3.2 % (0.0-3.0); HEMATOCRIT 39.1 % (36.0-47.0); HEMOGLOBIN 12.8 g/dl (12.0-15.5); LYMPH # 2.9 10^3/uL (1.5-5.0); LYMPH % 27.8 % (24.0-44.0); MEAN CORPUSCULAR HEMOGLOBIN 26.1 pg (27.0-33.0); MEAN CORPUSCULAR HGB CONC 32.7 g/dl (32.0-36.5); MEAN CORPUSCULAR VOLUME 79.6 fl (80.0-96.0); MONO # 0.7 10^3/uL (0.0-0.8); MONO % 6.8 % (2.0-8.0); NEUTROPHILS # 6.4 10^3/uL (1.5-8.5); PLATELET COUNT, AUTOMATED 253 10^3/uL (150-450); RED BLOOD COUNT 4.91 10^6/uL (4.00-5.40); WHITE BLOOD COUNT 10.4 10^3/uL (4.0-10.0)
[2023-01-05 21:42] LABS: LIPASE 28 U/L (12-53)
[2023-01-05 21:44] LABS: ALBUMIN 3.5 G/DL (3.2-5.2); ALKALINE PHOSPHATASE 98 U/L (46-116); ALT/SGPT 23 U/L (7.0-40); AST/SGOT 19 U/L (<34); BILIRUBIN,DIRECT 0.1 MG/DL (<0.4); BILIRUBIN,TOTAL 0.6 MG/DL (0.3-1.2); BLOOD UREA NITROGEN 14 MG/DL (9-23); CALCIUM LEVEL 9.1 MG/DL (8.5-10.1); CARBON DIOXIDE LEVEL 26 MMOL/L (20-31); CHLORIDE LEVEL 105 MMOL/L (98-107); CREATININE FOR GFR 0.74 MG/DL (0.55-1.30); GLOMERULAR FILTRATION RATE > 60.0 (>60); GLUCOSE, FASTING 109 MG/DL (60-100); POTASSIUM SERUM 3.8 MMOL/L (3.5-5.1); SODIUM LEVEL 139 MMOL/L (136-145); TOTAL PROTEIN 7.1 G/DL (5.7-8.2)
[2023-01-06] MEDS ORDERED: NS 1,000 ML IV ONE (02:30)
[2023-01-06] MEDS ORDERED: KETOROLAC 30 MG/ML 1ML VIAL IV ONE (03:00)
[2023-01-06] MEDS ORDERED: ONDANSETRON 4MG 2ML VIAL IV ONE (03:00)
[2023-01-06 04:01] VITALS: BP 176/80
[2023-01-06] MEDS ORDERED: ONDA4TAB6 PO (05:09)
== END 2023-01-06 05:19 | disposition home or self-care (01) ==
LOC: M ED 19:59
DX: A09 Infectious gastroenteritis and colitis, unspecified (principal); I10 Essential (primary) hypertension; K50.90 Crohn's disease, unspecified, without complications; K21.9 Gastro-esophageal reflux disease without esophagitis; E55.9 Vitamin D deficiency, unspecified; E03.9 Hypothyroidism, unspecified; G43.909 Migraine, unspecified, not intractable, without status migrainosus; F32.A Depression, unspecified; Z79.899 Other long term (current) drug therapy; Z79.51 Long term (current) use of inhaled steroids
CPT/HCPCS: 74176; 80048; 80076; 81001; 83690; 85025; 96374; 96375; 99284; J1885; J2405

== ENCOUNTER → 2023-01-15 | Outpatient (REF) | payer OTHER | LOC: M LAB REF 16:11 | PROVIDERS: ATTEND Physician Assistant | DX: J02.9 Acute pharyngitis, unspecified (principal) ==

== ENCOUNTER → 2023-01-27 | Outpatient (CLI) | payer OTHER | LOC: M LAB 14:47 | PROVIDERS: ATTEND Physician Assistant | DX: E06.3 Autoimmune thyroiditis (principal) ==

== ENCOUNTER 2023-04-30 13:27 | Emergency (ER) | payer OTHER ==
[~2023-04-30] VITALS: Ht 165.1 cm; Wt 148.6 kg
[2023-04-30] MEDS ORDERED: CELE1CAP9 (13:36)
[2023-04-30] MEDS ORDERED: LEVO125T4 (13:36)
[2023-04-30] MEDS ORDERED: GABA-282 (13:36)
[2023-04-30] MEDS ORDERED: BUSP15TA47 (13:36)
[2023-04-30 15:35] LABS: BASO # 0.1 10^3/uL (0.0-0.2); BASO % 0.6 % (0.0-1.0); EOS # 0.3 10^3/uL (0.0-0.5); EOS % 3.6 % (0.0-3.0); HEMATOCRIT 40.6 % (36.0-47.0); LYMPH # 2.3 10^3/uL (1.5-5.0); LYMPH % 29.3 % (24.0-44.0); MEAN CORPUSCULAR HEMOGLOBIN 25.3 pg (27.0-33.0); MONO # 0.6 10^3/uL (0.0-0.8); MONO % 7.5 % (2.0-8.0); NEUTROPHILS # 4.5 10^3/uL (1.5-8.5); NEUTROPHILS % 58.6 % (36.0-66.0); PLATELET COUNT, AUTOMATED 244 10^3/uL (150-450); RED BLOOD COUNT 5.14 10^6/uL (4.00-5.40); WHITE BLOOD COUNT 7.7 10^3/uL (4.0-10.0)
[2023-04-30] MEDS ORDERED: ONDANSETRON 4MG 2ML VIAL IV ONE (15:35)
[2023-04-30] MEDS ORDERED: ACETAMINOPHEN *IV* 1,000 MG in IV 1 EA IV ONE (15:35)
[2023-04-30] MEDS ORDERED: NS 1,000 ML IV ONE (15:35)
[2023-04-30 16:02] LABS: LIPASE 31 U/L (12-53)
[2023-04-30 16:04] LABS: ALBUMIN 3.8 G/DL (3.2-5.2); ALKALINE PHOSPHATASE 95 U/L (46-116); ALT/SGPT 22 U/L (7.0-40); AST/SGOT 11 U/L (<34); BILIRUBIN,DIRECT 0.1 MG/DL (<0.4); BILIRUBIN,TOTAL 0.5 MG/DL (0.3-1.2); BLOOD UREA NITROGEN 15 MG/DL (9-23); CALCIUM LEVEL 9.4 MG/DL (8.5-10.1); CARBON DIOXIDE LEVEL 29 MMOL/L (20-31); CHLORIDE LEVEL 105 MMOL/L (98-107); CREATININE FOR GFR 0.83 MG/DL (0.55-1.30); GLOMERULAR FILTRATION RATE > 60.0 (>60); GLUCOSE, FASTING 91 MG/DL (60-100); POTASSIUM SERUM 3.9 MMOL/L (3.5-5.1); SODIUM LEVEL 140 MMOL/L (136-145); TOTAL PROTEIN 7.3 G/DL (5.7-8.2)
[2023-04-30] MEDS ORDERED: ISOVUE-370 76% 100ML VIAL As Ordered ONE (16:29)
[2023-04-30 16:50] LABS: ERYTHROCYTE SEDIMENTATION RATE 50 mm/hr (0-20)
[2023-04-30] MEDS: GASTROGRAFIN SOLUTION 30ML PO SCH ×2 (16:59→17:38)
[2023-04-30] MEDS ORDERED: ANUSOL HC 25MG SUPP PR STA (19:48)
[2023-04-30] MEDS ORDERED: PROMETHAZINE 25MG/ML 1ML VIAL IV ONE (19:50)
[2023-04-30] MEDS ORDERED: CIPROFLOXACIN 500MG TABLET PO ONE (19:50)
[2023-04-30] MEDS ORDERED: DICYCLOMINE 10 MG CAP PO ONE (19:55)
[2023-04-30] MEDS ORDERED: ANUS25SU PR (19:58)
[2023-04-30] MEDS ORDERED: PROM25TA12 PO (19:58)
[2023-04-30] MEDS ORDERED: CIPR-249 PO (19:58)
[2023-04-30] MEDS ORDERED: DICY-61 PO (19:58)
[2023-04-30 20:09] VITALS: BP 159/96; TEMP 97.3; O2SAT 97
== END 2023-04-30 20:44 | disposition home or self-care (01) ==
LOC: M ED 13:27
DX: R10.9 Unspecified abdominal pain (principal); K62.5 Hemorrhage of anus and rectum; E11.9 Type 2 diabetes mellitus without complications; I10 Essential (primary) hypertension; K50.90 Crohn's disease, unspecified, without complications; E03.9 Hypothyroidism, unspecified; Z79.899 Other long term (current) drug therapy; Z79.51 Long term (current) use of inhaled steroids
CPT/HCPCS: 74177; 80047; 80048; 80076; 83605; 83690; 85025; 85652; 86140; 86850; 86900; 86901; 96374; 96375; 99284; J0131; J2405; J2550; Q9963; Q9967

== ENCOUNTER → 2023-05-20 | Outpatient (REF) | payer OTHER ==
[~2023-05-20] MED LIST changes: +ANUS25SU PR; +BUSP15TA47; +CELE0.09; -CELE1CAP7 PO; +CELE1CAP8 PO; +DICY-61 PO; +GABA-282; +LEVO125T4; +PROM25TA12 PO
[2023-05-20 18:43] LABS: BASO # 0.1 10^3/uL (0.0-0.2); BASO % 0.7 % (0.0-1.0); EOS # 0.3 10^3/uL (0.0-0.5); HEMATOCRIT 39.7 % (36.0-47.0); HEMOGLOBIN 12.5 g/dl (12.0-15.5); LYMPH # 2.2 10^3/uL (1.5-5.0); LYMPH % 26.8 % (24.0-44.0); MEAN CORPUSCULAR HEMOGLOBIN 25.4 pg (27.0-33.0); MEAN CORPUSCULAR HGB CONC 31.5 g/dl (32.0-36.5); MEAN CORPUSCULAR VOLUME 80.5 fl (80.0-96.0); MONO # 0.6 10^3/uL (0.0-0.8); MONO % 7.3 % (2.0-8.0); NEUTROPHILS # 5.2 10^3/uL (1.5-8.5); NEUTROPHILS % 61.5 % (36.0-66.0); PLATELET COUNT, AUTOMATED 269 10^3/uL (150-450); RED BLOOD COUNT 4.93 10^6/uL (4.00-5.40); WHITE BLOOD COUNT 8.4 10^3/uL (4.0-10.0)
[2023-05-20 19:11] LABS: THYROID STIMULATING HORMONE 4.786 uIU/ML (0.55-4.78)
[2023-05-20 19:15] LABS: CHOLESTEROL RISK RATIO 4.31 (<5); HDL CHOLESTEROL 46.6 MG/DL (>40); LDL CHOLESTEROL 121.8 MG/DL (<100); NON-HDL-C 154.4 MG/DL
== END ==
LOC: M LAB REF 17:32
PROVIDERS: ATTEND Nurse Practitioner Family
DX: E06.3 Autoimmune thyroiditis (principal); E66.01 Morbid (severe) obesity due to excess calories

== ENCOUNTER 2023-07-27 11:32 | Emergency (ER) | payer OTHER ==
[~2023-07-27] VITALS: Ht 165.1 cm; Wt 145.4 kg
[~2023-07-27 11:32] MED LIST changes: -CELE1CAP8 PO; +CELE1CAP99 PO
[2023-07-27 11:35] VITALS: TEMP 99.6
[2023-07-27 12:55] LABS: BASO % 0.2 % (0.0-1.0); EOS # 0.1 10^3/uL (0.0-0.5); HEMATOCRIT 41.6 % (36.0-47.0); HEMOGLOBIN 13.4 g/dl (12.0-15.5); LYMPH # 0.5 10^3/uL (1.5-5.0); LYMPH % 4.4 % (24.0-44.0); MEAN CORPUSCULAR HEMOGLOBIN 25.7 pg (27.0-33.0); MEAN CORPUSCULAR HGB CONC 32.2 g/dl (32.0-36.5); MEAN CORPUSCULAR VOLUME 79.7 fl (80.0-96.0); MONO # 0.5 10^3/uL (0.0-0.8); MONO % 3.9 % (2.0-8.0); NEUTROPHILS # 10.5 10^3/uL (1.5-8.5); NEUTROPHILS % 89.9 % (36.0-66.0); PLATELET COUNT, AUTOMATED 227 10^3/uL (150-450); RED BLOOD COUNT 5.22 10^6/uL (4.00-5.40); WHITE BLOOD COUNT 11.7 10^3/uL (4.0-10.0)
[2023-07-27 13:19] LABS: LIPASE 28 U/L (12-53)
[2023-07-27 13:20] LABS: CK-MB VALUE MASS < 1.0 NG/ML (<3.6)
[2023-07-27 13:21] LABS: ALBUMIN 3.6 G/DL (3.2-5.2); ALKALINE PHOSPHATASE 93 U/L (46-116); ALT/SGPT 26 U/L (7.0-40); AST/SGOT 20 U/L (<34); BILIRUBIN,DIRECT 0.2 MG/DL (<0.4); BILIRUBIN,TOTAL 0.9 MG/DL (0.3-1.2); BLOOD UREA NITROGEN 14 MG/DL (9-23); CALCIUM LEVEL 8.4 MG/DL (8.5-10.1); CARBON DIOXIDE LEVEL 25 MMOL/L (20-31); CHLORIDE LEVEL 105 MMOL/L (98-107); CREATININE FOR GFR 0.63 MG/DL (0.55-1.30); GLOMERULAR FILTRATION RATE > 60.0 (>60); GLUCOSE, FASTING 126 MG/DL (60-100); SODIUM LEVEL 139 MMOL/L (136-145)
[2023-07-27 13:22] LABS: HCG, SERUM QUALITATIVE NEGATIVE (NEGATIVE)
[2023-07-27 13:23] LABS: CPK CREATINE PHOSPHOKINASE 60 U/L (34-145); MB/CK RELATIVE INDEX 1.66 (< OR =4)
[2023-07-27] MEDS ORDERED: NS 1,000 ML IV ONE (15:05)
[2023-07-27] MEDS ORDERED: KETOROLAC 30 MG/ML 1ML VIAL IV ONE (15:05)
[2023-07-27] MEDS ORDERED: ONDANSETRON 4MG 2ML VIAL IV ONE (15:05)
[2023-07-27] MEDS ORDERED: ONDA-83 PO (16:49)
[2023-07-27 17:01] VITALS: BP 155/75
[2023-07-27 17:02] VITALS: O2SAT 92
== END 2023-07-27 17:13 | disposition home or self-care (01) ==
LOC: M ED 11:32
DX: K52.9 Noninfective gastroenteritis and colitis, unspecified (principal); I10 Essential (primary) hypertension; R00.0 Tachycardia, unspecified; Z90.89 Acquired absence of other organs; Z90.49 Acquired absence of other specified parts of digestive tract; Z79.51 Long term (current) use of inhaled steroids; Z79.899 Other long term (current) drug therapy; Z79.890 Hormone replacement therapy; Z79.2 Long term (current) use of antibiotics
CPT/HCPCS: 74176; 80048; 80076; 82550; 82553; 83605; 83690; 84484; 84703; 85025; 93005; 96361; 96374; 99285; J1885; J2405

== ENCOUNTER 2023-09-25 15:09 | Emergency (ER) | payer OTHER ==
[~2023-09-25] VITALS: Ht 165.1 cm; Wt 152.0 kg
[~2023-09-25 15:09] MED LIST changes: +ONDA-83 PO
[2023-09-25 15:13] VITALS: TEMP 98.2
[2023-09-25 17:10] VITALS: BP 145/88; O2SAT 97
[2023-09-25] MEDS ORDERED: ACETAMINOPHEN TAB 650MG DOSE (2X325MG) PO ONE (17:15)
== END 2023-09-25 18:00 | disposition home or self-care (01) ==
LOC: M ED 15:09
DX: M54.2 Cervicalgia (principal); V49.40XA Driver injured in collision with unspecified motor vehicles in traffic accident, initial encounter; Y92.410 Unspecified street and highway as the place of occurrence of the external cause; Y93.89 Activity, other specified; Y99.9 Unspecified external cause status; E11.9 Type 2 diabetes mellitus without complications; J45.909 Unspecified asthma, uncomplicated; Z79.899 Other long term (current) drug therapy; Z79.51 Long term (current) use of inhaled steroids; Z79.810 Long term (current) use of selective estrogen receptor modulators (SERMs)

== ENCOUNTER → 2023-11-13 | Outpatient (REF) | payer OTHER ==
[2023-11-13 18:55] LABS: HEMATOCRIT 43.1 % (36.0-47.0); HEMOGLOBIN 13.7 g/dl (12.0-15.5); MEAN CORPUSCULAR HEMOGLOBIN 25.6 pg (27.0-33.0); MEAN CORPUSCULAR HGB CONC 31.8 g/dl (32.0-36.5); MEAN CORPUSCULAR VOLUME 80.4 fl (80.0-96.0); PLATELET COUNT, AUTOMATED 258 10^3/uL (150-450); RED BLOOD COUNT 5.36 10^6/uL (4.00-5.40); WHITE BLOOD COUNT 6.5 10^3/uL (4.0-10.0)
[2023-11-13 19:24] LABS: ALBUMIN 3.8 G/DL (3.2-5.2); ALKALINE PHOSPHATASE 92 U/L (46-116); ALT/SGPT 28 U/L (7.0-40); AST/SGOT 19 U/L (<34); BILIRUBIN,TOTAL 0.7 MG/DL (0.3-1.2); BLOOD UREA NITROGEN 13 MG/DL (9-23); CALCIUM LEVEL 8.4 MG/DL (8.5-10.1); CARBON DIOXIDE LEVEL 25 MMOL/L (20-31); CHLORIDE LEVEL 109 MMOL/L (98-107); CHOLESTEROL LEVEL 184 MG/DL (<200); CREATININE FOR GFR 0.72 MG/DL (0.55-1.30); GLOMERULAR FILTRATION RATE > 60.0 (>60); GLUCOSE, FASTING 100 MG/DL (60-100); HDL CHOLESTEROL 36.8 MG/DL (>40); LDL CHOLESTEROL 115.2 MG/DL (<100); NON-HDL-C 147.2 MG/DL; POTASSIUM SERUM 4.4 MMOL/L (3.5-5.1); SODIUM LEVEL 141 MMOL/L (136-145); TOTAL PROTEIN 6.9 G/DL (5.7-8.2); TRIGLYCERIDES LEVEL 160 MG/DL (<150)
== END ==
LOC: M LAB REF 17:33
PROVIDERS: ATTEND Physician Assistant
DX: R73.03 Prediabetes (principal); E06.3 Autoimmune thyroiditis; E78.5 Hyperlipidemia, unspecified

== ENCOUNTER → 2023-11-30 | Outpatient (REF) | payer OTHER | LOC: M LAB REF 16:22 | PROVIDERS: ATTEND Physician Assistant | DX: J02.9 Acute pharyngitis, unspecified (principal) ==

== ENCOUNTER 2023-12-13 21:24 | Emergency (ER) | payer OTHER ==
[~2023-12-13] VITALS: Ht 165.1 cm; Wt 147.9 kg
[2023-12-13 22:12] LABS: BASO # 0.1 10^3/uL (0.0-0.2); BASO % 0.7 % (0.0-1.0); EOS # 0.3 10^3/uL (0.0-0.5); EOS % 2.9 % (0.0-3.0); HEMATOCRIT 41.7 % (36.0-47.0); HEMOGLOBIN 13.7 g/dl (12.0-15.5); LYMPH # 2.8 10^3/uL (1.5-5.0); LYMPH % 30.4 % (24.0-44.0); MEAN CORPUSCULAR HEMOGLOBIN 25.8 pg (27.0-33.0); MEAN CORPUSCULAR HGB CONC 32.9 g/dl (32.0-36.5); MEAN CORPUSCULAR VOLUME 78.7 fl (80.0-96.0); MONO # 0.6 10^3/uL (0.0-0.8); MONO % 6.9 % (2.0-8.0); NEUTROPHILS # 5.4 10^3/uL (1.5-8.5); NEUTROPHILS % 58.7 % (36.0-66.0); PLATELET COUNT, AUTOMATED 277 10^3/uL (150-450); WHITE BLOOD COUNT 9.1 10^3/uL (4.0-10.0)
[2023-12-13 22:32] LABS: ALBUMIN 3.6 G/DL (3.2-5.2); BILIRUBIN,DIRECT 0.2 MG/DL (<0.4); BILIRUBIN,TOTAL 0.7 MG/DL (0.3-1.2); TOTAL PROTEIN 7.1 G/DL (5.7-8.2)
[2023-12-13 22:39] VITALS: BP 109/58; TEMP 98; O2SAT 97
[2023-12-13] MEDS ORDERED: ISOVUE-370 76% 100ML VIAL As Ordered ONE (22:47)
[2023-12-13] MEDS: NS 1,000 ML IV ONE (22:57)
[2023-12-13] MEDS: PANTOPRAZOLE 40MG VIAL IV ONE (22:57)
[2023-12-13] MEDS: KETOROLAC 30 MG/ML 1ML VIAL IV ONE (22:58)
[2023-12-13] MEDS: ONDANSETRON 4MG 2ML VIAL IV ONE (22:58)
[2023-12-13] MEDS ORDERED: CIPR-249 PO (23:36)
[2023-12-13] MEDS ORDERED: ONDA4TAB6 PO (23:36)
[2023-12-13] MEDS ORDERED: METR-265 PO (23:36)
[2023-12-14] MEDS: CIPROFLOXACIN 500MG TABLET PO ONE (00:18)
[2023-12-14] MEDS: metroNIDAZOLE (FLAGYL) 500MG TABLET PO ONE (00:18)
== END 2023-12-14 00:24 | disposition home or self-care (01) ==
LOC: M ED 21:24
DX: K57.92 Diverticulitis of intestine, part unspecified, without perforation or abscess without bleeding (principal); E11.9 Type 2 diabetes mellitus without complications; I10 Essential (primary) hypertension; K21.9 Gastro-esophageal reflux disease without esophagitis; J45.909 Unspecified asthma, uncomplicated; R51.9 Headache, unspecified; F41.9 Anxiety disorder, unspecified; F32.A Depression, unspecified; Z87.42 Personal history of other diseases of the female genital tract; Z79.52 Long term (current) use of systemic steroids; Z79.891 Long term (current) use of opiate analgesic; Z79.83 Long term (current) use of bisphosphonates; Z79.2 Long term (current) use of antibiotics
CPT/HCPCS: 74177; 80047; 80076; 81001; 83690; 85025; 96361; 96374; 96375; 99284; C9113; J1885; J2405; Q9967

== ENCOUNTER → 2024-03-21 | Outpatient (REF) ==
[~2024-03-21] MED LIST changes: +ONDA-282 PO; -ONDA4TAB6 PO
== END ==
LOC: M EMP 11:15
PROVIDERS: ATTEND Family Medicine
DX: Z11.52 Encounter for screening for COVID-19 (principal)

== ENCOUNTER → 2024-04-11 | Outpatient (REF) | LOC: M EMP 12:42 | PROVIDERS: ATTEND Family Medicine | DX: R09.89 Other specified symptoms and signs involving the circulatory and respiratory systems (principal) ==

== ENCOUNTER → 2024-06-01 | Outpatient (REF) | LOC: M EMP 15:50 | PROVIDERS: ATTEND Family Medicine | DX: Z11.52 Encounter for screening for COVID-19 (principal) ==

== ENCOUNTER → 2024-07-15 | Outpatient (REF) | payer OTHER ==
[~2024-07-15] MED LIST changes: +GABA-1172; -GABA-282
[2024-07-20 13:57] LABS: HPV APTIMA Not Detected (Not Detected)
== END ==
LOC: M PLALAB 10:44
PROVIDERS: ATTEND Advanced Practice Midwife
DX: Z12.4 Encounter for screening for malignant neoplasm of cervix (principal); N92.1 Excessive and frequent menstruation with irregular cycle; Z11.51 Encounter for screening for human papillomavirus (HPV)

== ENCOUNTER → 2024-11-03 | Outpatient (REF) | payer OTHER ==
[2024-11-03 18:51] LABS: FREE T4 1.3 NG/DL (0.89-1.76); THYROID STIMULATING HORMONE 4.155 uIU/ML (0.55-4.78)
== END ==
LOC: M LAB REF 16:48
PROVIDERS: ATTEND Physician Assistant
DX: E06.3 Autoimmune thyroiditis (principal)

== ENCOUNTER 2024-12-07 08:32 | Emergency (ER) | payer OTHER ==
[~2024-12-07] VITALS: Ht 162.6 cm; Wt 128.1 kg
[~2024-12-07 08:32] MED LIST changes: -BUSP15TA47; +BUSP15TA47 PO
[2024-12-07 09:34] LABS: HEMATOCRIT 43.7 % (36.0-47.0); HEMOGLOBIN 14.3 g/dl (12.0-15.5); MEAN CORPUSCULAR HGB CONC 32.7 g/dl (32.0-36.5); MEAN CORPUSCULAR VOLUME 79.3 fl (80.0-96.0); PLATELET COUNT, AUTOMATED 323 10^3/uL (150-450); RED BLOOD COUNT 5.51 10^6/uL (4.00-5.40); WHITE BLOOD COUNT 10.4 10^3/uL (4.0-10.0)
[2024-12-07] MEDS: ONDANSETRON 4MG 2ML VIAL IV ONE (10:15)
[2024-12-07 10:31] LABS: BLOOD UREA NITROGEN 11 MG/DL (9-23); CALCIUM LEVEL 8.7 MG/DL (8.5-10.1); CARBON DIOXIDE LEVEL 24 MMOL/L (20-31); CHLORIDE LEVEL 106 MMOL/L (98-107); CREATININE FOR GFR 0.78 MG/DL (0.55-1.30); GLOMERULAR FILTRATION RATE > 60.0 (>60); GLUCOSE, FASTING 95 MG/DL (60-100); POTASSIUM SERUM 4.5 MMOL/L (3.5-5.1); SODIUM LEVEL 140 MMOL/L (136-145)
[2024-12-07] MEDS ORDERED: ONDA-83 PO (10:56)
[2024-12-07] MEDS ORDERED: ASPI81TA26 PO (10:56)
[2024-12-07] MEDS ORDERED: LEVO150T7 PO (10:56)
[2024-12-07] MEDS ORDERED: DICY1CAP8 PO (10:56)
[2024-12-07] MEDS ORDERED: MULT-40 PO (10:56)
[2024-12-07] MEDS ORDERED: HOME MED LIST COMPLETE! XX SCH (11:00)
[2024-12-07] MEDS ORDERED: SEMA1PEN4 SQ (11:02)
[2024-12-07] MEDS ORDERED: ISOVUE-370 76% 100ML VIAL As Ordered ONE (11:10)
[2024-12-07 11:24] VITALS: TEMP 98.6
[2024-12-07 13:33] LABS: HEMATOCRIT 40.9 % (36.0-47.0); HEMOGLOBIN 13.1 g/dl (12.0-15.5)
[2024-12-07 13:54] VITALS: O2SAT 94
[2024-12-07 14:00] VITALS: BP 112/71
[2024-12-07] MEDS ORDERED: LOMO2.5T PO (14:42)
== END 2024-12-07 15:05 | disposition home or self-care (01) ==
LOC: M ED 08:32
DX: K57.31 Diverticulosis of large intestine without perforation or abscess with bleeding (principal); A09 Infectious gastroenteritis and colitis, unspecified; E11.9 Type 2 diabetes mellitus without complications; I10 Essential (primary) hypertension; K76.0 Fatty (change of) liver, not elsewhere classified; Z79.899 Other long term (current) drug therapy
CPT/HCPCS: 74177; 80048; 85014; 85018; 85027; 87507; 96374; 99285; J2405; Q9967

== ENCOUNTER → 2025-01-05 | Outpatient (CLI) | payer OTHER ==
[~2025-01-05] MED LIST changes: +ASPI81TA26 PO; +DICY1CAP8 PO; +LEVO150T7 PO; +LOMO2.5T PO; +MULT-40 PO; +SEMA1PEN4 SQ; +TOPI-257 PO; -TOPI100T9 PO
== END ==
LOC: M RAD 12:47
PROVIDERS: ATTEND Physician Assistant
DX: E07.89 Other specified disorders of thyroid (principal); E04.2 Nontoxic multinodular goiter

== ENCOUNTER → 2025-01-19 | Outpatient (CLI) | payer OTHER ==
[2025-01-19 09:54] LABS: THYROID STIMULATING HORMONE 1.395 uIU/ML (0.55-4.78)
[2025-01-19 09:55] LABS: FREE T4 1.22 NG/DL (0.89-1.76)
== END ==
LOC: M LAB 08:58
PROVIDERS: ATTEND Nurse Practitioner Family
DX: E06.3 Autoimmune thyroiditis (principal)

== ENCOUNTER 2025-06-10 12:03 | Emergency (ER) | payer OTHER ==
[~2025-06-10] VITALS: Ht 162.6 cm; Wt 118.2 kg
[~2025-06-10 12:03] MED LIST changes: +CEPH500C PO
[2025-06-10 12:49] LABS: BASO # 0.1 10^3/uL (0.0-0.2); BASO % 0.7 % (0.0-1.0); EOS # 0.3 10^3/uL (0.0-0.5); EOS % 3.5 % (0.0-3.0); LYMPH # 2.7 10^3/uL (1.5-5.0); LYMPH % 29.7 % (24.0-44.0); MONO # 0.8 10^3/uL (0.0-0.8); MONO % 8.2 % (2.0-8.0); NEUTROPHILS # 5.3 10^3/uL (1.5-8.5); NEUTROPHILS % 57.7 % (36.0-66.0); PLATELET COUNT, AUTOMATED 321 10^3/uL (150-450)
[2025-06-10 13:08] LABS: CK-MB VALUE MASS < 1.0 NG/ML (<3.6)
[2025-06-10 13:10] LABS: ALT/SGPT 20 U/L (7.0-40); AST/SGOT 19 U/L (<34); CALCIUM LEVEL 9.4 MG/DL (8.5-10.1); CARBON DIOXIDE LEVEL 24 MMOL/L (20-31); CHLORIDE LEVEL 104 MMOL/L (98-107); CREATININE FOR GFR 0.82 MG/DL (0.55-1.30); GLOMERULAR FILTRATION RATE > 90.0 (>58); POTASSIUM SERUM 3.9 MMOL/L (3.5-5.1); SODIUM LEVEL 137 MMOL/L (136-145)
[2025-06-10 13:14] LABS: CPK CREATINE PHOSPHOKINASE 40 U/L (34-145)
[2025-06-10] MEDS ORDERED: ISOVUE-370 76% 100 ML VIAL As Ordered ONE (13:48)
[2025-06-10 14:21] LABS: MAGNESIUM LEVEL 1.7 MG/DL (1.8-2.4)
[2025-06-10] MEDS: MAG SULF 1GM/100ML (MAG RUN) 1 GM in IV 1 EA IV ONE (14:48)
[2025-06-10 15:28] VITALS: BP 132/85
[2025-06-10] MEDS ORDERED: VENTAER INH (15:40)
[2025-06-10 15:43] VITALS: TEMP 97; O2SAT 97
== END 2025-06-10 15:55 | disposition home or self-care (01) ==
LOC: M ED 12:03
DX: J06.9 Acute upper respiratory infection, unspecified (principal); B34.8 Other viral infections of unspecified site; B34.1 Enterovirus infection, unspecified; E06.3 Autoimmune thyroiditis; Z79.82 Long term (current) use of aspirin; Z79.899 Other long term (current) drug therapy
CPT/HCPCS: 71045; 71275; 80048; 80076; 82550; 82553; 83735; 84443; 84484; 85025; 87486; 87581; 87633; 87798; 93005; 93041; 94760; 96365; 99285; J3475; Q9967

== ENCOUNTER → 2025-07-03 | Outpatient (CLI) | payer OTHER ==
[2025-07-03 14:15] LABS: BASO # 0.1 10^3/uL (0.0-0.2); BASO % 0.8 % (0.0-1.0); EOS # 0.3 10^3/uL (0.0-0.5); EOS % 3.5 % (0.0-3.0); LYMPH # 2.5 10^3/uL (1.5-5.0); LYMPH % 29.0 % (24.0-44.0); MONO # 0.5 10^3/uL (0.0-0.8); MONO % 6.0 % (2.0-8.0); NEUTROPHILS # 5.3 10^3/uL (1.5-8.5); NEUTROPHILS % 60.5 % (36.0-66.0); PLATELET COUNT, AUTOMATED 277 10^3/uL (150-450)
[2025-07-03 14:42] LABS: ALT/SGPT 18 U/L (7.0-40); AST/SGOT 17 U/L (<34); CALCIUM LEVEL 8.6 MG/DL (8.5-10.1); CARBON DIOXIDE LEVEL 27 MMOL/L (20-31); CHLORIDE LEVEL 106 MMOL/L (98-107); CREATININE FOR GFR 0.79 MG/DL (0.55-1.30); GLOMERULAR FILTRATION RATE > 90.0 (>58); POTASSIUM SERUM 3.6 MMOL/L (3.5-5.1); SODIUM LEVEL 143 MMOL/L (136-145)
== END ==
LOC: M LAB 13:43
PROVIDERS: ATTEND Nurse Practitioner Family
DX: Z01.818 Encounter for other preprocedural examination (principal)

== ENCOUNTER → 2025-09-04 | Outpatient (REF) | payer OTHER | LOC: M LAB REF 17:19 | PROVIDERS: ATTEND Nurse Practitioner Family | DX: Z78.9 Other specified health status (principal) ==